=== PATIENT | female | born 1930 | race Caucasian/White ===

== ENCOUNTER 2016-10-14 19:41 | Inpatient (IN) | payer MEDICARE, BC ==
[~2016-10-14] VITALS: Ht 152.4 cm; Wt 42.5 kg
[2016-10-14 19:46] VITALS: Ht 152.4 cm; Wt 42.5 kg
[2016-10-14] MEDS ORDERED: SOD CHLORIDE 0.9% 250 ML IV ONE (20:16)
[2016-10-14 20:27] LABS: BASOPHILS % 0.3 % (0.0-2.0); EOSINOPHILS # 0.4 10^3/ul (0.0-0.5); EOSINOPHILS % 2.8 % (0.0-7.0); HEMATOCRIT 25.9 % (37.0-47.0); HEMOGLOBIN 7.2 g/dl (12.0-16.0); LYMPHOCYTES # 1.4 10^3/ul (0.8-2.9); LYMPHOCYTES % 10.2 % (15.0-51.0); MEAN CORPUSCULAR HEMOGLOBIN 18.2 pg (29.0-33.0); MEAN CORPUSCULAR HGB CONC 27.8 g/dl (32.0-37.0); MEAN CORPUSCULAR VOLUME 65.6 fl (82.0-101.0); MEAN PLATELET VOLUME 9.8 fl (7.4-10.4); MONOCYTE # 1.2 10^3/ul (0.3-0.9); MONOCYTES % 8.4 % (0.0-11.0); NEUTROPHIL # 10.6 10^3/ul (1.6-7.5); NEUTROPHILS % 77.6 % (39.0-77.0); PLATELET COUNT 493 10^3/UL (140-415); RED BLOOD COUNT 3.95 10^6/ul (4.20-5.40); RED CELL DISTRIBUTION WIDTH 18.3 % (11.5-14.5); WHITE BLOOD COUNT 13.7 10^3/ul (4.8-10.8)
[2016-10-14 20:49] LABS: ADD SCAN DIFF NO
[2016-10-14 20:51] LABS: INR 0.98; PARTIAL THROMBOPLASTIN TIME 30.3 Sec (25.0-35.0)
[2016-10-14 20:58] LABS: ALBUMIN 3.5 g/dl (3.3-4.9); ALBUMIN/GLOBULIN RATIO 1.29; BILIRUBIN,INDIRECT 0.1 mg/dl (0-1.1); BILIRUBIN,TOTAL 0.1 mg/dl (0.2-1.3); CREATININE 1.02 mg/dl (0.44-1.00); TOTAL PROTEIN 6.2 g/dl (6.1-8.1)
[2016-10-14 21:03] LABS: POTASSIUM 2.7 mmol/L (3.5-5.1)
[2016-10-14 21:09] LABS: TROPONIN-I 0.017 ng/ml (0.00-0.12)
[2016-10-14] MEDS: SOD CHLORIDE 0.9% 1,000 ML IV SCH (21:26)
[2016-10-14] MEDS ORDERED: NACL 0.9% 3 ML SYG IV SCH (21:30)
[2016-10-14] MEDS ORDERED: ONDANSETRON 4 MG INJ IV PRN ×2 (21:30)
[2016-10-14] MEDS ORDERED: BISACODYL (EC) 5 MG TAB PO PRN (21:30)
[2016-10-14] MEDS ORDERED: ZOLPIDEM 5 MG TAB PO PRN (21:30)
[2016-10-14] MEDS ORDERED: DOCUSATE SODIUM 100 MG CAP PO PRN (21:30)
[2016-10-14] MEDS: POTASSIUM CHLORIDE (SR) 20 MEQ TAB PO STA ×2 (21:39→21:50)
--- NOTE | 2016-10-14 21:52 | RADRPT ---
PROCEDURE: CT Abdomen and Pelvis without contrast. CLINICAL INDICATION: Abdominal distension, anemia. TECHNIQUE: A CT scan of the abdomen and pelvis was performed without intravenous contrast. Reyes l and sagittal reformatted images were generated. Images were reviewed on a high-resolution PACS wor kstation. CTDIvol: 4.30 mGy. DLP: 206.74 mGy-cm. One or more of the following dose reduction techniques were used: - Automated exposure control. - Adjustment of the mA and/or kV according to patient size. - Use of iterative reconstruction technique. COMPARISON: None. FINDINGS: There is a small to moderate pericardial effusion. Partially imaged nodular soft tissue measuring 7. 6 x 5.7 cm (AP by TR) is seen along the right side of the heart. There are soft tissue nodules in th e right pleural fluid measuring up to 1.0 x 2.6 cm a 1.2 x 0.5 cm nodule is also noted along the rig ht major fissure. There are mild atelectatic changes in both lungs. Evaluation of the abdominal and pelvic viscera is limited by the lack of oral and intravenous contra st. There are branching gaseous lucencies in both hepatic lobes, probably representing portal venous gas . The patient is status post cholecystectomy. The common bile duct is not dilated. The spleen is no t enlarged. No pancreatic lesion is identified and there is no pancreatic ductal dilatation. The adr enal glands are unremarkable. The kidneys are normal in size. There is no perinephric fat stranding. No hydronephrosis is seen. No urinary stone is identified. There is a large hiatal hernia. There is gaseous distension of the small and large bowel, without ev idence of a bowel obstruction. A nonspecific 1.9 x 2.6 cm radiodensity is seen within a small bowel loop in the central abdominopelvic region (series 3 image 111), nonspecific. There may be pneumatosi s intestinalis along a few small bowel loops in the central abdomen. The appendix is normal. The urinary bladder is unremarkable. The pelvic organs are within normal limits. No lymphadenopathy is identified. There is diffuse anasarca. No ascites is identified. No pneumoper itoneum is seen. There are minimal arterial calcifications. There is a 1.5 x 1.2 cm lytic lesion in the anterior iliac bone. There is grade 1 degenerative L4 an terolisthesis. A very mild T12 compression fracture is noted, age indeterminate. IMPRESSION: 1. Branching gaseous lucencies in both hepatic lobes, probably representing portal venous gas. The re may be a pneumatosis intestinalis along a few small bowel loops in the central abdomen, raising t he possibility of bowel ischemia. Correlation with lactate levels is recommended. 2. Gaseous distension of the small and large bowel, without evidence of bowel obstruction. This pr obably represents an adynamic ileus. 3. Nonspecific 2.6 cm radiodensity within a small bowel loop in the central abdominopelvic region, possibly a metastatic lesion. 4. Nodular soft tissue density along the right side of the heart, consistent with metastatic diseas e. There are also several metastatic soft tissue nodules in the right pleural space and a 1.5 cm ly tic lesion in the right iliac bone. 5. Large hiatal hernia. 6. Status post cholecystectomy. 7. Diffuse anasarca. 8. Very mild T12 compression fracture is noted, age indeterminate. 9. Small bilateral pleural effusion, right larger than left, and a small to moderate pericardial ef fusion. RPTAT: HTAR .Yohannes Villalobos MD, Date Time Electronically viewed and signed by .Yohannes Villalobos MD, on 10/14/2016 21:51 .R/
[2016-10-14] MEDS ORDERED: POTASSIUM CHLORIDE 20 MEQ POWDER FOR ORAL SOLN PO ONE (22:00)
--- NOTE | 2016-10-14 22:05 | ERA ---
ER Documentation Chief Complaint Date/Time DATE: 10/14/16 TIME: 22:01 Chief Complaint sent by pmd for low hemoglobin HPI Patient is an 86-year-old female with hypertension and anemia who presents with a low blood count. She said that her hemoglobin was approximately 5.7. She denies bleeding. She denies black or bloody stools. She has no fevers. She has never had a blood transfusion. She has never had a colonoscopy. Upon review of old medical records this is the patient's first visit to the emergency department. She was sent in by her primary doctor Dr. Albrecht for admission and transfusion. ROS All systems reviewed and are negative except as per history of present illness. Allergies Allergies: Coded Allergies: acetaminophen (Verified Allergy, Unknown, 10/14/16) hydrocodone (Verified Allergy, Unknown, 10/14/16) meclizine (Verified Allergy, Unknown, 10/14/16) meperidine (Verified Allergy, Unknown, 10/14/16) propoxyphene (Verified Allergy, Unknown, 10/14/16) PMhx/Soc Positive for hypertension and anemia Hx Alcohol Use: No Hx Substance Use: No Hx Tobacco Use: No Smoking Status: Never smoker FmHx Family History: diabetes Physical Exam Vitals Vital Signs Date Time Temp Pulse Resp B/P Pulse Ox O2 Delivery O2 Flow Rate FiO2 10/14/16 19:46 97.3 81 18 101/55 100 Physical Exam Const: No acute distress Head: Atraumatic Eyes: Normal Conjunctiva ENT: Normal External Ears, Nose and Mouth. Neck: Full range of motion..~ No meningismus. Resp: Clear to auscultation bilaterally Cardio: Regular rate and rhythm, no murmurs Abd: Distended abdomen without pain Skin: Pale skin Back: No midline or flank tenderness Ext: No cyanosis, or edema Neur: Awake and alert Psych: Normal Mood and Affect Result Diagram: 10/14/16201410/14/162014 Results 24 hrs Laboratory Tests Test 10/14/16 20:15 White Blood Count 13.710^3/ul Red Blood Count 3.9510^6/ul Hemoglobin 7.2g/dl Hematocrit 25.9% Mean Corpuscular Volume 65.6fl Mean Corpuscular Hemoglobin 18.2pg Mean Corpuscular Hemoglobin Concent 27.8g/dl Red Cell Distribution Width 18.3% Platelet Count 69557^3/UL Mean Platelet Volume 9.8fl Neutrophils % 77.6% Lymphocytes % 10.2% Monocytes % 8.4% Eosinophils % 2.8% Basophils % 0.3% Nucleated Red Blood Cells % 0.0/100WBC Neutrophils # 10.610^3/ul Lymphocytes # 1.410^3/ul Monocytes # 1.210^3/ul Eosinophils # 0.410^3/ul Basophils # 0.010^3/ul Nucleated Red Blood Cells # 0.010^3/ul Prothrombin Time 13.0Sec Prothrombin Time Ratio 1.0 INR International Normalized Ratio 0.98 Activated Partial Thromboplast Time 30.3Sec Sodium Level 137mmol/L Potassium Level 2.7mmol/L Chloride Level 101mmol/L Carbon Dioxide Level 26mmol/L Anion Gap 13 Blood Urea Nitrogen 32mg/dl Creatinine 1.02mg/dl Glucose Level 114mg/dl Calcium Level 8.0mg/dl Total Bilirubin 0.1mg/dl Direct Bilirubin 0.00mg/dl Indirect Bilirubin 0.1mg/dl Aspartate Amino Transf (AST/SGOT) 26IU/L Alanine Aminotransferase (ALT/SGPT) 24IU/L Alkaline Phosphatase 140IU/L Troponin I 0.017ng/ml Total Protein 6.2g/dl Albumin 3.5g/dl Globulin 2.70g/dl Albumin/Globulin Ratio 1.29 Current Medications Medications (Trade) Dose Ordered Sig/Rogelio Route PRN Reason Start Time Stop Time Status Last Admin Dose Admin Sodium Chloride (NS) 250 ml @ 0 mls/hr Q0M ONCE IV 10/14/16 20:16 10/14/16 20:18 DC Potassium Chloride (Klor-Con 20) 40 meq ONCE STAT PO 10/14/16 21:03 10/14/16 21:04 DC Ondansetron HCl 4 mg 4 mg ER BRIDGE PRN IV NAUSEA AND/OR VOMITING 10/14/16 21:30 10/14/16 21:44 DC Sodium Chloride (NS) 1,000 ml @ 75 mls/hr [id number] IV 10/14/16 21:26 IV Flush (NS 3 ml) 3 ml PER PROTOCOL IV 10/14/16 21:30 Ondansetron HCl (Zofran Inj) 4 mg Q6H PRN IV NAUSEA AND/OR VOMITING 10/14/16 21:30 Acetaminophen (Tylenol Tab) 650 mg Q6H PRN PO PAIN LEVEL 1-3 OR FEVER 10/14/16 21:30 Zolpidem Tartrate (Ambien) 5 mg QHS PRN PO INSOMNIA 10/14/16 21:30 Docusate Sodium (Colace) 100 mg Q12H PRN PO CONSTIPATION 10/14/16 21:30 Bisacodyl (Dulcolax) 5 mg DAILY PRN PO CONSTIPATION 10/14/16 21:30 Pantoprazole (Protonix Iv) 40 mg DAILY@06 IV 10/15/16 06:00 Potassium Chloride (Potassium Chloride Pwd/Soln) 40 meq ONCE ONCE PO 10/14/16 22:00 10/14/16 22:01 Procedures/MDM EKG read by me: Rate/Rhythm: Right bundle branch block a rate of 75 Intervals: Normal Impression: Right bundle branch block without ischemia PROCEDURE: CT Abdomen and Pelvis without contrast. CLINICAL INDICATION: Abdominal distension, anemia. TECHNIQUE: A CT scan of the abdomen and pelvis was performed without intravenous contrast. Coronal and sagittal reformatted images were generated. Images were reviewed on a high-resolution PACS workstation. CTDIvol: 4.30 mGy. DLP: 206.74 mGy-cm. One or more of the following dose reduction techniques were used: - Automated exposure control. - Adjustment of the mA and/or kV according to patient size. - Use of iterative reconstruction technique. COMPARISON: None. FINDINGS: There is a small to moderate pericardial effusion. Partially imaged nodular soft tissue measuring 7.6 x 5.7 cm (AP by TR) is seen along the right side of the heart. There are soft tissue nodules in the right pleural fluid measuring up to 1.0 x 2.6 cm a 1.2 x 0.5 cm nodule is also noted along the right major fissure. There are mild atelectatic changes in both lungs. Evaluation of the abdominal and pelvic viscera is limited by the lack of oral and intravenous contrast. There are branching gaseous lucencies in both hepatic lobes, probably representing portal venous gas. The patient is status post cholecystectomy. The common bile duct is not dilated. The spleen is not enlarged. No pancreatic lesion is identified and there is no pancreatic ductal dilatation. The adrenal glands are unremarkable. The kidneys are normal in size. There is no perinephric fat stranding. No hydronephrosis is seen. No urinary stone is identified. There is a large hiatal hernia. There is gaseous distension of the small and large bowel, without evidence of a bowel obstruction. A nonspecific 1.9 x 2.6 cm radiodensity is seen within a small bowel loop in the central abdominopelvic region (series 3 image 111), nonspecific. There may be pneumatosis intestinalis along a few small bowel loops in the central abdomen. The appendix is normal. The urinary bladder is unremarkable. The pelvic organs are within normal limits. No lymphadenopathy is identified. There is diffuse anasarca. No ascites is identified. No pneumoperitoneum is seen. There are minimal arterial calcifications. There is a 1.5 x 1.2 cm lytic lesion in the anterior iliac bone. There is grade 1 degenerative L4 anterolisthesis. A very mild T12 compression fracture is noted, age indeterminate. IMPRESSION: 1. Branching gaseous lucencies in both hepatic lobes, probably representing portal venous gas. There may be a pneumatosis intestinalis along a few small bowel loops in the central abdomen, raising the possibility of bowel ischemia. Correlation with lactate levels is recommended. 2. Gaseous distension of the small and large bowel, without evidence of bowel obstruction. This probably represents an adynamic ileus. 3. Nonspecific 2.6 cm radiodensity within a small bowel loop in the central abdominopelvic region, possibly a metastatic lesion. 4. Nodular soft tissue density along the right side of the heart, consistent with metastatic disease. There are also several metastatic soft tissue nodules in the right pleural space and a 1.5 cm lytic lesion in the right iliac bone. 5. Large hiatal hernia. 6. Status post cholecystectomy. 7. Diffuse anasarca. 8. Very mild T12 compression fracture is noted, age indeterminate. 9. Small bilateral pleural effusion, right larger than left, and a small to moderate pericardial effusion. RPTAT: HTAR .Yohannes Villalobos MD, MD Date Time Electronically viewed and signed by .Yohannes Villalobos MD, MD on 10/14/2016 21:51 Patient is an 86-year-old female with hypertension and anemia who presents with low blood count. She was found to have a hemoglobin of 7.2 and will require transfusion. I have ordered 2 units of packed red blood cells. The patient also was found to have distended abdomen so did a CT scan which was read by radiology showing multiple findings. There was question about ischemic bowel but clinically she does not have ischemic bowel, however I did add on a lactic acid as recommended by radiology. The patient will be admitted to the care of Dr. Allen from the panel team for further workup and treatment. She has signs of metastatic disease on CT scan and may need further workup for this as she told me she does not have any history of cancer. The patient has hypokalemia with a potassium of 2.7 and was given potassium repletion in the emergency department. Critical Care: Time: 35 minutes excluding all billable procedures. Treatments/Evaluations: Close monitoring and treatment of unstable vital signs, cardiorespiratory, and neurologic status, while maintaining tight balance of fluid, respiratory, and cardiac interventions. Departure Diagnosis: Primary Impression: Anemia Qualified Code: D64.9 - Anemia, unspecified type Additional Impression: Hypokalemia Condition: Serious VIRY HEAD MD Oct 14, 2016 22:05
[2016-10-14 22:55] LABS: IRON 19 ug/dl (35-150)
[2016-10-14 23:05] LABS: TOTAL IRON BINDING CAPACITY 329 ug/dl (241-421)
[2016-10-14 23:21] LABS: C-REACTIVE PROTEIN 2.4 mg/dl (0.0-0.9)
--- NOTE | 2016-10-14 23:22 | HP ---
Date/Time of Note Date/Time of Note DATE: 10/14/16 TIME: 23:22 Assessment/Plan VTE Prophylaxis VTE Prophylaxis Intervention: SCD's Assessment/Plan Chief Complaint/Hosp Course This is a 86-year-old female being admitted to the telemetry floor for: #1 symptomatic anemia: At the current time patient denies any overt bleeding except for occasional blood that she notices when wiping from her hemorrhoids. Her CAT scan did demonstrate multiple lesions in various locations. At the current time cancer is high on the differential as well as iron deficient anemia secondary to poor appetite. At the current time patient is being transfused 2 units of PRBCs. I will order iron studies. Will order tumor markers. Will consult hematology. Will send for fecal occult stool. Of note there was also concern for possible bowel ischemia based on the CAT scan findings. Patient's initial lactate was 1.8 and based on my examination I feel that ischemia is less likely at this time. However we will continue will continue to trend the lactate and monitor for any worsening of symptoms. There was also signs of possible pneumatosis intestinalis. We will also consult GI for further recommendations as well as possibly general surgery is indicated. #2 Difficulty swallowing: Patient does report decreased appetite and at times she has difficulty swallowing certain foods. Will consult GI. #3 hypokalemia: This could be secondary to poor p.o. intake as well as side effect of some of her blood pressure medications. Will replete. #4 leukocytosis: At the current time patient does not show any signs of infection no fever. No cough or urinary symptoms. Will continue to follow this. This could be related to possible cancer diagnosis however the etiology not fully known at this time. #5 hypertension: At the current time will hold patient's home blood pressure medications until blood transfusions are complete and blood pressures were stable. #6 DVT and GI prophylaxis: SCDs, Protonix. Further treatment strategy will be implemented as per the clinical course Problems: HPI/ROS Admit Date/Time Admit Date/Time Hx of Present Illness Patient is an 86-year-old female with hypertension and anemia who presents with a low blood count. She said that her hemoglobin was approximately 5.7. She denies bleeding. She denies black or bloody stools. She has no fevers. She has never had a blood transfusion. She has never had a colonoscopy. Upon review of old medical records this is the patient's first visit to the emergency department. She was sent in by her primary doctor Dr. Albrecht for admission and transfusion of note patient does state that for the last few months she has been feeling weaker. Her family is at the bedside with her and they also state that she has not been eating much as she has had a decreased appetite. Patient also states that at times she has difficulty digesting certain foods. Allergies: Acetaminophen, hydrocodone, meclizine, meperidine, propoxyphene, Darvan, Vicodin Medications: See SUNIL HERRING Const: As per HPI Eyes : No pain discharge or redness or change in visual acuity ENT: No pain, sore throat, congestion, congestion, dysphagia or discharge Respiratory: No shortness of breath, cough, sputum, wheezing, or pleuritic pain Cardiovascular: No chest pain, palpitation, PND, or edema GI : As per HPI Genitourinary: No dysuria, hematuria, flank pain , discharge or CVA tenderness Musculoskeletal: No joint pain, back pain, neck pain, restricted range of motion in neck or joints Skin: No rash, bruising or hives Neuro: No headache, dizziness, syncope, seizure, focal weakness Endocrine: No polyuria, polydipsia, temperature intolerance Psych: No hallucination, depression, anxiety or suicidal ideation PMH/Family/Social Past Medical History Hypertension, arthritis Past Surgical History Cholecystectomy Family History Significant Family History: cancer (Cervical cancer, lymphoma) Social History Alcohol Use: none Smoking Status: Never smoker Drug Use: none Exam/Review of Systems Vital Signs Vitals Vital Signs Date Time Temp Pulse Resp B/P Pulse Ox O2 Delivery O2 Flow Rate FiO2 10/14/16 22:01 72 20 91/46 100 Room Air 10/14/16 19:46 97.3 Exam Exam General: Patient is a pleasant, frail-appearing female HEENT: Atraumatic, normocephalic. The pupils are equal, round and reactive. Extraocular motor are intact Neck: Supple with full range of motion. No rigidity or meningismus Chest: Nontender Lungs: Clear to auscultation bilaterally no crackles rales or wheezing Heart: Normal S1-S2, Regular rhythm and rate. Abdomen: Soft , nontender, nondistended , bowel sounds are present. No guarding no rebound tenderness , No masses or organomegaly. No costovertebral temporal angle mass Extremities: Mild nonpitting edema noted on the right foot, right foot greater than left. Neurologic: Normal mental status, speech normal, cranial nerves II through XII are intact, motor and sensory are intact, no focal weakness Additional Comments PROCEDURE: CT Abdomen and Pelvis without contrast. CLINICAL INDICATION: Abdominal distension, anemia. TECHNIQUE: A CT scan of the abdomen and pelvis was performed without intravenous contrast. Coronal and sagittal reformatted images were generated. Images were reviewed on a high-resolution PACS workstation. CTDIvol: 4.30 mGy. DLP: 206.74 mGy-cm. One or more of the following dose reduction techniques were used: - Automated exposure control. - Adjustment of the mA and/or kV according to patient size. - Use of iterative reconstruction technique. COMPARISON: None. FINDINGS: There is a small to moderate pericardial effusion. Partially imaged nodular soft tissue measuring 7.6 x 5.7 cm (AP by TR) is seen along the right side of the heart. There are soft tissue nodules in the right pleural fluid measuring up to 1.0 x 2.6 cm a 1.2 x 0.5 cm nodule is also noted along the right major fissure. There are mild atelectatic changes in both lungs. Evaluation of the abdominal and pelvic viscera is limited by the lack of oral and intravenous contrast. There are branching gaseous lucencies in both hepatic lobes, probably representing portal venous gas. The patient is status post cholecystectomy. The common bile duct is not dilated. The spleen is not enlarged. No pancreatic lesion is identified and there is no pancreatic ductal dilatation. The adrenal glands are unremarkable. The kidneys are normal in size. There is no perinephric fat stranding. No hydronephrosis is seen. No urinary stone is identified. There is a large hiatal hernia. There is gaseous distension of the small and large bowel, without evidence of a bowel obstruction. A nonspecific 1.9 x 2.6 cm radiodensity is seen within a small bowel loop in the central abdominopelvic region (series 3 image 111), nonspecific. There may be pneumatosis intestinalis along a few small bowel loops in the central abdomen. The appendix is normal. The urinary bladder is unremarkable. The pelvic organs are within normal limits. No lymphadenopathy is identified. There is diffuse anasarca. No ascites is identified. No pneumoperitoneum is seen. There are minimal arterial calcifications. There is a 1.5 x 1.2 cm lytic lesion in the anterior iliac bone. There is grade 1 degenerative L4 anterolisthesis. A very mild T12 compression fracture is noted, age indeterminate. IMPRESSION: 1. Branching gaseous lucencies in both hepatic lobes, probably representing portal venous gas. There may be a pneumatosis intestinalis along a few small bowel loops in the central abdomen, raising the possibility of bowel ischemia. Correlation with lactate levels is recommended. 2. Gaseous distension of the small and large bowel, without evidence of bowel obstruction. This probably represents an adynamic ileus. 3. Nonspecific 2.6 cm radiodensity within a small bowel loop in the central abdominopelvic region, possibly a metastatic lesion. 4. Nodular soft tissue density along the right side of the heart, consistent with metastatic disease. There are also several metastatic soft tissue nodules in the right pleural space and a 1.5 cm lytic lesion in the right iliac bone. 5. Large hiatal hernia. 6. Status post cholecystectomy. 7. Diffuse anasarca. 8. Very mild T12 compression fracture is noted, age indeterminate. 9. Small bilateral pleural effusion, right larger than left, and a small to moderate pericardial effusion. RPTAT: HTAR .Yohannes Villalobos MD, MD Date Time Electronically viewed and signed by .Yohannes Villalobos MD, MD on 10/14/2016 21:51 Labs Result Diagram: 10/14/16201410/14/162014 Medications Medications Current Medications Sodium Chloride (NS) 1,000 ml @ 75 mls/hr [id number] IV ; Start 10/14/16 at 21:26 Ondansetron HCl (Zofran Inj) 4 mg Q6H PRN IV NAUSEA AND/OR VOMITING; Start 10/14 at 21:30 Acetaminophen (Tylenol Tab) 650 mg Q6H PRN PO PAIN LEVEL 1-3 OR FEVER; Start at 21:30 Zolpidem Tartrate (Ambien) 5 mg QHS PRN PO INSOMNIA; Start 10/14/16 at 21:30 Docusate Sodium (Colace) 100 mg Q12H PRN PO CONSTIPATION; Start 10/14/16 at 21: 30 Bisacodyl (Dulcolax) 5 mg DAILY PRN PO CONSTIPATION; Start 10/14/16 at 21:30 Pantoprazole (Protonix Iv) 40 mg DAILY@06 IV ; Start 10/15/16 at 06:00 VIKI TORRES Oct 14, 2016 23:22
[2016-10-14 23:34] VITALS: TEMP 98.6
[2016-10-14 23:57] LABS: ADD UMIC YES; UR ASCORBIC ACID NEGATIVE (NEGATIVE); UR BILIRUBIN (Dip) NEGATIVE (NEGATIVE); UR BLOOD (Dip) NEGATIVE (NEGATIVE); UR CLARITY SLIGHTLY CLOUDY (CLEAR); UR COLOR AMBER (YELLOW); UR GLUCOSE (Dip) NEGATIVE (NEGATIVE); UR KETONES (Dip) TRACE mg/dL (NEGATIVE); UR LEUKOCYTE ESTERASE (Dip) 1+ Leu/ul (NEGATIVE); UR MUCUS FEW /HPF (NONE SEEN); UR NITRITE (Dip) NEGATIVE (NEGATIVE); UR RBC 1 /HPF (0-5); UR SPECIFIC GRAVITY (Dip) 1.019 (1.003-1.030); UR SQUAMOUS EPITHELIAL CELL FEW /HPF (FEW); UR TOTAL PROTEIN (Dip) NEGATIVE (NEGATIVE); UR UROBILINOGEN (Dip) NEGATIVE (NEGATIVE)
[2016-10-15] VITALS (11 sets, daily range): BP systolic 104–123; BP diastolic 56–73; PULSE 68–78; RESP 16–18
[2016-10-15 00:14] LABS: FERRITIN 56.1 ng/ml (11.1-264.0)
[2016-10-15 00:21] LABS: CARCINOEMBRYONIC ANTIGEN 1.7 ng/ml (0.0-5.0)
[2016-10-15 00:25] LABS: CANCER ANTIGEN 19-9 25.6 U/ml (0.0-37.0)
[2016-10-15] MEDS ORDERED: LOSA1TAB20 PO (01:00)
[2016-10-15] MEDS ORDERED: ATEN50TA PO (01:00)
[2016-10-15] MEDS ORDERED: BIOT1CAP3 PO (01:00)
[2016-10-15] MEDS ORDERED: LISI20TA11 PO (01:00)
[2016-10-15] MEDS ORDERED: ASPI-664 PO (01:00)
[2016-10-15] MEDS ORDERED: POTASSIUM CHLORIDE IV ONE (02:30)
[2016-10-15] MEDS ORDERED: SOD CHLORIDE 0.9% IV ONE (02:30)
[2016-10-15] MEDS ORDERED: SOD CHLORIDE 0.9% IV SCH (03:00)
[2016-10-15] MEDS ORDERED: POTASSIUM CHLORIDE IV SCH (03:00)
[2016-10-15] MEDS ORDERED: PANTOPRAZOLE 40 MG INJ IV SCH ×2 (06:00→17:35)
[2016-10-15 08:04] LABS: ABNORMAL IP MESSAGE 1; BASOPHILS % 0.5 % (0.0-2.0); EOSINOPHILS # 0.5 10^3/ul (0.0-0.5); EOSINOPHILS % 6.1 % (0.0-7.0); HEMATOCRIT 30.4 % (37.0-47.0); HEMOGLOBIN 9.4 g/dl (12.0-16.0); LYMPHOCYTES # 0.9 10^3/ul (0.8-2.9); LYMPHOCYTES % 11.7 % (15.0-51.0); MEAN CORPUSCULAR HEMOGLOBIN 22.6 pg (29.0-33.0); MEAN CORPUSCULAR HGB CONC 30.9 g/dl (32.0-37.0); MEAN CORPUSCULAR VOLUME 73.1 fl (82.0-101.0); MONOCYTE # 0.8 10^3/ul (0.3-0.9); MONOCYTES % 10.1 % (0.0-11.0); NEUTROPHIL # 5.5 10^3/ul (1.6-7.5); NEUTROPHILS % 71.3 % (39.0-77.0); PLATELET COUNT 311 10^3/UL (140-415); RED BLOOD COUNT 4.16 10^6/ul (4.20-5.40); RED CELL DISTRIBUTION WIDTH 24.1 % (11.5-14.5); WHITE BLOOD COUNT 7.8 10^3/ul (4.8-10.8)
[2016-10-15 08:09] LABS: ADD SCAN DIFF NO
--- NOTE | 2016-10-15 08:36 | CONS ---
Date/Time of Note Date/Time of Note DATE: 10/15/16 TIME: 08:27 Assessment/Plan Assessment/Plan Chief Complaint/Hosp Course Impression: #1 symptomatic iron deficiency anemia: At the current time patient denies any overt bleeding except for occasional blood that she notices when wiping from her hemorrhoids. Her CAT scan did demonstrate multiple lesions in various locations. At the current time cancer is high on the differential #2 Dysphagia: Patient does report decreased appetite and at times she has difficulty swallowing certain foods. She declines EGD at this time. 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 This is a contraindication to endoscopic procedure as high risk of perforation. #4 leukocytosis: At the current time patient does not show any signs of infection no fever. No cough or urinary symptoms. Recommendation: 1. 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 heme/onc eval on best w/u for her multiple lesions. 3. protonix 40 mg iv bid 4. f/u occult blood in stool Problems: Consultation Date/Type/Reason Admit Date/Time Date of Consultation: Oct 15, 2016 Type of Consultation: GI Reason for Consultation dysphagia, anemia Hx of Present Illness 86-year-old female who is admitted for symptomatic anemia and dysphagia. She has h/ohypertension, arthritis, and anemia who presents with a low blood count. She said that her hemoglobin was approximately 5.7. No black or bloody stools. She has no fevers. She has never had a blood transfusion. She has never had a colonoscopy or EGD. Patient does state that for the last few months she has been feeling weaker. She has not been eating much as she has had a decreased appetite. Patient also states that at times she has difficulty digesting certain foods. Due to the dysphagia symptoms, she has been eating soft food. All point ROS administered, pertinent positives and negatives in HPI otherwise negative. Past Medical History chronic anemia, arthritis Medical History: GERD, hypertension Past Surgical History Past Surgical Hx: cholecystectomy Family History Significant Family History: cancer (cervical, lymphoma) Social History Alcohol Use: none Smoking Status: Never smoker Drug Use: none Exam/Review of Systems Vital Signs Vitals Vital Signs Date Time Temp Pulse Resp B/P Pulse Ox O2 Delivery O2 Flow Rate FiO2 10/15/16 07:50 98.0 70 18 104/57 98 10/15/16 04:12 Room Air Intake and Output 10/14/16 10/14/16 10/15/16 15:00 23:00 07:00 Intake Total 350 ml Balance 350 ml Exam Constitutional: alert, oriented, well developed Psych: nl mood/affect, no complaints Head: atraumatic, normocephalic Eyes: EOMI, nl conjunctiva, nl lids, nl sclera ENMT: mucosa pink and moist, nl external ears & nose, nl lips & teeth, nl nasal mucosa & septum Neck: non-tender, supple Respiratory: clear to auscultation, normal air movement Cardiovascular: nl pulses, regular rate and rhythm Gastrointestinal: bowel sounds, non-tender, soft Musculoskeletal: nl extremities to inspection, nl gait and stance Neurological: nl mental status, nl speech, nl strength Results Result Diagram: 10/15/16 0720 10/14/162014 Results 24 hrs Laboratory Tests Test 10/14/16 20:15 10/14/16 20:20 10/14/16 22:00 10/15/16 03:30 White Blood Count 13.7 H Red Blood Count 3.95 L Hemoglobin 7.2 L Hematocrit 25.9 L Mean Corpuscular Volume 65.6 L Mean Corpuscular Hemoglobin 18.2 L Mean Corpuscular Hemoglobin Concent 27.8 L Red Cell Distribution Width 18.3 H Platelet Count 493 H Mean Platelet Volume 9.8 Neutrophils % 77.6 H Lymphocytes % 10.2 L Monocytes % 8.4 Eosinophils % 2.8 Basophils % 0.3 Nucleated Red Blood Cells % 0.0 Neutrophils # 10.6 H Lymphocytes # 1.4 Monocytes # 1.2 H Eosinophils # 0.4 Basophils # 0.0 Nucleated Red Blood Cells # 0.0 Prothrombin Time 13.0 Prothrombin Time Ratio 1.0 INR International Normalized Ratio 0.98 Activated Partial Thromboplast Time 30.3 Sodium Level 137 Potassium Level 2.7 *L Chloride Level 101 Carbon Dioxide Level 26 Anion Gap 13 Blood Urea Nitrogen 32 H Creatinine 1.02 H Glucose Level 114 Calcium Level 8.0 L Total Bilirubin 0.1 L Direct Bilirubin 0.00 Indirect Bilirubin 0.1 Aspartate Amino Transf (AST/SGOT) 26 Alanine Aminotransferase (ALT/SGPT) 24 Alkaline Phosphatase 140 H Troponin I 0.017 Total Protein 6.2 Albumin 3.5 Globulin 2.70 Albumin/Globulin Ratio 1.29 Urine Color ROGERS Urine Clarity SLIGHTLY CLOUDY A Urine pH 5.0 Urine Specific [place] 1.019 Urine Ketones TRACE A Urine Nitrite NEGATIVE Urine Bilirubin NEGATIVE Urine Urobilinogen NEGATIVE Urine Leukocyte Esterase 1+ H Urine Microscopic RBC 1 Urine Microscopic WBC 12 H Urine Squamous Epithelial Cells FEW Urine Mucus FEW A Urine Hemoglobin NEGATIVE Urine Glucose NEGATIVE Urine Total Protein NEGATIVE Erythrocyte Sedimentation Rate 11 Lactic Acid Level 1.8 1.5 Iron Level 19 L Total Iron Binding Capacity 329 Percent Iron Saturation 6 L Ferritin 56.1 C-Reactive Protein 2.4 H Carcinoembryonic Antigen 1.7 CA 19-9 Antigen 25.6 CA 125 Antigen 40.0 H Test 10/15/16 07:20 White Blood Count 7.8 # Red Blood Count 4.16 L Hemoglobin 9.4 #L Hematocrit 30.4 L Mean Corpuscular Volume 73.1 L Mean Corpuscular Hemoglobin 22.6 #L Mean Corpuscular Hemoglobin Concent 30.9 L Red Cell Distribution Width 24.1 #H Platelet Count 311 # Mean Platelet Volume 10.0 Neutrophils % 71.3 Lymphocytes % 11.7 L Monocytes % 10.1 Eosinophils % 6.1 Basophils % 0.5 Nucleated Red Blood Cells % 0.0 Neutrophils # 5.5 Lymphocytes # 0.9 Monocytes # 0.8 Eosinophils # 0.5 Basophils # 0.0 Nucleated Red Blood Cells # 0.0 Medications Medications Current Medications Sodium Chloride (NS) 1,000 ml @ 75 mls/hr [id number] IV ; Start 10/14/16 at 21:26 Ondansetron HCl (Zofran Inj) 4 mg Q6H PRN IV NAUSEA AND/OR VOMITING; Start 10/14 at 21:30 Acetaminophen (Tylenol Tab) 650 mg Q6H PRN PO PAIN LEVEL 1-3 OR FEVER; Start at 21:30 Zolpidem Tartrate (Ambien) 5 mg QHS PRN PO INSOMNIA; Start 10/14/16 at 21:30 Docusate Sodium (Colace) 100 mg Q12H PRN PO CONSTIPATION; Start 10/14/16 at 21: 30 Bisacodyl (Dulcolax) 5 mg DAILY PRN PO CONSTIPATION; Start 10/14/16 at 21:30 Pantoprazole (Protonix Iv) 40 mg DAILY@06 IV Last administered on 10/15/16t 05: 27; Admin Dose 40 MG; Start 10/15/16 at 06:00 RILEY MANSFIELD MD Oct 15, 2016 08:36 RILEY MANSFIELD MD Oct 15, 2016 08:36
[2016-10-15] MEDS: SOD CHLORIDE 0.9% 1,000 ML IV SCH ×2 (08:51→10:19)
--- NOTE | 2016-10-15 10:26 | CONS ---
Date/Time of Note Date/Time of Note DATE: 10/15/16 TIME: 10:26 Assessment/Plan Assessment/Plan Chief Complaint/Hosp Course Nodular soft tissue density along the right side of the heart, consistent with metastatic disease. several metastatic soft tissue nodules in the right pleural space and a 1.5 cm lytic lesion in the right iliac bone. Nonspecific 2.6 cm radiodensity within a small bowel loop in the central abdominopelvic region, possibly a metastatic lesion. COMPLETE STAGING WITH CT ABD TUMOR MARKERS BIOCHEMICAL W-UP BX OF ACCESSIBLE LESION symptomatic anemia: PRBC PROCEED WITH W -UP MONITOR COUNT CLOSELY OBSERVE FOR BLEEDING GI EVAL leukocytosis NO any signs of infection no fever. continue to follow this. Difficulty swallowing: WITH decreased appetite and at times she has difficulty swallowing certain foods. GI. hypokalemia: Will replete. hypertension: DVT and GI prophylaxis: SCDs, Protonix. Problems: Consultation Date/Type/Reason Admit Date/Time Date of Consultation: Oct 15, 2016 Type of Consultation: HEMEONC Reason for Consultation ABNORMAL CT BONY METS Referring Provider: VIKI TORRES Hx of Present Illness 86-year-old female who is admitted for symptomatic anemia and dysphagia. She has h/o hypertension, arthritis, and anemia who presents with a low blood count. She said that her hemoglobin was approximately 5.7. No black or bloody stools. She has no fevers. She has never had a blood transfusion. She has never had a colonoscopy or EGD. Patient does state that for the last few months she has been feeling weaker. She has not been eating much as she has had a decreased appetite. Patient also states that at times she has difficulty digesting certain foods. Due to the dysphagia symptoms, she has been eating soft food. All point ROS administered, pertinent positives and negatives in HPI otherwise negative. SHE WAS NOTED TO HAVE ABN CT WITH BONY METS AND I WAS ASKED TO PROVIDE HEMEONC CONSULT ROS- Const: As per HPI Eyes : No pain discharge or redness or change in visual acuity ENT: No pain, sore throat, congestion, congestion, dysphagia or discharge Respiratory: No shortness of breath, cough, sputum, wheezing, or pleuritic pain Cardiovascular: No chest pain, palpitation, PND, or edema GI : As per HPI Genitourinary: No dysuria, hematuria, flank pain , discharge or CVA tenderness Musculoskeletal: No joint pain, back pain, neck pain, restricted range of motion in neck or joints Skin: No rash, bruising or hives Neuro: No headache, dizziness, syncope, seizure, focal weakness Endocrine: No polyuria, polydipsia, temperature intolerance Psych: No hallucination, depression, anxiety or suicidal ideation PMH/Family/Social Past Medical History Hypertension, arthritis Past Surgical History Cholecystectomy Family History Significant Family History: cancer (Cervical cancer, lymphoma) Social History Alcohol Use: none Smoking Status: Never smoker Drug Use: none Psychological: nl mood/affect, no complaints Past Medical History Medical History: GERD, hypertension Past Surgical History Past Surgical Hx: cholecystectomy Social History Alcohol Use: none Smoking Status: Never smoker Drug Use: none Exam/Review of Systems Vital Signs Vitals Vital Signs Date Time Temp Pulse Resp B/P Pulse Ox O2 Delivery O2 Flow Rate FiO2 10/15/16 08:00 69 10/15/16 07:50 98.0 18 104/57 98 10/15/16 04:12 Room Air Intake and Output 10/14/16 10/14/16 10/15/16 15:00 23:00 07:00 Intake Total 350 ml Balance 350 ml Exam General: Patient is a pleasant, frail-appearing female HEENT: Atraumatic, normocephalic. The pupils are equal, round and reactive. Extraocular motor are intact Neck: Supple with full range of motion. No rigidity or meningismus Chest: Nontender Lungs: Clear to auscultation bilaterally no crackles rales or wheezing Heart: Normal S1-S2, Regular rhythm and rate. Abdomen: Soft , nontender, nondistended , bowel sounds are present. No guarding no rebound tenderness , No masses or organomegaly. No costovertebral temporal angle mass Extremities: Mild nonpitting edema noted on the right foot, right foot greater than left. Neurologic: Normal mental status, speech normal, cranial nerves II through XII are intact, motor and sensory are intact, no focal weakness Results Result Diagram: 10/15/1671910/14/162014 Results 24 hrs Laboratory Tests Test 10/14/16 20:15 10/14/16 20:20 10/14/16 22:00 10/15/16 03:30 White Blood Count 13.7 H Red Blood Count 3.95 L Hemoglobin 7.2 L Hematocrit 25.9 L Mean Corpuscular Volume 65.6 L Mean Corpuscular Hemoglobin 18.2 L Mean Corpuscular Hemoglobin Concent 27.8 L Red Cell Distribution Width 18.3 H Platelet Count 493 H Mean Platelet Volume 9.8 Neutrophils % 77.6 H Lymphocytes % 10.2 L Monocytes % 8.4 Eosinophils % 2.8 Basophils % 0.3 Nucleated Red Blood Cells % 0.0 Neutrophils # 10.6 H Lymphocytes # 1.4 Monocytes # 1.2 H Eosinophils # 0.4 Basophils # 0.0 Nucleated Red Blood Cells # 0.0 Prothrombin Time 13.0 Prothrombin Time Ratio 1.0 INR International Normalized Ratio 0.98 Activated Partial Thromboplast Time 30.3 Sodium Level 137 Potassium Level 2.7 *L Chloride Level 101 Carbon Dioxide Level 26 Anion Gap 13 Blood Urea Nitrogen 32 H Creatinine 1.02 H Glucose Level 114 Calcium Level 8.0 L Total Bilirubin 0.1 L Direct Bilirubin 0.00 Indirect Bilirubin 0.1 Aspartate Amino Transf (AST/SGOT) 26 Alanine Aminotransferase (ALT/SGPT) 24 Alkaline Phosphatase 140 H Troponin I 0.017 Total Protein 6.2 Albumin 3.5 Globulin 2.70 Albumin/Globulin Ratio 1.29 Urine Color ROGERS Urine Clarity SLIGHTLY CLOUDY A Urine pH 5.0 Urine Specific [place] 1.019 Urine Ketones TRACE A Urine Nitrite NEGATIVE Urine Bilirubin NEGATIVE Urine Urobilinogen NEGATIVE Urine Leukocyte Esterase 1+ H Urine Microscopic RBC 1 Urine Microscopic WBC 12 H Urine Squamous Epithelial Cells FEW Urine Mucus FEW A Urine Hemoglobin NEGATIVE Urine Glucose NEGATIVE Urine Total Protein NEGATIVE Erythrocyte Sedimentation Rate 11 Lactic Acid Level 1.8 1.5 Iron Level 19 L Total Iron Binding Capacity 329 Percent Iron Saturation 6 L Ferritin 56.1 C-Reactive Protein 2.4 H Carcinoembryonic Antigen 1.7 CA 19-9 Antigen 25.6 CA 125 Antigen 40.0 H Test 10/15/16 07:20 White Blood Count 7.8 # Red Blood Count 4.16 L Hemoglobin 9.4 #L Hematocrit 30.4 L Mean Corpuscular Volume 73.1 L Mean Corpuscular Hemoglobin 22.6 #L Mean Corpuscular Hemoglobin Concent 30.9 L Red Cell Distribution Width 24.1 #H Platelet Count 311 # Mean Platelet Volume 10.0 Neutrophils % 71.3 Lymphocytes % 11.7 L Monocytes % 10.1 Eosinophils % 6.1 Basophils % 0.5 Nucleated Red Blood Cells % 0.0 Neutrophils # 5.5 Lymphocytes # 0.9 Monocytes # 0.8 Eosinophils # 0.5 Basophils # 0.0 Nucleated Red Blood Cells # 0.0 Medications Medications Current Medications Sodium Chloride (NS) 1,000 ml @ 75 mls/hr [id number] IV Last administered on t 10:19; Admin Dose 75 MLS/HR; Start 10/14/16 at 21:26 Ondansetron HCl (Zofran Inj) 4 mg Q6H PRN IV NAUSEA AND/OR VOMITING; Start 10/14 at 21:30 Acetaminophen (Tylenol Tab) 650 mg Q6H PRN PO PAIN LEVEL 1-3 OR FEVER; Start at 21:30 Zolpidem Tartrate (Ambien) 5 mg QHS PRN PO INSOMNIA; Start 10/14/16 at 21:30 Docusate Sodium (Colace) 100 mg Q12H PRN PO CONSTIPATION; Start 10/14/16 at 21: 30 Bisacodyl (Dulcolax) 5 mg DAILY PRN PO CONSTIPATION; Start 10/14/16 at 21:30 Procedures Procedures PROCEDURE: CT Abdomen and Pelvis without contrast. CLINICAL INDICATION: Abdominal distension, anemia. TECHNIQUE: A CT scan of the abdomen and pelvis was performed without intravenous contrast. Coronal and sagittal reformatted images were generated. Images were reviewed on a high-resolution PACS workstation. CTDIvol: 4.30 mGy. DLP: 206.74 mGy-cm. One or more of the following dose reduction techniques were used: - Automated exposure control. - Adjustment of the mA and/or kV according to patient size. - Use of iterative reconstruction technique. COMPARISON: None. FINDINGS: There is a small to moderate pericardial effusion. Partially imaged nodular soft tissue measuring 7.6 x 5.7 cm (AP by TR) is seen along the right side of the heart. There are soft tissue nodules in the right pleural fluid measuring up to 1.0 x 2.6 cm a 1.2 x 0.5 cm nodule is also noted along the right major fissure. There are mild atelectatic changes in both lungs. Evaluation of the abdominal and pelvic viscera is limited by the lack of oral and intravenous contrast. There are branching gaseous lucencies in both hepatic lobes, probably representing portal venous gas. The patient is status post cholecystectomy. The common bile duct is not dilated. The spleen is not enlarged. No pancreatic lesion is identified and there is no pancreatic ductal dilatation. The adrenal glands are unremarkable. The kidneys are normal in size. There is no perinephric fat stranding. No hydronephrosis is seen. No urinary stone is identified. There is a large hiatal hernia. There is gaseous distension of the small and large bowel, without evidence of a bowel obstruction. A nonspecific 1.9 x 2.6 cm radiodensity is seen within a small bowel loop in the central abdominopelvic region (series 3 image 111), nonspecific. There may be pneumatosis intestinalis along a few small bowel loops in the central abdomen. The appendix is normal. The urinary bladder is unremarkable. The pelvic organs are within normal limits. No lymphadenopathy is identified. There is diffuse anasarca. No ascites is identified. No pneumoperitoneum is seen. There are minimal arterial calcifications. There is a 1.5 x 1.2 cm lytic lesion in the anterior iliac bone. There is grade 1 degenerative L4 anterolisthesis. A very mild T12 compression fracture is noted, age indeterminate. IMPRESSION: 1. Branching gaseous lucencies in both hepatic lobes, probably representing portal venous gas. There may be a pneumatosis intestinalis along a few small bowel loops in the central abdomen, raising the possibility of bowel ischemia. Correlation with lactate levels is recommended. 2. Gaseous distension of the small and large bowel, without evidence of bowel obstruction. This probably represents an adynamic ileus. 3. Nonspecific 2.6 cm radiodensity within a small bowel loop in the central abdominopelvic region, possibly a metastatic lesion. 4. Nodular soft tissue density along the right side of the heart, consistent with metastatic disease. There are also several metastatic soft tissue nodules in the right pleural space and a 1.5 cm lytic lesion in the right iliac bone. 5. Large hiatal hernia. 6. Status post cholecystectomy. 7. Diffuse anasarca. 8. Very mild T12 compression fracture is noted, age indeterminate. 9. Small bilateral pleural effusion, right larger than left, and a small to moderate pericardial effusion. LOUISE SANTOS MD Oct 15, 2016 10:26
[2016-10-15 10:50] LABS: ALBUMIN 2.8 g/dl (3.3-4.9); ALBUMIN/GLOBULIN RATIO 1.12; BILIRUBIN,INDIRECT 0.7 mg/dl (0-1.1); BILIRUBIN,TOTAL 0.7 mg/dl (0.2-1.3); CALCIUM 7.4 mg/dl (8.4-10.2); CREATININE 0.86 mg/dl (0.44-1.00); MAGNESIUM 1.7 mg/dl (1.7-2.5); POTASSIUM 3.6 mmol/L (3.5-5.1); TOTAL PROTEIN 5.3 g/dl (6.1-8.1)
--- NOTE | 2016-10-15 14:19 | PN ---
Date/Time of Note Date/Time of Note DATE: 10/15/16 TIME: 14:16 Assessment/Plan VTE Prophylaxis VTE Prophylaxis Intervention: SCD's Lines/Catheters IV Catheter Type (from Nrs): Peripheral IV Assessment/Plan Assessment/Plan 86 yo F presented with abd pain, found to be anemic to 7. Imaging notable for multiple soft tissue lesions in pleural space concerning for metastatic ca though primary unknown at this time .Also small pericardial effusion. PLAN GI eval for anemia, hgb improved with transfusion onc eval for lesions concerning for possible metastatic malignancy, primary unclear no evidence of cardiac tampanode at this time though will cont tele and close cardiac monitoring next steps pending onc eval PCP=Dr Mike Landry, . Per pt's request I will contact him tomorrow Subjective 24 Hr Interval Summary Free Text/Dictation Pt feels ok this AM. Regarding routine cancer screenings states she had a mammogram within the past 2 years which was normal has never had a cscope lives in the community with her daughter and granddaughter Exam/Review of Systems Vital Signs Vitals Vital Signs Date Time Temp Pulse Resp B/P Pulse Ox O2 Delivery O2 Flow Rate FiO2 10/15/16 12:21 98.0 76 18 123/58 97 10/15/16 04:12 Room Air Intake and Output 10/14/16 10/14/16 10/15/16 15:00 23:00 07:00 Intake Total 350 ml Balance 350 ml Exam nad, pleasant, sitting up in bed, wearing lipstick no mrg lungs clear abd soft no rashes CT results reviewed Results Result Diagram: 10/15/16 0720 10/15/16 1025 Results 24 hrs Laboratory Tests Test 10/14/16 20:15 10/14/16 20:20 10/14/16 22:00 10/15/16 03:30 White Blood Count 13.7 H Red Blood Count 3.95 L Hemoglobin 7.2 L Hematocrit 25.9 L Mean Corpuscular Volume 65.6 L Mean Corpuscular Hemoglobin 18.2 L Mean Corpuscular Hemoglobin Concent 27.8 L Red Cell Distribution Width 18.3 H Platelet Count 493 H Mean Platelet Volume 9.8 Neutrophils % 77.6 H Lymphocytes % 10.2 L Monocytes % 8.4 Eosinophils % 2.8 Basophils % 0.3 Nucleated Red Blood Cells % 0.0 Neutrophils # 10.6 H Lymphocytes # 1.4 Monocytes # 1.2 H Eosinophils # 0.4 Basophils # 0.0 Nucleated Red Blood Cells # 0.0 Prothrombin Time 13.0 Prothrombin Time Ratio 1.0 INR International Normalized Ratio 0.98 Activated Partial Thromboplast Time 30.3 Sodium Level 137 Potassium Level 2.7 *L Chloride Level 101 Carbon Dioxide Level 26 Anion Gap 13 Blood Urea Nitrogen 32 H Creatinine 1.02 H Glucose Level 114 Calcium Level 8.0 L Total Bilirubin 0.1 L Direct Bilirubin 0.00 Indirect Bilirubin 0.1 Aspartate Amino Transf (AST/SGOT) 26 Alanine Aminotransferase (ALT/SGPT) 24 Alkaline Phosphatase 140 H Troponin I 0.017 Total Protein 6.2 Albumin 3.5 Globulin 2.70 Albumin/Globulin Ratio 1.29 Urine Color ROGERS Urine Clarity SLIGHTLY CLOUDY A Urine pH 5.0 Urine Specific [place] 1.019 Urine Ketones TRACE A Urine Nitrite NEGATIVE Urine Bilirubin NEGATIVE Urine Urobilinogen NEGATIVE Urine Leukocyte Esterase 1+ H Urine Microscopic RBC 1 Urine Microscopic WBC 12 H Urine Squamous Epithelial Cells FEW Urine Mucus FEW A Urine Hemoglobin NEGATIVE Urine Glucose NEGATIVE Urine Total Protein NEGATIVE Erythrocyte Sedimentation Rate 11 Lactic Acid Level 1.8 1.5 Iron Level 19 L Total Iron Binding Capacity 329 Percent Iron Saturation 6 L Ferritin 56.1 C-Reactive Protein 2.4 H Carcinoembryonic Antigen 1.7 CA 19-9 Antigen 25.6 CA 125 Antigen 40.0 H Test 10/15/16 07:20 10/15/16 10:25 White Blood Count 7.8 # Red Blood Count 4.16 L Hemoglobin 9.4 #L Hematocrit 30.4 L Mean Corpuscular Volume 73.1 L Mean Corpuscular Hemoglobin 22.6 #L Mean Corpuscular Hemoglobin Concent 30.9 L Red Cell Distribution Width 24.1 #H Platelet Count 311 # Mean Platelet Volume 10.0 Neutrophils % 71.3 Lymphocytes % 11.7 L Monocytes % 10.1 Eosinophils % 6.1 Basophils % 0.5 Nucleated Red Blood Cells % 0.0 Neutrophils # 5.5 Lymphocytes # 0.9 Monocytes # 0.8 Eosinophils # 0.5 Basophils # 0.0 Nucleated Red Blood Cells # 0.0 Sodium Level 137 Potassium Level 3.6 Chloride Level 104 Carbon Dioxide Level 27 Anion Gap 10 Blood Urea Nitrogen 30 H Creatinine 0.86 Glucose Level 88 Calcium Level 7.4 L Magnesium Level 1.7 Total Bilirubin 0.7 Direct Bilirubin 0.00 Indirect Bilirubin 0.7 Aspartate Amino Transf (AST/SGOT) 19 Alanine Aminotransferase (ALT/SGPT) 33 Alkaline Phosphatase 116 Total Protein 5.3 L Albumin 2.8 L Globulin 2.50 Albumin/Globulin Ratio 1.12 Medications Medications Current Medications Sodium Chloride (NS) 1,000 ml @ 75 mls/hr [id number] IV Last administered on t 10:19; Admin Dose 75 MLS/HR; Start 10/14/16 at 21:26 Ondansetron HCl (Zofran Inj) 4 mg Q6H PRN IV NAUSEA AND/OR VOMITING; Start 10/14 at 21:30 Acetaminophen (Tylenol Tab) 650 mg Q6H PRN PO PAIN LEVEL 1-3 OR FEVER; Start at 21:30 Zolpidem Tartrate (Ambien) 5 mg QHS PRN PO INSOMNIA; Start 10/14/16 at 21:30 Docusate Sodium (Colace) 100 mg Q12H PRN PO CONSTIPATION; Start 10/14/16 at 21: 30 Bisacodyl (Dulcolax) 5 mg DAILY PRN PO CONSTIPATION; Start 10/14/16 at 21:30 CHRIS BARTON MD Oct 15, 2016 14:19
--- NOTE | 2016-10-15 16:17 | RADRPT ---
Echocardiogram Report Patient Name: JORDEN FRANCIS Gender: Female Date: 1930 Study Date: 15-Oct-2016 Incubator Tender: [facility] Location: 5536 Ref. Physician: VIKI TORRES Quality: Adequate Procedures: Transthoracic echocardiogram with complete 2D, M-Mode, and doppler examination. Indications: Pericardial Effusion on CT. 2D/M Mode Doppler Measurement Value Normal Ranges Measurement Value Normal Ranges LVIDd 2D 3.7 3.5 - 5.6 cm CHANDRAKANT Vmax 0.9 cm2 LVIDs 2D 2.1 2.1 - 4.1 cm CHANDRAKANT VTI 1.0 cm2 FS 2D 42.7 % AV Mean Nicolas 2.1 m/sec LVPWd 2D 1.4 0.6 - 1.1 cm AV Mean PG 21.0 mmHg IVSd 2D 1.3 0.6 - 1.1 cm AV Peak Nicolas 3.1 m/sec IVS/LVPW 2D 1.0 AV Peak PG 37.0 mmHg AoR Diam 2D 2.8 2.0 - 3.7 cm AV VTI 72.1 cm LA/Ao 2D 1 0 - 1 LVOT Mean Nicolas 1.0 m/sec EDV 2D 50.7 cm3 LVOT Mean PG 5.0 mmHg ESV 2D 9.5 cm3 LVOT Peak Nicolas 1.3 m/sec LA Dimen 2D 4.0 2.3 - 4.0 cm LVOT Peak PG 7.0 mmHg LVOT Diam 1.6 cm LVOT VTI 35.4 cm LVOT Area 2.0 cm2 MV E Peak Nicolas 1.1 m/sec MV A Peak Nicolas 1.2 m/sec MV E/A 0.9 MV Decel Time 190 msec MV E/A 0.9 TR Peak Nicolas 2.7 m/sec TR Peak PG 29.0 mmHg RVSP 32.0 mmHg Findings Left Ventricle: Normal left ventricular systolic function. Normal left ventricular cavity size. Mild concentric left ventricular hypertrophy. Ejection fraction is visually estimated at 65 %. Tissue Doppler/Mitral Doppler indices are consistent with impaired relaxation (Stage I diastolic dysfunction). Right Ventricle: Normal right ventricular size. Normal right ventricular systolic function. Left Atrium: The left atrium is normal in size. Right Atrium: The right atrium is normal in size. Mitral Valve: Mitral valve leaflets appear moderately thickened. Moderate mitral annular calcification. Trace mitral regurgitation. Aortic Valve: Mild to moderate aortic stenosis. Aortic valve Max velocity 3.06 m/sec. Max PG 38.00 mmHg. Mean PG 21.00 mmHg. Aortic valve area 0.99 cm2. Aortic cusps appear moderately calcified. Tricuspid Valve: Normal appearance of the tricuspid valve. Estimated peak PA systolic pressure 32 mmHg. There is mild tricuspid regurgitation. Pulmonic Valve: Normal pulmonic valve appearance. There is mild pulmonic regurgitation. Pericardium: Moderate pericardial effusion. Aorta: Normal aortic root. IVC: Normal size and normal respiratory collapse consistent with normal right atrial pressure. Conclusions 1.Normal left ventricular systolic function. Normal left ventricular cavity size. Mild concentric left ventricular hypertrophy. Ejection fraction is visually estimated at 65 %. Tissue Doppler/Mitral Doppler indices are consistent with impaired relaxation (Stage I diastolic dysfunction). 2.Mild to moderate aortic stenosis. Aortic valve Max velocity 3.06 m/sec. Max PG 38.00 mmHg. Mean PG 21.00 mmHg. Aortic valve area 0.99 cm2. Aortic cusps appear moderately calcified. 3.Mitral valve leaflets appear moderately thickened. Moderate mitral annular calcification. Trace mitral regurgitation. 4.Normal appearance of the tricuspid valve. Estimated peak PA systolic pressure 32 mmHg. There is mild tricuspid regurgitation. Electronically Signed By: Brent Carson 15-Oct-2016 16:16:02 -0700 Patient Name: JORDEN FRANCIS Study Date: 15-Oct-2016 [id number]
[2016-10-15] MEDS: ATENOLOL 50 MG TAB PO SCH (21:08)
[2016-10-15] MEDS: ACETAMINOPHEN 325 MG TAB PO PRN (21:12)
[2016-10-16] VITALS (23 sets, daily range): BP systolic 89–163; BP diastolic 50–79; PULSE 61–87; RESP 15–21
[2016-10-16] MEDS: ACETAMINOPHEN 325 MG TAB PO PRN (04:49)
[2016-10-16 06:17] LABS: ABNORMAL IP MESSAGE 1; BASOPHILS % 0.5 % (0.0-2.0); EOSINOPHILS # 0.2 10^3/ul (0.0-0.5); EOSINOPHILS % 3.6 % (0.0-7.0); HEMATOCRIT 29.3 % (37.0-47.0); HEMOGLOBIN 8.9 g/dl (12.0-16.0); LYMPHOCYTES # 0.8 10^3/ul (0.8-2.9); LYMPHOCYTES % 12.9 % (15.0-51.0); MEAN CORPUSCULAR HEMOGLOBIN 22.1 pg (29.0-33.0); MEAN CORPUSCULAR HGB CONC 30.4 g/dl (32.0-37.0); MEAN CORPUSCULAR VOLUME 72.7 fl (82.0-101.0); MEAN PLATELET VOLUME 10.1 fl (7.4-10.4); MONOCYTE # 0.8 10^3/ul (0.3-0.9); MONOCYTES % 11.8 % (0.0-11.0); NEUTROPHIL # 4.5 10^3/ul (1.6-7.5); NEUTROPHILS % 70.6 % (39.0-77.0); PLATELET COUNT 317 10^3/UL (140-415); RED BLOOD COUNT 4.03 10^6/ul (4.20-5.40); RED CELL DISTRIBUTION WIDTH 24.4 % (11.5-14.5); WHITE BLOOD COUNT 6.3 10^3/ul (4.8-10.8)
[2016-10-16 06:42] LABS: URIC ACID 4.8 mg/dl (3.1-7.9)
[2016-10-16 06:52] LABS: RETICULOCYTE COUNT % 0.9 % (0.5-1.5)
[2016-10-16 07:13] LABS: THYROID STIMULATING HORMONE 3.92 MIU/L (0.465-4.680)
[2016-10-16 07:17] LABS: FERRITIN 91.5 ng/ml (11.1-264.0)
[2016-10-16 07:43] LABS: IRON 18 ug/dl (35-150)
[2016-10-16 07:52] LABS: TOTAL IRON BINDING CAPACITY 285 ug/dl (241-421)
[2016-10-16] MEDS: LISINOPRIL 20 MG TAB PO SCH (09:00)
[2016-10-16] MEDS: ATENOLOL 50 MG TAB PO SCH ×3 (09:00→21:37)
[2016-10-16] MEDS: ASPIRIN (EC) 81 MG TAB PO SCH (09:51)
--- NOTE | 2016-10-16 09:51 | PN ---
Date/Time of Note Date/Time of Note DATE: 10/16/16 TIME: 09:50 Assessment/Plan VTE Prophylaxis VTE Prophylaxis Intervention: SCD's Lines/Catheters IV Catheter Type (from Nrsg): Saline Lock Assessment/Plan Assessment/Plan 86 yo F presented with abd pain, found to be anemic to 7. Imaging notable for multiple soft tissue lesions in pleural space, bone lesion, paracardial lesion, concerning for metastatic ca though primary unknown at this time. Also small pericardial effusion. PLAN IR guided biopsy ordered for today onc/Dr Pritchard following pain management cont home meds anemia: GI following, deferring scopes at this time. Agree that malignancy w/u takes precedence. cont tele given small pericardial effusion PCP=Dr Mike Landry, [facility] . Left message at his office today of pt's admission Subjective 24 Hr Interval Summary Free Text/Dictation Pt handling all of this surprisingly well. Reports some pain in site of T12 compression fracture. Exam/Review of Systems Vital Signs Vitals Vital Signs Date Time Temp Pulse Resp B/P Pulse Ox O2 Delivery O2 Flow Rate FiO2 10/16/16 08:00 61 10/16/16 07:24 97.8 20 89/50 97 10/15/16 04:12 Room Air Intake and Output 10/15/16 10/15/16 10/16/16 14:59 22:59 06:59 Intake Total 2200 ml 120 ml Balance 2200 ml 120 ml Exam nad, pleasant sitting up in bed no mrg lungs clear abd soft no rashes Results Result Diagram: 10/16/16 0544 10/15/16 1025 Results 24 hrs Laboratory Tests Test 10/15/16 10:25 10/16/16 05:44 10/16/16 05:51 Sodium Level 137 Potassium Level 3.6 Chloride Level 104 Carbon Dioxide Level 27 Anion Gap 10 Blood Urea Nitrogen 30 H Creatinine 0.86 Glucose Level 88 Calcium Level 7.4 L Magnesium Level 1.7 Total Bilirubin 0.7 Direct Bilirubin 0.00 Indirect Bilirubin 0.7 Aspartate Amino Transf (AST/SGOT) 19 Alanine Aminotransferase (ALT/SGPT) 33 Alkaline Phosphatase 116 Total Protein 5.3 L Albumin 2.8 L Globulin 2.50 Albumin/Globulin Ratio 1.12 White Blood Count 6.3 Red Blood Count 4.03 L Hemoglobin 8.9 L Hematocrit 29.3 L Mean Corpuscular Volume 72.7 L Mean Corpuscular Hemoglobin 22.1 L Mean Corpuscular Hemoglobin Concent 30.4 L Red Cell Distribution Width 24.4 H Platelet Count 317 Mean Platelet Volume 10.1 Neutrophils % 70.6 Lymphocytes % 12.9 L Monocytes % 11.8 H Eosinophils % 3.6 Basophils % 0.5 Nucleated Red Blood Cells % 0.0 Neutrophils # 4.5 Lymphocytes # 0.8 Monocytes # 0.8 Eosinophils # 0.2 Basophils # 0.0 Nucleated Red Blood Cells # 0.0 Erythrocyte Sedimentation Rate 5 Absolute Reticulocyte Count 0.035 Percent Reticulocyte Count 0.9 Uric Acid 4.8 Iron Level 18 L Total Iron Binding Capacity 285 Percent Iron Saturation 6 L Ferritin 91.5 Lactate Dehydrogenase 830 H Carcinoembryonic Antigen Pending CA 19-9 Antigen Pending CA 125 Antigen Pending Vitamin B12 Level Pending Folate Pending Thyroid Stimulating Hormone (TSH) 3.920 Lab Scanned Report BLOOD TRANSFUSION Medications Medications Current Medications Ondansetron HCl (Zofran Inj) 4 mg Q6H PRN IV NAUSEA AND/OR VOMITING; Start 10/14 at 21:30 Acetaminophen (Tylenol Tab) 650 mg Q6H PRN PO PAIN LEVEL 1-3 OR FEVER Last administered on 10/16/16 04:49; Admin Dose 650 MG; Start 10/14/16 at 21:30 Zolpidem Tartrate (Ambien) 5 mg QHS PRN PO INSOMNIA; Start 10/14/16 at 21:30 Docusate Sodium (Colace) 100 mg Q12H PRN PO CONSTIPATION; Start 10/14/16 at 21: 30 Bisacodyl (Dulcolax) 5 mg DAILY PRN PO CONSTIPATION; Start 10/14/16 at 21:30 Aspirin (Halfprin) 81 mg DAILY PO ; Start 10/16/16 at 09:00 Atenolol (Tenormin) 50 mg BID PO Last administered on 10/15/16 21:08; Admin Dose 50 MG; Start 10/15/16 at 21:00 Lisinopril (Zestril) 20 mg DAILY PO ; Start 10/16/16 at 09:00 Losartan Potassium (Cozaar) 100 mg DAILY PO ; Start 10/16/16 at 09:00 Hydrochlorothiazide (Hydrochlorothiazide) 25 mg DAILY PO ; Start 10/16/16 at 09: 00 CHRIS BARTON MD Oct 16, 2016 09:50
[2016-10-16] MEDS: HYDROCHLOROTHIAZIDE 25 MG TAB PO SCH (09:52)
[2016-10-16] MEDS: LOSARTAN 50 MG TAB PO SCH (09:52)
[2016-10-16] MEDS ORDERED: SOD CHLORIDE 0.9% 100 ML ONE (10:21)
[2016-10-16] MEDS ORDERED: IOHEXOL 300MG/ML 150 ML BTL ONE (10:21)
[2016-10-16 11:40] LABS: FOLATE 15.1 ng/ml (2.8-20.0)
[2016-10-16 11:42] LABS: CANCER ANTIGEN 19-9 20.3 U/ml (0.0-37.0)
[2016-10-16 11:45] LABS: CANCER ANTIGEN 125 33.3 U/ml (0.0-35.0)
[2016-10-16 11:50] LABS: CARCINOEMBRYONIC ANTIGEN 1.5 ng/ml (0.0-5.0)
--- NOTE | 2016-10-16 13:52 | RADRPT ---
PROCEDURE: CT Chest with contrast. CLINICAL INDICATION: Metastatic neoplasm. Unknown primary. TECHNIQUE: Helical axial sections were obtained through the chest with intravenous contrast enhanc ement. 90 ml of Omnipaque-300 was used for the intravenous contrast. Coronal and sagittal reforma tted images were obtained from the axial source images. Total exam DLP is 129.02 mGy-cm. CTDIvol is 3.79 mGy. One or more of the following dose reduction techniques were used: Automated exposure con trol, adjustment of the mA and/or kV according to patient size, use of iterative reconstruction tech nique. COMPARISON: CT scan of the abdomen and pelvis dated 10/14/2016. FINDINGS: There is mild atelectasis at both lung bases posteriorly with right worse than left. There is a mod erate right pleural effusion and small left pleural effusion. There is no pulmonary nodule or mass lesion. There is a right paramediastinal mass anteriorly along the right heart border measuring approximatel y 8.2 x 3.8 x 7.0 cm in AP, transverse, and cranial caudal dimensions. There is also right hilar ly mphadenopathy measuring 2.9 x 2.7 cm. Enlarged lymph nodes are present in the right pericardiophren ic recess measuring 2.8 x 2.1 cm and 1.6 x 2.3 cm. There is no axillary or supraclavicular lymphadenopathy. Right internal mammary lymphadenopathy [place] sures approximately 1.8 x 2.2 cm. There is no left internal mammary or left mediastinal lymphadenop athy. The thoracic aorta is not dilated. The heart is mildly enlarged. There is no pericardial effusion. There is a large hiatus hernia. Images through the upper abdomen demonstrate multiple liver masses throughout the right and left lobes consistent with neoplasm measuring up to 3.6 cm on the right and 3.3 cm on the left. Previously noted portal venous gas is no longer visualized. There is a possib le splenic mass measuring 1.6 cm. IMPRESSION: 1. Mild atelectasis at the lung bases posteriorly with right worse than left. 2. Moderate right pleural effusion and small left pleural effusion. 3. Large right paramediastinal mass measuring 8.2 x 3.8 x 7.0 cm, consistent with neoplasm. 4. Right hilar lymphadenopathy and lymphadenopathy in the right pericardiophrenic recess. 5. Mild cardiomegaly. 6. Large hiatus hernia. 7. Multiple liver masses consistent with neoplasm. 8. Possible splenic mass. RPTAT: QQ .Jay Veliz MD, Date Time Electronically viewed and signed by .Jay Veliz MD, on 10/16/2016 13:52 .R/
[2016-10-16] MEDS ORDERED: MIDAZOLAM 1 MG/ML 2 ML INJ ONE (14:40)
[2016-10-16] MEDS ORDERED: LIDOCAINE 1% (MDV) 20 ML INJ ONE (14:40)
[2016-10-16] MEDS ORDERED: FENTAnyl 50 MCG/ML VIAL ONE (14:40)
[2016-10-16] MEDS ORDERED: SOD CHLORIDE 0.9% 500 ML ONE (14:40)
--- NOTE | 2016-10-16 15:42 | RADRPT ---
PROCEDURE: CT guided biopsy of right paramediastinal mass. CLINICAL INDICATION: Right paramediastinal mass. TECHNIQUE: Prior to the procedure, informed consent was obtained. Risks including bleeding, infec tion, and pneumothorax were explained to the patient. The patient understood was willing to proceed . A procedural pause was performed. The patient's name, date of , and procedure to be perform ed were verified. Using local anesthetic, sterile technique, and CT guidance, a 20-gauge automated core biopsy needle was used to biopsy the mass in the right paramediastinal region. Multiple passes were made. Adequa te tissue was obtained according to the pathologist present during the procedure. The needle was re moved. A post biopsy scan was performed. The patient tolerated the procedure well. One or more o f the following dose reduction techniques were used: Automated exposure control, adjustment of the m A and/or kV according to patient size, use of iterative reconstruction technique. COMPARISON: No prior study is available for comparison. FINDINGS: Images with the needle in place demonstrate the needle at the anterior margin of the lesion in quest ion. Post biopsy images demonstrate no immediate complication. IMPRESSION: 1. Satisfactory CT guided biopsy of the right paramediastinal mass. RPTAT: QQ .Jay Veliz MD, MD Date Time Electronically viewed and signed by .Jay Veliz MD, on 10/16/2016 15:42 .R/
--- NOTE | 2016-10-16 16:35 | CONS ---
Date/Time of Note Date/Time of Note DATE: 10/16/16 TIME: 16:26 Assessment/Plan Assessment/Plan Chief Complaint/Hosp Course WIDE- SPREAD METASTATIC DISEASE WITH: Large right paramediastinal mass measuring 8.2 x 3.8 x 7.0 cm, consistent with neoplasm. Nodular soft tissue density along the right side of the heart, consistent with metastatic disease. several metastatic soft tissue nodules in the right pleural space and a 1.5 cm lytic lesion in the right iliac bone. Right hilar lymphadenopathy and lymphadenopathy in the right pericardiophrenic recess. Multiple liver masses consistent with neoplasm. Possible splenic mass. Nonspecific 2.6 cm radiodensity within a small bowel loop in the central abdominopelvic region, possibly a metastatic lesion. TUMOR MARKERS BIOCHEMICAL W-UP POST BX OF Large right paramediastinal mass AWAIT PATH symptomatic anemia: PRBC + COMPONENT ACD MONITOR COUNT CLOSELY OBSERVE FOR BLEEDING GI EVAL leukocytosis NO any signs of infection no fever. continue to follow this. Difficulty swallowing: WITH decreased appetite and at times she has difficulty swallowing certain foods. GI. hypokalemia: Will replete. hypertension: DVT and GI prophylaxis: SCDs, Protonix. Problems: Consultation Date/Type/Reason Admit Date/Time Oct 14, 2016 at 21:08 Initial Consult Date 10/15/16 Type of Consultation: [facility] Referring Provider: VIKI TORRES 24 HR Interval Summary Free Text/Dictation ALL NOTED CT - REVIEWED Exam/Review of Systems Vital Signs Vitals Vital Signs Date Time Temp Pulse Resp B/P Pulse Ox O2 Delivery O2 Flow Rate FiO2 10/16/16 12:00 98.0 67 16 114/64 98 Room Air Intake and Output 10/15/16 10/15/16 10/16/16 15:00 23:00 07:00 Intake Total 2200 ml 120 ml Balance 2200 ml 120 ml Exam General: Patient is a pleasant, frail-appearing female HEENT: Atraumatic, normocephalic. The pupils are equal, round and reactive. Extraocular motor are intact Neck: Supple with full range of motion. No rigidity or meningismus Chest: Nontender Lungs: Clear to auscultation bilaterally no crackles rales or wheezing Heart: Normal S1-S2, Regular rhythm and rate. Abdomen: Soft , nontender, nondistended , bowel sounds are present. No guarding no rebound tenderness , No masses or organomegaly. No costovertebral temporal angle mass Extremities: Mild nonpitting edema noted on the right foot, right foot greater than left. Neurologic: Normal mental status, speech normal, cranial nerves II through XII are intact, motor and sensory are intact, no focal weakness NO PATH LN-ADRIAN NO BREAST MASSES Results Result Diagram: 10/16/16 0544 10/15/16 1025 Results 24 hrs Laboratory Tests Test 10/16/16 05:44 10/16/16 05:51 10/16/16 11:30 White Blood Count 6.3 Red Blood Count 4.03 L Hemoglobin 8.9 L Hematocrit 29.3 L Mean Corpuscular Volume 72.7 L Mean Corpuscular Hemoglobin 22.1 L Mean Corpuscular Hemoglobin Concent 30.4 L Red Cell Distribution Width 24.4 H Platelet Count 317 Mean Platelet Volume 10.1 Neutrophils % 70.6 Lymphocytes % 12.9 L Monocytes % 11.8 H Eosinophils % 3.6 Basophils % 0.5 Nucleated Red Blood Cells % 0.0 Neutrophils # 4.5 Lymphocytes # 0.8 Monocytes # 0.8 Eosinophils # 0.2 Basophils # 0.0 Nucleated Red Blood Cells # 0.0 Erythrocyte Sedimentation Rate 5 Absolute Reticulocyte Count 0.035 Percent Reticulocyte Count 0.9 Uric Acid 4.8 Iron Level 18 L Total Iron Binding Capacity 285 Percent Iron Saturation 6 L Ferritin 91.5 Lactate Dehydrogenase 830 H Carcinoembryonic Antigen 1.5 CA 19-9 Antigen 20.3 CA 125 Antigen 33.3 Vitamin B12 Level 225 L Folate 15.1 Thyroid Stimulating Hormone (TSH) 3.920 Lab Scanned Report BLOOD TRANSFUSION Stool Occult Blood NEGATIVE Medications Medications Current Medications Ondansetron HCl (Zofran Inj) 4 mg Q6H PRN IV NAUSEA AND/OR VOMITING; Start 10/14 at 21:30 Zolpidem Tartrate (Ambien) 5 mg QHS PRN PO INSOMNIA; Start 10/14/16 at 21:30 Docusate Sodium (Colace) 100 mg Q12H PRN PO CONSTIPATION; Start 10/14/16 at 21: 30 Bisacodyl (Dulcolax) 5 mg DAILY PRN PO CONSTIPATION; Start 10/14/16 at 21:30 Aspirin (Halfprin) 81 mg DAILY PO Last administered on 10/16/16t 09:51; Admin Dose 81 MG; Start 10/16/16 at 09:00 Atenolol (Tenormin) 50 mg BID PO Last administered on 10/15/16 21:08; Admin Dose 50 MG; Start 10/15/16 at 21:00 Lisinopril (Zestril) 20 mg DAILY PO ; Start 10/16/16 at 09:00 Losartan Potassium (Cozaar) 100 mg DAILY PO Last administered on 10/16/16 09:52 ; Admin Dose 100 MG; Start 10/16/16 at 09:00 Hydrochlorothiazide (Hydrochlorothiazide) 25 mg DAILY PO Last administered on 09:52; Admin Dose 25 MG; Start 10/16/16 at 09:00 Acetaminophen (Tylenol Tab) 650 mg Q4 PRN PO PAIN LEVEL 1-3 OR FEVER; Start 10/16/16 at 13:00 Procedures Procedures PROCEDURE: CT Chest with contrast. CLINICAL INDICATION: Metastatic neoplasm. Unknown primary. TECHNIQUE: Helical axial sections were obtained through the chest with intravenous contrast enhancement. 90 ml of Omnipaque-300 was used for the intravenous contrast. Coronal and sagittal reformatted images were obtained from the axial source images. Total exam DLP is 129.02 mGy-cm. CTDIvol is 3.79 mGy. One or more of the following dose reduction techniques were used: Automated exposure control, adjustment of the mA and/or kV according to patient size, use of iterative reconstruction technique. COMPARISON: CT scan of the abdomen and pelvis dated 10/14/2016. FINDINGS: There is mild atelectasis at both lung bases posteriorly with right worse than left. There is a moderate right pleural effusion and small left pleural effusion. There is no pulmonary nodule or mass lesion. There is a right paramediastinal mass anteriorly along the right heart border measuring approximately 8.2 x 3.8 x 7.0 cm in AP, transverse, and cranial caudal dimensions. There is also right hilar lymphadenopathy measuring 2.9 x 2.7 cm. Enlarged lymph nodes are present in the right pericardiophrenic recess measuring 2.8 x 2.1 cm and 1.6 x 2.3 cm. There is no axillary or supraclavicular lymphadenopathy. Right internal mammary lymphadenopathy measures approximately 1.8 x 2.2 cm. There is no left internal mammary or left mediastinal lymphadenopathy. The thoracic aorta is not dilated. The heart is mildly enlarged. There is no pericardial effusion. There is a large hiatus hernia. Images through the upper abdomen demonstrate multiple liver masses throughout the right and left lobes consistent with neoplasm measuring up to 3.6 cm on the right and 3.3 cm on the left. Previously noted portal venous gas is no longer visualized. There is a possible splenic mass measuring 1.6 cm. IMPRESSION: 1. Mild atelectasis at the lung bases posteriorly with right worse than left. 2. Moderate right pleural effusion and small left pleural effusion. 3. Large right paramediastinal mass measuring 8.2 x 3.8 x 7.0 cm, consistent with neoplasm. 4. Right hilar lymphadenopathy and lymphadenopathy in the right pericardiophrenic recess. 5. Mild cardiomegaly. 6. Large hiatus hernia. 7. Multiple liver masses consistent with neoplasm. 8. Possible splenic mass. LOUISE SANTOS MD Oct 16, 2016 16:35
[2016-10-17] VITALS (12 sets, daily range): BP systolic 115–125; BP diastolic 58–71; PULSE 63–71; RESP 16–20
[2016-10-17] MEDS: ACETAMINOPHEN 325 MG TAB PO PRN ×2 (02:41→10:04)
[2016-10-17 03:54] LABS: PROTEIN, TOTAL 4.5 g/dL (6.1-8.1)
[2016-10-17 06:10] LABS: ADD SCAN DIFF NO
[2016-10-17 06:27] LABS: ABNORMAL IP MESSAGE 1; BASOPHILS % 0.4 % (0.0-2.0); EOSINOPHILS # 0.1 10^3/ul (0.0-0.5); HEMOGLOBIN 9.8 g/dl (12.0-16.0); LYMPHOCYTES # 1.2 10^3/ul (0.8-2.9); LYMPHOCYTES % 17.2 % (15.0-51.0); MEAN CORPUSCULAR HEMOGLOBIN 21.8 pg (29.0-33.0); MEAN CORPUSCULAR HGB CONC 29.7 g/dl (32.0-37.0); MEAN CORPUSCULAR VOLUME 73.5 fl (82.0-101.0); MEAN PLATELET VOLUME 10.2 fl (7.4-10.4); MONOCYTE # 0.8 10^3/ul (0.3-0.9); MONOCYTES % 11.2 % (0.0-11.0); NEUTROPHIL # 4.9 10^3/ul (1.6-7.5); NEUTROPHILS % 68.6 % (39.0-77.0); PLATELET COUNT 352 10^3/UL (140-415); RED BLOOD COUNT 4.49 10^6/ul (4.20-5.40); RED CELL DISTRIBUTION WIDTH 25.8 % (11.5-14.5); WHITE BLOOD COUNT 7.1 10^3/ul (4.8-10.8)
[2016-10-17] MEDS: HYDROCHLOROTHIAZIDE 25 MG TAB PO SCH (09:58)
[2016-10-17] MEDS: ATENOLOL 50 MG TAB PO SCH (09:59)
[2016-10-17] MEDS: LISINOPRIL 20 MG TAB PO SCH (09:59)
[2016-10-17] MEDS: LOSARTAN 50 MG TAB PO SCH (09:59)
[2016-10-17] MEDS: ASPIRIN (EC) 81 MG TAB PO SCH (09:59)
--- NOTE | 2016-10-17 10:46 | CONS ---
Date/Time of Note Date/Time of Note DATE: 10/17/16 TIME: 10:43 Assessment/Plan Assessment/Plan Chief Complaint/Hosp Course Impression: #1 symptomatic iron deficiency anemia: Occult blood negative #2 Dysphagia: Patient does report decreased appetite. However denies dysphagia only dry mouth. She declines EGD at this time. 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 This is a contraindication to endoscopic procedure as high risk of perforation. #4 leukocytosis: At the current time patient does not show any signs of infection no fever. No cough or urinary symptoms. Recommendation: 1. 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 heme/onc eval on best w/u for her multiple lesions. 3. protonix 40 mg iv bid 4. f/u occult blood in stool 5. will sign off. Please call for any questions. Problems: Consultation Date/Type/Reason Admit Date/Time Oct 14, 2016 at 21:08 Initial Consult Date 10/15/16 Type of Consultation: GI Referring Provider: VIKI TORRES 24 HR Interval Summary Free Text/Dictation denies problems swallowing, says its misunderstanding from her dry mouth Constitutional: improved Exam/Review of Systems Vital Signs Vitals Vital Signs Date Time Temp Pulse Resp B/P Pulse Ox O2 Delivery O2 Flow Rate FiO2 10/17/16 08:03 63 10/17/16 07:51 97.4 20 119/58 95 10/16/16 17:45 Room Air 10/16/16 15:35 2.0 Intake and Output 10/16/16 10/16/16 10/17/16 15:00 23:00 07:00 Intake Total 500 ml 240 ml Balance 500 ml 240 ml Exam Constitutional: alert, oriented, well developed Psych: nl mood/affect, no complaints Head: atraumatic, normocephalic Eyes: EOMI, nl conjunctiva, nl lids ENMT: nl external ears & nose, nl lips & teeth, nl nasal mucosa & septum Neck: non-tender, supple Respiratory: clear to auscultation, normal air movement Cardiovascular: nl pulses, regular rate and rhythm Gastrointestinal: bowel sounds, non-tender, soft Results Result Diagram: 10/17/16 0520 10/15/16 1025 Results 24 hrs Laboratory Tests Test 10/16/16 11:30 10/17/16 05:20 Stool Occult Blood NEGATIVE White Blood Count 7.1 Red Blood Count 4.49 Hemoglobin 9.8 L Hematocrit 33.0 L Mean Corpuscular Volume 73.5 L Mean Corpuscular Hemoglobin 21.8 L Mean Corpuscular Hemoglobin Concent 29.7 L Red Cell Distribution Width 25.8 H Platelet Count 352 Mean Platelet Volume 10.2 Neutrophils % 68.6 Lymphocytes % 17.2 Monocytes % 11.2 H Eosinophils % 2.0 Basophils % 0.4 Nucleated Red Blood Cells % 0.0 Neutrophils # 4.9 Lymphocytes # 1.2 Monocytes # 0.8 Eosinophils # 0.1 Basophils # 0.0 Nucleated Red Blood Cells # 0.0 Medications Medications Current Medications Ondansetron HCl (Zofran Inj) 4 mg Q6H PRN IV NAUSEA AND/OR VOMITING; Start 10/14 at 21:30 Zolpidem Tartrate (Ambien) 5 mg QHS PRN PO INSOMNIA; Start 10/14/16 at 21:30 Docusate Sodium (Colace) 100 mg Q12H PRN PO CONSTIPATION; Start 10/14/16 at 21: 30 Bisacodyl (Dulcolax) 5 mg DAILY PRN PO CONSTIPATION; Start 10/14/16 at 21:30 Aspirin (Halfprin) 81 mg DAILY PO Last administered on 10/17/16 09:59; Admin Dose 81 MG; Start 10/16/16 at 09:00 Atenolol (Tenormin) 50 mg BID PO Last administered on 10/17/16 09:59; Admin Dose 50 MG; Start 10/15/16 at 21:00 Lisinopril (Zestril) 20 mg DAILY PO Last administered on 10/17/16 09:59; Admin Dose 20 MG; Start 10/16/16 at 09:00 Losartan Potassium (Cozaar) 100 mg DAILY PO Last administered on 10/17/16 09:59 ; Admin Dose 100 MG; Start 10/16/16 at 09:00 Hydrochlorothiazide (Hydrochlorothiazide) 25 mg DAILY PO Last administered on 09:58; Admin Dose 25 MG; Start 10/16/16 at 09:00 Acetaminophen (Tylenol Tab) 650 mg Q4 PRN PO PAIN LEVEL 1-3 OR FEVER Last administered on 10/17/16t 10:04; Admin Dose 650 MG; Start 10/16/16 at 13:00 RILEY MANSFIELD MD Oct 17, 2016 10:46
[2016-10-17] MEDS ORDERED: FUROSEMIDE 20 MG INJ IV SCH (11:00)
--- NOTE | 2016-10-17 11:00 | PN ---
Date/Time of Note Date/Time of Note DATE: 10/17/16 TIME: 10:57 Assessment/Plan VTE Prophylaxis VTE Prophylaxis Intervention: SCD's Lines/Catheters IV C[facility]ter Type (from [facility]): Saline Lock Assessment/Plan Chief Complaint/Hosp Course 1. 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 Status post needle biopsy on 10/16/2016. The patient being followed by oncology. 2. Mediastinal mass with lesions in the liver, in the bowel loop, pleural space , and right iliac bone. Possible underlying metastatic cancer. Pending biopsy results from mediastinal mass. Continue pain control. 3. Microcytic, hypochromic anemia. Underlying iron deficiency. Continue iron supplements. 4. Bilateral pleural effusions. Possible malignant pleural effusion. Continue supplemental oxygen as needed. Provide gentle diuresis. 5. Mild to moderate aortic stenosis. 6. Essential hypertension. Continue antihypertensives. 7. T12 compression fracture. Continue pain control. 8. Gaseous distention of the small and large bowel without evidence of bowel obstruction. Being followed by gastroenterology. Continue medical management. The patient able to tolerate oral intake without any significant gastrointestinal symptoms. 9. Fluids, electrolytes, and nutrition. Regular diet as tolerated. 10. Gastrointestinal prophylaxis. Proton pump inhibitors. 11. DVT prophylaxis. Bilateral sequential compression devices. 12. Plan. Continue pain control. Await pathology results. Start iron supplements. Gentle diuresis. Case discussed with Dr. Fernandez. Problems: Subjective 24 Hr Interval Summary Free Text/Dictation Complains of low back pain. Exam/Review of Systems Vital Signs Vitals Vital Signs Date Time Temp Pulse Resp B/P Pulse Ox O2 Delivery O2 Flow Rate FiO2 10/17/16 08:03 63 10/17/16 07:51 97.4 20 119/58 95 10/16/16 17:45 Room Air 10/16/16 15:35 2.0 Intake and Output 10/16/16 10/16/16 10/17/16 14:59 22:59 06:59 Intake Total 500 ml 240 ml Balance 500 ml 240 ml Exam General: Thin frail looking 86 year-old female lying in bed in no apparent distress. HEENT: Normocephalic, atraumatic. Eyes: Anicteric sclerae, conjunctivae clear. ENT: Nasal septum midline, oral mucosa moist. Neck supple, no JVD noticed. Respiratory: Bilaterally clear breath sounds. No use of accessory muscles of respiration. No adventitious breath sounds. Cardiovascular: S1, S2 heard. Grade 2/6 systolic ejection murmur. Abdomen: Soft and distended. Bowel sounds hypoactive in all 4 quadrants. Genitourinary: Deferred. Extremities: No cyanosis, no clubbing. Bilateral lower extremity 2+ pitting edema. Peripheral pulses palpable. Neurologic: Cranial nerves II through XII grossly intact. The patient is awake, alert, and oriented. Skin: Normal skin turgor. No skin rashes. Results Result Diagram: 10/17/16 0520 10/15/16 1025 Results 24 hrs Laboratory Tests Test 10/16/16 11:30 10/17/16 05:20 Stool Occult Blood NEGATIVE White Blood Count 7.1 Red Blood Count 4.49 Hemoglobin 9.8 L Hematocrit 33.0 L Mean Corpuscular Volume 73.5 L Mean Corpuscular Hemoglobin 21.8 L Mean Corpuscular Hemoglobin Concent 29.7 L Red Cell Distribution Width 25.8 H Platelet Count 352 Mean Platelet Volume 10.2 Neutrophils % 68.6 Lymphocytes % 17.2 Monocytes % 11.2 H Eosinophils % 2.0 Basophils % 0.4 Nucleated Red Blood Cells % 0.0 Neutrophils # 4.9 Lymphocytes # 1.2 Monocytes # 0.8 Eosinophils # 0.1 Basophils # 0.0 Nucleated Red Blood Cells # 0.0 Medications Medications Current Medications Ondansetron HCl (Zofran Inj) 4 mg Q6H PRN IV NAUSEA AND/OR VOMITING; Start 10/14 at 21:30 Zolpidem Tartrate (Ambien) 5 mg QHS PRN PO INSOMNIA; Start 10/14/16 at 21:30 Docusate Sodium (Colace) 100 mg Q12H PRN PO CONSTIPATION; Start 10/14/16 at 21: 30 Bisacodyl (Dulcolax) 5 mg DAILY PRN PO CONSTIPATION; Start 10/14/16 at 21:30 Aspirin (Halfprin) 81 mg DAILY PO Last administered on 10/17/16 09:59; Admin Dose 81 MG; Start 10/16/16 at 09:00 Atenolol (Tenormin) 50 mg BID PO Last administered on 10/17/16 09:59; Admin Dose 50 MG; Start 10/15/16 at 21:00 Lisinopril (Zestril) 20 mg DAILY PO Last administered on 10/17/16 09:59; Admin Dose 20 MG; Start 10/16/16 at 09:00 Losartan Potassium (Cozaar) 100 mg DAILY PO Last administered on 10/17/16 09:59 ; Admin Dose 100 MG; Start 10/16/16 at 09:00 Hydrochlorothiazide (Hydrochlorothiazide) 25 mg DAILY PO Last administered on 09:58; Admin Dose 25 MG; Start 10/16/16 at 09:00 Acetaminophen (Tylenol Tab) 650 mg Q4 PRN PO PAIN LEVEL 1-3 OR FEVER Last administered on 10/17/16 10:04; Admin Dose 650 MG; Start 10/16/16 at 13:00 MARIANELA AYALA NP Oct 17, 2016 11:00
[2016-10-17] MEDS: SOD FERRIC GLUC COMPLX 125 MG in SOD CHLORIDE 0.9% 100 ML IVPB SCH (13:34)
[2016-10-17] MEDS: PANTOPRAZOLE (EC) 40 MG TAB PO SCH (17:40)
[2016-10-18] VITALS (11 sets, daily range): BP systolic 119–130; BP diastolic 63–76; PULSE 62–82; RESP 18–20
--- NOTE | 2016-10-18 00:25 | CONS ---
Date/Time of Note Date/Time of Note DATE: 10/17/16 TIME: 19:13 vk le Assessment/Plan Assessment/Plan Chief Complaint/Hosp Course WIDE- SPREAD METASTATIC DISEASE WITH: Large right paramediastinal mass measuring 8.2 x 3.8 x 7.0 cm, consistent with neoplasm. Nodular soft tissue density along the right side of the heart, consistent with metastatic disease. several metastatic soft tissue nodules in the right pleural space and a 1.5 cm lytic lesion in the right iliac bone. Right hilar lymphadenopathy and lymphadenopathy in the right pericardiophrenic recess. Multiple liver masses consistent with neoplasm. Possible splenic mass. Nonspecific 2.6 cm radiodensity within a small bowel loop in the central abdominopelvic region, possibly a metastatic lesion. TUMOR MARKERS BIOCHEMICAL W-UP POST BX OF Large right paramediastinal mass AWAIT PATH symptomatic anemia: PRBC + COMPONENT ACD MONITOR COUNT CLOSELY OBSERVE FOR BLEEDING GI EVAL leukocytosis NO any signs of infection no fever. continue to follow this. Difficulty swallowing: WITH decreased appetite and at times she has difficulty swallowing certain foods. GI. hypokalemia: Will replete. hypertension: DVT and GI prophylaxis: SCDs, Protonix. Problems: Consultation Date/Type/Reason Admit Date/Time Oct 14, 2016 at 21:08 Initial Consult Date 10/15/16 Type of Consultation: [facility] Referring Provider: VIKI TORRES 24 HR Interval Summary Free Text/Dictation ALL NOTED Exam/Review of Systems Vital Signs Vitals Vital Signs Date Time Temp Pulse Resp B/P Pulse Ox O2 Delivery O2 Flow Rate FiO2 10/18/16 00:03 74 10/18/16 00:00 97.7 18 119/70 94 10/16/16 17:45 Room Air 10/16/16 15:35 2.0 Intake and Output 10/17/16 10/17/16 10/18/16 15:00 23:00 07:00 Intake Total 720 ml Balance 720 ml Exam General: Patient is a pleasant, frail-appearing female HEENT: Atraumatic, normocephalic. The pupils are equal, round and reactive. Extraocular motor are intact Neck: Supple with full range of motion. No rigidity or meningismus Chest: Nontender Lungs: Clear to auscultation bilaterally no crackles rales or wheezing Heart: Normal S1-S2, Regular rhythm and rate. Abdomen: Soft , nontender, nondistended , bowel sounds are present. No guarding no rebound tenderness , No masses or organomegaly. No costovertebral temporal angle mass Extremities: Mild nonpitting edema noted on the right foot, right foot greater than left. Neurologic: Normal mental status, speech normal, cranial nerves II through XII are intact, motor and sensory are intact, no focal weakness NO PATH LN-ADRIAN NO BREAST MASSES Results Result Diagram: 10/17/16 0520 10/15/16 1025 Results 24 hrs Laboratory Tests Test 10/17/16 05:20 White Blood Count 7.1 Red Blood Count 4.49 Hemoglobin 9.8 L Hematocrit 33.0 L Mean Corpuscular Volume 73.5 L Mean Corpuscular Hemoglobin 21.8 L Mean Corpuscular Hemoglobin Concent 29.7 L Red Cell Distribution Width 25.8 H Platelet Count 352 Mean Platelet Volume 10.2 Neutrophils % 68.6 Lymphocytes % 17.2 Monocytes % 11.2 H Eosinophils % 2.0 Basophils % 0.4 Nucleated Red Blood Cells % 0.0 Neutrophils # 4.9 Lymphocytes # 1.2 Monocytes # 0.8 Eosinophils # 0.1 Basophils # 0.0 Nucleated Red Blood Cells # 0.0 Medications Medications Current Medications Ondansetron HCl (Zofran Inj) 4 mg Q6H PRN IV NAUSEA AND/OR VOMITING; Start 10/14 at 21:30 Zolpidem Tartrate (Ambien) 5 mg QHS PRN PO INSOMNIA; Start 10/14/16 at 21:30 Docusate Sodium (Colace) 100 mg Q12H PRN PO CONSTIPATION; Start 10/14/16 at 21: 30 Bisacodyl (Dulcolax) 5 mg DAILY PRN PO CONSTIPATION; Start 10/14/16 at 21:30 Aspirin (Halfprin) 81 mg DAILY PO Last administered on 10/17/16 09:59; Admin Dose 81 MG; Start 10/16/16 at 09:00 Lisinopril (Zestril) 20 mg DAILY PO Last administered on 10/17/16 09:59; Admin Dose 20 MG; Start 10/16/16 at 09:00 Losartan Potassium (Cozaar) 100 mg DAILY PO Last administered on 10/17/16 09:59 ; Admin Dose 100 MG; Start 10/16/16 at 09:00 Hydrochlorothiazide (Hydrochlorothiazide) 25 mg DAILY PO Last administered on 09:58; Admin Dose 25 MG; Start 10/16/16 at 09:00 Acetaminophen 650 mg 650 mg Q4 PRN PO PAIN LEVEL 1-3 OR FEVER Last administered on 10/17/16 10:04; Admin Dose 650 MG; Start 10/16/16 at 13:00 Ferric Sodium Gluconate Complex/ Sodium Chloride (Ferrlecit/NS) 110 ml @ 100 mls/hr Q24H IVPB Last administered on 10/17/16 13:34; Admin Dose 100 MLS/HR; Start 10/17/16 at 13:00; Stop 10/19/16 at 14:05 Pantoprazole (Protonix Tab) 40 mg BID@06,18 PO Last administered on 10/17/16 17 :40; Admin Dose 40 MG; Start 10/17/16 at 18:00 Atenolol (Tenormin) 50 mg DAILY PO ; Start 10/18/16 at 09:00 LOUISE SANTOS MD Oct 18, 2016 00:24
[2016-10-18] MEDS: ACETAMINOPHEN 325 MG TAB PO PRN (00:29)
[2016-10-18] MEDS: PANTOPRAZOLE (EC) 40 MG TAB PO SCH ×2 (05:40→17:20)
[2016-10-18 07:32] LABS: ADD SCAN DIFF NO
[2016-10-18 07:36] LABS: ABNORMAL IP MESSAGE 1; BASOPHILS % 0.7 % (0.0-2.0); EOSINOPHILS # 0.2 10^3/ul (0.0-0.5); EOSINOPHILS % 3.4 % (0.0-7.0); HEMATOCRIT 32.3 % (37.0-47.0); HEMOGLOBIN 9.7 g/dl (12.0-16.0); LYMPHOCYTES # 0.9 10^3/ul (0.8-2.9); LYMPHOCYTES % 15.9 % (15.0-51.0); MEAN CORPUSCULAR HEMOGLOBIN 22.1 pg (29.0-33.0); MEAN CORPUSCULAR VOLUME 73.7 fl (82.0-101.0); MONOCYTE # 0.8 10^3/ul (0.3-0.9); MONOCYTES % 13.4 % (0.0-11.0); NEUTROPHIL # 3.7 10^3/ul (1.6-7.5); NEUTROPHILS % 66.2 % (39.0-77.0); PLATELET COUNT 342 10^3/UL (140-415); RED BLOOD COUNT 4.38 10^6/ul (4.20-5.40); RED CELL DISTRIBUTION WIDTH 25.8 % (11.5-14.5); WHITE BLOOD COUNT 5.6 10^3/ul (4.8-10.8)
[2016-10-18 07:59] LABS: CHOL/HDL RATIO 2.6 RATIO
[2016-10-18 08:03] LABS: MAGNESIUM 1.7 mg/dl (1.7-2.5); PHOSPHORUS 2.9 mg/dl (2.5-4.9)
[2016-10-18 08:28] LABS: THYROID STIMULATING HORMONE 4.74 MIU/L (0.465-4.680)
[2016-10-18] MEDS: ASPIRIN (EC) 81 MG TAB PO SCH (08:34)
[2016-10-18] MEDS: LOSARTAN 50 MG TAB PO SCH (08:34)
[2016-10-18] MEDS: HYDROCHLOROTHIAZIDE 25 MG TAB PO SCH (08:34)
[2016-10-18] MEDS: ATENOLOL 50 MG TAB PO SCH (08:35)
[2016-10-18] MEDS: LISINOPRIL 20 MG TAB PO SCH (08:35)
[2016-10-18 08:52] LABS: CALCIUM 8.5 mg/dl (8.4-10.2); CREATININE 0.7 mg/dl (0.44-1.00)
[2016-10-18 08:57] LABS: POTASSIUM 2.9 mmol/L (3.5-5.1)
[2016-10-18] MEDS ORDERED: POTASSIUM CHLORIDE (SR) 20 MEQ TAB PO STA (09:39)
[2016-10-18] MEDS ORDERED: MAGNESIUM SULFATE 2 GM/50 ML 50 ML IVPB ONE (10:00)
[2016-10-18] MEDS ORDERED: POTASSIUM CHLORIDE 30 MEQ in DEXTROSE 5% 250 ML IVPB ONE (11:00)
--- NOTE | 2016-10-18 11:12 | CONS ---
Date/Time of Note Date/Time of Note DATE: 10/18/16 TIME: 11:11 Assessment/Plan Assessment/Plan Chief Complaint/Hosp Course WIDE- SPREAD METASTATIC DISEASE WITH: Large right paramediastinal mass measuring 8.2 x 3.8 x 7.0 cm, consistent with neoplasm. Nodular soft tissue density along the right side of the heart, consistent with metastatic disease. several metastatic soft tissue nodules in the right pleural space and a 1.5 cm lytic lesion in the right iliac bone. Right hilar lymphadenopathy and lymphadenopathy in the right pericardiophrenic recess. Multiple liver masses consistent with neoplasm. Possible splenic mass. Nonspecific 2.6 cm radiodensity within a small bowel loop in the central abdominopelvic region, possibly a metastatic lesion. TUMOR MARKERS BIOCHEMICAL W-UP POST BX OF Large right paramediastinal mass AWAIT PATH symptomatic anemia: PRBC + COMPONENT ACD MONITOR COUNT CLOSELY OBSERVE FOR BLEEDING GI EVAL leukocytosis NO any signs of infection no fever. continue to follow this. Difficulty swallowing: WITH decreased appetite and at times she has difficulty swallowing certain foods. GI. hypokalemia: Will replete. hypertension: DVT and GI prophylaxis: SCDs, Protonix. Problems: Consultation Date/Type/Reason Admit Date/Time Oct 14, 2016 at 21:08 Initial Consult Date 10/15/16 Type of Consultation: [facility] Referring Provider: VIKI TORRES 24 HR Interval Summary Free Text/Dictation ALL NOTED NO NEW EVENTS Exam/Review of Systems Vital Signs Vitals Vital Signs Date Time Temp Pulse Resp B/P Pulse Ox O2 Delivery O2 Flow Rate FiO2 10/18/16 08:04 71 10/18/16 07:46 97.5 20 120/65 98 10/16/16 17:45 Room Air 10/16/16 15:35 2.0 Intake and Output 10/17/16 10/17/16 10/18/16 15:00 23:00 07:00 Intake Total 720 ml 400 ml Balance 720 ml 400 ml Exam General: Patient is a pleasant, frail-appearing female HEENT: Atraumatic, normocephalic. The pupils are equal, round and reactive. Extraocular motor are intact Neck: Supple with full range of motion. No rigidity or meningismus Chest: Nontender Lungs: Clear to auscultation bilaterally no crackles rales or wheezing Heart: Normal S1-S2, Regular rhythm and rate. Abdomen: Soft , nontender, nondistended , bowel sounds are present. No guarding no rebound tenderness , No masses or organomegaly. No costovertebral temporal angle mass Extremities: Mild nonpitting edema noted on the right foot, right foot greater than left. Neurologic: Normal mental status, speech normal, cranial nerves II through XII are intact, motor and sensory are intact, no focal weakness NO PATH LN-ADRIAN NO BREAST MASSES Results Result Diagram: 10/18/16 0635 10/18/16 0635 Results 24 hrs Laboratory Tests Test 10/18/16 06:35 White Blood Count 5.6 # Red Blood Count 4.38 Hemoglobin 9.7 L Hematocrit 32.3 L Mean Corpuscular Volume 73.7 L Mean Corpuscular Hemoglobin 22.1 L Mean Corpuscular Hemoglobin Concent 30.0 L Red Cell Distribution Width 25.8 H Platelet Count 342 Mean Platelet Volume 10.0 Neutrophils % 66.2 Lymphocytes % 15.9 Monocytes % 13.4 H Eosinophils % 3.4 Basophils % 0.7 Nucleated Red Blood Cells % 0.0 Neutrophils # 3.7 Lymphocytes # 0.9 Monocytes # 0.8 Eosinophils # 0.2 Basophils # 0.0 Nucleated Red Blood Cells # 0.0 Sodium Level 145 H Potassium Level 2.9 *L Chloride Level 107 Carbon Dioxide Level 25 Anion Gap 16 Blood Urea Nitrogen 20 Creatinine 0.70 Glucose Level 80 Calcium Level 8.5 Phosphorus Level 2.9 Magnesium Level 1.7 Triglycerides Level 150 H Cholesterol Level 89 L LDL Cholesterol, Calculated 25 HDL Cholesterol 34 Cholesterol/HDL Ratio 2.6 Thyroid Stimulating Hormone (TSH) 4.740 H Free Thyroxine 1.43 Medications Medications Current Medications Ondansetron HCl (Zofran Inj) 4 mg Q6H PRN IV NAUSEA AND/OR VOMITING; Start 10/14 at 21:30 Zolpidem Tartrate (Ambien) 5 mg QHS PRN PO INSOMNIA; Start 10/14/16 at 21:30 Docusate Sodium (Colace) 100 mg Q12H PRN PO CONSTIPATION; Start 10/14/16 at 21: 30 Bisacodyl (Dulcolax) 5 mg DAILY PRN PO CONSTIPATION; Start 10/14/16 at 21:30 Aspirin (Halfprin) 81 mg DAILY PO Last administered on 10/18/16t 08:34; Admin Dose 81 MG; Start 10/16/16 at 09:00 Lisinopril (Zestril) 20 mg DAILY PO Last administered on 10/18/16 08:35; Admin Dose 20 MG; Start 10/16/16 at 09:00 Losartan Potassium (Cozaar) 100 mg DAILY PO Last administered on 10/18/16 08:34 ; Admin Dose 100 MG; Start 10/16/16 at 09:00 Hydrochlorothiazide (Hydrochlorothiazide) 25 mg DAILY PO Last administered on 08:34; Admin Dose 25 MG; Start 10/16/16 at 09:00 Acetaminophen 650 mg 650 mg Q4 PRN PO PAIN LEVEL 1-3 OR FEVER Last administered on 10/18/16 00:29; Admin Dose 650 MG; Start 10/16/16 at 13:00 Ferric Sodium Gluconate Complex/ Sodium Chloride (Ferrlecit/NS) 110 ml @ 100 mls/hr Q24H IVPB Last administered on 10/17/16 13:34; Admin Dose 100 MLS/HR; Start 10/17/16 at 13:00; Stop 10/19/16 at 14:05 Pantoprazole (Protonix Tab) 40 mg BID@06,18 PO Last administered on 10/18/16 05 :40; Admin Dose 40 MG; Start 10/17/16 at 18:00 Atenolol 50 mg 50 mg DAILY PO Last administered on 10/18/16 08:35; Admin Dose 50 MG; Start 10/18/16 at 09:00 Potassium Chloride 30 meq/ Dextrose 265 ml @ 88.333 mls/ hr ONCE ONCE IVPB Last administered on 10/18/16 10:26; Admin Dose 88.333 MLS/HR; Start 10/18/16 at 11:00; Stop 10/18/16 at 13:59 Magnesium Sulfate (Magnesium Sulfate 2 Gm/50 ml) 50 ml @ 25 mls/hr ONCE ONCE IVPB Last administered on 10/18/16 10:24; Admin Dose 25 MLS/HR; Start 10/18/16 at 10:00; Stop 10/18/16 at 11:59 LOUISE SANTOS MD Oct 18, 2016 11:12
--- NOTE | 2016-10-18 11:44 | PN ---
Date/Time of Note Date/Time of Note DATE: 10/18/16 TIME: 11:43 Assessment/Plan VTE Prophylaxis VTE Prophylaxis Intervention: SCD's Lines/Catheters IV [facility]from [facility] Saline Lock Assessment/Plan Chief Complaint/Hosp Course 1. 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 Status post needle biopsy on 10/16/2016. The patient being followed by oncology. 2. Mediastinal mass with lesions in the liver, in the bowel loop, pleural space , and right iliac bone. Possible underlying metastatic cancer. Pending biopsy results from mediastinal mass. Continue pain control. 3. Microcytic, hypochromic anemia. Underlying iron deficiency. Continue iron supplements. 4. Bilateral pleural effusions. Possible malignant pleural effusion. Continue supplemental oxygen as needed. 5. Mild to moderate aortic stenosis. 6. Essential hypertension. Continue antihypertensives. 7. T12 compression fracture. Continue pain control. 8. Gaseous distention of the small and large bowel without evidence of bowel obstruction. Being followed by gastroenterology. Continue medical management. The patient able to tolerate oral intake without any significant gastrointestinal symptoms. 9. Fluids, electrolytes, and nutrition. Regular diet as tolerated. 10. Gastrointestinal prophylaxis. Proton pump inhibitors. 11. DVT prophylaxis. Bilateral sequential compression devices. 12. Plan. Continue pain control. Await pathology results. Replete potassium and magnesium. Case discussed with Dr. Fernandez. Problems: Subjective 24 Hr Interval Summary Free Text/Dictation Denies any pain, nausea, or vomiting. Exam/Review of Systems Vital Signs Vitals Vital Signs Date Time Temp Pulse Resp B/P Pulse Ox O2 Delivery O2 Flow Rate FiO2 10/18/16 11:37 97.8 74 20 130/74 99 10/16/16 17:45 Room Air 10/16/16 15:35 2.0 Intake and Output 10/17/16 10/17/16 10/18/16 15:00 23:00 07:00 Intake Total 720 ml 400 ml Balance 720 ml 400 ml Exam General: Thin frail looking 86 year-old female lying in bed in no apparent distress. HEENT: Normocephalic, atraumatic. Eyes: Anicteric sclerae, conjunctivae clear. ENT: Nasal septum midline, oral mucosa moist. Neck supple, no JVD noticed. Respiratory: Bilaterally clear breath sounds. No use of accessory muscles of respiration. No adventitious breath sounds. Cardiovascular: S1, S2 heard. Grade 2/6 systolic ejection murmur. Abdomen: Soft and distended. Bowel sounds hypoactive in all 4 quadrants. Genitourinary: Deferred. Extremities: No cyanosis, no clubbing. Bilateral lower extremity 2+ pitting edema. Peripheral pulses palpable. Neurologic: Cranial nerves II through XII grossly intact. The patient is awake, alert, and oriented. Skin: Normal skin turgor. No skin rashes. Results Result Diagram: 10/18/16 0635 10/18/16 0635 Results 24 hrs Laboratory Tests Test 10/18/16 06:35 White Blood Count 5.6 # Red Blood Count 4.38 Hemoglobin 9.7 L Hematocrit 32.3 L Mean Corpuscular Volume 73.7 L Mean Corpuscular Hemoglobin 22.1 L Mean Corpuscular Hemoglobin Concent 30.0 L Red Cell Distribution Width 25.8 H Platelet Count 342 Mean Platelet Volume 10.0 Neutrophils % 66.2 Lymphocytes % 15.9 Monocytes % 13.4 H Eosinophils % 3.4 Basophils % 0.7 Nucleated Red Blood Cells % 0.0 Neutrophils # 3.7 Lymphocytes # 0.9 Monocytes # 0.8 Eosinophils # 0.2 Basophils # 0.0 Nucleated Red Blood Cells # 0.0 Sodium Level 145 H Potassium Level 2.9 *L Chloride Level 107 Carbon Dioxide Level 25 Anion Gap 16 Blood Urea Nitrogen 20 Creatinine 0.70 Glucose Level 80 Calcium Level 8.5 Phosphorus Level 2.9 Magnesium Level 1.7 Triglycerides Level 150 H Cholesterol Level 89 L LDL Cholesterol, Calculated 25 HDL Cholesterol 34 Cholesterol/HDL Ratio 2.6 Thyroid Stimulating Hormone (TSH) 4.740 H Free Thyroxine 1.43 Medications Medications Current Medications Ondansetron HCl (Zofran Inj) 4 mg Q6H PRN IV NAUSEA AND/OR VOMITING; Start 10/14 at 21:30 Zolpidem Tartrate (Ambien) 5 mg QHS PRN PO INSOMNIA; Start 10/14/16 at 21:30 Docusate Sodium (Colace) 100 mg Q12H PRN PO CONSTIPATION; Start 10/14/16 at 21: 30 Bisacodyl (Dulcolax) 5 mg DAILY PRN PO CONSTIPATION; Start 10/14/16 at 21:30 Aspirin (Halfprin) 81 mg DAILY PO Last administered on 10/18/16t 08:34; Admin Dose 81 MG; Start 10/16/16 at 09:00 Lisinopril (Zestril) 20 mg DAILY PO Last administered on 10/18/16 08:35; Admin Dose 20 MG; Start 10/16/16 at 09:00 Losartan Potassium (Cozaar) 100 mg DAILY PO Last administered on 10/18/16 08:34 ; Admin Dose 100 MG; Start 10/16/16 at 09:00 Hydrochlorothiazide (Hydrochlorothiazide) 25 mg DAILY PO Last administered on 08:34; Admin Dose 25 MG; Start 10/16/16 at 09:00 Acetaminophen 650 mg 650 mg Q4 PRN PO PAIN LEVEL 1-3 OR FEVER Last administered on 10/18/16 00:29; Admin Dose 650 MG; Start 10/16/16 at 13:00 Ferric Sodium Gluconate Complex/ Sodium Chloride (Ferrlecit/NS) 110 ml @ 100 mls/hr Q24H IVPB Last administered on 10/17/16 13:34; Admin Dose 100 MLS/HR; Start 10/17/16 at 13:00; Stop 10/19/16 at 14:05 Pantoprazole (Protonix Tab) 40 mg BID@06,18 PO Last administered on 10/18/16 05 :40; Admin Dose 40 MG; Start 10/17/16 at 18:00 Atenolol 50 mg 50 mg DAILY PO Last administered on 10/18/16 08:35; Admin Dose 50 MG; Start 10/18/16 at 09:00 Potassium Chloride 30 meq/ Dextrose 265 ml @ 88.333 mls/ hr ONCE ONCE IVPB Last administered on 10/18/16 10:26; Admin Dose 88.333 MLS/HR; Start 10/18/16 at 11:00; Stop 10/18/16 at 13:59 Magnesium Sulfate (Magnesium Sulfate 2 Gm/50 ml) 50 ml @ 25 mls/hr ONCE ONCE IVPB Last administered on 10/18/16 10:24; Admin Dose 25 MLS/HR; Start 10/18/16 at 10:00; Stop 10/18/16 at 11:59 MARIANELA AYALA NP Oct 18, 2016 11:44
[2016-10-18] MEDS: SOD FERRIC GLUC COMPLX 125 MG in SOD CHLORIDE 0.9% 100 ML IVPB SCH (13:46)
[2016-10-18 19:08] LABS: ANA SCREEN POSITIVE (NEGATIVE)
[2016-10-19] VITALS (12 sets, daily range): BP systolic 115–140; BP diastolic 64–76; PULSE 71–80; RESP 16–21
[2016-10-19] MEDS: ACETAMINOPHEN 325 MG TAB PO PRN ×2 (02:25→18:20)
[2016-10-19 06:14] LABS: ADD SCAN DIFF NO
[2016-10-19 06:20] LABS: ABNORMAL IP MESSAGE 1; BASOPHILS % 0.7 % (0.0-2.0); EOSINOPHILS # 0.2 10^3/ul (0.0-0.5); EOSINOPHILS % 3.7 % (0.0-7.0); HEMATOCRIT 30.6 % (37.0-47.0); HEMOGLOBIN 9.4 g/dl (12.0-16.0); LYMPHOCYTES # 0.9 10^3/ul (0.8-2.9); LYMPHOCYTES % 14.5 % (15.0-51.0); MEAN CORPUSCULAR HEMOGLOBIN 23.3 pg (29.0-33.0); MEAN CORPUSCULAR HGB CONC 30.7 g/dl (32.0-37.0); MEAN CORPUSCULAR VOLUME 75.9 fl (82.0-101.0); MEAN PLATELET VOLUME 9.9 fl (7.4-10.4); MONOCYTE # 0.8 10^3/ul (0.3-0.9); MONOCYTES % 12.2 % (0.0-11.0); NEUTROPHIL # 4.2 10^3/ul (1.6-7.5); NEUTROPHILS % 68.6 % (39.0-77.0); PLATELET COUNT 275 10^3/UL (140-415); RED BLOOD COUNT 4.03 10^6/ul (4.20-5.40); RED CELL DISTRIBUTION WIDTH 26.3 % (11.5-14.5); WHITE BLOOD COUNT 6.1 10^3/ul (4.8-10.8)
[2016-10-19] MEDS: PANTOPRAZOLE (EC) 40 MG TAB PO SCH ×2 (06:48→18:20)
[2016-10-19 06:57] LABS: MAGNESIUM 2.1 mg/dl (1.7-2.5); PHOSPHORUS 2.4 mg/dl (2.5-4.9)
[2016-10-19 07:11] LABS: CALCIUM 8.1 mg/dl (8.4-10.2); CREATININE 0.6 mg/dl (0.44-1.00); POTASSIUM 3.4 mmol/L (3.5-5.1)
[2016-10-19] MEDS: ASPIRIN (EC) 81 MG TAB PO SCH (09:57)
[2016-10-19] MEDS: LISINOPRIL 20 MG TAB PO SCH (09:57)
[2016-10-19] MEDS: HYDROCHLOROTHIAZIDE 25 MG TAB PO SCH (09:58)
[2016-10-19] MEDS: LOSARTAN 50 MG TAB PO SCH (09:58)
[2016-10-19] MEDS: ATENOLOL 50 MG TAB PO SCH (09:58)
--- NOTE | 2016-10-19 13:14 | PN ---
Date/Time of Note Date/Time of Note DATE: 10/19/16 TIME: 13:12 Assessment/Plan VTE Prophylaxis VTE Prophylaxis Intervention: SCD's Lines/Catheters IV [facility]from [facility] Saline Lock Assessment/Plan Chief Complaint/Hosp Course Is still waiting on pathology report of CT-guided biopsy Problems: Assessment/Plan . 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 Status post needle biopsy on 10/16/2016. The patient being followed by oncology. 2. Mediastinal mass with lesions in the liver, in the bowel loop, pleural space , and right iliac bone. Possible underlying metastatic cancer. Pending biopsy results from mediastinal mass. Continue pain control. 3. Microcytic, hypochromic anemia. Underlying iron deficiency. Continue iron supplements. 4. Bilateral pleural effusions. Possible malignant pleural effusion. Continue supplemental oxygen as needed. 5. Mild to moderate aortic stenosis. 6. Essential hypertension. Continue antihypertensives. 7. T12 compression fracture. Continue pain control. 8. Gaseous distention of the small and large bowel without evidence of bowel obstruction. Being followed by gastroenterology. Continue medical management. The patient able to tolerate oral intake without any significant gastrointestinal symptoms. 9. Fluids, electrolytes, and nutrition. Regular diet as tolerated. 10. Gastrointestinal prophylaxis. Proton pump inhibitors. 11. DVT prophylaxis. Bilateral sequential compression devices. 12. Plan. Continue pain control. Await pathology results. Subjective 24 Hr Interval Summary Free Text/Dictation Chart reviewed. Events noted. Pathology report is still pending. Exam/Review of Systems Vital Signs Vitals Vital Signs Date Time Temp Pulse Resp B/P Pulse Ox O2 Delivery O2 Flow Rate FiO2 10/19/16 12:20 77 10/19/16 11:59 98.3 16 121/64 97 10/16/16 17:45 Room Air 10/16/16 15:35 2.0 Intake and Output 10/18/16 10/18/16 10/19/16 15:00 23:00 07:00 Intake Total 50 ml 1100 ml 700 ml Balance 50 ml 1100 ml 700 ml Exam General: Thin frail looking 86 year-old female lying in bed in no apparent distress. HEENT: Normocephalic, atraumatic. Eyes: Anicteric sclerae, conjunctivae clear. ENT: Nasal septum midline, oral mucosa moist. Neck supple, no JVD noticed. Respiratory: Bilaterally clear breath sounds. No use of accessory muscles of respiration. No adventitious breath sounds. Cardiovascular: S1, S2 heard. Grade 2/6 systolic ejection murmur. Abdomen: Soft and distended. Bowel sounds hypoactive in all 4 quadrants. Genitourinary: Deferred. Extremities: No cyanosis, no clubbing. Bilateral lower extremity 2+ pitting edema. Peripheral pulses palpable. Neurologic: Cranial nerves II through XII grossly intact. The patient is awake, alert, and oriented. Skin: Normal skin turgor. No skin rashes. Results Result Diagram: 10/19/16 0555 10/19/16 0555 Results 24 hrs Laboratory Tests Test 10/19/16 05:55 White Blood Count 6.1 Red Blood Count 4.03 L Hemoglobin 9.4 L Hematocrit 30.6 L Mean Corpuscular Volume 75.9 L Mean Corpuscular Hemoglobin 23.3 L Mean Corpuscular Hemoglobin Concent 30.7 L Red Cell Distribution Width 26.3 H Platelet Count 275 Mean Platelet Volume 9.9 Neutrophils % 68.6 Lymphocytes % 14.5 L Monocytes % 12.2 H Eosinophils % 3.7 Basophils % 0.7 Nucleated Red Blood Cells % 0.0 Neutrophils # 4.2 Lymphocytes # 0.9 Monocytes # 0.8 Eosinophils # 0.2 Basophils # 0.0 Nucleated Red Blood Cells # 0.0 Sodium Level 139 Potassium Level 3.4 L Chloride Level 104 Carbon Dioxide Level 27 Anion Gap 11 Blood Urea Nitrogen 17 Creatinine 0.60 Glucose Level 79 Calcium Level 8.1 L Phosphorus Level 2.4 L Magnesium Level 2.1 Medications Medications Current Medications Ondansetron HCl (Zofran Inj) 4 mg Q6H PRN IV NAUSEA AND/OR VOMITING; Start 10/14 at 21:30 Zolpidem Tartrate (Ambien) 5 mg QHS PRN PO INSOMNIA; Start 10/14/16 at 21:30 Docusate Sodium (Colace) 100 mg Q12H PRN PO CONSTIPATION; Start 10/14/16 at 21: 30 Bisacodyl (Dulcolax) 5 mg DAILY PRN PO CONSTIPATION; Start 10/14/16 at 21:30 Aspirin (Halfprin) 81 mg DAILY PO Last administered on 10/19/16t 09:57; Admin Dose 81 MG; Start 10/16/16 at 09:00 Lisinopril (Zestril) 20 mg DAILY PO Last administered on 10/19/16 09:57; Admin Dose 20 MG; Start 10/16/16 at 09:00 Losartan Potassium (Cozaar) 100 mg DAILY PO Last administered on 10/19/16 09:58 ; Admin Dose 100 MG; Start 10/16/16 at 09:00 Hydrochlorothiazide (Hydrochlorothiazide) 25 mg DAILY PO Last administered on 09:58; Admin Dose 25 MG; Start 10/16/16 at 09:00 Acetaminophen 650 mg 650 mg Q4 PRN PO PAIN LEVEL 1-3 OR FEVER Last administered on 10/19/16 02:25; Admin Dose 650 MG; Start 10/16/16 at 13:00 Ferric Sodium Gluconate Complex/ Sodium Chloride (Ferrlecit/NS) 110 ml @ 100 mls/hr Q24H IVPB Last administered on 10/18/16 13:46; Admin Dose 100 MLS/HR; Start 10/17/16 at 13:00; Stop 10/19/16 at 14:05 Pantoprazole (Protonix Tab) 40 mg BID@06,18 PO Last administered on 10/19/16 06 :48; Admin Dose 40 MG; Start 10/17/16 at 18:00 Atenolol (Tenormin) 50 mg DAILY PO Last administered on 10/19/16 09:58; Admin Dose 50 MG; Start 10/18/16 at 09:00 TONE BRITTON MD Oct 19, 2016 13:14
[2016-10-19 14:04] LABS: ABNORMAL PROTEIN BAND 1 0.1 g/dL (NONE DETECTED); ALBUMIN 2.1 g/dL (3.8-4.8)
[2016-10-19] MEDS: SOD FERRIC GLUC COMPLX 125 MG in SOD CHLORIDE 0.9% 100 ML IVPB SCH (18:42)
--- NOTE | 2016-10-19 23:20 | CONS ---
Date/Time of Note Date/Time of Note DATE: 10/19/16 TIME: 23:15 Assessment/Plan Assessment/Plan Chief Complaint/Hosp Course -- Metastatic melanoma. WITH WIDE- SPREAD METASTATIC DISEASE INCLUDING : Large right paramediastinal mass measuring 8.2 x 3.8 x 7.0 cm, consistent with neoplasm. Nodular soft tissue density along the right side of the heart, consistent with metastatic disease. several metastatic soft tissue nodules in the right pleural space and a 1.5 cm lytic lesion in the right iliac bone. Right hilar lymphadenopathy and lymphadenopathy in the right pericardiophrenic recess. Multiple liver masses consistent with neoplasm. Possible splenic mass. Nonspecific 2.6 cm radiodensity within a small bowel loop in the central abdominopelvic region, possibly a metastatic lesion. TUMOR MARKERS- NOTED BIOCHEMICAL W-UP- REVIEWED POST BX OF Large right paramediastinal mass PATH- Right lung mass, CT-guided core needle biopsies: -- Metastatic melanoma. WILL D/W PT DX, PROGNOSIS AND TREATMENT OPTIONS symptomatic anemia: PRBC + COMPONENT ACD MONITOR COUNT CLOSELY OBSERVE FOR BLEEDING GI EVAL leukocytosis NO any signs of infection no fever. continue to follow this. Difficulty swallowing: WITH decreased appetite and at times she has difficulty swallowing certain foods. GI. hypokalemia: Will replete. hypertension: DVT and GI prophylaxis: SCDs, Protonix. Problems: Consultation Date/Type/Reason Admit Date/Time Oct 14, 2016 at 21:08 Initial Consult Date 10/15/16 [facility] Referring Provider: VIKI TORRES 24 HR Interval Summary Free Text/Dictation ALL NOTED Right lung mass, CT-guided core needle biopsies: -- Metastatic melanoma. Exam/Review of Systems Vital Signs Vitals Vital Signs Date Time Temp Pulse Resp B/P Pulse Ox O2 Delivery O2 Flow Rate FiO2 10/19/16 20:03 78 10/19/16 19:55 98.1 21 124/76 97 10/16/16 17:45 Room Air 10/16/16 15:35 2.0 Intake and Output 10/18/16 10/18/16 10/19/16 15:00 23:00 07:00 Intake Total 50 ml 1100 ml 700 ml Balance 50 ml 1100 ml 700 ml Exam General: Patient is a pleasant, frail-appearing female HEENT: Atraumatic, normocephalic. The pupils are equal, round and reactive. Extraocular motor are intact Neck: Supple with full range of motion. No rigidity or meningismus Chest: Nontender Lungs: Clear to auscultation bilaterally no crackles rales or wheezing Heart: Normal S1-S2, Regular rhythm and rate. Abdomen: Soft , nontender, nondistended , bowel sounds are present. No guarding no rebound tenderness , No masses or organomegaly. No costovertebral temporal angle mass Extremities: Mild nonpitting edema noted on the right foot, right foot greater than left. Neurologic: Normal mental status, speech normal, cranial nerves II through XII are intact, motor and sensory are intact, no focal weakness NO PATH LN-ADRIAN NO BREAST MASSES Results Result Diagram: 10/19/16 0555 10/19/16 0555 Results 24 hrs Laboratory Tests Test 10/19/16 05:55 White Blood Count 6.1 Red Blood Count 4.03 L Hemoglobin 9.4 L Hematocrit 30.6 L Mean Corpuscular Volume 75.9 L Mean Corpuscular Hemoglobin 23.3 L Mean Corpuscular Hemoglobin Concent 30.7 L Red Cell Distribution Width 26.3 H Platelet Count 275 Mean Platelet Volume 9.9 Neutrophils % 68.6 Lymphocytes % 14.5 L Monocytes % 12.2 H Eosinophils % 3.7 Basophils % 0.7 Nucleated Red Blood Cells % 0.0 Neutrophils # 4.2 Lymphocytes # 0.9 Monocytes # 0.8 Eosinophils # 0.2 Basophils # 0.0 Nucleated Red Blood Cells # 0.0 Sodium Level 139 Potassium Level 3.4 L Chloride Level 104 Carbon Dioxide Level 27 Anion Gap 11 Blood Urea Nitrogen 17 Creatinine 0.60 Glucose Level 79 Calcium Level 8.1 L Phosphorus Level 2.4 L Magnesium Level 2.1 Medications Medications Current Medications Ondansetron HCl (Zofran Inj) 4 mg Q6H PRN IV NAUSEA AND/OR VOMITING; Start 10/14 at 21:30 Zolpidem Tartrate (Ambien) 5 mg QHS PRN PO INSOMNIA; Start 10/14/16 at 21:30 Docusate Sodium (Colace) 100 mg Q12H PRN PO CONSTIPATION; Start 10/14/16 at 21: 30 Bisacodyl (Dulcolax) 5 mg DAILY PRN PO CONSTIPATION; Start 10/14/16 at 21:30 Aspirin (Halfprin) 81 mg DAILY PO Last administered on 10/19/16 09:57; Admin Dose 81 MG; Start 10/16/16 at 09:00 Lisinopril (Zestril) 20 mg DAILY PO Last administered on 10/19/16 09:57; Admin Dose 20 MG; Start 10/16/16 at 09:00 Losartan Potassium (Cozaar) 100 mg DAILY PO Last administered on 10/19/16 09:58 ; Admin Dose 100 MG; Start 10/16/16 at 09:00 Hydrochlorothiazide (Hydrochlorothiazide) 25 mg DAILY PO Last administered on 09:58; Admin Dose 25 MG; Start 10/16/16 at 09:00 Acetaminophen (Tylenol Tab) 650 mg Q4 PRN PO PAIN LEVEL 1-3 OR FEVER Last administered on 10/19/16 18:20; Admin Dose 650 MG; Start 10/16/16 at 13:00 Pantoprazole (Protonix Tab) 40 mg BID@,18 PO Last administered on 10/19/16 18 :20; Admin Dose 40 MG; Start 10/17/16 at 18:00 Atenolol (Tenormin) 50 mg DAILY PO Last administered on 10/19/16 09:58; Admin Dose 50 MG; Start 10/18/16 at 09:00 [facility] a non-profit non-sect[facility] asset [address] [place] [address] ; Lab No: [id number] Date: 10/16/2016 INTRA-OPERATIVE TOUCH IMPRINTS WITH IMMEDIATE EXAMINATION: - Adequate specimen/CH (10/16/16; 3:30 p.m.) SPECIMEN: Right lung mass CLINICAL: Right lung masses GROSS EXAMINATION: Received in two specimen containers of formalin are minute fragments of [place]- [place] soft tissue that measure 0.2 to 04 cm with each less than 0.1 cm in diameter and the segments of clotted blood measure 1.2 x 0.8 x 0.2 cm in aggregate. The small needle core biopsies are totally submitted in cassette 1 with the blood clot totally submitted in cassette 2. Also received are six touch imprints that are stained and submitted for rapid interpretation. MICROSCOPIC DESCRIPTION: Sections show nests of tumor cells containing enlarged nuclei with prominent nucleoli. Increased mitotic activity is observed. Larger amount of coarse melanin pigments are present. An iron stain with appropriate positive control is negative in these melanin pigments. The block is forwarded to [facility] for the performance of immunohistochemical stains to characterize the tumor cells. The tumor cells came with appropriate positive and negative controls which work correctly. -- S100: Positive, nuclear and cytoplasmic -- HMB-45: Positive, cytoplasmic -- Melan A: Positive, cytoplasmic MICROSCOPIC DIAGNOSIS: Right lung mass, CT-guided core needle biopsies: -- Metastatic melanoma. Continued Next Page . . . COMMENT: This case was reviewed by Dr. Az Carolina who concurs. Dr. Louise Pritchard was notified on 10/19/2016. MP/CH/db/tm Date of Service: 10/16/16; Date Received: 10/16/16 Dictated: 10/19/16; Transcribed: 10/19/16; Sent by Fax: 10/19/16; Reviewed: COMMENT: The immunoperoxidase stains reported above were developed and its performance characteristics determined by [facility]. It has not been cleared or approved by the U.S. Food and Drug Administration, although such approval is not required for analyte-specific reagents of this type. Charles Campoverde M.D. Pathologist Electronically Signed 10/19/2016 SHAVON COATS M.D. 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
[2016-10-20] VITALS (14 sets, daily range): BP systolic 121–161; BP diastolic 73–88; PULSE 66–89; RESP 18–21
[2016-10-20] MEDS: ACETAMINOPHEN 325 MG TAB PO PRN ×2 (00:39→11:31)
[2016-10-20] MEDS ORDERED: POTASSIUM CHLORIDE 250 ML IVPB ONE (01:00)
[2016-10-20] MEDS: PANTOPRAZOLE (EC) 40 MG TAB PO SCH ×2 (06:37→18:00)
[2016-10-20] MEDS: LISINOPRIL 20 MG TAB PO SCH (10:01)
[2016-10-20] MEDS: ATENOLOL 50 MG TAB PO SCH (10:02)
[2016-10-20] MEDS: ASPIRIN (EC) 81 MG TAB PO SCH (10:02)
[2016-10-20] MEDS: HYDROCHLOROTHIAZIDE 25 MG TAB PO SCH (10:02)
[2016-10-20] MEDS: LOSARTAN 50 MG TAB PO SCH (10:02)
[2016-10-20] MEDS ORDERED: HYDROCODONE/APAP (5/325) TAB PO PRN (11:30)
[2016-10-20] MEDS: traMADol 50 MG TAB PO PRN ×2 (11:31→22:55)
[2016-10-20] MEDS ORDERED: HYDROmorphONE 1 MG/ML SYG IV PRN (13:30)
--- NOTE | 2016-10-20 17:21 | PN ---
Date/Time of Note Date/Time of Note DATE: 10/20/16 TIME: 17:20 Assessment/Plan VTE Prophylaxis VTE Prophylaxis Intervention: SCD's Lines/Catheters IV Catheter Type (from Nrs): Saline Lock Urinary Cath still in place: No Assessment/Plan Assessment/Plan Large right paramediastinal mass measuring 8.23.87.0 cm. Status post needle biopsy on 10/16/2016. The patient being followed by oncology. 2. Mediastinal mass with lesions in the liver, in the bowel loop, pleural space , and right iliac bone. Possible underlying metastatic cancer. Pending biopsy results from mediastinal mass. Continue pain control. 3. Microcytic, hypochromic anemia. Underlying iron deficiency. Continue iron supplements. 4. Bilateral pleural effusions. Possible malignant pleural effusion. Continue supplemental oxygen as needed. 5. Mild to moderate aortic stenosis. 6. Essential hypertension. Continue antihypertensives. 7. T12 compression fracture. Continue pain control. 8. Gaseous distention of the small and large bowel without evidence of bowel obstruction. Being followed by gastroenterology. Continue medical management. The patient able to tolerate oral intake without any significant gastrointestinal symptoms. 9. Fluids, electrolytes, and nutrition. Regular diet as tolerated. 10. Gastrointestinal prophylaxis. Proton pump inhibitors. 11. DVT prophylaxis. Bilateral sequential compression devices. 12. Plan. Continue pain control. Await pathology results. pt is allergic hydrocodone, she said tramadol did not work, will order pain management consutl Exam/Review of Systems Vital Signs Vitals Vital Signs Date Time Temp Pulse Resp B/P Pulse Ox O2 Delivery O2 Flow Rate FiO2 10/20/16 16:11 67 10/20/16 15:34 98.0 18 125/74 97 10/16/16 17:45 Room Air 10/16/16 15:35 2.0 Intake and Output 10/19/16 10/19/16 10/20/16 15:00 23:00 07:00 Intake Total 1080 ml 400 ml Balance 1080 ml 400 ml Exam nad, pleasant sitting up in bed no mrg lungs clear abd soft no rashes Results Result Diagram: 10/19/16 0555 10/19/16 0555 Medications Medications Current Medications Ondansetron HCl (Zofran Inj) 4 mg Q6H PRN IV NAUSEA AND/OR VOMITING Last administered on 10/20/16t 16:40; Admin Dose 4 MG; Start 10/14/16 at 21:30 Zolpidem Tartrate (Ambien) 5 mg QHS PRN PO INSOMNIA; Start 10/14/16 at 21:30 Docusate Sodium (Colace) 100 mg Q12H PRN PO CONSTIPATION; Start 10/14/16 at 21: 30 Bisacodyl (Dulcolax) 5 mg DAILY PRN PO CONSTIPATION; Start 10/14/16 at 21:30 Aspirin (Halfprin) 81 mg DAILY PO Last administered on 10/20/16 10:02; Admin Dose 81 MG; Start 10/16/16 at 09:00 Lisinopril (Zestril) 20 mg DAILY PO Last administered on 10/20/16 10:01; Admin Dose 20 MG; Start 10/16/16 at 09:00 Losartan Potassium (Cozaar) 100 mg DAILY PO Last administered on 10/20/16 10:02 ; Admin Dose 100 MG; Start 10/16/16 at 09:00 Hydrochlorothiazide (Hydrochlorothiazide) 25 mg DAILY PO Last administered on 10:02; Admin Dose 25 MG; Start 10/16/16 at 09:00 Acetaminophen (Tylenol Tab) 650 mg Q4 PRN PO PAIN LEVEL 1-3 OR FEVER Last administered on 10/20/16 11:31; Admin Dose 650 MG; Start 10/16/16 at 13:00 Pantoprazole (Protonix Tab) 40 mg BID@06,18 PO Last administered on 10/20/16 06 :37; Admin Dose 40 MG; Start 10/17/16 at 18:00 Atenolol (Tenormin) 50 mg DAILY PO Last administered on 10/20/16 10:02; Admin Dose 50 MG; Start 10/18/16 at 09:00 Tramadol HCl (Ultram) 50 mg Q6H PRN PO moderate to severe pain Last administered on 10/20/16 11:31; Admin Dose 50 MG; Start 10/20/16 at 11:30 Hydromorphone HCl (Dilaudid) 1 mg Q4H PRN IV PAIN Last administered on 13:22; Admin Dose 1 MG; Start 10/20/16 at 13:30 JOHNNA VILLEGAS MD Oct 20, 2016 17:21
--- NOTE | 2016-10-20 23:34 | CONS ---
Date/Time of Note Date/Time of Note DATE: 10/20/16 TIME: 23:31 Assessment/Plan Assessment/Plan Chief Complaint/Hosp Course -- Metastatic melanoma. WITH WIDE- SPREAD METASTATIC DISEASE INCLUDING : Large right paramediastinal mass measuring 8.2 x 3.8 x 7.0 cm, consistent with neoplasm. Nodular soft tissue density along the right side of the heart, consistent with metastatic disease. several metastatic soft tissue nodules in the right pleural space and a 1.5 cm lytic lesion in the right iliac bone. Right hilar lymphadenopathy and lymphadenopathy in the right pericardiophrenic recess. Multiple liver masses consistent with neoplasm. Possible splenic mass. Nonspecific 2.6 cm radiodensity within a small bowel loop in the central abdominopelvic region, possibly a metastatic lesion. TUMOR MARKERS- NOTED BIOCHEMICAL W-UP- REVIEWED POST BX OF Large right paramediastinal mass PATH- Right lung mass, CT-guided core needle biopsies: -- Metastatic melanoma. D/W DAUGTHER NOHELIA - RE DX, PROGNOSIS AND TREATMENT OPTIONS SHE DOESNT WANT FOR ME TO TALK WITH HER MOTHER DE DX FOR NOW SHE WANT TO DISCUSS IT WITH FAMILY D/W PATHOLOGY- BRAF, C- KIT AND TONY TESTING ORDERED symptomatic anemia: PRBC + COMPONENT ACD MONITOR COUNT CLOSELY OBSERVE FOR BLEEDING GI EVAL leukocytosis NO any signs of infection no fever. continue to follow this. Difficulty swallowing: WITH decreased appetite and at times she has difficulty swallowing certain foods. GI. hypokalemia: Will replete. hypertension: DVT and GI prophylaxis: SCDs, Protonix. Problems: Consultation Date/Type/Reason Admit Date/Time Oct 14, 2016 at 21:08 Initial Consult Date 10/15/16 [facility] Referring Provider: VIKI TORRES 24 HR Interval Summary Free Text/Dictation all noted d/w daughter NOHELIA Exam/Review of Systems Vital Signs Vitals Vital Signs Date Time Temp Pulse Resp B/P Pulse Ox O2 Delivery O2 Flow Rate FiO2 10/20/16 22:30 10/20/16 19:45 98.0 21 121/73 97 10/16/16 17:45 Room Air 10/16/16 15:35 2.0 Intake and Output 10/19/16 10/19/16 10/20/16 15:00 23:00 07:00 Intake Total 1080 ml 400 ml Balance 1080 ml 400 ml Exam General: Patient is a pleasant, frail-appearing female HEENT: Atraumatic, normocephalic. The pupils are equal, round and reactive. Extraocular motor are intact Neck: Supple with full range of motion. No rigidity or meningismus Chest: Nontender Lungs: Clear to auscultation bilaterally no crackles rales or wheezing Heart: Normal S1-S2, Regular rhythm and rate. Abdomen: Soft , nontender, nondistended , bowel sounds are present. No guarding no rebound tenderness , No masses or organomegaly. No costovertebral temporal angle mass Extremities: Mild nonpitting edema noted on the right foot, right foot greater than left. Neurologic: Normal mental status, speech normal, cranial nerves II through XII are intact, motor and sensory are intact, no focal weakness NO PATH LN-ADRIAN NO BREAST MASSES Results Result Diagram: 10/19/16 0555 10/19/16 0555 Medications Medications Current Medications Ondansetron HCl (Zofran Inj) 4 mg Q6H PRN IV NAUSEA AND/OR VOMITING Last administered on 10/20/16 16:40; Admin Dose 4 MG; Start 10/14/16 at 21:30 Zolpidem Tartrate (Ambien) 5 mg QHS PRN PO INSOMNIA; Start 10/14/16 at 21:30 Docusate Sodium (Colace) 100 mg Q12H PRN PO CONSTIPATION; Start 10/14/16 at 21: 30 Bisacodyl (Dulcolax) 5 mg DAILY PRN PO CONSTIPATION; Start 10/14/16 at 21:30 Aspirin (Halfprin) 81 mg DAILY PO Last administered on 10/20/16 10:02; Admin Dose 81 MG; Start 10/16/16 at 09:00 Lisinopril (Zestril) 20 mg DAILY PO Last administered on 10/20/16 10:01; Admin Dose 20 MG; Start 10/16/16 at 09:00 Losartan Potassium (Cozaar) 100 mg DAILY PO Last administered on 10/20/16 10:02 ; Admin Dose 100 MG; Start 10/16/16 at 09:00 Hydrochlorothiazide (Hydrochlorothiazide) 25 mg DAILY PO Last administered on 10:02; Admin Dose 25 MG; Start 10/16/16 at 09:00 Acetaminophen (Tylenol Tab) 650 mg Q4 PRN PO PAIN LEVEL 1-3 OR FEVER Last administered on 10/20/16 11:31; Admin Dose 650 MG; Start 10/16/16 at 13:00 Pantoprazole (Protonix Tab) 40 mg BID@06,18 PO Last administered on 10/20/16 06 :37; Admin Dose 40 MG; Start 10/17/16 at 18:00 Atenolol (Tenormin) 50 mg DAILY PO Last administered on 10/20/16 10:02; Admin Dose 50 MG; Start 10/18/16 at 09:00 Tramadol HCl (Ultram) 50 mg Q6H PRN PO moderate to severe pain Last administered on 10/20/16 22:55; Admin Dose 50 MG; Start 10/20/16 at 11:30 Hydromorphone HCl (Dilaudid) 1 mg Q4H PRN IV PAIN Last administered on 13:22; Admin Dose 1 MG; Start 10/20/16 at 13:30 LOUISE SANTOS MD Oct 20, 2016 23:34
[2016-10-21] VITALS (11 sets, daily range): BP systolic 107–120; BP diastolic 56–64; PULSE 64–78; RESP 16–20
[2016-10-21] MEDS: PANTOPRAZOLE (EC) 40 MG TAB PO SCH ×2 (06:23→17:25)
[2016-10-21 07:10] LABS: ADD SCAN DIFF NO
[2016-10-21 07:15] LABS: ABNORMAL IP MESSAGE 1; BASOPHILS % 0.4 % (0.0-2.0); EOSINOPHILS # 0.1 10^3/ul (0.0-0.5); EOSINOPHILS % 0.7 % (0.0-7.0); HEMATOCRIT 31.7 % (37.0-47.0); HEMOGLOBIN 9.4 g/dl (12.0-16.0); LYMPHOCYTES # 1.1 10^3/ul (0.8-2.9); LYMPHOCYTES % 13.2 % (15.0-51.0); MEAN CORPUSCULAR HEMOGLOBIN 22.7 pg (29.0-33.0); MEAN CORPUSCULAR HGB CONC 29.7 g/dl (32.0-37.0); MEAN CORPUSCULAR VOLUME 76.4 fl (82.0-101.0); MEAN PLATELET VOLUME 10.3 fl (7.4-10.4); MONOCYTE # 0.8 10^3/ul (0.3-0.9); MONOCYTES % 9.7 % (0.0-11.0); NEUTROPHIL # 6.3 10^3/ul (1.6-7.5); NEUTROPHILS % 75.4 % (39.0-77.0); PLATELET COUNT 273 10^3/UL (140-415); RED BLOOD COUNT 4.15 10^6/ul (4.20-5.40); RED CELL DISTRIBUTION WIDTH 27.7 % (11.5-14.5); WHITE BLOOD COUNT 8.3 10^3/ul (4.8-10.8)
[2016-10-21 07:35] LABS: CALCIUM 8.4 mg/dl (8.4-10.2); CREATININE 0.67 mg/dl (0.44-1.00)
[2016-10-21 07:38] LABS: INR 1.06; PROTIME 13.8 Sec (12.2-14.2); PT RATIO 1.1
[2016-10-21 07:39] LABS: PARTIAL THROMBOPLASTIN TIME 34.5 Sec (25.0-35.0)
[2016-10-21] MEDS: ASPIRIN (EC) 81 MG TAB PO SCH (08:51)
[2016-10-21] MEDS: LOSARTAN 50 MG TAB PO SCH (08:51)
[2016-10-21] MEDS: HYDROCHLOROTHIAZIDE 25 MG TAB PO SCH (08:51)
[2016-10-21] MEDS: ATENOLOL 50 MG TAB PO SCH (08:51)
[2016-10-21] MEDS: LISINOPRIL 20 MG TAB PO SCH (08:52)
--- NOTE | 2016-10-21 09:51 | PN ---
Date/Time of Note Date/Time of Note DATE: 10/21/16 TIME: 09:47 Assessment/Plan VTE Prophylaxis VTE Prophylaxis Intervention: other Lines/Catheters IV C[facility]ter Type (from [facility]): Saline Lock Urinary Cath still in place: No Assessment/Plan Problems: (1) Hypokalemia Status: Resolved Comment: Replaced (2) Anemia Status: Acute Comment: She has been transfused and is holding nicely. A more important issue is the problems listed below. Qualifiers: Anemia type: unspecified type Qualified Code: D64.9 - Anemia, unspecified type (3) Essential hypertension Status: Chronic Comment: A combination of the LIONEL inhibitor within a 2 receptor vicente is unnecessary. Will fine-tune this regimen for simplest (4) Malignant melanoma, metastatic Status: Acute Comment: There is no clear-cut original source for this. She may have had an amelanotic melanoma. Regardless she has widely metastatic disease biopsy proven. The patient is fully appropriate and greeted me with specific questions about the results of her biopsy. I was not in a position where ethically I could refuse to answer her questions. I discussed with her the basics of the results of this and agreed that we would do everything we could respect her dignity. She requests we arrange a family conference with the oncologist to discuss what her options would be. (5) Gastroesophageal reflux disease Status: Chronic Comment: On proton pump inhibitor therapy. Qualifiers: Esophagitis presence: without esophagitis Qualified Code: K21.9 - Gastroesophageal reflux disease without esophagitis (6) Hiatal hernia Comment: Noted and on proton pump inhibitor (7) Aortic stenosis, moderate Status: Chronic Comment: Noted no intervention indicated (8) Compression fracture of T12 vertebra Status: Chronic Comment: Stable probably rep represents osteoporosis as opposed to pathological fracture. No intervention indicated Qualifiers: Encounter type: initial encounter Qualified Code: M48.54XA - Compression fracture of T12 vertebra, initial encounter Subjective 24 Hr Interval Summary Free Text/Dictation Patient awake and alert asking appropriate questions. She reports that she feels a little bit dizzy since an injection yesterday. She reports she is not having chest pain or shortness of breath Constitutional: no complaints (No fevers chills or sweats) Respiratory: no complaints (No cough no shortness of breath) Cardiovascular: no complaints Gastrointestinal: no complaints Genitourinary: no complaints Exam/Review of Systems Vital Signs Vitals Vital Signs Date Time Temp Pulse Resp B/P Pulse Ox O2 Delivery O2 Flow Rate FiO2 10/21/16 08:08 67 10/21/16 07:52 98.0 18 120/60 94 Intake and Output 10/20/16 10/20/16 10/21/16 15:00 23:00 07:00 Intake Total 740 ml 60 ml Balance 740 ml 60 ml Exam Patient asking appropriate questions Constitutional: alert, oriented Neck: non-tender, supple Respiratory: clear to auscultation, normal air movement Cardiovascular: nl pulses, regular rate and rhythm Results Result Diagram: 10/21/16 0618 10/21/16 0618 Results 24 hrs Laboratory Tests Test 10/21/16 06:18 White Blood Count 8.3 # Red Blood Count 4.15 L Hemoglobin 9.4 L Hematocrit 31.7 L Mean Corpuscular Volume 76.4 L Mean Corpuscular Hemoglobin 22.7 L Mean Corpuscular Hemoglobin Concent 29.7 L Red Cell Distribution Width 27.7 H Platelet Count 273 Mean Platelet Volume 10.3 Neutrophils % 75.4 Lymphocytes % 13.2 L Monocytes % 9.7 Eosinophils % 0.7 Basophils % 0.4 Nucleated Red Blood Cells % 0.0 Neutrophils # 6.3 Lymphocytes # 1.1 Monocytes # 0.8 Eosinophils # 0.1 Basophils # 0.0 Nucleated Red Blood Cells # 0.0 Prothrombin Time 13.8 Prothrombin Time Ratio 1.1 INR International Normalized Ratio 1.06 Activated Partial Thromboplast Time 34.5 Sodium Level 139 Potassium Level 4.0 Chloride Level 101 Carbon Dioxide Level 28 Anion Gap 14 Blood Urea Nitrogen 19 Creatinine 0.67 Glucose Level 81 Calcium Level 8.4 Medications Medications Current Medications Ondansetron HCl (Zofran Inj) 4 mg Q6H PRN IV NAUSEA AND/OR VOMITING Last administered on 10/20/16t 16:40; Admin Dose 4 MG; Start 10/14/16 at 21:30 Zolpidem Tartrate (Ambien) 5 mg QHS PRN PO INSOMNIA; Start 10/14/16 at 21:30 Docusate Sodium (Colace) 100 mg Q12H PRN PO CONSTIPATION; Start 10/14/16 at 21: 30 Bisacodyl (Dulcolax) 5 mg DAILY PRN PO CONSTIPATION; Start 10/14/16 at 21:30 Aspirin (Halfprin) 81 mg DAILY PO Last administered on 10/21/16 08:51; Admin Dose 81 MG; Start 10/16/16 at 09:00 Losartan Potassium (Cozaar) 100 mg DAILY PO Last administered on 10/21/16 08:51 ; Admin Dose 100 MG; Start 10/16/16 at 09:00 Hydrochlorothiazide (Hydrochlorothiazide) 25 mg DAILY PO Last administered on 08:51; Admin Dose 25 MG; Start 10/16/16 at 09:00 Acetaminophen (Tylenol Tab) 650 mg Q4 PRN PO PAIN LEVEL 1-3 OR FEVER Last administered on 10/20/16 11:31; Admin Dose 650 MG; Start 10/16/16 at 13:00 Pantoprazole (Protonix Tab) 40 mg BID@,18 PO Last administered on 10/21/16 06 :23; Admin Dose 40 MG; Start 10/17/16 at 18:00 Atenolol (Tenormin) 50 mg DAILY PO Last administered on 10/21/16 08:51; Admin Dose 50 MG; Start 10/18/16 at 09:00 Tramadol HCl (Ultram) 50 mg Q6H PRN PO moderate to severe pain Last administered on 10/20/16 22:55; Admin Dose 50 MG; Start 10/20/16 at 11:30 Hydromorphone HCl (Dilaudid) 1 mg Q4H PRN IV PAIN Last administered on 13:22; Admin Dose 1 MG; Start 10/20/16 at 13:30 Cyanocobalamin (Vitamin B12 Inj) 1,000 mcg ONCE ONCE IM ; Start 10/21/16 at 10: 00; Stop 10/21/16 at 10:01; Status ASHLEY SHELL MD Oct 21, 2016 09:51
[2016-10-21] MEDS ORDERED: CYANOCOBALAMIN 1000 MCG INJ IM ONE (11:00)
--- NOTE | 2016-10-21 18:52 | CONS ---
Date/Time of Note Date/Time of Note DATE: 10/21/16 TIME: 18:48 Assessment/Plan Assessment/Plan Chief Complaint/Hosp Course -- Metastatic melanoma. WITH WIDE- SPREAD METASTATIC DISEASE INCLUDING : Large right paramediastinal mass measuring 8.2 x 3.8 x 7.0 cm, consistent with neoplasm. Nodular soft tissue density along the right side of the heart, consistent with metastatic disease. several metastatic soft tissue nodules in the right pleural space and a 1.5 cm lytic lesion in the right iliac bone. Right hilar lymphadenopathy and lymphadenopathy in the right pericardiophrenic recess. Multiple liver masses consistent with neoplasm. Possible splenic mass. Nonspecific 2.6 cm radiodensity within a small bowel loop in the central abdominopelvic region, possibly a metastatic lesion. TUMOR MARKERS- NOTED BIOCHEMICAL W-UP- REVIEWED POST BX OF Large right paramediastinal mass PATH- Right lung mass, CT-guided core needle biopsies: -- Metastatic melanoma. D/W DAUGTHER NOHELIA - RE DX, PROGNOSIS AND TREATMENT OPTIONS PT KNOWS HER DX SHE WANT TO DISCUSS IT WITH FAMILY D/W PATHOLOGY- BRAF, C- KIT AND TONY TESTING ORDERED FAMILY CONFERENCE AFTER GENETIC TESTING IS BACK symptomatic anemia: POST PRBC + COMPONENT ACD MONITOR COUNT CLOSELY OBSERVE FOR BLEEDING leukocytosis NO any signs of infection no fever. continue to follow this. Difficulty swallowing: WITH decreased appetite and at times she has difficulty swallowing certain foods. GI. hypokalemia: Will replete. hypertension: DVT and GI prophylaxis: SCDs, Protonix. Problems: Consultation Date/Type/Reason Admit Date/Time Oct 14, 2016 at 21:08 Initial Consult Date 10/15/16 Type of Consultation: [facility] Referring Provider: VIKI TORRES 24 HR Interval Summary Free Text/Dictation ALL NOTED D/W DR SENA, WHO INFORM PT RE DX AFTER SHE ASKED RE RESULT OF BX Exam/Review of Systems Vital Signs Vitals Vital Signs Date Time Temp Pulse Resp B/P Pulse Ox O2 Delivery O2 Flow Rate FiO2 10/21/16 16:33 77 10/21/16 15:51 97.8 18 107/64 92 Intake and Output 10/20/16 10/20/16 10/21/16 15:00 23:00 07:00 Intake Total 740 ml 60 ml Balance 740 ml 60 ml Exam General: Patient is a pleasant, frail-appearing female HEENT: Atraumatic, normocephalic. The pupils are equal, round and reactive. Extraocular motor are intact Neck: Supple with full range of motion. No rigidity or meningismus Chest: Nontender Lungs: Clear to auscultation bilaterally no crackles rales or wheezing Heart: Normal S1-S2, Regular rhythm and rate. Abdomen: Soft , nontender, nondistended , bowel sounds are present. No guarding no rebound tenderness , No masses or organomegaly. No costovertebral temporal angle mass Extremities: Mild nonpitting edema noted on the right foot, right foot greater than left. Neurologic: Normal mental status, speech normal, cranial nerves II through XII are intact, motor and sensory are intact, no focal weakness NO PATH LN-ADRIAN NO BREAST MASSES Results Result Diagram: 10/21/1618 10/21/1618 Results 24 hrs Laboratory Tests Test 10/21/16 06:18 White Blood Count 8.3 # Red Blood Count 4.15 L Hemoglobin 9.4 L Hematocrit 31.7 L Mean Corpuscular Volume 76.4 L Mean Corpuscular Hemoglobin 22.7 L Mean Corpuscular Hemoglobin Concent 29.7 L Red Cell Distribution Width 27.7 H Platelet Count 273 Mean Platelet Volume 10.3 Neutrophils % 75.4 Lymphocytes % 13.2 L Monocytes % 9.7 Eosinophils % 0.7 Basophils % 0.4 Nucleated Red Blood Cells % 0.0 Neutrophils # 6.3 Lymphocytes # 1.1 Monocytes # 0.8 Eosinophils # 0.1 Basophils # 0.0 Nucleated Red Blood Cells # 0.0 Prothrombin Time 13.8 Prothrombin Time Ratio 1.1 INR International Normalized Ratio 1.06 Activated Partial Thromboplast Time 34.5 Sodium Level 139 Potassium Level 4.0 Chloride Level 101 Carbon Dioxide Level 28 Anion Gap 14 Blood Urea Nitrogen 19 Creatinine 0.67 Glucose Level 81 Calcium Level 8.4 Medications Medications Current Medications Ondansetron HCl (Zofran Inj) 4 mg Q6H PRN IV NAUSEA AND/OR VOMITING Last administered on 10/20/16t 16:40; Admin Dose 4 MG; Start 10/14/16 at 21:30 Zolpidem Tartrate (Ambien) 5 mg QHS PRN PO INSOMNIA; Start 10/14/16 at 21:30 Docusate Sodium (Colace) 100 mg Q12H PRN PO CONSTIPATION; Start 10/14/16 at 21: 30 Bisacodyl (Dulcolax) 5 mg DAILY PRN PO CONSTIPATION; Start 10/14/16 at 21:30 Aspirin (Halfprin) 81 mg DAILY PO Last administered on 10/21/16 08:51; Admin Dose 81 MG; Start 10/16/16 at 09:00 Losartan Potassium (Cozaar) 100 mg DAILY PO Last administered on 10/21/16 08:51 ; Admin Dose 100 MG; Start 10/16/16 at 09:00 Hydrochlorothiazide (Hydrochlorothiazide) 25 mg DAILY PO Last administered on 08:51; Admin Dose 25 MG; Start 10/16/16 at 09:00 Acetaminophen (Tylenol Tab) 650 mg Q4 PRN PO PAIN LEVEL 1-3 OR FEVER Last administered on 10/20/16 11:31; Admin Dose 650 MG; Start 10/16/16 at 13:00 Pantoprazole (Protonix Tab) 40 mg BID@,18 PO Last administered on 10/21/16 17 :25; Admin Dose 40 MG; Start 10/17/16 at 18:00 Atenolol (Tenormin) 50 mg DAILY PO Last administered on 10/21/16 08:51; Admin Dose 50 MG; Start 10/18/16 at 09:00 Tramadol HCl (Ultram) 50 mg Q6H PRN PO moderate to severe pain Last administered on 10/20/16 22:55; Admin Dose 50 MG; Start 10/20/16 at 11:30 Hydromorphone HCl (Dilaudid) 1 mg Q4H PRN IV PAIN Last administered on 13:22; Admin Dose 1 MG; Start 10/20/16 at 13:30 LOUISE SANTOS MD Oct 21, 2016 18:51
[2016-10-22] VITALS (13 sets, daily range): BP systolic 106–119; BP diastolic 58–64; PULSE 65–82; RESP 16–20
[2016-10-22] MEDS: PANTOPRAZOLE (EC) 40 MG TAB PO SCH ×2 (05:05→17:21)
[2016-10-22] MEDS: LOSARTAN 50 MG TAB PO SCH (08:15)
[2016-10-22] MEDS: ATENOLOL 50 MG TAB PO SCH (08:15)
[2016-10-22] MEDS: HYDROCHLOROTHIAZIDE 25 MG TAB PO SCH (08:15)
[2016-10-22] MEDS: ASPIRIN (EC) 81 MG TAB PO SCH (08:15)
--- NOTE | 2016-10-22 13:56 | PN ---
Date/Time of Note Date/Time of Note DATE: 10/22/16 TIME: 13:54 Assessment/Plan VTE Prophylaxis VTE Prophylaxis Intervention: heparin Lines/Catheters IV C[facility]ter Type (from [facility]): Saline Lock Urinary Cath still in place: No Assessment/Plan Problems: (1) Essential hypertension Status: Chronic Comment: Adequately controlled (2) Malignant melanoma, metastatic Status: Acute Comment: At this time this is the main reason apparently the patient is here. Dr. Pritchard informs me that she will meet with the patient and the family tomorrow to discuss treatment options. At that time the patient can be discharged. With plans for outpatient chemotherapy as there are no other issues to keep the patient in the hospital at this time Subjective 24 Hr Interval Summary Free Text/Dictation Tino female sitting in bed Constitutional: no complaints Respiratory: no complaints Cardiovascular: no complaints Exam/Review of Systems Vital Signs Vitals Vital Signs Date Time Temp Pulse Resp B/P Pulse Ox O2 Delivery O2 Flow Rate FiO2 10/22/16 12:02 75 10/22/16 11:53 98.0 20 118/64 94 Intake and Output 10/21/16 10/21/16 10/22/16 15:00 23:00 07:00 Intake Total 500 ml 400 ml Balance 500 ml 400 ml Exam Constitutional: alert, oriented Neck: non-tender, supple Respiratory: clear to auscultation, normal air movement Results Result Diagram: 10/21/1661710/21/16617 Medications Medications Current Medications Ondansetron HCl (Zofran Inj) 4 mg Q6H PRN IV NAUSEA AND/OR VOMITING Last administered on 10/20/16 16:40; Admin Dose 4 MG; Start 10/14/16 at 21:30 Zolpidem Tartrate (Ambien) 5 mg QHS PRN PO INSOMNIA; Start 10/14/16 at 21:30 Docusate Sodium (Colace) 100 mg Q12H PRN PO CONSTIPATION; Start 10/14/16 at 21: 30 Bisacodyl (Dulcolax) 5 mg DAILY PRN PO CONSTIPATION; Start 10/14/16 at 21:30 Aspirin (Halfprin) 81 mg DAILY PO Last administered on 10/22/16 08:15; Admin Dose 81 MG; Start 10/16/16 at 09:00 Losartan Potassium (Cozaar) 100 mg DAILY PO Last administered on 10/22/16 08:15 ; Admin Dose 100 MG; Start 10/16/16 at 09:00 Hydrochlorothiazide (Hydrochlorothiazide) 25 mg DAILY PO Last administered on 08:15; Admin Dose 25 MG; Start 10/16/16 at 09:00 Acetaminophen (Tylenol Tab) 650 mg Q4 PRN PO PAIN LEVEL 1-3 OR FEVER Last administered on 10/20/16 11:31; Admin Dose 650 MG; Start 10/16/16 at 13:00 Pantoprazole (Protonix Tab) 40 mg BID@,18 PO Last administered on 10/22/16 05 :05; Admin Dose 40 MG; Start 10/17/16 at 18:00 Atenolol (Tenormin) 50 mg DAILY PO Last administered on 10/22/16 08:15; Admin Dose 50 MG; Start 10/18/16 at 09:00 Tramadol HCl (Ultram) 50 mg Q6H PRN PO moderate to severe pain Last administered on 10/20/16 22:55; Admin Dose 50 MG; Start 10/20/16 at 11:30 Hydromorphone HCl (Dilaudid) 1 mg Q4H PRN IV PAIN Last administered on 13:22; Admin Dose 1 MG; Start 10/20/16 at 13:30 ASHLEY SENA MD Oct 22, 2016 13:56
[2016-10-23] VITALS (12 sets, daily range): BP systolic 108–134; BP diastolic 57–78; PULSE 73–79; RESP 16–20
--- NOTE | 2016-10-23 00:05 | CONS ---
Date/Time of Note Date/Time of Note DATE: 10/23/16 TIME: 00:04 Assessment/Plan Assessment/Plan Chief Complaint/Hosp Course -- Metastatic melanoma. WITH WIDE- SPREAD METASTATIC DISEASE INCLUDING : Large right paramediastinal mass measuring 8.2 x 3.8 x 7.0 cm, consistent with neoplasm. Nodular soft tissue density along the right side of the heart, consistent with metastatic disease. several metastatic soft tissue nodules in the right pleural space and a 1.5 cm lytic lesion in the right iliac bone. Right hilar lymphadenopathy and lymphadenopathy in the right pericardiophrenic recess. Multiple liver masses consistent with neoplasm. Possible splenic mass. Nonspecific 2.6 cm radiodensity within a small bowel loop in the central abdominopelvic region, possibly a metastatic lesion. TUMOR MARKERS- NOTED BIOCHEMICAL W-UP- REVIEWED POST BX OF Large right paramediastinal mass PATH- Right lung mass, CT-guided core needle biopsies: -- Metastatic melanoma. D/W DAUGTHER NOHELIA - RE DX, PROGNOSIS AND TREATMENT OPTIONS PT KNOWS HER DX SHE WANT TO DISCUSS IT WITH FAMILY D/W PATHOLOGY- BRAF, C- KIT AND TONY TESTING ORDERED FAMILY CONFERENCE AFTER GENETIC TESTING IS BACK symptomatic anemia: POST PRBC + COMPONENT ACD MONITOR COUNT CLOSELY OBSERVE FOR BLEEDING leukocytosis NO any signs of infection no fever. continue to follow this. Difficulty swallowing: WITH decreased appetite and at times she has difficulty swallowing certain foods. GI. hypokalemia: Will replete. hypertension: DVT and GI prophylaxis: SCDs, Protonix. Problems: Consultation Date/Type/Reason Admit Date/Time Oct 14, 2016 at 21:08 Initial Consult Date 10/15/16 Type of Consultation: [facility] Referring Provider: VIKI TORRES 24 HR Interval Summary Free Text/Dictation ALL NOTED Exam/Review of Systems Vital Signs Vitals Vital Signs Date Time Temp Pulse Resp B/P Pulse Ox O2 Delivery O2 Flow Rate FiO2 10/23/16 00:03 98.7 75 16 108/57 96 Intake and Output 10/22/16 10/22/16 10/23/16 15:00 23:00 07:00 Intake Total 600 ml Balance 600 ml Exam General: Patient is a pleasant, frail-appearing female HEENT: Atraumatic, normocephalic. The pupils are equal, round and reactive. Extraocular motor are intact Neck: Supple with full range of motion. No rigidity or meningismus Chest: Nontender Lungs: Clear to auscultation bilaterally no crackles rales or wheezing Heart: Normal S1-S2, Regular rhythm and rate. Abdomen: Soft , nontender, nondistended , bowel sounds are present. No guarding no rebound tenderness , No masses or organomegaly. No costovertebral temporal angle mass Extremities: Mild nonpitting edema noted on the right foot, right foot greater than left. Neurologic: Normal mental status, speech normal, cranial nerves II through XII are intact, motor and sensory are intact, no focal weakness NO PATH LN-ADRIAN NO BREAST MASSES Results Result Diagram: 10/21/1661710/21/1618 Medications Medications Current Medications Ondansetron HCl (Zofran Inj) 4 mg Q6H PRN IV NAUSEA AND/OR VOMITING Last administered on 10/20/16 16:40; Admin Dose 4 MG; Start 10/14/16 at 21:30 Zolpidem Tartrate (Ambien) 5 mg QHS PRN PO INSOMNIA; Start 10/14/16 at 21:30 Docusate Sodium (Colace) 100 mg Q12H PRN PO CONSTIPATION; Start 10/14/16 at 21: 30 Bisacodyl (Dulcolax) 5 mg DAILY PRN PO CONSTIPATION; Start 10/14/16 at 21:30 Aspirin (Halfprin) 81 mg DAILY PO Last administered on 10/22/16 08:15; Admin Dose 81 MG; Start 10/16/16 at 09:00 Losartan Potassium (Cozaar) 100 mg DAILY PO Last administered on 10/22/16 08:15 ; Admin Dose 100 MG; Start 10/16/16 at 09:00 Hydrochlorothiazide (Hydrochlorothiazide) 25 mg DAILY PO Last administered on 08:15; Admin Dose 25 MG; Start 10/16/16 at 09:00 Acetaminophen (Tylenol Tab) 650 mg Q4 PRN PO PAIN LEVEL 1-3 OR FEVER Last administered on 10/20/16 11:31; Admin Dose 650 MG; Start 10/16/16 at 13:00 Pantoprazole (Protonix Tab) 40 mg BID@06,18 PO Last administered on 10/22/16 17 :21; Admin Dose 40 MG; Start 10/17/16 at 18:00 Atenolol (Tenormin) 50 mg DAILY PO Last administered on 10/22/16 08:15; Admin Dose 50 MG; Start 10/18/16 at 09:00 Tramadol HCl (Ultram) 50 mg Q6H PRN PO moderate to severe pain Last administered on 10/20/16 22:55; Admin Dose 50 MG; Start 10/20/16 at 11:30 Hydromorphone HCl (Dilaudid) 1 mg Q4H PRN IV PAIN Last administered on 13:22; Admin Dose 1 MG; Start 10/20/16 at 13:30 LOUISE SANTOS MD Oct 23, 2016 00:04
[2016-10-23] MEDS: PANTOPRAZOLE (EC) 40 MG TAB PO SCH ×2 (05:03→17:49)
[2016-10-23] MEDS: HYDROCHLOROTHIAZIDE 25 MG TAB PO SCH (08:24)
[2016-10-23] MEDS: ATENOLOL 50 MG TAB PO SCH (08:24)
[2016-10-23] MEDS: LOSARTAN 50 MG TAB PO SCH (08:24)
[2016-10-23] MEDS: ASPIRIN (EC) 81 MG TAB PO SCH (08:24)
--- NOTE | 2016-10-23 13:30 | PN ---
Date/Time of Note Date/Time of Note DATE: 10/23/16 TIME: 13:22 Assessment/Plan VTE Prophylaxis VTE Prophylaxis Intervention: SCD's Lines/Catheters [facility] Saline Lock Urinary Cath still in place: No Assessment/Plan Assessment/Plan 1. Metastatic melanoma, to lung, bones, liver, and lymph nodes, awaiting for Dr. Rose to discuss with family about further treatment plan 2. Peripheral edema, likely hypoalbuminemia related, US r/o DVT 3. Microcytic anemia, stable 4. Hypertension, controlled 5. DVT prophylaxis: SCDs Subjective 24 Hr Interval Summary Free Text/Dictation poor appetite, weak leg swelling Exam/Review of Systems Vital Signs Vitals Vital Signs Date Time Temp Pulse Resp B/P Pulse Ox O2 Delivery O2 Flow Rate FiO2 10/23/16 12:24 75 10/23/16 11:42 98.7 18 115/60 97 Intake and Output 10/22/16 10/22/16 10/23/16 15:00 23:00 07:00 Intake Total 600 ml 400 ml Balance 600 ml 400 ml Exam Constitutional: alert, frail, oriented Psych: nl mood/affect, no complaints Head: atraumatic, normocephalic Eyes: EOMI, PERRL, nl conjunctiva, nl lids, nl sclera ENMT: nl external ears & nose, nl lips & teeth, nl nasal mucosa & septum Neck: non-tender, supple Respiratory: clear to auscultation, normal air movement Cardiovascular: nl pulses, regular rate and rhythm, No S3, No S4, No bruits, No diastolic murmur, No edema, No gallop, No irregular rhythm, No jugular venous distention (JVD), No murmurs/extra sounds, No other, No rub, No systolic murmur Gastrointestinal: nl liver, spleen, non-tender, soft Musculoskeletal: nl extremities to inspection, nl gait and stance Extremities: edema (on both lower extremities, left more than right. left elbow edema) Neurological: FLOOR POLISHER II-XII intact, nl mental status, nl speech, nl strength, No DTR's symmetric, No confused, No focal weakness, No lethargic, No numbness , No other, No reflexes, No unresponsive Skin: nl turgor, rash or lesions Results Result Diagram: 7/8/17 0618 7/8/17 0618 Medications Medications Current Medications Ondansetron HCl (Zofran Inj) 4 mg Q6H PRN IV NAUSEA AND/OR VOMITING Last administered on 10/20/16 16:40; Admin Dose 4 MG; Start 10/14/16 at 21:30 Zolpidem Tartrate (Ambien) 5 mg QHS PRN PO INSOMNIA; Start 10/14/16 at 21:30 Docusate Sodium (Colace) 100 mg Q12H PRN PO CONSTIPATION; Start 10/14/16 at 21: 30 Bisacodyl (Dulcolax) 5 mg DAILY PRN PO CONSTIPATION; Start 10/14/16 at 21:30 Aspirin (Halfprin) 81 mg DAILY PO Last administered on 10/23/16 08:24; Admin Dose 81 MG; Start 10/16/16 at 09:00 Losartan Potassium (Cozaar) 100 mg DAILY PO Last administered on 10/23/16 08: 24; Admin Dose 100 MG; Start 10/16/16 at 09:00 Hydrochlorothiazide (Hydrochlorothiazide) 25 mg DAILY PO Last administered on 08:24; Admin Dose 25 MG; Start 10/16/16 at 09:00 Acetaminophen (Tylenol Tab) 650 mg Q4 PRN PO PAIN LEVEL 1-3 OR FEVER Last administered on 10/20/16 11:31; Admin Dose 650 MG; Start 10/16/16 at 13:00 Pantoprazole (Protonix Tab) 40 mg BID@06,18 PO Last administered on 10/23/16 05:03; Admin Dose 40 MG; Start 10/17/16 at 18:00 Atenolol (Tenormin) 50 mg DAILY PO Last administered on 10/23/16 08:24; Admin Dose 50 MG; Start 10/18/16 at 09:00 Tramadol HCl (Ultram) 50 mg Q6H PRN PO moderate to severe pain Last administered on 10/20/16 22:55; Admin Dose 50 MG; Start 10/20/16 at 11:30 Hydromorphone HCl (Dilaudid) 1 mg Q4H PRN IV PAIN Last administered on 13:22; Admin Dose 1 MG; Start 10/20/16 at 13:30 LEVY VERGARA MD Oct 23, 2016 13:29
--- NOTE | 2016-10-23 15:47 | RADRPT ---
PROCEDURE: US bilateral lower extremity veins. CLINICAL INDICATION: Bilateral leg pain and swelling. TECHNIQUE: Multiple longitudinal and transverse images of the bilateral lower extremity veins were obtained with [place]ledo scale and color Doppler imaging. The common femoral vein, femoral vein, and popl iteal vein were evaluated. 2D grayscale measurements with compression sonography, color Doppler, and pulsed Doppler with augmentation. COMPARISON: No prior studies are available for comparison. FINDINGS: The bilateral common femoral, femoral and popliteal veins are normally compressible throughout. Col or flow demonstrates normal filling of the vessels. Normal waveforms are visualized and there is no rmal response to augmentation. IMPRESSION: 1. No evidence of deep vein thrombosis involving either lower extremity. RPTAT: QQ .Jay Veliz MD, MD Date Time Electronically viewed and signed by .Jay Veliz MD, on 10/23/2016 15:46 .R/
--- NOTE | 2016-10-23 23:29 | CONS ---
Date/Time of Note Date/Time of Note DATE: 10/23/16 TIME: 23:29 Assessment/Plan Assessment/Plan Chief Complaint/Hosp Course -- Metastatic melanoma. WITH WIDE- SPREAD METASTATIC DISEASE INCLUDING : Large right paramediastinal mass measuring 8.2 x 3.8 x 7.0 cm, consistent with neoplasm. Nodular soft tissue density along the right side of the heart, consistent with metastatic disease. several metastatic soft tissue nodules in the right pleural space and a 1.5 cm lytic lesion in the right iliac bone. Right hilar lymphadenopathy and lymphadenopathy in the right pericardiophrenic recess. Multiple liver masses consistent with neoplasm. Possible splenic mass. Nonspecific 2.6 cm radiodensity within a small bowel loop in the central abdominopelvic region, possibly a metastatic lesion. TUMOR MARKERS- NOTED BIOCHEMICAL W-UP- REVIEWED POST BX OF Large right paramediastinal mass PATH- Right lung mass, CT-guided core needle biopsies: -- Metastatic melanoma. D/W DAUGTHER NOHELIA - RE DX, PROGNOSIS AND TREATMENT OPTIONS PT KNOWS HER DX SHE WANT TO DISCUSS IT WITH FAMILY D/W PATHOLOGY- BRAF, C- KIT AND TONY TESTING ORDERED FAMILY CONFERENCE AFTER GENETIC TESTING IS BACK symptomatic anemia: POST PRBC + COMPONENT ACD MONITOR COUNT CLOSELY OBSERVE FOR BLEEDING leukocytosis NO any signs of infection no fever. continue to follow this. Difficulty swallowing: WITH decreased appetite and at times she has difficulty swallowing certain foods. GI. hypokalemia: Will replete. hypertension: DVT and GI prophylaxis: SCDs, Protonix. Problems: Consultation Date/Type/Reason Admit Date/Time Oct 14, 2016 at 21:08 Initial Consult Date 10/15/16 Type of Consultation: [facility] Referring Provider: VIKI TORRES 24 HR Interval Summary Free Text/Dictation ALL NOTED Exam/Review of Systems Vital Signs Vitals Vital Signs Date Time Temp Pulse Resp B/P Pulse Ox O2 Delivery O2 Flow Rate FiO2 10/23/16 20:42 79 10/23/16 19:58 98.3 17 124/78 96 Intake and Output 10/22/16 10/22/16 10/23/16 15:00 23:00 07:00 Intake Total 600 ml 400 ml Balance 600 ml 400 ml Exam General: Patient is a pleasant, frail-appearing female HEENT: Atraumatic, normocephalic. The pupils are equal, round and reactive. Extraocular motor are intact Neck: Supple with full range of motion. No rigidity or meningismus Chest: Nontender Lungs: Clear to auscultation bilaterally no crackles rales or wheezing Heart: Normal S1-S2, Regular rhythm and rate. Abdomen: Soft , nontender, nondistended , bowel sounds are present. No guarding no rebound tenderness , No masses or organomegaly. No costovertebral temporal angle mass Extremities: Mild nonpitting edema noted on the right foot, right foot greater than left. Neurologic: Normal mental status, speech normal, cranial nerves II through XII are intact, motor and sensory are intact, no focal weakness NO PATH LN-ADRIAN NO BREAST MASSES Results Result Diagram: 10/21/1661710/21/16617 Medications Medications Current Medications Ondansetron HCl (Zofran Inj) 4 mg Q6H PRN IV NAUSEA AND/OR VOMITING Last administered on 10/20/16 16:40; Admin Dose 4 MG; Start 10/14/16 at 21:30 Zolpidem Tartrate (Ambien) 5 mg QHS PRN PO INSOMNIA; Start 10/14/16 at 21:30 Docusate Sodium (Colace) 100 mg Q12H PRN PO CONSTIPATION; Start 10/14/16 at 21: 30 Bisacodyl (Dulcolax) 5 mg DAILY PRN PO CONSTIPATION; Start 10/14/16 at 21:30 Aspirin (Halfprin) 81 mg DAILY PO Last administered on 10/23/16 08:24; Admin Dose 81 MG; Start 10/16/16 at 09:00 Losartan Potassium (Cozaar) 100 mg DAILY PO Last administered on 10/23/16 08: 24; Admin Dose 100 MG; Start 10/16/16 at 09:00 Hydrochlorothiazide (Hydrochlorothiazide) 25 mg DAILY PO Last administered on 08:24; Admin Dose 25 MG; Start 10/16/16 at 09:00 Acetaminophen (Tylenol Tab) 650 mg Q4 PRN PO PAIN LEVEL 1-3 OR FEVER Last administered on 10/20/16 11:31; Admin Dose 650 MG; Start 10/16/16 at 13:00 Pantoprazole (Protonix Tab) 40 mg BID@06,18 PO Last administered on 10/23/16 17:49; Admin Dose 40 MG; Start 10/17/16 at 18:00 Atenolol (Tenormin) 50 mg DAILY PO Last administered on 10/23/16 08:24; Admin Dose 50 MG; Start 10/18/16 at 09:00 Tramadol HCl (Ultram) 50 mg Q6H PRN PO moderate to severe pain Last administered on 10/20/16 22:55; Admin Dose 50 MG; Start 10/20/16 at 11:30 Hydromorphone HCl (Dilaudid) 1 mg Q4H PRN IV PAIN Last administered on 13:22; Admin Dose 1 MG; Start 10/20/16 at 13:30 LOUISE SANTOS MD Oct 23, 2016 23:29
[2016-10-24] VITALS (13 sets, daily range): BP systolic 109–124; BP diastolic 56–69; PULSE 64–83; RESP 17–18
[2016-10-24] MEDS: ACETAMINOPHEN 325 MG TAB PO PRN (01:49)
[2016-10-24] MEDS: PANTOPRAZOLE (EC) 40 MG TAB PO SCH ×2 (05:36→17:56)
[2016-10-24] MEDS: LOSARTAN 50 MG TAB PO SCH (08:09)
[2016-10-24] MEDS: ASPIRIN (EC) 81 MG TAB PO SCH (08:09)
[2016-10-24] MEDS: HYDROCHLOROTHIAZIDE 25 MG TAB PO SCH (08:09)
[2016-10-24] MEDS: ATENOLOL 50 MG TAB PO SCH (08:10)
--- NOTE | 2016-10-24 10:31 | CONS ---
Date/Time of Note Date/Time of Note DATE: 10/24/16 TIME: 10:30 Assessment/Plan Assessment/Plan Chief Complaint/Hosp Course -- Metastatic melanoma. WITH WIDE- SPREAD METASTATIC DISEASE INCLUDING : Large right paramediastinal mass measuring 8.2 x 3.8 x 7.0 cm, consistent with neoplasm. Nodular soft tissue density along the right side of the heart, consistent with metastatic disease. several metastatic soft tissue nodules in the right pleural space and a 1.5 cm lytic lesion in the right iliac bone. Right hilar lymphadenopathy and lymphadenopathy in the right pericardiophrenic recess. Multiple liver masses consistent with neoplasm. Possible splenic mass. Nonspecific 2.6 cm radiodensity within a small bowel loop in the central abdominopelvic region, possibly a metastatic lesion. TUMOR MARKERS- NOTED BIOCHEMICAL W-UP- REVIEWED POST BX OF Large right paramediastinal mass PATH- Right lung mass, CT-guided core needle biopsies: -- Metastatic melanoma. D/W DAUGTHER NOHELIA - RE DX, PROGNOSIS AND TREATMENT OPTIONS PT KNOWS HER DX SHE WANT TO DISCUSS IT WITH FAMILY D/W PATHOLOGY- BRAF, C- KIT AND TONY TESTING ORDERED FAMILY CONFERENCE AFTER GENETIC TESTING IS BACK symptomatic anemia: POST PRBC + COMPONENT ACD MONITOR COUNT CLOSELY OBSERVE FOR BLEEDING leukocytosis NO any signs of infection no fever. continue to follow this. Difficulty swallowing: WITH decreased appetite and at times she has difficulty swallowing certain foods. GI. hypokalemia: Will replete. hypertension: DVT and GI prophylaxis: SCDs, Protonix. Problems: Consultation Date/Type/Reason Admit Date/Time Oct 14, 2016 at 21:08 Initial Consult Date 10/15/16 Type of Consultation: [facility] Referring Provider: VIKI TORRES 24 HR Interval Summary Free Text/Dictation ALL NOTED GENETIC TESTING - P Exam/Review of Systems Vital Signs Vitals Vital Signs Date Time Temp Pulse Resp B/P Pulse Ox O2 Delivery O2 Flow Rate FiO2 10/24/16 08:15 64 10/24/16 07:26 97.7 18 120/62 97 Intake and Output 10/23/16 10/23/16 10/24/16 15:00 23:00 07:00 Intake Total 400 ml 240 ml Balance 400 ml 240 ml Exam General: Patient is a pleasant, frail-appearing female HEENT: Atraumatic, normocephalic. The pupils are equal, round and reactive. Extraocular motor are intact Neck: Supple with full range of motion. No rigidity or meningismus Chest: Nontender Lungs: Clear to auscultation bilaterally no crackles rales or wheezing Heart: Normal S1-S2, Regular rhythm and rate. Abdomen: Soft , nontender, nondistended , bowel sounds are present. No guarding no rebound tenderness , No masses or organomegaly. No costovertebral temporal angle mass Extremities: Mild nonpitting edema noted on the right foot, right foot greater than left. Neurologic: Normal mental status, speech normal, cranial nerves II through XII are intact, motor and sensory are intact, no focal weakness NO PATH LN-ADRIAN NO BREAST MASSES Results Result Diagram: 10/21/1661710/21/16617 Medications Medications Current Medications Ondansetron HCl (Zofran Inj) 4 mg Q6H PRN IV NAUSEA AND/OR VOMITING Last administered on 10/20/16 16:40; Admin Dose 4 MG; Start 10/14/16 at 21:30 Zolpidem Tartrate (Ambien) 5 mg QHS PRN PO INSOMNIA; Start 10/14/16 at 21:30 Docusate Sodium (Colace) 100 mg Q12H PRN PO CONSTIPATION; Start 10/14/16 at 21: 30 Bisacodyl (Dulcolax) 5 mg DAILY PRN PO CONSTIPATION; Start 10/14/16 at 21:30 Aspirin (Halfprin) 81 mg DAILY PO Last administered on 10/24/16 08:09; Admin Dose 81 MG; Start 10/16/16 at 09:00 Losartan Potassium (Cozaar) 100 mg DAILY PO Last administered on 10/24/16 08: 09; Admin Dose 100 MG; Start 10/16/16 at 09:00 Hydrochlorothiazide (Hydrochlorothiazide) 25 mg DAILY PO Last administered on 08:09; Admin Dose 25 MG; Start 10/16/16 at 09:00 Acetaminophen (Tylenol Tab) 650 mg Q4 PRN PO PAIN LEVEL 1-3 OR FEVER Last administered on 10/24/16 01:49; Admin Dose 650 MG; Start 10/16/16 at 13:00 Pantoprazole (Protonix Tab) 40 mg BID@06,18 PO Last administered on 10/24/16 05:36; Admin Dose 40 MG; Start 10/17/16 at 18:00 Atenolol (Tenormin) 50 mg DAILY PO Last administered on 10/24/16 08:10; Admin Dose 50 MG; Start 10/18/16 at 09:00 Tramadol HCl (Ultram) 50 mg Q6H PRN PO moderate to severe pain Last administered on 10/20/16 22:55; Admin Dose 50 MG; Start 10/20/16 at 11:30 Hydromorphone HCl (Dilaudid) 1 mg Q4H PRN IV PAIN Last administered on 13:22; Admin Dose 1 MG; Start 10/20/16 at 13:30 LOUISE SANTOS MD Oct 24, 2016 10:30
[2016-10-24] MEDS: traMADol 50 MG TAB PO PRN (13:41)
--- NOTE | 2016-10-24 15:04 | PN ---
Date/Time of Note Date/Time of Note DATE: 10/24/16 TIME: 14:59 Assessment/Plan VTE Prophylaxis VTE Prophylaxis Intervention: SCD's Lines/Catheters IV Catheter Type (from Nrs): [facility] Urinary Cath still in place: No Assessment/Plan Assessment/Plan 1. Metastatic melanoma, to lung, bones, liver, and lymph nodes, awaiting for Dr. Rose to discuss with family about further treatment plan 2. Peripheral edema, hypoalbuminemia related, US negative for DVT 3. Microcytic anemia, stable 4. Hypertension, controlled 5. DVT prophylaxis: SCDs Subjective 24 Hr Interval Summary Free Text/Dictation no event. Exam/Review of Systems Vital Signs Vitals Vital Signs Date Time Temp Pulse Resp B/P Pulse Ox O2 Delivery O2 Flow Rate FiO2 10/24/16 12:04 98.1 70 18 124/65 97 Intake and Output 10/23/16 10/23/16 10/24/16 15:00 23:00 07:00 Intake Total 400 ml 240 ml Balance 400 ml 240 ml Exam Constitutional: alert, oriented, well developed Psych: nl mood/affect, no complaints Head: atraumatic, normocephalic Eyes: EOMI, PERRL, nl conjunctiva, nl lids ENMT: mucosa pink and moist, nl external ears & nose, nl lips & teeth, nl nasal mucosa & septum Neck: supple Respiratory: clear to auscultation, normal air movement, No congested cough, No crackles/rales, No diminished breath sounds, No intercostal retraction, No labored breathing, No other, No respirations, No tactile fremitus, No wheezing Cardiovascular: nl pulses, regular rate and rhythm, No S3, No S4, No bruits, No diastolic murmur, No edema, No gallop, No irregular rhythm, No jugular venous distention (JVD), No murmurs/extra sounds, No other, No rub, No systolic murmur Gastrointestinal: non-tender, soft Musculoskeletal: nl extremities to inspection Extremities: edema Neurological: RETAIL DEPARTMENT RESET II-XII intact, nl mental status, nl speech, nl strength Results Result Diagram: 10/21/1661710/21/16617 Medications Medications Current Medications Ondansetron HCl (Zofran Inj) 4 mg Q6H PRN IV NAUSEA AND/OR VOMITING Last administered on 10/20/16t 16:40; Admin Dose 4 MG; Start 10/14/16 at 21:30 Zolpidem Tartrate (Ambien) 5 mg QHS PRN PO INSOMNIA; Start 10/14/16 at 21:30 Docusate Sodium (Colace) 100 mg Q12H PRN PO CONSTIPATION; Start 10/14/16 at 21: 30 Bisacodyl (Dulcolax) 5 mg DAILY PRN PO CONSTIPATION; Start 10/14/16 at 21:30 Aspirin (Halfprin) 81 mg DAILY PO Last administered on 10/24/16 08:09; Admin Dose 81 MG; Start 10/16/16 at 09:00 Losartan Potassium (Cozaar) 100 mg DAILY PO Last administered on 10/24/16 08: 09; Admin Dose 100 MG; Start 10/16/16 at 09:00 Hydrochlorothiazide (Hydrochlorothiazide) 25 mg DAILY PO Last administered on 08:09; Admin Dose 25 MG; Start 10/16/16 at 09:00 Acetaminophen (Tylenol Tab) 650 mg Q4 PRN PO PAIN LEVEL 1-3 OR FEVER Last administered on 10/24/16 01:49; Admin Dose 650 MG; Start 10/16/16 at 13:00 Pantoprazole (Protonix Tab) 40 mg BID@,18 PO Last administered on 10/24/16 05:36; Admin Dose 40 MG; Start 10/17/16 at 18:00 Atenolol (Tenormin) 50 mg DAILY PO Last administered on 10/24/16 08:10; Admin Dose 50 MG; Start 10/18/16 at 09:00 Tramadol HCl (Ultram) 50 mg Q6H PRN PO moderate to severe pain Last administered on 10/24/16 13:41; Admin Dose 50 MG; Start 10/20/16 at 11:30 Hydromorphone HCl (Dilaudid) 1 mg Q4H PRN IV PAIN Last administered on 13:22; Admin Dose 1 MG; Start 10/20/16 at 13:30 LEVY VERGARA MD Oct 24, 2016 15:04
[2016-10-25] VITALS (8 sets, daily range): BP systolic 116–122; BP diastolic 61–75; PULSE 67–82; RESP 16–19
[2016-10-25] MEDS: PANTOPRAZOLE (EC) 40 MG TAB PO SCH (05:32)
[2016-10-25] MEDS: LOSARTAN 50 MG TAB PO SCH (08:43)
[2016-10-25] MEDS: ATENOLOL 50 MG TAB PO SCH (08:44)
[2016-10-25] MEDS: ASPIRIN (EC) 81 MG TAB PO SCH (08:44)
[2016-10-25] MEDS: HYDROCHLOROTHIAZIDE 25 MG TAB PO SCH (08:44)
--- NOTE | 2016-10-25 12:32 | PN ---
Date/Time of Note Date/Time of Note DATE: 10/25/16 TIME: 12:29 Assessment/Plan VTE Prophylaxis VTE Prophylaxis Intervention: SCD's Lines/Catheters [facility] Urinary Cath still in place: No Assessment/Plan Assessment/Plan 1. Metastatic melanoma, to lung, bones, liver, and lymph nodes, awaiting for Dr. Pritchard's decision about further treatment 2. Peripheral edema, hypoalbuminemia related, US negative for DVT 3. Microcytic anemia, stable 4. Hypertension, controlled 5. DVT prophylaxis: SCDs Subjective 24 Hr Interval Summary Free Text/Dictation no event, no fever or chills Exam/Review of Systems Vital Signs Vitals Vital Signs Date Time Temp Pulse Resp B/P Pulse Ox O2 Delivery O2 Flow Rate FiO2 10/25/16 12:16 75 10/25/16 11:14 97.7 16 116/63 97 Intake and Output 10/24/16 10/24/16 10/25/16 15:00 23:00 07:00 Intake Total 720 ml 200 ml Balance 720 ml 200 ml Exam Constitutional: alert, oriented, well developed Head: atraumatic, normocephalic Eyes: EOMI, PERRL, nl conjunctiva, nl lids, nl sclera ENMT: nl external ears & nose, nl lips & teeth, nl nasal mucosa & septum Neck: supple Respiratory: clear to auscultation, normal air movement, No congested cough, No crackles/rales, No diminished breath sounds, No intercostal retraction, No labored breathing, No other, No respirations, No tactile fremitus, No wheezing Cardiovascular: nl pulses, regular rate and rhythm, No S3, No S4, No bruits, No diastolic murmur, No edema, No gallop, No irregular rhythm, No jugular venous distention (JVD), No murmurs/extra sounds, No other, No rub, No systolic murmur Gastrointestinal: non-tender, soft Musculoskeletal: nl extremities to inspection Extremities: normal pulses, No calf tenderness, No clubbing, No cyanosis, No edema, No other, No palpable cord, No pitting pedal edema, No tenderness Neurological: ENGLISH LECTURER II-XII intact, nl mental status, nl speech, nl strength Skin: nl turgor Results Result Diagram: 7/8/17 0618 7/8/17 0618 Medications Medications Current Medications Ondansetron HCl (Zofran Inj) 4 mg Q6H PRN IV NAUSEA AND/OR VOMITING Last administered on 10/20/16 16:40; Admin Dose 4 MG; Start 10/14/16 at 21:30 Zolpidem Tartrate (Ambien) 5 mg QHS PRN PO INSOMNIA; Start 10/14/16 at 21:30 Docusate Sodium (Colace) 100 mg Q12H PRN PO CONSTIPATION; Start 10/14/16 at 21: 30 Bisacodyl (Dulcolax) 5 mg DAILY PRN PO CONSTIPATION; Start 10/14/16 at 21:30 Aspirin (Halfprin) 81 mg DAILY PO Last administered on 10/25/16 08:44; Admin Dose 81 MG; Start 10/16/16 at 09:00 Losartan Potassium (Cozaar) 100 mg DAILY PO Last administered on 10/25/16 08: 43; Admin Dose 100 MG; Start 10/16/16 at 09:00 Hydrochlorothiazide (Hydrochlorothiazide) 25 mg DAILY PO Last administered on 08:44; Admin Dose 25 MG; Start 10/16/16 at 09:00 Acetaminophen (Tylenol Tab) 650 mg Q4 PRN PO PAIN LEVEL 1-3 OR FEVER Last administered on 10/24/16 01:49; Admin Dose 650 MG; Start 10/16/16 at 13:00 Pantoprazole (Protonix Tab) 40 mg BID@06,18 PO Last administered on 10/25/16 05:32; Admin Dose 40 MG; Start 10/17/16 at 18:00 Atenolol (Tenormin) 50 mg DAILY PO Last administered on 10/25/16 08:44; Admin Dose 50 MG; Start 10/18/16 at 09:00 Tramadol HCl (Ultram) 50 mg Q6H PRN PO moderate to severe pain Last administered on 10/24/16 13:41; Admin Dose 50 MG; Start 10/20/16 at 11:30 Hydromorphone HCl (Dilaudid) 1 mg Q4H PRN IV PAIN Last administered on 13:22; Admin Dose 1 MG; Start 10/20/16 at 13:30 LEVY VERGARA MD Oct 25, 2016 12:31
--- NOTE | 2016-10-25 13:37 | CONS ---
Date/Time of Note Date/Time of Note DATE: 10/25/16 TIME: 13:37 Assessment/Plan Assessment/Plan Chief Complaint/Hosp Course -- Metastatic melanoma. WITH WIDE- SPREAD METASTATIC DISEASE INCLUDING : Large right paramediastinal mass measuring 8.2 x 3.8 x 7.0 cm, consistent with neoplasm. Nodular soft tissue density along the right side of the heart, consistent with metastatic disease. several metastatic soft tissue nodules in the right pleural space and a 1.5 cm lytic lesion in the right iliac bone. Right hilar lymphadenopathy and lymphadenopathy in the right pericardiophrenic recess. Multiple liver masses consistent with neoplasm. Possible splenic mass. Nonspecific 2.6 cm radiodensity within a small bowel loop in the central abdominopelvic region, possibly a metastatic lesion. TUMOR MARKERS- NOTED BIOCHEMICAL W-UP- REVIEWED POST BX OF Large right paramediastinal mass PATH- Right lung mass, CT-guided core needle biopsies: -- Metastatic melanoma. D/W DAUGTHER NOHELIA - RE DX, PROGNOSIS AND TREATMENT OPTIONS PT KNOWS HER DX SHE WANT TO DISCUSS IT WITH FAMILY D/W PATHOLOGY- BRAF, C- KIT AND TONY TESTING ORDERED FAMILY CONFERENCE AFTER GENETIC TESTING IS BACK symptomatic anemia: POST PRBC + COMPONENT ACD MONITOR COUNT CLOSELY OBSERVE FOR BLEEDING leukocytosis NO any signs of infection no fever. continue to follow this. Difficulty swallowing: WITH decreased appetite and at times she has difficulty swallowing certain foods. GI. hypokalemia: Will replete. hypertension: DVT and GI prophylaxis: SCDs, Protonix. Problems: Consultation Date/Type/Reason Admit Date/Time Oct 14, 2016 at 21:08 Initial Consult Date 10/15/16 Type of Consultation: [facility] Referring Provider: VIKI TORRES Exam/Review of Systems Vital Signs Vitals Vital Signs Date Time Temp Pulse Resp B/P Pulse Ox O2 Delivery O2 Flow Rate FiO2 10/25/16 12:16 75 10/25/16 11:14 97.7 16 116/63 97 Intake and Output 10/24/16 10/24/16 10/25/16 15:00 23:00 07:00 Intake Total 720 ml 200 ml Balance 720 ml 200 ml Results Result Diagram: 10/21/16 0618 10/21/16617 Medications Medications Current Medications Ondansetron HCl (Zofran Inj) 4 mg Q6H PRN IV NAUSEA AND/OR VOMITING Last administered on 10/20/16 16:40; Admin Dose 4 MG; Start 10/14/16 at 21:30 Zolpidem Tartrate (Ambien) 5 mg QHS PRN PO INSOMNIA; Start 10/14/16 at 21:30 Docusate Sodium (Colace) 100 mg Q12H PRN PO CONSTIPATION; Start 10/14/16 at 21: 30 Bisacodyl (Dulcolax) 5 mg DAILY PRN PO CONSTIPATION; Start 10/14/16 at 21:30 Aspirin (Halfprin) 81 mg DAILY PO Last administered on 10/25/16 08:44; Admin Dose 81 MG; Start 10/16/16 at 09:00 Losartan Potassium (Cozaar) 100 mg DAILY PO Last administered on 10/25/16 08: 43; Admin Dose 100 MG; Start 10/16/16 at 09:00 Hydrochlorothiazide (Hydrochlorothiazide) 25 mg DAILY PO Last administered on 08:44; Admin Dose 25 MG; Start 10/16/16 at 09:00 Acetaminophen (Tylenol Tab) 650 mg Q4 PRN PO PAIN LEVEL 1-3 OR FEVER Last administered on 10/24/16 01:49; Admin Dose 650 MG; Start 10/16/16 at 13:00 Pantoprazole (Protonix Tab) 40 mg BID@06,18 PO Last administered on 10/25/16 05:32; Admin Dose 40 MG; Start 10/17/16 at 18:00 Atenolol (Tenormin) 50 mg DAILY PO Last administered on 10/25/16 08:44; Admin Dose 50 MG; Start 10/18/16 at 09:00 Tramadol HCl (Ultram) 50 mg Q6H PRN PO moderate to severe pain Last administered on 10/24/16 13:41; Admin Dose 50 MG; Start 10/20/16 at 11:30 Hydromorphone HCl (Dilaudid) 1 mg Q4H PRN IV PAIN Last administered on 13:22; Admin Dose 1 MG; Start 10/20/16 at 13:30 LOUISE SANTOS MD Oct 25, 2016 13:37
[2016-10-25] MEDS ORDERED: TRAM50TA2 PO (14:37)
--- NOTE | 2016-10-25 14:54 | DS ---
Date/Time of Note Date/Time of Note DATE: 10/25/16 TIME: 14:42 Discharge Summary Admission/Discharge Info Admit Date/Time Oct 14, 2016 at 21:08 Discharge Date/Time Discharge Diagnosis 1. Metastatic melanoma, to lung, bones, liver, and lymph nodes, Dr. Pritchard next week 2. Peripheral edema, hypoalbuminemia related, US negative for DVT 3. Microcytic anemia, stable, follow up PCP 4. Hypertension, controlled Patient Condition: Stable Hx of Present Illness Patient is an 86-year-old female with hypertension and anemia who presents with a low blood count. She said that her hemoglobin was approximately 5.7. She denies bleeding. She denies black or bloody stools. She has no fevers. She has never had a blood transfusion. She has never had a colonoscopy. Upon review of old medical records this is the patient's first visit to the emergency department. She was sent in by her primary doctor Dr. Albrecht for admission and transfusion of note patient does state that for the last few months she has been feeling weaker. Her family is at the bedside with her and they also state that she has not been eating much as she has had a decreased appetite. Patient also states that at times she has difficulty digesting certain foods. Hospital Course Hospital work ups with CT scans and lung mass biopsy revealed melanoma with metastasis including a large right paramediastinal mass measuring 8.2 x 3.8 x 7.0 cm; nodular soft tissue density along the right side of the heart; several metastatic soft tissue nodules in the right pleural space and a 1.5 cm lytic lesion in the right iliac bone. Right hilar lymphadenopathy and lymphadenopathy in the right pericardiophrenic recess. Multiple liver masses consistent with neoplasm. Possible splenic mass. Nonspecific 2.6 cm radiodensity within a small bowel loop in the central abdominopelvic region, possibly a metastatic lesion. Biochemical markers are still pending. Patient follow follow up with Dr. Pritchard in office next week. Patient has peripheral edema on lower extremities that is negative for DVT on US. Albumin 2.1. Home Meds Active Scripts Tramadol HCl (Tramadol HCl) 50 Mg Tablet, 50 MG PO Q6H Y for moderate to severe pain for 30 Days, TAB Prov:LEVY VERGARA MD 10/25/16 Reported Medications Biotin (BIOTIN) 1 Mg Capsule, 1 MG PO, CAP 10/15/16 Aspirin* (Aspirin* EC) 81 Mg Tablet.dr, 81 MG PO DAILY, TAB 10/15/16 Losartan-Hydrochlorothiazide (Losartan-HCTZ) 100-25 Mg Tab, 1 TAB PO DAILY, TAB 10/15/16 Atenolol* (Atenolol*) 50 Mg Tablet, 50 MG PO BID, #60 TAB 10/15/16 Discontinued Reported Medications Lisinopril* (Lisinopril*) 20 Mg Tablet, 20 MG PO DAILY, #30 TAB 10/15/16 Follow-up Plan follow up with Dr. Pritchard next week PCP in one week Home health with PT Primary Care Provider MD URSULA Cook MAOGANG MD Oct 25, 2016 14:53
== END 2016-10-25 17:32 | disposition home health service (06) | DRG 812 ==
LOC: E/R 19:41 → MS4 21:08
PROVIDERS: ADMIT Family Medicine; ATTEND Family Medicine
PROC: 30233N1 Transfusion of Nonautologous Red Blood Cells into Peripheral Vein, Percutaneous Approach (ICD-10-PCS; 2016-10-14)
PROC: 0WBC3ZX Excision of Mediastinum, Percutaneous Approach, Diagnostic (ICD-10-PCS; principal; 2016-10-16)
DX: D50.9 Iron deficiency anemia, unspecified (principal); L89.151 Pressure ulcer of sacral region, stage 1; C78.1 Secondary malignant neoplasm of mediastinum; C77.1 Secondary and unspecified malignant neoplasm of intrathoracic lymph nodes; C78.4 Secondary malignant neoplasm of small intestine; C78.7 Secondary malignant neoplasm of liver and intrahepatic bile duct; C79.51 Secondary malignant neoplasm of bone; M48.54XA Collapsed vertebra, not elsewhere classified, thoracic region, initial encounter for fracture; C34.91 Malignant neoplasm of unspecified part of right bronchus or lung; E88.09 Other disorders of plasma-protein metabolism, not elsewhere classified; R13.10 Dysphagia, unspecified; I10 Essential (primary) hypertension; E87.6 Hypokalemia; D72.829 Elevated white blood cell count, unspecified; Z90.49 Acquired absence of other specified parts of digestive tract; I35.0 Nonrheumatic aortic (valve) stenosis; R60.0 Localized edema; K44.9 Diaphragmatic hernia without obstruction or gangrene; K21.9 Gastro-esophageal reflux disease without esophagitis; D73.89 Other diseases of spleen; L89.621 Pressure ulcer of left heel, stage 1; L89.611 Pressure ulcer of right heel, stage 1
CPT/HCPCS: 36415; 36430; 71260; 74176; 77012; 80048; 80053; 80061; 81001; 82270; 82378; 82607; 82728; 82746; 83036; 83540; 83605; 83615; 83735; 84100; 84155; 84165; 84439; 84443; 84466; 84484; 84560; 85025; 85045; 85610; 85651; 85730; 86038; 86140; 86300; 86301; 86304; 86850; 86900; 86901; 86920; 87086; 88307; 88313; 88341; 88342; 93005; 93306; 93970; J1940; C9113; J1170; J2250; J2405; J2916; J3010; J3420; J3475; J3480; J7030; J7040; J7070; P9016; Q9967

== ENCOUNTER 2016-11-17 00:19 | Inpatient (IN) | payer MEDICARE, BC ==
[~2016-11-17] VITALS: Ht 154.9 cm; Wt 46.5 kg
[~2016-11-17 00:19] MED LIST: ASPI-664 PO; ATEN50TA PO; BIOT1CAP3 PO; LOSA1TAB20 PO; TRAM50TA2 PO
[2016-11-17 00:30] VITALS: Ht 154.9 cm; Wt 46.5 kg
--- NOTE | 2016-11-17 00:47 | ERA ---
ER Documentation Chief Complaint Date/Time DATE: 11/17/16 TIME: 00:47 Chief Complaint low back pain, abdominal pain HPI The patient is a 86-year-old female, presenting to the ER because of low back pain and abdominal pain after she fell when she missed the commode prior to arrival. She denies any head injury, neck pain, chest pain, dyspnea. She complains of diffuse abdominal pain, denies nausea, vomiting, dysuria, diarrhea. She does not smoke nor drink She was recently diagnosed metastatic melanoma, awaiting for chemotherapy by Dr. Rose Past medical history: Metastatic melanoma, peripheral edema, anemia, hypertension Past surgical history: Cholecystectomy ROS All systems reviewed and are negative except as per history of present illness. Medications Home Meds Active Scripts Tramadol HCl (Tramadol HCl) 50 Mg Tablet, 50 MG PO Q6H Y for moderate to severe pain for 30 Days, TAB Prov:LEVY VERGARA MD 10/25/16 Reported Medications Biotin (BIOTIN) 1 Mg Capsule, 1 MG PO, CAP 10/15/16 Aspirin* (Aspirin* EC) 81 Mg Tablet.dr, 81 MG PO DAILY, TAB 10/15/16 Losartan-Hydrochlorothiazide (Losartan-HCTZ) 100-25 Mg Tab, 1 TAB PO DAILY, TAB 10/15/16 Atenolol* (Atenolol*) 50 Mg Tablet, 50 MG PO BID, #60 TAB 10/15/16 Allergies Allergies: Coded Allergies: hydrocodone (Unverified Allergy, Unknown, delirium, "I see things that aren't there", 11/17/16) meclizine (Unverified Allergy, Unknown, 11/17/16) meperidine (Unverified Allergy, Unknown, 11/17/16) propoxyphene (Unverified Allergy, Unknown, 11/17/16) PMhx/Soc History of Surgery: Yes (cholecystectomy) Anesthesia Reaction: No Hx Neurological Disorder: No Hx Respiratory Disorders: Yes (chronic sinus infection) Hx Cardiac Disorders: Yes (htn) Hx Psychiatric Problems: No Hx Miscellaneous Medical Probl: No Hx Alcohol Use: No Hx Substance Use: No Hx Tobacco Use: No Physical Exam Vitals Vital Signs Date Time Temp Pulse Resp B/P Pulse Ox O2 Delivery O2 Flow Rate FiO2 11/18/16 05:00 97 23 121/70 98 Room Air 11/18/16 04:28 103 18 97 21 11/18/16 04:00 98.2 11/18/16 04:00 98 24 116/76 98 Room Air 11/18/16 03:00 112 23 117/71 97 Room Air 11/18/16 02:00 108 22 108/67 96 Room Air 11/18/16 01:00 96 15 106/72 98 Room Air 11/18/16 00:57 92 18 97 21 11/18/16 00:00 98.6 96 20 103/60 98 Room Air 11/17/16 22:00 101 21 105/60 98 Room Air 11/17/16 21:00 86 19 109/89 100 Room Air 11/17/16 20:50 81 18 97 21 11/17/16 20:00 84 20 119/64 98 Nasal Cannula 2.0 11/17/16 19:00 98.9 72 26 110/62 99 Nasal Cannula 2.0 11/17/16 18:00 83 17 121/68 99 Nasal Cannula 2.0 11/17/16 17:45 72 18 99 21 11/17/16 17:00 99.4 79 16 117/63 99 Nasal Cannula 2.0 11/17/16 16:30 95 16 97/59 100 Nasal Cannula 2.0 11/17/16 15:30 86 23 128/80 98 Nasal Cannula 2.0 11/17/16 14:30 99.4 72 18 143/78 100 Nasal Cannula 2.0 11/17/16 13:30 84 20 106/74 100 Nasal Cannula 2.0 11/17/16 13:00 80 17 86/73 100 Nasal Cannula 2.0 11/17/16 12:45 78 15 115/73 100 Nasal Cannula 2.0 11/17/16 12:30 77 18 124/74 100 Nasal Cannula 2.0 11/17/16 12:00 82 16 130/75 100 Nasal Cannula 2.0 11/17/16 11:15 74 16 104/84 100 Nasal Cannula 2.0 11/17/16 11:00 80 16 98/59 100 Nasal Cannula 2.0 11/17/16 10:42 65 113/68 11/17/16 09:30 68 114/86 11/17/16 08:29 79 18 99 21 11/17/16 07:52 68 112/75 11/17/16 07:12 72 101/81 8/4/17 06:57 80/50 11/17/16 06:36 68 89/66 11/17/16 06:13 87 22 75/45 98 Room Air 72/45 11/17/16 05:45 84 18 98 21 11/17/16 05:15 85 22 95/62 98 Room Air 11/17/16 05:00 97.2 76 21 102/64 98 Room Air 11/17/16 04:50 76 17 83/58 100 Room Air 11/17/16 04:15 97.4 83 18 88/51 98 Room Air 11/17/16 04:00 88 22 87/49 98 Room Air 11/17/16 03:30 83 20 91/57 99 Room Air 11/17/16 03:05 97.7 89 20 82/53 99 Room Air 79/38 11/17/16 00:45 94 22 93/67 99 Room Air 11/17/16 00:30 97.0 89 18 99/67 96 Physical Exam Const: No acute distress. Head: Atraumatic. Eyes: Normal Conjunctiva. ENT: Normal External Ears, Nose and Mouth. Neck: Full range of motion. No meningismus. Resp: Clear to auscultation bilaterally. Cardio: Regular rate and rhythm. Abd: Soft, non distended, normal bowel sounds, diffuse abdominal tenderness, no rigidity, rebound, CVA tenderness Skin: No petechiae or rashes. Back: Minimal lumbar tenderness, no crepitus Ext: The leg edema, no calf tenderness Neur: Awake and alert. No focal deficit Psych: Normal Mood and Affect. Result Diagram: 11/17/16 0703 11/17/16 1235 Results 24 hrs Laboratory Tests Test 11/17/16 01:15 11/17/16 01:41 11/17/16 01:55 11/17/16 06:00 Magnesium Level 1.6mg/dl Bedside Urine pH (LAB) 5.5 Bedside Urine Protein (LAB) 2+ Bedside Urine Glucose (UA) Negative Bedside Urine Ketones (LAB) 1+ Bedside Urine Blood Negative Bedside Urine Nitrite (LAB) Positive Bedside Urine Leukocyte Esterase (L Negative White Blood Count 12.810^3/ul Red Blood Count 4.5310^6/ul Hemoglobin 11.3g/dl Hematocrit 36.0% Mean Corpuscular Volume 79.5fl Mean Corpuscular Hemoglobin 24.9pg Mean Corpuscular Hemoglobin Concent 31.4g/dl Red Cell Distribution Width % Platelet Count 96039^3/UL Mean Platelet Volume 10.1fl Neutrophils % 83.9% Lymphocytes % 7.0% Monocytes % 7.3% Eosinophils % 0.9% Basophils % 0.4% Nucleated Red Blood Cells % 0.0/100WBC Neutrophils # 10.710^3/ul Lymphocytes # 0.910^3/ul Monocytes # 0.910^3/ul Eosinophils # 0.110^3/ul Basophils # 0.110^3/ul Nucleated Red Blood Cells # 0.010^3/ul Sodium Level 143mmol/L Potassium Level 2.6mmol/L Chloride Level 98mmol/L Carbon Dioxide Level 31mmol/L Anion Gap 17 Blood Urea Nitrogen 24mg/dl Creatinine 0.75mg/dl Glucose Level 100mg/dl Calcium Level 7.6mg/dl Total Bilirubin 0.5mg/dl Direct Bilirubin 0.00mg/dl Indirect Bilirubin 0.5mg/dl Aspartate Amino Transf (AST/SGOT) 40IU/L Alanine Aminotransferase (ALT/SGPT) 28IU/L Alkaline Phosphatase 186IU/L Total Protein 6.2g/dl Albumin 2.6g/dl Globulin 3.60g/dl Albumin/Globulin Ratio 0.72 Lipase 32U/L Lactic Acid Level 2.8mmol/L Test 11/17/16 07:03 11/17/16 08:53 11/17/16 11:40 11/17/16 12:35 White Blood Count 16.610^3/ul Red Blood Count 4.5810^6/ul Hemoglobin 12.1g/dl Hematocrit 37.4% Mean Corpuscular Volume 81.7fl Mean Corpuscular Hemoglobin 26.4pg Mean Corpuscular Hemoglobin Concent 32.4g/dl Red Cell Distribution Width % Platelet Count 27761^3/UL Mean Platelet Volume 10.7fl Neutrophils % 81.7% Lymphocytes % 9.3% Monocytes % 7.6% Eosinophils % 0.4% Basophils % 0.4% Nucleated Red Blood Cells % 0.0/100WBC Neutrophils # 13.510^3/ul Lymphocytes # 1.510^3/ul Monocytes # 1.310^3/ul Eosinophils # 0.110^3/ul Basophils # 0.110^3/ul Nucleated Red Blood Cells # 0.010^3/ul Lactic Acid Level 2.5mmol/L 5.8mmol/L Sodium Level 142mmol/L Potassium Level 2.6mmol/L Chloride Level 102mmol/L Carbon Dioxide Level 28mmol/L Anion Gap 15 Blood Urea Nitrogen 24mg/dl Creatinine 0.71mg/dl Glucose Level 128mg/dl Calcium Level 6.5mg/dl Current Medications Medications (Trade) Dose Ordered Sig/Rogelio Route PRN Reason Start Time Stop Time Status Last Admin Dose Admin Sodium Chloride 500 ml @ 500 mls/hr Q1H ONCE IV 11/17/16 01:30 11/17/16 02:29 DC 11/17/16 01:44 Piperacillin Sod/ Tazobactam Sod 100 ml @ 200 mls/hr ONCE ONCE IVPB 11/17/16 03:30 11/17/16 03:59 DC 11/17/16 04:10 Potassium Chloride 250 ml @ 62.5 mls/hr ONCE ONCE IVPB 11/17/16 03:30 11/17/16 07:29 DC 11/17/16 03:29 Magnesium Sulfate/ Dextrose 100 ml @ 100 mls/hr ONCE ONCE IVPB 11/17/16 03:30 11/17/16 04:29 DC 11/17/16 04:03 Sodium Chloride 1,000 ml @ 1,000 mls/hr Q1H ONCE IV 11/17/16 03:30 11/17/16 04:29 DC 11/17/16 03:09 Norepinephrine (Levophed) 250 ml @ 1.875 mls/ hr TITRATE IV 11/17/16 05:00 11/17/16 06:51 Ondansetron HCl (Zofran Inj) 4 mg Q6H PRN IV NAUSEA AND/OR VOMITING 11/17/16 05:00 Albuterol/ Ipratropium (Duoneb) 3 ml Q4H RESP THERAPY NEB 11/17/16 05:00 11/18/16 04:27 Acetaminophen (Tylenol Liquid) 650 mg Q6H PRN PO PAIN LEVEL 1-3 OR FEVER 11/17/16 05:00 Morphine Sulfate (morphine) 2 mg Q4H PRN IV PAIN LEVEL 7-10 11/17/16 05:00 Lorazepam (Ativan) 0.5 mg Q3H PRN IV ANXIETY 11/17/16 05:00 Famotidine (Pepcid Iv) 20 mg DAILY IV 11/17/16 09:00 11/17/16 08:52 Tramadol HCl 50 mg 50 mg Q6H PRN PO moderate to severe pain 11/17/16 05:00 Norepinephrine 16 mg/Dextrose 500 ml @ 1.87 mls/hr TITRATE IV 11/17/16 05:00 Levofloxacin/ Dextrose 100 ml @ 100 mls/hr ONCE ONCE IVPB 11/17/16 06:00 11/17/16 06:59 DC 11/17/16 07:55 Levofloxacin/ Dextrose (Levaquin 250 Mg/ D5W 50 ml (Pmx)) 50 ml @ 50 mls/hr Q24H IVPB 11/18/16 06:00 11/18/16 06:00 DC Lidocaine 5 ml 5 ml ONCE ONCE SC 11/17/16 05:30 11/17/16 09:11 DC Sodium Chloride 1,000 ml @ 125 mls/hr Q8H IV 11/17/16 07:30 11/17/16 17:16 Cefepime HCl (Maxipime 1gm/50 ml (Pmx)) 50 ml @ 100 mls/hr Q12 IVPB 11/17/16 09:00 11/17/16 21:50 Vancomycin HCl VANCOMYCIN PER PHARMACY PER PROTOCOL XX 11/17/16 07:30 Vancomycin HCl 250 ml @ 125 mls/hr ONCE IVPB 11/17/16 14:00 11/17/16 15:59 DC 11/17/16 14:21 Vancomycin HCl 100 ml @ 100 mls/hr Q24H IVPB 11/18/16 13:00 Potassium Chloride (KCl 40 MEQ/250 ML NS) 250 ml @ 62.5 mls/hr Q4H IVPB 11/17/16 16:00 11/17/16 23:59 DC 11/17/16 21:57 Procedures/[place] [address] Radiology Main Line: [phone] DIAGNOSTIC IMAGING REPORT Patient: JORDEN FRANCIS : 1930 Age: 86 Sex: F MR #: [id number] DOS: 11/17/16 0000 Ordering MD: ASHLEY AGUILAR DO Location: E/R Room/Bed: PROCEDURE: XR Chest. CLINICAL INDICATION: Shortness of breath. Sepsis. TECHNIQUE: Single frontal view. COMPARISON: CT scan of the chest dated 10/16/2016. FINDINGS: There is atelectasis at the lung bases with right worse than left. The lungs are otherwise clear. The heart is enlarged. There is calcification in the aorta consistent with atherosclerosis. There is a moderate right pleural effusion and small left pleural effusion. The right paramediastinal mass is not well visualized. There is no pneumothorax. IMPRESSION: 1. Atelectasis at the lung bases with right worse than left. 2. Cardiomegaly and atherosclerosis. 3. Moderate right pleural effusion and small left pleural effusion. 4. Right paramediastinal mass is not well visualized. RPTAT: QQ .Jay Veliz MD, MD Date Time Electronically viewed and signed by .Jay Veliz MD, MD on 11/17/2016 09:39 .R/ CC: ASHLEY AGUILAR DO [place] [address] Radiology Main Line: [phone] DIAGNOSTIC IMAGING REPORT Patient: JORDEN FRANCIS : 1930 Age: 86 Sex: F MR #: [id number] DOS: 11/17/16 0103 Ordering MD: DILEEP RIVERS MD Location: E/R Room/Bed: PROCEDURE: CT ABDOMEN/PELVIS WITHOUT CONTRAST CLINICAL INDICATION: 86-year-old female with abdominal pain. TECHNIQUE: The study was performed utilizing a [employer]op[employer] VCT 64-slice CT scanner. Direct axial sections were obtained through the abdomen and pelvis without the use of intravenous contrast material. Sagittal and coronal reformations were obtained. One or more of the following dose reduction techniques were utilized: automated exposure control, adjustment of the mA and/ or kV according to patient's size or use of iterative reconstruction technique. The images were reviewed on a PACS workstation. CTD/vol = 4.4 mGy; Total Exam DLP = 246.4 mGy-cm. COMPARISON: CT abdomen/pelvis October 14, 2016; CT chest October 16, 2016. FINDINGS: There has been interval development of moderate pericardial effusion with maximal thickness of 16 mm. Again noted is a partially visualized right hilar mass measuring at least 7.4 x 4.8 cm similar appearance to the patient's prior study. There are multiple enlarged right epicardial lymph nodes present with the largest measuring 2.3 x 1.9 cm and 1.8 x 1.6 cm. There is moderate right and mild left pleural effusions with associate compressive atelectasis. The liver has diffuse heterogeneous appearance with multiple hypodense masses but are not well delineated on this noncontrast examination but previously identified on the patient's prior CT scan consistent with metastatic disease. There is persistent portal venous gas identified within the periphery of the liver. No intrahepatic nor extrahepatic biliary ductal dilatation is seen. Surgical clips are seen within the gallbladder fossa from prior cholecystectomy. The pancreas is without areas of abnormal attenuation. The spleen is identified and has a normal size without abnormal density. The adrenal glands are unremarkable. The kidneys are without abnormal density. No hydroureteronephrosis nor nephroureterolithiasis is evident. The urinary bladder appears decompressed. There is a large air-filled hiatal hernia again noted within the posterior mediastinum. There is air identified throughout the bowel with mild retained stool within the colon without gross bowel obstruction. The appendix is visualized however there is no evidence for abnormal thickening or periappendiceal inflammatory changes. The aortoiliac vessels are mildly calcified and ectatic but without aneurysmal dilatation. Degenerative changes are present within the spine. There is a compression fracture of the superior T12 vertebral body again noted with approximately 30% loss of height with a small area of decreased density within the superior T12 vertebral body. This may represent a pathologic compression fracture and appears to have increased slightly in the interval. There is been interval development of a compression fracture of the L3 vertebral body more severe on the left side with approximately 30% loss of height extending into the pedicle as well as posterosuperior retropulsion of the body approximately 6 mm into the canal narrowing of the anteroposterior dimension of the canal to 10 mm. No lytic lesions again visualize within the right iliac crests and throughout the right iliac bone. There is extension into the right posterior sacroiliac joint. Diffuse osteopenia is present. There is diffuse infiltration of the soft tissues consistent with anasarca. IMPRESSION: 1. Interval development of moderate pericardial effusion. 2. Partially visualized right hilar mass as well as extensive right epicardial lymphadenopathy as previously visualized. 3. Moderate right and mild left pleural effusions with associated lower lobe compressive atelectasis. 4. Large air-filled hiatal hernia. 5. Hepatic metastases not well delineated on this noncontrast examination. 6. Persistent portal venous gas. 7. Status post cholecystectomy. 8. No evidence for gross bowel obstruction. 9. Progressive superior T12 presumably pathologic compression fracture (30%) without retropulsion. 10. Acute L3 compression fracture (30%) with retropulsion of 6 mm into the canal resulting in spinal stenosis. 11. 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 12. Diffuse anasarca. .Jaime Camacho MD, MD Date Time Electronically viewed and signed by .Jaime Camacho MD, MD on 11/17/2016 03:12 .M/ CC: DILEEP RIVERS MD MEDICAL MAKING DECISION: The patient is a 86-year-old female, resenting to the ER because of acute severe sepsis, acute dehydration, acute hypokalemia, acute cystitis, acute hypomagnesemia, acute pericardial effusion, acute L3 compression fracture, acute pleural effusion. She was treated with 30 mL normal saline per kilogram IV, Zosyn IV, vancomycin IV for acute severe sepsis. She was treated with potassium chloride 40 medical: IV for acute hypokalemia and magnesium 1 g IV for acute hypomagnesemia Admit MDM: Patient's infectious symptoms have not stabilized and the patient is at risk of rapid decompensation. The patient will be admitted for careful hydration, antibiotic therapy, and infectious source control. Severe Sepsis criteria: Infectious source: UTI End organ damage indicated by: Lactate > 2.0 mmol/L Sepsis Management: Time of recognition of severe sepsis/septic shock: Within 3 hours of recognition: Blood cultures x 2 before broad-spectrum antibiotics: Yes 30 ml/kg NS bolus completed Initial lactate 2.8 Repeat lactate pending Critical Care: Critical care time 75 minutes excluding billable procedure Emergent fluid management while maintaining close respiratory support. Provision of immediate and broad-spectrum antibiotic therapy. Simultaneous assessment for possible sources in order to direct targeted therapy. Consideration for invasive and chemical support to prevent cardiopulmonary collapse. Septic Shock Assessment: Any lactic acid > 4.0 no Persistent hypotension (SBP < 90 or 40 mmHg drop, MAP < 65) despite 30 mL/kg IV fluid bolusno Consultation: I discussed the patient with the on-call neurosurgeon Dr. Bob at 4:50 am, who was made aware of the lab, the treatment, the patient condition. He requested MRI of the thoracic and lumbar spine Departure Diagnosis: Primary Impression: Severe sepsis Additional Impressions: Cystitis Dehydration Hypokalemia Hypomagnesemia Compression fracture of L3 lumbar vertebra Pleural effusion Pericardial effusion Compression fracture of T12 vertebra Condition: Critical Comments I discussed the findings with the patient. I discussed the patient with the on- call hospitalist Dr. Jett at 4:50 AM who was made aware of the lab, the treatment, the patient condition and my discussion with the surgeon. The patient is admitted to ICU DILEEP RIVERS MD Nov 17, 2016 00:47
[2016-11-17] MEDS ORDERED: SOD CHLORIDE 0.9% 500 ML IV ONE (01:30)
[2016-11-17 01:37] LABS: URINE BLOOD (Dip) POC Negative (NEGATIVE)
[2016-11-17 02:25] LABS: ABNORMAL IP MESSAGE 1; ALBUMIN 2.6 g/dl (3.3-4.9); ALBUMIN/GLOBULIN RATIO 0.72; BASOPHIL # 0.1 10^3/ul (0.0-0.1); BASOPHILS % 0.4 % (0.0-2.0); BILIRUBIN,INDIRECT 0.5 mg/dl (0-1.1); BILIRUBIN,TOTAL 0.5 mg/dl (0.2-1.3); CALCIUM 7.6 mg/dl (8.4-10.2); EOSINOPHILS # 0.1 10^3/ul (0.0-0.5); EOSINOPHILS % 0.9 % (0.0-7.0); HEMOGLOBIN 11.3 g/dl (12.0-16.0); LYMPHOCYTES # 0.9 10^3/ul (0.8-2.9); MEAN CORPUSCULAR HEMOGLOBIN 24.9 pg (29.0-33.0); MEAN CORPUSCULAR HGB CONC 31.4 g/dl (32.0-37.0); MEAN CORPUSCULAR VOLUME 79.5 fl (82.0-101.0); MEAN PLATELET VOLUME 10.1 fl (7.4-10.4); MONOCYTE # 0.9 10^3/ul (0.3-0.9); MONOCYTES % 7.3 % (0.0-11.0); NEUTROPHIL # 10.7 10^3/ul (1.6-7.5); NEUTROPHILS % 83.9 % (39.0-77.0); PLATELET COUNT 278 10^3/UL (140-415); RED BLOOD COUNT 4.53 10^6/ul (4.20-5.40); TOTAL PROTEIN 6.2 g/dl (6.1-8.1); WHITE BLOOD COUNT 12.8 10^3/ul (4.8-10.8)
[2016-11-17 02:26] LABS: POSITIVE DIFF @See below
[2016-11-17 02:32] LABS: POTASSIUM 2.6 mmol/L (3.5-5.1)
[2016-11-17 02:49] LABS: CREATININE 0.75 mg/dl (0.44-1.00)
--- NOTE | 2016-11-17 03:12 | RADRPT ---
PROCEDURE: CT ABDOMEN/PELVIS WITHOUT CONTRAST CLINICAL INDICATION: 86-year-old female with abdominal pain. TECHNIQUE: The study was performed utilizing a [employer]ed VCT 64-slice CT scanner. Direct axia l sections were obtained through the abdomen and pelvis without the use of intravenous contrast mate rial. Sagittal and coronal reformations were obtained. One or more of the following dose reduction t echniques were utilized: automated exposure control, adjustment of the mA and/or kV according to pat ient's size or use of iterative reconstruction technique. The images were reviewed on a PACS workst [employer]. CTD/vol = 4.4 mGy; Total Exam DLP = 246.4 mGy-cm. COMPARISON: CT abdomen/pelvis October 14, 2016; CT chest October 16, 2016. FINDINGS: There has been interval development of moderate pericardial effusion with maximal thickness of 16 mm . Again noted is a partially visualized right hilar mass measuring at least 7.4 x 4.8 cm similar ap pearance to the patient's prior study. There are multiple enlarged right epicardial lymph nodes pre sent with the largest measuring 2.3 x 1.9 cm and 1.8 x 1.6 cm. There is moderate right and mild left pleural effusions with associate compressive atelectasis. The liver has diffuse heterogeneous appearance with multiple hypodense masses but are not well delin eated on this noncontrast examination but previously identified on the patient's prior CT scan consi stent with metastatic disease. There is persistent portal venous gas identified within the peripher y of the liver. No intrahepatic nor extrahepatic biliary ductal dilatation is seen. Surgical clips are seen within the gallbladder fossa from prior cholecystectomy. The pancreas is without areas of abnormal attenuation. The spleen is identified and has a normal size without abnormal density. The adrenal glands are unremarkable. The kidneys are without abnormal density. No hydroureteronephrosis nor nephroureterolithiasis is evident. The urinary bladder appears decompressed. There is a large ai r-filled hiatal hernia again noted within the posterior mediastinum. There is air identified through out the bowel with mild retained stool within the colon without gross bowel obstruction. The appendix is visualized however there is no evidence for abnormal thickening or periappendiceal infla mmatory changes. The aortoiliac vessels are mildly calcified and ectatic but without aneurysmal dil atation. Degenerative changes are present within the spine. There is a compression fracture of the superior T12 vertebral body again noted with approximately 30% loss of height with a small area of d ecreased density within the superior T12 vertebral body. This may represent a pathologic compressio n fracture and appears to have increased slightly in the interval. There is been interval developme nt of a compression fracture of the L3 vertebral body more severe on the left side with approximatel y 30% loss of height extending into the pedicle as well as posterosuperior retropulsion of the body approximately 6 mm into the canal narrowing of the anteroposterior dimension of the canal to 10 mm. No lytic lesions again visualize within the right iliac crests and throughout the right iliac bone. There is extension into the right posterior sacroiliac joint. Diffuse osteopenia is present. There i s diffuse infiltration of the soft tissues consistent with anasarca. IMPRESSION: 1. Interval development of moderate pericardial effusion. 2. Partially visualized right hilar mass as well as extensive right epicardial lymphadenopathy as p reviously visualized. 3. Moderate right and mild left pleural effusions with associated lower lobe compressive atelectasi s. 4. Large air-filled hiatal hernia. 5. Hepatic metastases not well delineated on this noncontrast examination. 6. Persistent portal venous gas. 7. Status post cholecystectomy. 8. No evidence for gross bowel obstruction. 9. Progressive superior T12 presumably pathologic compression fracture (30%) without retropulsion. 10. Acute L3 compression fracture (30%) with retropulsion of 6 mm into the canal resulting in spina l stenosis. 11. 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 12. Diffuse anasarca. .Jaime Camacho MD, Date Time Electronically viewed and signed by .Jaime Camacho MD, on 11/17/2016 03:12 .M/
[2016-11-17] MEDS ORDERED: SOD CHLORIDE 0.9% 1,000 ML IV ONE (03:30)
[2016-11-17] MEDS ORDERED: PIPER-TAZO 3.375 GM IV (PMX) 100 ML IVPB ONE (03:30)
[2016-11-17] MEDS ORDERED: POTASSIUM CHLORIDE 250 ML IVPB ONE (03:30)
[2016-11-17] MEDS ORDERED: MAGNESIUM SULFATE 1 GM/D5W 100 ML IVPB ONE (03:30)
[2016-11-17] MEDS ORDERED: NORepinephrine 8MG/250 ML (PMX 250 ML IV SCH (05:00)
[2016-11-17] MEDS ORDERED: LORAZEPAM 2 MG INJ IV PRN (05:00)
[2016-11-17] MEDS ORDERED: morphine 4 MG/ML VIAL IV PRN (05:00)
[2016-11-17] MEDS ORDERED: ONDANSETRON 4 MG INJ IV PRN (05:00)
[2016-11-17] MEDS ORDERED: LIDOCAINE 1% (MPF) 5 ML VIAL SC ONE (05:30)
[2016-11-17] MEDS: ALBUTEROL/IPRATROPIUM (NEB) 3 ML AMP NEB SCH ×5 (05:45→20:50)
[2016-11-17] MEDS ORDERED: LEVOFLOXACIN 500MG/D5W (PMX) 100 ML IVPB ONE (06:00)
[2016-11-17] MEDS ORDERED: VANCOMYCIN IV PER PHARMACY XX SCH (07:30)
--- NOTE | 2016-11-17 07:45 | HP ---
Date/Time of Note Date/Time of Note DATE: 11/17/16 TIME: 07:30 Assessment/Plan VTE Prophylaxis VTE Prophylaxis Intervention: SCD's Assessment/Plan Assessment/Plan 1. Acute L3 fracture with retropulsion into canal - Dr. Bob, from neurosurgery was contacted by ER physician -Strict bedrest for now until neurosurgical eval. Will provide pain medication as needed 2. Shock: Likely septic, from UTI -Pressor support as needed -continue antibiotic and IV fluid -Blood culture, urine culture and a chest x-ray -will obtain a 2D echo. Will send additional troponin 3. History of metastatic melanoma, to lung, bones, liver, and lymph nodes - will notify Dr. Pritchard, patient's oncologist. 4. Anemia, likely secondary to chronic disease -Monitor H&H closely and transfuse as needed 5. Hypokalemia: Replete HPI/ROS Admit Date/Time Admit Date/Time Hx of Present Illness This is an 86-year-old female with a history of metastatic melanoma, to lung, bones, liver, and lymph nodes, hypertension, anemia and peripheral edema who presented to the ER complaining of back pain and abdominal pain. Patient was attempting to use the bedside commode when she missed and fell to the floor. She denied head injury or loss of consciousness. When she presented to the ER, her initial blood pressure was 99/67. She was then noted to be progressively more hypotensive and has been started on Levophed. Lab shows a WBC of 12.8, potassium 2.6, hemoglobin 11.3, lactic acid 2.8, magnesium 1.6. CT abdomen/pelvis shows the followin. Interval development of moderate pericardial effusion. 2. Partially visualized right hilar mass as well as extensive right epicardial lymphadenopathy as previously visualized. 3. Moderate right and mild left pleural effusions with associated lower lobe compressive atelectasis. 4. Large air-filled hiatal hernia. 5. Hepatic metastases not well delineated on this noncontrast examination. 6. Persistent portal venous gas. 7. Status post cholecystectomy. 8. No evidence for gross bowel obstruction. 9. Progressive superior T12 presumably pathologic compression fracture (30%) without retropulsion. 10. Acute L3 compression fracture (30%) with retropulsion of 6 mm into the canal resulting in spinal stenosis. 11. 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 12. Diffuse anasarca. . PMH/Family/Social Past Surgical History Past Surgical Hx: cholecystectomy Social History Smoking Status: Never smoker Exam/Review of Systems Vital Signs Vitals Vital Signs Date Time Temp Pulse Resp B/P Pulse Ox O2 Delivery O2 Flow Rate FiO2 11/17/16 07:12 72 101/81 11/17/16 06:13 22 98 Room Air 11/17/16 05:45 21 11/17/16 05:00 97.2 Intake and Output 11/16/16 11/16/16 11/17/16 15:00 23:00 07:00 Intake Total 1700 ml Balance 1700 ml Labs Result Diagram: 11/17/16 0155 11/17/16 0155 Medications Medications Current Medications Norepinephrine (Levophed) 250 ml @ 1.875 mls/ hr TITRATE IV Last administered on 11/17/16t 06:51; Admin Dose 18.75 MLS/HR; Start 11/17/16 at 05:00 Ondansetron HCl (Zofran Inj) 4 mg Q6H PRN IV NAUSEA AND/OR VOMITING; Start 11/17 at 05:00 Acetaminophen (Tylenol Liquid) 650 mg Q6H PRN PO PAIN LEVEL 1-3 OR FEVER; Start 11/17/16 at 05:00 Morphine Sulfate (morphine) 2 mg Q4H PRN IV PAIN LEVEL 7-10; Start 11/17/16 at 05:00 Lorazepam (Ativan) 0.5 mg Q3H PRN IV ANXIETY; Start 11/17/16 at 05:00 Famotidine (Pepcid Iv) 20 mg DAILY IV ; Start 11/17/16 at 09:00 Tramadol HCl 50 mg 50 mg Q6H PRN PO moderate to severe pain; Start 11/17/16 at 05:00 Norepinephrine 16 mg/Dextrose 500 ml @ 1.87 mls/hr TITRATE IV ; Start 11/17/16 at 05:00; Status UNV Levofloxacin/ Dextrose (Levaquin 250 Mg/ D5W 50 ml (Pmx)) 50 ml @ 50 mls/hr Q24H IVPB ; Start 11/18/16 at 06:00 JEAN-PAUL DANGELO MD Nov 17, 2016 07:40
[2016-11-17 07:52] LABS: ABNORMAL IP MESSAGE 1; BASOPHIL # 0.1 10^3/ul (0.0-0.1); BASOPHILS % 0.4 % (0.0-2.0); EOSINOPHILS # 0.1 10^3/ul (0.0-0.5); EOSINOPHILS % 0.4 % (0.0-7.0); HEMATOCRIT 37.4 % (37.0-47.0); HEMOGLOBIN 12.1 g/dl (12.0-16.0); LYMPHOCYTES # 1.5 10^3/ul (0.8-2.9); LYMPHOCYTES % 9.3 % (15.0-51.0); MEAN CORPUSCULAR HEMOGLOBIN 26.4 pg (29.0-33.0); MEAN CORPUSCULAR HGB CONC 32.4 g/dl (32.0-37.0); MEAN CORPUSCULAR VOLUME 81.7 fl (82.0-101.0); MEAN PLATELET VOLUME 10.7 fl (7.4-10.4); MONOCYTE # 1.3 10^3/ul (0.3-0.9); MONOCYTES % 7.6 % (0.0-11.0); NEUTROPHIL # 13.5 10^3/ul (1.6-7.5); NEUTROPHILS % 81.7 % (39.0-77.0); PLATELET COUNT 256 10^3/UL (140-415); RED BLOOD COUNT 4.58 10^6/ul (4.20-5.40); WHITE BLOOD COUNT 16.6 10^3/ul (4.8-10.8)
[2016-11-17 08:07] LABS: POSITIVE DIFF @See below
[2016-11-17] MEDS: SOD CHLORIDE 0.9% 1,000 ML IV SCH ×3 (08:24→23:30)
[2016-11-17] MEDS: FAMOTIDINE 20 MG INJ IV SCH (08:52)
[2016-11-17] MEDS: CEFEPIME 1GM/50 ML (PMX) 50 ML IVPB SCH ×2 (09:04→21:50)
--- NOTE | 2016-11-17 09:11 | OPR ---
DATE OF OPERATION: 11/17/2016 PROCEDURE: Right femoral central line. OPERATIVE PROCEDURE: The patient was prepped and draped in sterile fashion. Gown, mask, cap, gloves, chlorhexidine wipe, full drape was used. Femoral vein was located and differentiated from artery using ultrasound guidance. With sterile probe cover, ultrasound was used intra-procedure to verify needle placement in the femoral vein. Seldinger technique to easily introduce a 7- Hebrew triple lumen catheter into the femoral vein. One attempt was made. There was good blood flow to all ports. Wireless achieved. All ports flushed well. The patient tolerated the patient excellent with no complications. Biopatch and dressing were placed by myself after suturing in place with two 3-0 silk sutures. INDICATION: Extremely low blood pressure in patient admitted to the ICU. Dictated By: Aman Gomez DO /[email or web address] /Document#: [id number]
--- NOTE | 2016-11-17 09:39 | RADRPT ---
PROCEDURE: XR Chest. CLINICAL INDICATION: Shortness of breath. Sepsis. TECHNIQUE: Single frontal view. COMPARISON: CT scan of the chest dated 10/16/2016. FINDINGS: There is atelectasis at the lung bases with right worse than left. The lungs are otherwise clear. The heart is enlarged. There is calcification in the aorta consistent with atherosclerosis. There is a moderate right pleural effusion and small left pleural effusion. The right paramediastina l mass is not well visualized. There is no pneumothorax. IMPRESSION: 1. Atelectasis at the lung bases with right worse than left. 2. Cardiomegaly and atherosclerosis. 3. Moderate right pleural effusion and small left pleural effusion. 4. Right paramediastinal mass is not well visualized. RPTAT: QQ .Jay Veliz MD, Date Time Electronically viewed and signed by .Jya Veliz MD, on 11/17/2016 09:39 .R/
[2016-11-17 13:04] LABS: CALCIUM 6.5 mg/dl (8.4-10.2); CREATININE 0.71 mg/dl (0.44-1.00)
[2016-11-17 13:08] LABS: POTASSIUM 2.6 mmol/L (3.5-5.1)
[2016-11-17] MEDS ORDERED: VANCOMYCIN 1 GM in NS 250 ML IVPB SCH (14:00)
--- NOTE | 2016-11-17 16:23 | CONS ---
Date/Time of Note Date/Time of Note DATE: 11/17/16 TIME: 16:18 Assessment/Plan Assessment/Plan Chief Complaint/Hosp Course Metastatic melanoma, to lung, bones, liver, and lymph nodes PT IS NOT A CANDIDATE FOR IMMUNOTHERAPY CONSIDER CHEMO- IF PS PERMITS Anemia, likely secondary to chronic disease -Monitor H&H closely and transfuse as needed Acute L3 fracture with retropulsion into canal - Dr. Bob, from neurosurgery was contacted by ER physician -Strict bedrest for now until neurosurgical eval. Will provide pain medication as needed Shock: Likely septic, from UTI -Pressor support as needed -continue antibiotic and IV fluid -Blood culture, urine culture and a chest x-ray -will obtain a 2D echo. Will send additional troponin Hypokalemia: Replete Problems: Consultation Date/Type/Reason Admit Date/Time 11/17/16 Initial Consult Date 11/17/16 Type of Consultation: HEMEON Reason for Consultation MELANOMA Referring Provider: JEAN-PAUL DANGELO MD 24 HR Interval Summary Free Text/Dictation This is an 86-year-old female with a history of metastatic melanoma, to lung, bones, liver, and lymph nodes, hypertension, anemia and peripheral edema who presented to the ER complaining of back pain and abdominal pain. Patient was attempting to use the bedside commode when she missed and fell to the floor. She denied head injury or loss of consciousness. When she presented to the ER, her initial blood pressure was 99/67. She was then noted to be progressively more hypotensive and has been started on Levophed. Lab shows a WBC of 12.8, potassium 2.6, hemoglobin 11.3, lactic acid 2.8, magnesium 1.6. CT abdomen/pelvis shows the followin. Interval development of moderate pericardial effusion. 2. Partially visualized right hilar mass as well as extensive right epicardial lymphadenopathy as previously visualized. 3. Moderate right and mild left pleural effusions with associated lower lobe compressive atelectasis. 4. Large air-filled hiatal hernia. 5. Hepatic metastases not well delineated on this noncontrast examination. 6. Persistent portal venous gas. 7. Status post cholecystectomy. 8. No evidence for gross bowel obstruction. 9. Progressive superior T12 presumably pathologic compression fracture (30%) without retropulsion. 10. Acute L3 compression fracture (30%) with retropulsion of 6 mm into the canal resulting in spinal stenosis. 11. 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 12. Diffuse anasarca. I WAS ASKED TO PROVIDE HEMEONC CONSULT . PMH/Family/Social PMH/Family/Social Past Surgical History Past Surgical Hx: cholecystectomy Social History Smoking Status: Never smoker Exam/Review of Systems Vital Signs Vitals Vital Signs Date Time Temp Pulse Resp B/P Pulse Ox O2 Delivery O2 Flow Rate FiO2 11/17/16 13:30 84 20 106/74 100 Nasal Cannula 2.0 11/17/16 08:29 21 11/17/16 05:00 97.2 Intake and Output 11/16/16 11/16/16 11/17/16 15:00 23:00 07:00 Intake Total 1700 ml Balance 1700 ml Exam Const: No acute distress. Head: Atraumatic. Eyes: Normal Conjunctiva. ENT: Normal External Ears, Nose and Mouth. Neck: Full range of motion. No meningismus. Resp: Clear to auscultation bilaterally. Cardio: Regular rate and rhythm. Abd: Soft, non distended, normal bowel sounds, diffuse abdominal tenderness, no rigidity, rebound, CVA tenderness Skin: No petechiae or rashes. Back: Minimal lumbar tenderness, no crepitus Ext: The leg edema, no calf tenderness Neur: Awake and alert. No focal deficit Psych: Normal Mood and Affect. Results Result Diagram: 11/17/16 0703 11/17/16 1235 Results 24 hrs Laboratory Tests Test 11/17/16 01:15 11/17/16 01:41 11/17/16 01:55 11/17/16 06:00 Magnesium Level 1.6 L Bedside Urine pH (LAB) 5.5 Bedside Urine Protein (LAB) 2+ H Bedside Urine Glucose (UA) Negative Bedside Urine Ketones (LAB) 1+ H Bedside Urine Blood Negative Bedside Urine Nitrite (LAB) Positive H Bedside Urine Leukocyte Esterase (L Negative White Blood Count 12.8 #H Red Blood Count 4.53 Hemoglobin 11.3 #L Hematocrit 36.0 L Mean Corpuscular Volume 79.5 L Mean Corpuscular Hemoglobin 24.9 L Mean Corpuscular Hemoglobin Concent 31.4 L Red Cell Distribution Width Platelet Count 278 Mean Platelet Volume 10.1 Neutrophils % 83.9 H Lymphocytes % 7.0 L Monocytes % 7.3 Eosinophils % 0.9 Basophils % 0.4 Nucleated Red Blood Cells % 0.0 Neutrophils # 10.7 H Lymphocytes # 0.9 Monocytes # 0.9 Eosinophils # 0.1 Basophils # 0.1 Nucleated Red Blood Cells # 0.0 Sodium Level 143 Potassium Level 2.6 *L Chloride Level 98 Carbon Dioxide Level 31 Anion Gap 17 H Blood Urea Nitrogen 24 H Creatinine 0.75 Glucose Level 100 Calcium Level 7.6 L Total Bilirubin 0.5 Direct Bilirubin 0.00 Indirect Bilirubin 0.5 Aspartate Amino Transf (AST/SGOT) 40 Alanine Aminotransferase (ALT/SGPT) 28 Alkaline Phosphatase 186 H Total Protein 6.2 Albumin 2.6 L Globulin 3.60 H Albumin/Globulin Ratio 0.72 Lipase 32 Lactic Acid Level 2.8 *H Test 11/17/16 07:03 11/17/16 08:53 11/17/16 11:40 11/17/16 12:35 White Blood Count 16.6 #H Red Blood Count 4.58 Hemoglobin 12.1 Hematocrit 37.4 Mean Corpuscular Volume 81.7 L Mean Corpuscular Hemoglobin 26.4 L Mean Corpuscular Hemoglobin Concent 32.4 Red Cell Distribution Width Platelet Count 256 Mean Platelet Volume 10.7 H Neutrophils % 81.7 H Lymphocytes % 9.3 L Monocytes % 7.6 Eosinophils % 0.4 Basophils % 0.4 Nucleated Red Blood Cells % 0.0 Neutrophils # 13.5 H Lymphocytes # 1.5 Monocytes # 1.3 H Eosinophils # 0.1 Basophils # 0.1 Nucleated Red Blood Cells # 0.0 Lactic Acid Level 2.5 *H 5.8 *H Sodium Level 142 Potassium Level 2.6 *L Chloride Level 102 Carbon Dioxide Level 28 Anion Gap 15 Blood Urea Nitrogen 24 H Creatinine 0.71 Glucose Level 128 Calcium Level 6.5 L Medications Medications Current Medications Norepinephrine (Levophed) 250 ml @ 1.875 mls/ hr TITRATE IV Last administered on 11/17/16t 06:51; Admin Dose 18.75 MLS/HR; Start 11/17/16 at 05:00 Ondansetron HCl (Zofran Inj) 4 mg Q6H PRN IV NAUSEA AND/OR VOMITING; Start 11/17 at 05:00 Acetaminophen (Tylenol Liquid) 650 mg Q6H PRN PO PAIN LEVEL 1-3 OR FEVER; Start 11/17/16 at 05:00 Morphine Sulfate (morphine) 2 mg Q4H PRN IV PAIN LEVEL 7-10; Start 11/17/16 at 05:00 Lorazepam (Ativan) 0.5 mg Q3H PRN IV ANXIETY; Start 11/17/16 at 05:00 Famotidine (Pepcid Iv) 20 mg DAILY IV Last administered on 11/17/16 08:52; Admin Dose 20 MG; Start 11/17/16 at 09:00 Tramadol HCl 50 mg 50 mg Q6H PRN PO moderate to severe pain; Start 11/17/16 at 05:00 Norepinephrine 16 mg/Dextrose 500 ml @ 1.87 mls/hr TITRATE IV ; Start 11/17/16 at 05:00 Sodium Chloride 1,000 ml @ 125 mls/hr Q8H IV Last administered on 11/17/16 08: 24; Admin Dose 125 MLS/HR; Start 11/17/16 at 07:30 Cefepime HCl 50 ml @ 100 mls/hr Q12 IVPB Last administered on 11/17/16 09:04; Admin Dose 100 MLS/HR; Start 11/17/16 at 09:00 Vancomycin HCl 100 ml @ 100 mls/hr Q24H IVPB ; Start 11/18/16 at 13:00 Potassium Chloride (KCl 40 MEQ/250 ML NS) 250 ml @ 62.5 mls/hr Q4H IVPB ; Start 11/17/16 at 16:00; Stop 11/17/16 at 23:59 Procedures Procedures [place] [id number] Radiology Main Line: [phone] DIAGNOSTIC IMAGING REPORT Patient: JORDEN FRANCIS : 1930 Age: 86 Sex: F MR #: [id number] DOS: 11/17/16 0103 Ordering MD: DILEEP RIVERS MD Location: E/R Room/Bed: PROCEDURE: CT ABDOMEN/PELVIS WITHOUT CONTRAST CLINICAL INDICATION: 86-year-old female with abdominal pain. TECHNIQUE: The study was performed utilizing a [employer] 64-slice CT scanner. Direct axial sections were obtained through the abdomen and pelvis without the use of intravenous contrast material. Sagittal and coronal reformations were obtained. One or more of the following dose reduction techniques were utilized: automated exposure control, adjustment of the mA and/ or kV according to patient's size or use of iterative reconstruction technique. The images were reviewed on a PACS workstation. CTD/vol = 4.4 mGy; Total Exam DLP = 246.4 mGy-cm. COMPARISON: CT abdomen/pelvis October 14, 2016; CT chest October 16, 2016. FINDINGS: There has been interval development of moderate pericardial effusion with maximal thickness of 16 mm. Again noted is a partially visualized right hilar mass measuring at least 7.4 x 4.8 cm similar appearance to the patient's prior study. There are multiple enlarged right epicardial lymph nodes present with the largest measuring 2.3 x 1.9 cm and 1.8 x 1.6 cm. There is moderate right and mild left pleural effusions with associate compressive atelectasis. The liver has diffuse heterogeneous appearance with multiple hypodense masses but are not well delineated on this noncontrast examination but previously identified on the patient's prior CT scan consistent with metastatic disease. There is persistent portal venous gas identified within the periphery of the liver. No intrahepatic nor extrahepatic biliary ductal dilatation is seen. Surgical clips are seen within the gallbladder fossa from prior cholecystectomy. The pancreas is without areas of abnormal attenuation. The spleen is identified and has a normal size without abnormal density. The adrenal glands are unremarkable. The kidneys are without abnormal density. No hydroureteronephrosis nor nephroureterolithiasis is evident. The urinary bladder appears decompressed. There is a large air-filled hiatal hernia again noted within the posterior mediastinum. There is air identified throughout the bowel with mild retained stool within the colon without gross bowel obstruction. The appendix is visualized however there is no evidence for abnormal thickening or periappendiceal inflammatory changes. The aortoiliac vessels are mildly calcified and ectatic but without aneurysmal dilatation. Degenerative changes are present within the spine. There is a compression fracture of the superior T12 vertebral body again noted with approximately 30% loss of height with a small area of decreased density within the superior T12 vertebral body. This may represent a pathologic compression fracture and appears to have increased slightly in the interval. There is been interval development of a compression fracture of the L3 vertebral body more severe on the left side with approximately 30% loss of height extending into the pedicle as well as posterosuperior retropulsion of the body approximately 6 mm into the canal narrowing of the anteroposterior dimension of the canal to 10 mm. No lytic lesions again visualize within the right iliac crests and throughout the right iliac bone. There is extension into the right posterior sacroiliac joint. Diffuse osteopenia is present. There is diffuse infiltration of the soft tissues consistent with anasarca. IMPRESSION: 1. Interval development of moderate pericardial effusion. 2. Partially visualized right hilar mass as well as extensive right epicardial lymphadenopathy as previously visualized. 3. Moderate right and mild left pleural effusions with associated lower lobe compressive atelectasis. 4. Large air-filled hiatal hernia. 5. Hepatic metastases not well delineated on this noncontrast examination. 6. Persistent portal venous gas. 7. Status post cholecystectomy. 8. No evidence for gross bowel obstruction. 9. Progressive superior T12 presumably pathologic compression fracture (30%) without retropulsion. 10. Acute L3 compression fracture (30%) with retropulsion of 6 mm into the canal resulting in spinal stenosis. 11. 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 12. Diffuse anasarca. .Jaime Camacho MD, Date Time Electronically viewed and signed by .Jaime Camacho MD, MD on 11/17/2016 03:12 .M/ CC: DILEEP RIVERS MD, VERA M MD Nov 17, 2016 16:23
[2016-11-17] MEDS: POTASSIUM CHLORIDE 250 ML IVPB SCH ×2 (17:16→21:57)
--- NOTE | 2016-11-17 18:13 | QN ---
Documentation Comment Observation Note: Time: 4 hours Family Hx: Negative for diabetes Evaluation: Multiple exams showed improving symptoms and no evidence of clinical decompensation. VIRY HEAD MD Nov 17, 2016 18:13
[2016-11-18] VITALS (7 sets, daily range): BP systolic 98–114; BP diastolic 56–60; PULSE 90–109; RESP 18; TEMP 98.2
[2016-11-18] MEDS: ALBUTEROL/IPRATROPIUM (NEB) 3 ML AMP NEB SCH ×6 (00:57→20:17)
[2016-11-18] MEDS ORDERED: LEVOFLOXACIN 250MG/D5W (PMX) 50 ML IVPB SCH (06:00)
[2016-11-18] MEDS: FAMOTIDINE 20 MG INJ IV SCH (08:20)
[2016-11-18] MEDS: CEFEPIME 1GM/50 ML (PMX) 50 ML IVPB SCH ×2 (08:20→20:08)
[2016-11-18] MEDS ORDERED: morphine 2 MG INJ IV PRN (10:00)
[2016-11-18 10:03] LABS: ABNORMAL IP MESSAGE 1; BASOPHILS % 0.2 % (0.0-2.0); EOSINOPHILS % 0.8 % (0.0-7.0); HEMOGLOBIN 8.8 g/dl (12.0-16.0); LYMPHOCYTES # 0.6 10^3/ul (0.8-2.9); LYMPHOCYTES % 12.9 % (15.0-51.0); MEAN CORPUSCULAR HGB CONC 31.4 g/dl (32.0-37.0); MEAN CORPUSCULAR VOLUME 79.5 fl (82.0-101.0); MEAN PLATELET VOLUME 9.7 fl (7.4-10.4); MONOCYTE # 0.5 10^3/ul (0.3-0.9); NEUTROPHIL # 3.7 10^3/ul (1.6-7.5); NEUTROPHILS % 75.7 % (39.0-77.0); PLATELET COUNT 207 10^3/UL (140-415); WHITE BLOOD COUNT 4.9 10^3/ul (4.8-10.8)
[2016-11-18] MEDS: SOD CHLORIDE 0.9% 1,000 ML IV SCH ×3 (10:03→23:30)
[2016-11-18 10:09] LABS: POSITIVE DIFF @See below; RED BLOOD COUNT 3.52 10^6/ul (4.20-5.40)
[2016-11-18 10:21] LABS: ALBUMIN 1.8 g/dl (3.3-4.9); BILIRUBIN,INDIRECT 0.2 mg/dl (0-1.1); BILIRUBIN,TOTAL 0.2 mg/dl (0.2-1.3); CALCIUM 6.3 mg/dl (8.4-10.2); CREATININE 0.71 mg/dl (0.44-1.00); MAGNESIUM 1.6 mg/dl (1.7-2.5); PHOSPHORUS 2.1 mg/dl (2.5-4.9); TOTAL PROTEIN 4.4 g/dl (6.1-8.1)
[2016-11-18 10:22] LABS: ALBUMIN/GLOBULIN RATIO 0.69
[2016-11-18] MEDS ORDERED: POTASSIUM CHLORIDE (SR) 20 MEQ TAB PO STA (10:29)
[2016-11-18] MEDS ORDERED: POTASSIUM CHLORIDE 250 ML IVPB ONE (10:30)
[2016-11-18] MEDS ORDERED: MAGNESIUM SULFATE 3 GM in SOD CHLORIDE 0.9% 100 ML IVPB ONE (12:00)
[2016-11-18] MEDS ORDERED: VANCOMYCIN 500MG/NS (PMX) 100 ML IVPB SCH (13:00)
--- NOTE | 2016-11-18 13:56 | PN ---
Date/Time of Note Date/Time of Note DATE: 11/18/16 TIME: 13:48 Assessment/Plan VTE Prophylaxis VTE Prophylaxis Intervention: LMWH Assessment/Plan Chief Complaint/Hosp Course 1. T12 and L3 compression fractures with retropulsion into canal - Dr. Bob, from neurosurgery was contacted by ER physician, MRI of lumbar and thoracic spine has been ordered -Will provide pain medication as needed 2. Shock: Likely septic, from UTI -Status post pressor support, lactic acid continues to increase, monitor -continue antibiotic and IV fluid, DC vancomycin -Blood culture and urine cultures are negative at this point 3. History of metastatic melanoma, to lung, bones, liver, and lymph nodes Consultation with patient's oncologist Dr. Pritchard appreciated, plan is to initiate chemotherapy this month 4. Anemia, likely secondary to chronic disease -Monitor H&H closely and transfuse as needed 5. Hypokalemia: Replete 6. Hypomagnesemia-replete Prophylaxis: Lovenox Problems: Subjective 24 Hr Interval Summary Constitutional: no complaints Exam/Review of Systems Vital Signs Vitals Vital Signs Date Time Temp Pulse Resp B/P Pulse Ox O2 Delivery O2 Flow Rate FiO2 11/18/16 10:51 90 11/18/16 10:10 22 97/55 97 11/18/16 06:45 Room Air 11/18/16 04:28 21 11/18/16 04:00 98.2 11/17/16 20:00 2.0 Exam Constitutional: alert, oriented Respiratory: clear to auscultation Cardiovascular: regular rate and rhythm Gastrointestinal: soft, No distended Musculoskeletal: nl extremities to inspection Results Result Diagram: 11/18/16 0950 11/18/16 0950 Results 24 hrs Laboratory Tests Test 11/18/16 09:50 White Blood Count 4.9 # Red Blood Count 3.52 #L Hemoglobin 8.8 #L Hematocrit 28.0 #L Mean Corpuscular Volume 79.5 L Mean Corpuscular Hemoglobin 25.0 L Mean Corpuscular Hemoglobin Concent 31.4 L Red Cell Distribution Width Platelet Count 207 Mean Platelet Volume 9.7 Neutrophils % 75.7 Lymphocytes % 12.9 L Monocytes % 10.0 Eosinophils % 0.8 Basophils % 0.2 Nucleated Red Blood Cells % 0.0 Neutrophils # 3.7 Lymphocytes # 0.6 L Monocytes # 0.5 Eosinophils # 0.0 Basophils # 0.0 Nucleated Red Blood Cells # 0.0 Sodium Level 145 H Potassium Level 3.0 L Chloride Level 109 Carbon Dioxide Level 26 Anion Gap 13 Blood Urea Nitrogen 22 H Creatinine 0.71 Glucose Level 116 Lactic Acid Level 2.9 *H Calcium Level 6.3 L Phosphorus Level 2.1 L Magnesium Level 1.6 L Total Bilirubin 0.2 Direct Bilirubin 0.00 Indirect Bilirubin 0.2 Aspartate Amino Transf (AST/SGOT) 23 Alanine Aminotransferase (ALT/SGPT) 28 Alkaline Phosphatase 126 H Total Protein 4.4 #L Albumin 1.8 L Globulin 2.60 Albumin/Globulin Ratio 0.69 Medications Medications Current Medications Ondansetron HCl (Zofran Inj) 4 mg Q6H PRN IV NAUSEA AND/OR VOMITING; Start 11/17 at 05:00 Acetaminophen (Tylenol Liquid) 650 mg Q6H PRN PO PAIN LEVEL 1-3 OR FEVER; Start 11/17/16 at 05:00 Lorazepam (Ativan) 0.5 mg Q3H PRN IV ANXIETY; Start 11/17/16 at 05:00 Famotidine (Pepcid Iv) 20 mg DAILY IV Last administered on 11/18/16 08:20; Admin Dose 20 MG; Start 11/17/16 at 09:00 Tramadol HCl 50 mg 50 mg Q6H PRN PO moderate to severe pain; Start 11/17/16 at 05:00 Sodium Chloride 1,000 ml @ 125 mls/hr Q8H IV Last administered on 11/18/16 10: 03; Admin Dose 125 MLS/HR; Start 11/17/16 at 07:30 Cefepime HCl 50 ml @ 100 mls/hr Q12 IVPB Last administered on 11/18/16 08:20; Admin Dose 100 MLS/HR; Start 11/17/16 at 09:00 Vancomycin HCl (Vancocin) 100 ml @ 100 mls/hr Q24H IVPB ; Start 11/18/16 at 13: 00 Morphine Sulfate 2 mg 2 mg Q4H PRN IV PAIN LEVEL 7-10; Start 11/18/16 at 10:00 Potassium Chloride 250 ml @ 62.5 mls/hr ONCE ONCE IVPB Last administered on 12:19; Admin Dose 62.5 MLS/HR; Start 8/5/17 at 10:30; Stop 11/18/16 at 14:29 Magnesium Sulfate/ Sodium Chloride (Magnesium Sulfate/NS) 106 ml @ 35.333 mls/ hr ONCE ONCE IVPB ; Start 11/18/16 at 12:00; Stop 11/18/16 at 14:59 LISS LEDEZMA Nov 18, 2016 13:56
[2016-11-18] MEDS ORDERED: POTASSIUM PHOSPHATE 20 MEQ in SOD CHLORIDE 0.9% 250 ML IVPB ONE (15:00)
[2016-11-18] MEDS ORDERED: PENDING SANTYL ORDER FOR WOUND CARE XX PRN (15:30)
[2016-11-18] MEDS: traMADol 50 MG TAB PO PRN (19:00)
[2016-11-19] VITALS (10 sets, daily range): BP systolic 92–124; BP diastolic 52–82; PULSE 89–107; RESP 17–18
[2016-11-19] MEDS: SOD CHLORIDE 0.9% 1,000 ML IV SCH ×2 (01:48→16:26)
[2016-11-19] MEDS: ALBUTEROL/IPRATROPIUM (NEB) 3 ML AMP NEB SCH ×7 (02:07→21:00)
[2016-11-19 06:28] LABS: ABNORMAL IP MESSAGE 1; BASOPHILS % 0.2 % (0.0-2.0); EOSINOPHILS # 0.1 10^3/ul (0.0-0.5); EOSINOPHILS % 2.9 % (0.0-7.0); HEMATOCRIT 27.7 % (37.0-47.0); HEMOGLOBIN 8.5 g/dl (12.0-16.0); LYMPHOCYTES # 0.9 10^3/ul (0.8-2.9); LYMPHOCYTES % 17.9 % (15.0-51.0); MEAN CORPUSCULAR HEMOGLOBIN 25.4 pg (29.0-33.0); MEAN CORPUSCULAR HGB CONC 30.7 g/dl (32.0-37.0); MEAN CORPUSCULAR VOLUME 82.9 fl (82.0-101.0); MEAN PLATELET VOLUME 10.1 fl (7.4-10.4); MONOCYTE # 0.5 10^3/ul (0.3-0.9); MONOCYTES % 9.7 % (0.0-11.0); NEUTROPHIL # 3.3 10^3/ul (1.6-7.5); NEUTROPHILS % 68.7 % (39.0-77.0); PLATELET COUNT 187 10^3/UL (140-415); RED BLOOD COUNT 3.34 10^6/ul (4.20-5.40); WHITE BLOOD COUNT 4.8 10^3/ul (4.8-10.8)
[2016-11-19 06:40] LABS: POSITIVE DIFF @See below
[2016-11-19 06:49] LABS: CALCIUM 6.5 mg/dl (8.4-10.2); CREATININE 0.6 mg/dl (0.44-1.00); POTASSIUM 3.7 mmol/L (3.5-5.1)
[2016-11-19] MEDS: FAMOTIDINE 20 MG INJ IV SCH (09:07)
[2016-11-19] MEDS: CEFEPIME 1GM/50 ML (PMX) 50 ML IVPB SCH ×2 (09:07→20:13)
[2016-11-19] MEDS: ENOXAPARIN 40 MG/0.4 ML SYG SC SCH (09:17)
[2016-11-19] MEDS ORDERED: POTASSIUM PHOSPHATE 20 MEQ in SOD CHLORIDE 0.9% 250 ML IVPB ONE (10:00)
--- NOTE | 2016-11-19 12:56 | PN ---
Date/Time of Note Date/Time of Note DATE: 11/19/16 TIME: 12:51 Assessment/Plan VTE Prophylaxis VTE Prophylaxis Intervention: LMWH Assessment/Plan Chief Complaint/Hosp Course 1. T12 and L3 compression fractures with retropulsion into canal - Dr. Bob, from neurosurgery was contacted by ER physician, MRI of lumbar and thoracic spine has been ordered -Will provide pain medication as needed 2. Shock: Likely septic, from UTI -Status post pressor support, lactic acid still elevated, elevation could also be secondary to underlying malignancy -continue cefepime and IV fluid and no indication for pressors at this time -Blood cultures are negative at this time, urine cultures shows mixed gram positives -ID consultation obtained 3. History of metastatic melanoma, to lung, bones, liver, and lymph nodes Consultation with patient's oncologist Dr. Pritchard appreciated, plan is to initiate chemotherapy this month 4. Anemia, likely secondary to chronic disease -Monitor H&H closely and transfuse as needed 5. Hypokalemia: Repleted 6. Hypomagnesemia-repleted 7. Hypophosphatemia-replete Prophylaxis: Lovenox Problems: Subjective 24 Hr Interval Summary Musculoskeletal: back pain Exam/Review of Systems Vital Signs Vitals Vital Signs Date Time Temp Pulse Resp B/P Pulse Ox O2 Delivery O2 Flow Rate FiO2 11/19/16 10:22 97 16 98 21 11/19/16 08:07 97.9 102/60 11/18/16 11:00 Room Air 11/17/16 20:00 2.0 Intake and Output 11/18/16 11/18/16 11/19/16 15:00 23:00 07:00 Intake Total 450 ml 1480 ml Balance 450 ml 1480 ml Exam Constitutional: alert Respiratory: clear to auscultation Cardiovascular: regular rate and rhythm Gastrointestinal: soft, No distended Musculoskeletal: nl extremities to inspection Results Result Diagram: 11/19/16 0522 11/19/16 0522 Results 24 hrs Laboratory Tests Test 11/19/16 05:22 11/19/16 05:23 White Blood Count 4.8 Red Blood Count 3.34 L Hemoglobin 8.5 L Hematocrit 27.7 L Mean Corpuscular Volume 82.9 Mean Corpuscular Hemoglobin 25.4 L Mean Corpuscular Hemoglobin Concent 30.7 L Red Cell Distribution Width Platelet Count 187 Mean Platelet Volume 10.1 Neutrophils % 68.7 Lymphocytes % 17.9 Monocytes % 9.7 Eosinophils % 2.9 Basophils % 0.2 Nucleated Red Blood Cells % 0.0 Neutrophils # 3.3 Lymphocytes # 0.9 Monocytes # 0.5 Eosinophils # 0.1 Basophils # 0.0 Nucleated Red Blood Cells # 0.0 Sodium Level 146 H Potassium Level 3.7 Chloride Level 111 H Carbon Dioxide Level 24 Anion Gap 15 Blood Urea Nitrogen 18 Creatinine 0.60 Glucose Level 91 Lactic Acid Level 4.0 *H Calcium Level 6.5 L Magnesium Level 2.2 Phosphorus Level 2.1 L Medications Medications Current Medications Ondansetron HCl (Zofran Inj) 4 mg Q6H PRN IV NAUSEA AND/OR VOMITING; Start 11/17 at 05:00 Acetaminophen (Tylenol Liquid) 650 mg Q6H PRN PO PAIN LEVEL 1-3 OR FEVER; Start 11/17/16 at 05:00 Lorazepam (Ativan) 0.5 mg Q3H PRN IV ANXIETY; Start 11/17/16 at 05:00 Famotidine (Pepcid Iv) 20 mg DAILY IV Last administered on 11/19/16 09:07; Admin Dose 20 MG; Start 11/17/16 at 09:00 Tramadol HCl 50 mg 50 mg Q6H PRN PO moderate to severe pain Last administered on 11/18/16 19:00; Admin Dose 50 MG; Start 11/17/16 at 05:00 Sodium Chloride 1,000 ml @ 125 mls/hr Q8H IV Last administered on 11/19/16 01: 48; Admin Dose 125 MLS/HR; Start 11/17/16 at 07:30 Cefepime HCl (Maxipime 1gm/50 ml (Pmx)) 50 ml @ 100 mls/hr Q12 IVPB Last administered on 11/19/16 09:07; Admin Dose 100 MLS/HR; Start 11/17/16 at 09:00 Morphine Sulfate (morphine) 2 mg Q4H PRN IV PAIN LEVEL 7-10; Start 11/18/16 at 10:00 Enoxaparin Sodium (Lovenox) 40 mg DAILY SC Last administered on 11/19/16 09:17 ; Admin Dose 40 MG; Start 11/19/16 at 09:00 Miscellaneous Information This patient lopez... PRN PRN XX WOUND CARE; Start at 15:30 Potassium Phosphate/Sodium Chloride (K Phos (Meq)/NS) 254.5455 ml @ 63.636 m... ONCE ONCE IVPB Last administered on 11/19/16t 10:49; Admin Dose 63.636 MLS /HR; Start 11/19/16 at 10:00; Stop 11/19/16 at 13:59 LISS LEDEZMA Nov 19, 2016 12:56
--- NOTE | 2016-11-19 13:21 | CONS ---
Date/Time of Note Date/Time of Note DATE: 11/19/16 TIME: 13:20 Consultation Date/Type/Reason Admit Date/Time 11/17/16 Date of Consultation: Nov 19, 2016 Type of Consultation: ID Reason for Consultation Septic shock Constitutional: no complaints Musculoskeletal: back pain Past Surgical History Past Surgical Hx: cholecystectomy Social History Smoking Status: Never smoker Exam/Review of Systems Vital Signs Vitals Vital Signs Date Time Temp Pulse Resp B/P Pulse Ox O2 Delivery O2 Flow Rate FiO2 11/19/16 10:22 97 16 98 21 11/19/16 08:07 97.9 102/60 11/18/16 11:00 Room Air 11/17/16 20:00 2.0 Intake and Output 11/18/16 11/18/16 11/19/16 15:00 23:00 07:00 Intake Total 450 ml 1480 ml Balance 450 ml 1480 ml Results Result Diagram: 11/19/16 0522 11/19/16 0522 Results 24 hrs Laboratory Tests Test 11/19/16 05:22 11/19/16 05:23 White Blood Count 4.8 Red Blood Count 3.34 L Hemoglobin 8.5 L Hematocrit 27.7 L Mean Corpuscular Volume 82.9 Mean Corpuscular Hemoglobin 25.4 L Mean Corpuscular Hemoglobin Concent 30.7 L Red Cell Distribution Width Platelet Count 187 Mean Platelet Volume 10.1 Neutrophils % 68.7 Lymphocytes % 17.9 Monocytes % 9.7 Eosinophils % 2.9 Basophils % 0.2 Nucleated Red Blood Cells % 0.0 Neutrophils # 3.3 Lymphocytes # 0.9 Monocytes # 0.5 Eosinophils # 0.1 Basophils # 0.0 Nucleated Red Blood Cells # 0.0 Sodium Level 146 H Potassium Level 3.7 Chloride Level 111 H Carbon Dioxide Level 24 Anion Gap 15 Blood Urea Nitrogen 18 Creatinine 0.60 Glucose Level 91 Lactic Acid Level 4.0 *H Calcium Level 6.5 L Magnesium Level 2.2 Phosphorus Level 2.1 L Medications Medications Current Medications Ondansetron HCl (Zofran Inj) 4 mg Q6H PRN IV NAUSEA AND/OR VOMITING; Start 11/17 at 05:00 Acetaminophen (Tylenol Liquid) 650 mg Q6H PRN PO PAIN LEVEL 1-3 OR FEVER; Start 11/17/16 at 05:00 Lorazepam (Ativan) 0.5 mg Q3H PRN IV ANXIETY; Start 11/17/16 at 05:00 Famotidine (Pepcid Iv) 20 mg DAILY IV Last administered on 11/19/16 09:07; Admin Dose 20 MG; Start 11/17/16 at 09:00 Tramadol HCl 50 mg 50 mg Q6H PRN PO moderate to severe pain Last administered on 11/18/16 19:00; Admin Dose 50 MG; Start 11/17/16 at 05:00 Sodium Chloride 1,000 ml @ 125 mls/hr Q8H IV Last administered on 11/19/16 01: 48; Admin Dose 125 MLS/HR; Start 11/17/16 at 07:30 Cefepime HCl (Maxipime 1gm/50 ml (Pmx)) 50 ml @ 100 mls/hr Q12 IVPB Last administered on 11/19/16 09:07; Admin Dose 100 MLS/HR; Start 11/17/16 at 09:00 Morphine Sulfate (morphine) 2 mg Q4H PRN IV PAIN LEVEL 7-10; Start 11/18/16 at 10:00 Enoxaparin Sodium (Lovenox) 40 mg DAILY SC Last administered on 11/19/16 09:17 ; Admin Dose 40 MG; Start 11/19/16 at 09:00 Miscellaneous Information This patient lopez... PRN PRN XX WOUND CARE; Start at 15:30 Potassium Phosphate/Sodium Chloride (K Phos (Meq)/NS) 254.5455 ml @ 63.636 m... ONCE ONCE IVPB Last administered on 11/19/16 10:49; Admin Dose 63.636 MLS /HR; Start 11/19/16 at 10:00; Stop 11/19/16 at 13:59 CONTRERAS STEVENS MD Nov 19, 2016 13:21
--- NOTE | 2016-11-19 13:45 | CONS ---
DATE OF ADMISSION: 11/17/2016 DATE OF CONSULTATION: 11/19/2016 REASON FOR CONSULTATION: Antibiotic management. HISTORY OF PRESENT ILLNESS: Norma Gallego is an 86-year-old female, who comes in with apparent septic shock from urinary tract infection. Her past problems include: 1. History of metastatic melanoma to the lungs, bones, liver and lymph nodes. 2. Hypertension. 3. Anemia of chronic disease. 4. Peripheral edema. Acutely, the patient is complaining of back pain and abdominal pain. She was attempting to use the bedside commode and fell to the floor. She denied head injury or loss of consciousness. In the emergency room, her blood pressure was 99/67. She became progressively more hypotensive and was started on Levophed. On admission, her white count was 12.8, H and H of 11.3 and 36, platelet count 278,000. BUN creatinine 24 and 0.75, glucose of 100. PAST SURGICAL HISTORY: Status post cholecystectomy. FAMILY HISTORY: Noncontributory. PAST MEDICAL HISTORY: The patient has interval development of moderate pericardial effusion. She has a partially visualized right hilar mass, as well extensive right epicardial lymphadenopathy. She has moderate right and mild left pleural effusions with associated lower lobe compressive atelectasis. She has a large air-filled hiatal hernia. Hepatic metastasis, not well delineated on noncontrast examination done. She has persistent portal venous gas statu post cholecystectomy. No evidence of gross bowel obstruction. Progressive superior T12 pathologic compression fractures, 30 percent without retropulsion. She also has an acute left L3 compression fracture with retropulsion of 6 mm into the canal resulting in spinal stenosis. She has diffuse right iliac metastasis with extension to the sacroiliac joint and diffuse anasarca. MEDICATION: Per chart. The patient was begun on Levaquin. REVIEW OF SYSTEMS: Noncontributory. PHYSICAL EXAMINATION: GENERAL: Patient is an elderly appearing female who is awake, responsive, in moderate distress. VITAL SIGNS: Stable. She is afebrile. SKIN: Without generalized rash. HEENT: Within normal limits. NECK: Supple. Lymph nodes nonpalpable. CHEST: Decreased breath sounds at the bases. HEART: Without murmur or gallop. ABDOMEN: Soft, nontender, without organosplenomegaly or masses. EXTREMITIES: No cyanosis, clubbing, or edema. RECTAL: Genital exam is deferred. EXTREMITIES: Contractured. NEUROLOGIC: Patient has significant pain, no neurological abnormalities. LABORATORY DATA AND IMAGING STUDIES: The patient was seen by Dr. Martines from neuro surgery. An MRI of her lumbar and thoracic spine has been ordered. She has T12 and L3 compression fractures. She has likely sepsis from urinary tract infection status post pressor support. Her lactic acid is elevated. She is on cefepime. Blood cultures are negative at this point. Urine shows mixed gram-positive organisms. IMPRESSION AND PLAN: We will continue her on the cefepime and vancomycin. She is on Vanco and cefepime. I will dictate my findings to the hospitalists and to Dr. Pritchard. Dictated By: Smith Villa MD JD/joe/kavita /Document#: [id number]
--- NOTE | 2016-11-19 16:13 | RADRPT ---
PROCEDURE: MRI OF THE THORACIC SPINE. CLINICAL INDICATION: Evaluate spinal stenosis. Metastatic neoplasm. TECHNIQUE: Multiple MRI images were obtained utilizing multiple sequences in all three planes. Image s were interpreted on a high-resolution PACS system. COMPARISON: CT chest from 10/16/2016 FINDINGS: Note that the lower thoracic vertebral bodies are limited in evaluation due to artifact overlying th mica vertebral bodies. The T10-T12 vertebral bodies cannot be fully analyzed due to artifact. There i s minimal anterior wedging of the T7 and T8 vertebral bodies, chronic in appearance. The remaining vertebral bodies maintain normal height. There are no acute fractures. There is anterior wedging of the T12 vertebral body on the prior CT although the T12 vertebral body is not fully visualized on t his study. There is slight increased kyphosis of the thoracic spine. Bone marrow signal is within n ormal limits. No aggressive appearing bone lesions are visualized. The cord signal is within normal limits. The cord is normal in course and caliber. CSF flow artifa ct is present within the posterior canal. There is edema within the paraspinal soft tissues within the thoracic spine, more prominent on the r ight. There is edema with a small expansile lesion within the tip of the right scapula with cortical disru ption which may correspond with a metastatic lesion. Findings at specific disc levels: There is disk desiccation throughout the thoracic spine. T1-T2: Normal disk height. No annular bulge, central canal narrowing, or neural foraminal narrowin g. T2-T3: Mild loss of disk height. No annular bulge, central canal narrowing, or neural foraminal narr owing. T3-T4: Moderate loss of disk height. Minimal annular bulge but no central canal or neural foraminal narrowing. T4-T5: Mild loss of disk height. No annular bulge, central canal narrowing, or neural foraminal narr owing. T5-T6: Mild loss of disk height. No annular bulge, central canal narrowing, or neural foraminal narr owing. T6-T7: Mild loss of disk height with small anterior endplate osteophytes. No annular bulge, central canal narrowing, or neural foraminal narrowing. T7-T8: Mild loss of disk height with small anterior endplate osteophytes. No annular bulge, central canal narrowing, or neural foraminal narrowing. T8-T9: Severe loss of disk height with anterior endplate osteophytes. No annular bulge, central raquel l narrowing, or neural foraminal narrowing. T9-T10: Mild loss of disk height. Minimal annular bulge but no central canal or neural foraminal na rrowing. The remaining lower thoracic levels are not well visualized due to artifact. There is a [id number] right pleural effusion. RPTAT: EE IMPRESSION: 1. Limited examination in which the lower vertebral bodies from T10-T12 are not well evaluated due to artifact. No acute fracture within the thoracic spine from T1-T9. 2. Severe degenerative disk disease at T8-T9 but no central canal or neural foraminal narrowing. No significant central canal narrowing within the remainder of the visualized thoracic spine. 3. Slight increased kyphosis of the thoracic spine. 4. Small expansile lesion with cortical disruption within the tip of the right scapula which may co rrespond with a metastatic lesion. No aggressive appearing bone lesions within the visualized thorac ic spine. 5. Moderate to large right pleural effusion. .Rajwinder Emmanuel MD, MD Date Time Electronically viewed and signed by .Rajwinder Emmanuel MD, on 11/19/2016 16:18 .T/
--- NOTE | 2016-11-19 16:20 | RADRPT ---
PROCEDURE: MRI OF THE LUMBAR SPINE. CLINICAL INDICATION: Evaluate spinal stenosis. History of metastatic neoplasm. TECHNIQUE: Multiple MRI images were obtained utilizing multiple sequences in sagittal and axial evelio trina. Images were interpreted on high-resolution PACS system. No contrast was administered. COMPARISON: CT abdomen/pelvis on 11/17/2016. FINDINGS: Note that there is significant artifact overlying the vertebral bodies on all the axial and sagittal sequences of unknown etiology. The central canal is also limited in evaluation. The study is nond iagnostic. RPTAT:EE IMPRESSION: Nondiagnostic study due to significant artifact on all the sagittal and axial sequences of unknown e tiology. A repeat MRI may be performed on another magnet if clinically indicated. .Rajwinder Emmanuel MD, MD Date Time Electronically viewed and signed by .Rajwinder Emmanuel MD, on 11/19/2016 16:25 .T/
[2016-11-20] VITALS (13 sets, daily range): BP systolic 119–131; BP diastolic 60–92; PULSE 91–130; RESP 16–20
[2016-11-20] MEDS: ALBUTEROL/IPRATROPIUM (NEB) 3 ML AMP NEB SCH ×6 (00:57→20:09)
[2016-11-20 06:01] LABS: ABNORMAL IP MESSAGE 1; BASOPHILS % 0.5 % (0.0-2.0); EOSINOPHILS # 0.1 10^3/ul (0.0-0.5); EOSINOPHILS % 2.3 % (0.0-7.0); HEMATOCRIT 27.7 % (37.0-47.0); HEMOGLOBIN 8.8 g/dl (12.0-16.0); LYMPHOCYTES # 0.5 10^3/ul (0.8-2.9); LYMPHOCYTES % 11.4 % (15.0-51.0); MEAN CORPUSCULAR HGB CONC 31.8 g/dl (32.0-37.0); MEAN CORPUSCULAR VOLUME 81.7 fl (82.0-101.0); MEAN PLATELET VOLUME 9.6 fl (7.4-10.4); MONOCYTE # 0.4 10^3/ul (0.3-0.9); MONOCYTES % 8.4 % (0.0-11.0); NEUTROPHIL # 3.4 10^3/ul (1.6-7.5); NEUTROPHILS % 76.7 % (39.0-77.0); PLATELET COUNT 176 10^3/UL (140-415); RED BLOOD COUNT 3.39 10^6/ul (4.20-5.40); WHITE BLOOD COUNT 4.4 10^3/ul (4.8-10.8)
[2016-11-20 06:07] LABS: POSITIVE DIFF @See below
[2016-11-20 06:25] LABS: CALCIUM 6.6 mg/dl (8.4-10.2); CREATININE 0.63 mg/dl (0.44-1.00); MAGNESIUM 2.1 mg/dl (1.7-2.5); PHOSPHORUS 2.6 mg/dl (2.5-4.9); POTASSIUM 3.7 mmol/L (3.5-5.1)
[2016-11-20] MEDS: FAMOTIDINE 20 MG INJ IV SCH (09:24)
[2016-11-20] MEDS: CEFEPIME 1GM/50 ML (PMX) 50 ML IVPB SCH ×2 (09:24→21:11)
[2016-11-20] MEDS: ENOXAPARIN 40 MG/0.4 ML SYG SC SCH (09:48)
[2016-11-20] MEDS ORDERED: FUROSEMIDE 40 MG INJ IV ONE (16:00)
--- NOTE | 2016-11-20 17:14 | PN ---
Date/Time of Note Date/Time of Note DATE: 11/20/16 TIME: 17:10 Assessment/Plan VTE Prophylaxis VTE Prophylaxis Intervention: LMWH Lines/Catheters IV Catheter Type (from Nrsg): Central Line Central line still needed: No Assessment/Plan Chief Complaint/Hosp Course 86 yo female with hypertension, HFpEF with recently diagnosed metastatic melanoma admitted following a fall and concern for lumbar fracture. Now with acute decompenstated diasotlic CHF exacerbation Diastolic CHF exacerbation: - Requires diuresis Pericardial effusion: - Suspect from malignancy Pleural effusions: - Likely from CHF as well, though perhaps malignant as well. Consider thora - Unlikely pneumonia Metastatic melanoma: - Management per heme/onc Hold home antihypertensives Moderate malnutrition Hypoalbuminemia Full code for now - needs palliative care Problems: Subjective 24 Hr Interval Summary Free Text/Dictation Patient with worsneing dyspnea today Feels weak, hard to get to bathroom Also complains of dry mouth over previous months Exam/Review of Systems Vital Signs Vitals Vital Signs Date Time Temp Pulse Resp B/P Pulse Ox O2 Delivery O2 Flow Rate FiO2 11/20/16 16:24 130 11/20/16 15:36 97.8 16 131/92 99 11/20/16 13:40 Nasal Cannula 2.0 11/20/16 09:02 21 Intake and Output 11/19/16 11/19/16 11/20/16 15:00 23:00 07:00 Intake Total 350 ml Balance 350 ml Exam Somewhat tachypenic but nonlabored Pleasant AOx3 +++ JVD, tachy, regular Lungs dull at the bases Legs wtih b/l soft, doughy edema to knees Results Result Diagram: 11/20/16 0539 11/20/16 0539 Results 24 hrs Laboratory Tests Test 11/20/16 05:39 White Blood Count 4.4 L Red Blood Count 3.39 L Hemoglobin 8.8 L Hematocrit 27.7 L Mean Corpuscular Volume 81.7 L Mean Corpuscular Hemoglobin 26.0 L Mean Corpuscular Hemoglobin Concent 31.8 L Red Cell Distribution Width Platelet Count 176 Mean Platelet Volume 9.6 Neutrophils % 76.7 Lymphocytes % 11.4 L Monocytes % 8.4 Eosinophils % 2.3 Basophils % 0.5 Nucleated Red Blood Cells % 0.0 Neutrophils # 3.4 Lymphocytes # 0.5 L Monocytes # 0.4 Eosinophils # 0.1 Basophils # 0.0 Nucleated Red Blood Cells # 0.0 Sodium Level 145 H Potassium Level 3.7 Chloride Level 112 H Carbon Dioxide Level 25 Anion Gap 12 Blood Urea Nitrogen 15 Creatinine 0.63 Glucose Level 80 Lactic Acid Level 1.8 Calcium Level 6.6 L Phosphorus Level 2.6 Magnesium Level 2.1 Medications Medications Current Medications Ondansetron HCl (Zofran Inj) 4 mg Q6H PRN IV NAUSEA AND/OR VOMITING; Start 11/17 at 05:00 Acetaminophen (Tylenol Liquid) 650 mg Q6H PRN PO PAIN LEVEL 1-3 OR FEVER; Start 11/17/16 at 05:00 Lorazepam (Ativan) 0.5 mg Q3H PRN IV ANXIETY; Start 11/17/16 at 05:00 Famotidine (Pepcid Iv) 20 mg DAILY IV Last administered on 11/20/16 09:24; Admin Dose 20 MG; Start 11/17/16 at 09:00 Tramadol HCl 50 mg 50 mg Q6H PRN PO moderate to severe pain Last administered on 11/18/16 19:00; Admin Dose 50 MG; Start 11/17/16 at 05:00 Cefepime HCl (Maxipime 1gm/50 ml (Pmx)) 50 ml @ 100 mls/hr Q12 IVPB Last administered on 11/20/16 09:24; Admin Dose 100 MLS/HR; Start 11/17/16 at 09:00 Morphine Sulfate (morphine) 2 mg Q4H PRN IV PAIN LEVEL 7-10; Start 11/18/16 at 10:00 Enoxaparin Sodium (Lovenox) 40 mg DAILY SC Last administered on 11/20/16 09:48 ; Admin Dose 40 MG; Start 11/19/16 at 09:00 Miscellaneous Information (Pending Santyl Order For Wound Care) This patient lopez... PRN PRN XX WOUND CARE; Start 11/18/16 at 15:30 ARNAUD AGUILAR MD Nov 20, 2016 17:14
--- NOTE | 2016-11-20 19:49 | CONS ---
Date/Time of Note Date/Time of Note DATE: 11/20/16 TIME: 19:32 Assessment/Plan Assessment/Plan Chief Complaint/Hosp Course ID PROGRESS NOTE CURRENT ABX: DAY #4 => Cefepime s/p Vanco IV 11/17 s/p Levaquin #2 days 24H INTERVAL SUMMARY * Lethargic, thin appearing elder female, no fevers, VSS, NAD, resting comfortably * MICRO: BCx(-); Urine Cx: Contaminated URINE CULTURE Final MIXED GRAM POSITIVE ORGANISMS <10,000 CFU/ml * 11/19/16 MRI THORACIC SPINE: IMPRESSION:1. Limited examination in which the lower vertebral bodies from T10-T12 are not well evaluated due to artifact. No acute fracture within the thoracic spine from T1-T9.2. Severe degenerative disk disease at T8-T9 but no central canal or neural foraminal narrowing. No significant central canal narrowing within the remainder of the visualized thoracic spine.3. Slight increased kyphosis of the thoracic spine.4. Small expansile lesion with cortical disruption within the tip of the right scapula which may correspond with a metastatic lesion. No aggressive appearing bone lesions within the visualized thoracic spine.5. Moderate to large right pleural effusion. Exam GENERAL: Thin appearing 86 yo M VITAL SIGNS: per chart NECK: Supple. No JVD or lymphadenopathy. CARDIAC EXAM: S1, S2. No added sounds or murmurs. CHEST: clear bilaterally, No added sounds, rales or wheezes ABDOMEN: Soft, nontender. No guarding or rebound. EXTREMITIES: No cyanosis, clubbing or edema. NEUROLOGIC: Generalized weakness. No focal deficits. ID ASSESSMENT 86 yo F admit with: 1. Sepsis vs hypovolemia w/hypothermia TMax 97.0, hypotension 77/45, leukocytosis 12.8 on admission => Source unclear UTI vs PNA * BCx 11/17 (-) * Urine Cx: suspect contaminated URINE CULTURE Final MIXED GRAM POSITIVE ORGANISMS <10,000 CFU/ml 2. Metastatic melanoma, to lung, bones, liver, and lymph nodes * Moderate pericardial effusion. * bilateral pleural effusions DDx= malignant 3. Acute L3 fracture with retropulsion into canal 4. Acute decompensated diastolic CHF exacerbation; cardiomegaly, atherosclerosis * bilateral effusions -> moderate right pleural effusion 5. Possible PNA w/ASP risk factors, moderate hiatal hernia, AMS 6. Anemia, likely secondary to chronic disease 7. Hiatal Hernia 8. Persistent portal venous gas-? unclear significance 9. Pressure ulcer STG III coccygeal 10. Protein calorie malnutrition INVASIVES: ABX ALLERGY: Vancomycin CURRENT ABX: DAY #4-> Cefepime s/p Vanco IV 11/17 s/p Levaquin #2 days ID RECOMMENDATIONS 1. Continue Cefepime for concern ASP PNA 2. Palliative care appropriate . Problems: Consultation Date/Type/Reason Admit Date/Time Nov 17, 2016 at 05:17 Initial Consult Date 11/19/16 Type of Consultation: ID Referring Provider: JEAN-PAUL DANGELO MD Exam/Review of Systems Vital Signs Vitals Vital Signs Date Time Temp Pulse Resp B/P Pulse Ox O2 Delivery O2 Flow Rate FiO2 11/20/16 17:20 88 18 98 Nasal Cannula 2.0 11/20/16 15:36 97.8 131/92 11/20/16 09:02 21 Intake and Output 11/19/16 11/19/16 11/20/16 15:00 23:00 07:00 Intake Total 350 ml Balance 350 ml Results Result Diagram: 11/20/16 0539 11/20/16 0539 Results 24 hrs Laboratory Tests Test 11/20/16 05:39 White Blood Count 4.4 L Red Blood Count 3.39 L Hemoglobin 8.8 L Hematocrit 27.7 L Mean Corpuscular Volume 81.7 L Mean Corpuscular Hemoglobin 26.0 L Mean Corpuscular Hemoglobin Concent 31.8 L Red Cell Distribution Width Platelet Count 176 Mean Platelet Volume 9.6 Neutrophils % 76.7 Lymphocytes % 11.4 L Monocytes % 8.4 Eosinophils % 2.3 Basophils % 0.5 Nucleated Red Blood Cells % 0.0 Neutrophils # 3.4 Lymphocytes # 0.5 L Monocytes # 0.4 Eosinophils # 0.1 Basophils # 0.0 Nucleated Red Blood Cells # 0.0 Sodium Level 145 H Potassium Level 3.7 Chloride Level 112 H Carbon Dioxide Level 25 Anion Gap 12 Blood Urea Nitrogen 15 Creatinine 0.63 Glucose Level 80 Lactic Acid Level 1.8 Calcium Level 6.6 L Phosphorus Level 2.6 Magnesium Level 2.1 Medications Medications Current Medications Ondansetron HCl (Zofran Inj) 4 mg Q6H PRN IV NAUSEA AND/OR VOMITING; Start 11/17 at 05:00 Acetaminophen (Tylenol Liquid) 650 mg Q6H PRN PO PAIN LEVEL 1-3 OR FEVER; Start 11/17/16 at 05:00 Lorazepam (Ativan) 0.5 mg Q3H PRN IV ANXIETY; Start 11/17/16 at 05:00 Famotidine (Pepcid Iv) 20 mg DAILY IV Last administered on 11/20/16 09:24; Admin Dose 20 MG; Start 11/17/16 at 09:00 Tramadol HCl 50 mg 50 mg Q6H PRN PO moderate to severe pain Last administered on 11/18/16 19:00; Admin Dose 50 MG; Start 11/17/16 at 05:00 Cefepime HCl (Maxipime 1gm/50 ml (Pmx)) 50 ml @ 100 mls/hr Q12 IVPB Last administered on 11/20/16 09:24; Admin Dose 100 MLS/HR; Start 11/17/16 at 09:00 Morphine Sulfate (morphine) 2 mg Q4H PRN IV PAIN LEVEL 7-10; Start 11/18/16 at 10:00 Enoxaparin Sodium (Lovenox) 40 mg DAILY SC Last administered on 11/20/16 09:48 ; Admin Dose 40 MG; Start 11/19/16 at 09:00 Miscellaneous Information (Pending Santyl Order For Wound Care) This patient lopez... PRN PRN XX WOUND CARE; Start 11/18/16 at 15:30 Furosemide (Lasix) 40 mg DAILY IV ; Start 11/21/16 at 09:00 ALEXIA PAYTON NP Nov 20, 2016 19:43
[2016-11-21] VITALS (12 sets, daily range): BP systolic 114–130; BP diastolic 60–85; PULSE 105–116; RESP 16–18
[2016-11-21] MEDS: ALBUTEROL/IPRATROPIUM (NEB) 3 ML AMP NEB SCH ×6 (00:01→20:30)
[2016-11-21 07:31] LABS: ALBUMIN/GLOBULIN RATIO 0.68; BILIRUBIN,INDIRECT 0.3 mg/dl (0-1.1); BILIRUBIN,TOTAL 0.3 mg/dl (0.2-1.3); CALCIUM 7.5 mg/dl (8.4-10.2); CREATININE 0.55 mg/dl (0.44-1.00); POTASSIUM 3.8 mmol/L (3.5-5.1); TOTAL PROTEIN 4.9 g/dl (6.1-8.1)
[2016-11-21 08:38] LABS: ABNORMAL IP MESSAGE 1; BASOPHILS % 0.4 % (0.0-2.0); EOSINOPHILS # 0.1 10^3/ul (0.0-0.5); EOSINOPHILS % 2.1 % (0.0-7.0); HEMOGLOBIN 10.5 g/dl (12.0-16.0); LYMPHOCYTES # 0.5 10^3/ul (0.8-2.9); LYMPHOCYTES % 8.6 % (15.0-51.0); MEAN CORPUSCULAR HEMOGLOBIN 25.9 pg (29.0-33.0); MEAN CORPUSCULAR HGB CONC 31.3 g/dl (32.0-37.0); MEAN PLATELET VOLUME 10.2 fl (7.4-10.4); MONOCYTE # 0.5 10^3/ul (0.3-0.9); MONOCYTES % 8.6 % (0.0-11.0); NEUTROPHIL # 4.4 10^3/ul (1.6-7.5); NEUTROPHILS % 79.2 % (39.0-77.0); PLATELET COUNT 169 10^3/UL (140-415); RED BLOOD COUNT 4.05 10^6/ul (4.20-5.40); WHITE BLOOD COUNT 5.6 10^3/ul (4.8-10.8)
[2016-11-21 08:52] LABS: HEMATOCRIT 33.6 % (37.0-47.0)
[2016-11-21] MEDS: FAMOTIDINE 20 MG INJ IV SCH (09:39)
[2016-11-21] MEDS: CEFEPIME 1GM/50 ML (PMX) 50 ML IVPB SCH ×2 (09:40→20:35)
[2016-11-21] MEDS: FUROSEMIDE 40 MG INJ IV SCH (09:41)
[2016-11-21] MEDS: ENOXAPARIN 40 MG/0.4 ML SYG SC SCH (09:51)
--- NOTE | 2016-11-21 13:07 | CONS ---
Date/Time of Note Date/Time of Note DATE: 11/21/16 TIME: 13:05 Assessment/Plan Assessment/Plan Chief Complaint/Hosp Course Assessment/Plan Chief Complaint/Hosp Course ID PROGRESS NOTE CURRENT ABX: DAY #4 => Cefepime s/p Vanco IV 11/17 s/p Levaquin #2 days 24H INTERVAL SUMMARY * Awake. Alert. Complains of Generalized Weakness. * MICRO: BCx(-); Urine Cx: Contaminated URINE CULTURE Final MIXED GRAM POSITIVE ORGANISMS <10,000 CFU/ml * 11/19/16 MRI THORACIC SPINE: IMPRESSION:1. Limited examination in which the lower vertebral bodies from T10-T12 are not well evaluated due to artifact. No acute fracture within the thoracic spine from T1-T9.2. Severe degenerative disk disease at T8-T9 but no central canal or neural foraminal narrowing. No significant central canal narrowing within the remainder of the visualized thoracic spine.3. Slight increased kyphosis of the thoracic spine.4. Small expansile lesion with cortical disruption within the tip of the right scapula which may correspond with a metastatic lesion. No aggressive appearing bone lesions within the visualized thoracic spine.5. Moderate to large right pleural effusion. Exam GENERAL: Thin appearing 86 yo M VITAL SIGNS: per chart NECK: Supple. No JVD or lymphadenopathy. CARDIAC EXAM: S1, S2. No added sounds or murmurs. CHEST: clear bilaterally, No added sounds, rales or wheezes ABDOMEN: Soft, nontender. No guarding or rebound. EXTREMITIES: No cyanosis, clubbing or edema. NEUROLOGIC: Generalized weakness. No focal deficits. ID ASSESSMENT 86 yo F admit with: 1. Sepsis vs hypovolemia w/hypothermia TMax 97.0, hypotension 77/45, leukocytosis 12.8 on admission => Source unclear UTI vs PNA * BCx 11/17 (-) * Urine Cx: suspect contaminated URINE CULTURE Final MIXED GRAM POSITIVE ORGANISMS <10,000 CFU/ml 2. Metastatic melanoma, to lung, bones, liver, and lymph nodes * Moderate pericardial effusion. * bilateral pleural effusions DDx= malignant 3. Acute L3 fracture with retropulsion into canal 4. Acute decompensated diastolic CHF exacerbation; cardiomegaly, atherosclerosis * bilateral effusions -> moderate right pleural effusion 5. Possible PNA w/ASP risk factors, moderate hiatal hernia, AMS 6. Anemia, likely secondary to chronic disease 7. Hiatal Hernia 8. Persistent portal venous gas-? unclear significance 9. Pressure ulcer STG III coccygeal 10. Protein calorie malnutrition 11. Generalized Weakness INVASIVES: ABX ALLERGY: Vancomycin CURRENT ABX: DAY #4-> Cefepime s/p Vanco IV 8 s/p Levaquin #2 days ID RECOMMENDATIONS 1. Continue Cefepime for concern ASP PNA 2. Palliative care appropriate 3. GI Prophylaxis. DVT Prophylaxis. Monitor Labs. Problems: Consultation Date/Type/Reason Admit Date/Time Nov 17, 2016 at 05:17 Initial Consult Date 11/19/16 Type of Consultation: ID Referring Provider: JEAN-PAUL DANGELO MD Exam/Review of Systems Vital Signs Vitals Vital Signs Date Time Temp Pulse Resp B/P Pulse Ox O2 Delivery O2 Flow Rate FiO2 11/21/16 12:22 97.9 108 16 130/79 100 11/21/16 08:24 2.0 11/21/16 08:24 Nasal Cannula 11/20/16 09:02 21 Intake and Output 11/20/16 11/20/16 11/21/16 15:00 23:00 07:00 Intake Total 600 ml Balance 600 ml Results Result Diagram: 11/21/16 0806 11/21/16 0631 Results 24 hrs Laboratory Tests Test 11/20/16 21:13 11/21/16 06:31 11/21/16 08:06 Bedside Glucose 104 Sodium Level 144 Potassium Level 3.8 Chloride Level 110 Carbon Dioxide Level 24 Anion Gap 14 Blood Urea Nitrogen 14 Creatinine 0.55 Glucose Level 85 Calcium Level 7.5 L Ferritin 196.0 Total Bilirubin 0.3 Direct Bilirubin 0.00 Indirect Bilirubin 0.3 Aspartate Amino Transf (AST/SGOT) 30 Alanine Aminotransferase (ALT/SGPT) 30 Alkaline Phosphatase 161 H Total Protein 4.9 L Albumin 2.0 L Globulin 2.90 Albumin/Globulin Ratio 0.68 White Blood Count 5.6 # Red Blood Count 4.05 L Hemoglobin 10.5 L Hematocrit 33.6 #L Mean Corpuscular Volume 83.0 Mean Corpuscular Hemoglobin 25.9 L Mean Corpuscular Hemoglobin Concent 31.3 L Red Cell Distribution Width Platelet Count 169 Mean Platelet Volume 10.2 Neutrophils % 79.2 H Lymphocytes % 8.6 L Monocytes % 8.6 Eosinophils % 2.1 Basophils % 0.4 Nucleated Red Blood Cells % 0.0 Neutrophils # 4.4 Lymphocytes # 0.5 L Monocytes # 0.5 Eosinophils # 0.1 Basophils # 0.0 Nucleated Red Blood Cells # 0.0 Medications Medications Current Medications Ondansetron HCl (Zofran Inj) 4 mg Q6H PRN IV NAUSEA AND/OR VOMITING; Start 11/17 at 05:00 Acetaminophen (Tylenol Liquid) 650 mg Q6H PRN PO PAIN LEVEL 1-3 OR FEVER; Start 11/17/16 at 05:00 Lorazepam (Ativan) 0.5 mg Q3H PRN IV ANXIETY; Start 11/17/16 at 05:00 Tramadol HCl 50 mg 50 mg Q6H PRN PO moderate to severe pain Last administered on 11/18/16 19:00; Admin Dose 50 MG; Start 11/17/16 at 05:00 Cefepime HCl (Maxipime 1gm/50 ml (Pmx)) 50 ml @ 100 mls/hr Q12 IVPB Last administered on 11/21/16 09:40; Admin Dose 100 MLS/HR; Start 11/17/16 at 09:00 Enoxaparin Sodium (Lovenox) 40 mg DAILY SC Last administered on 11/21/16 09:51 ; Admin Dose 40 MG; Start 11/19/16 at 09:00 [facility] This patient lopez... PRN PRN XX WOUND CARE; Start 11/18/16 at 15:30 Furosemide (Lasix) 40 mg DAILY IV Last administered on 11/21/16 09:41; Admin Dose 40 MG; Start 11/21/16 at 09:00 RENNY ROSA NP Nov 21, 2016 13:07
--- NOTE | 2016-11-21 18:49 | PN ---
Date/Time of Note Date/Time of Note DATE: 11/21/16 TIME: 18:47 Assessment/Plan VTE Prophylaxis VTE Prophylaxis Intervention: heparin Lines/Catheters IV Catheter Type (from Nrsg): Central Line Central line still needed: No Urinary Cath still in place: Yes Reason Cath still needed: urinary retention Assessment/Plan Chief Complaint/Hosp Course 86 yo female with hypertension, HFpEF with recently diagnosed metastatic melanoma admitted following a fall and concern for lumbar fracture. Now with acute decompenstated diasotlic CHF exacerbation Diastolic CHF exacerbation: - Requires diuresis Pericardial effusion: - Suspect from malignancy Pleural effusions: - Likely from CHF as well, though perhaps malignant as well. Consider thora - Unlikely pneumonia Metastatic melanoma: - Management per heme/onc Hold home antihypertensives Moderate malnutrition Hypoalbuminemia Full code for now - needs palliative care Problems: Subjective 24 Hr Interval Summary Free Text/Dictation A bit less SOB today Less tachypneic Still very hesitant to get out of bed given weakness Kaur had to be inserted Exam/Review of Systems Vital Signs Vitals Vital Signs Date Time Temp Pulse Resp B/P Pulse Ox O2 Delivery O2 Flow Rate FiO2 11/21/16 16:12 112 11/21/16 15:04 97.6 16 116/74 100 11/21/16 13:40 2.0 11/21/16 13:38 Nasal Cannula 11/20/16 09:02 21 Intake and Output 11/20/16 11/20/16 11/21/16 15:00 23:00 07:00 Intake Total 600 ml Balance 600 ml Exam Well appearing frail, ederly female Resting comfortably +++ JVD No longer tachypneic though still on O2 Diminisehd breath sounds at b/l bases Peripheral edema b/l to knees Results Result Diagram: 11/21/16 0806 11/21/16 0631 Results 24 hrs Laboratory Tests Test 11/20/16 21:13 11/21/16 06:31 11/21/16 08:06 Bedside Glucose 104 Sodium Level 144 Potassium Level 3.8 Chloride Level 110 Carbon Dioxide Level 24 Anion Gap 14 Blood Urea Nitrogen 14 Creatinine 0.55 Glucose Level 85 Calcium Level 7.5 L Ferritin 196.0 Total Bilirubin 0.3 Direct Bilirubin 0.00 Indirect Bilirubin 0.3 Aspartate Amino Transf (AST/SGOT) 30 Alanine Aminotransferase (ALT/SGPT) 30 Alkaline Phosphatase 161 H Total Protein 4.9 L Albumin 2.0 L Globulin 2.90 Albumin/Globulin Ratio 0.68 White Blood Count 5.6 # Red Blood Count 4.05 L Hemoglobin 10.5 L Hematocrit 33.6 #L Mean Corpuscular Volume 83.0 Mean Corpuscular Hemoglobin 25.9 L Mean Corpuscular Hemoglobin Concent 31.3 L Red Cell Distribution Width Platelet Count 169 Mean Platelet Volume 10.2 Neutrophils % 79.2 H Lymphocytes % 8.6 L Monocytes % 8.6 Eosinophils % 2.1 Basophils % 0.4 Nucleated Red Blood Cells % 0.0 Neutrophils # 4.4 Lymphocytes # 0.5 L Monocytes # 0.5 Eosinophils # 0.1 Basophils # 0.0 Nucleated Red Blood Cells # 0.0 Medications Medications Current Medications Ondansetron HCl (Zofran Inj) 4 mg Q6H PRN IV NAUSEA AND/OR VOMITING; Start 11/17 at 05:00 Acetaminophen (Tylenol Liquid) 650 mg Q6H PRN PO PAIN LEVEL 1-3 OR FEVER; Start 11/17/16 at 05:00 Lorazepam (Ativan) 0.5 mg Q3H PRN IV ANXIETY; Start 11/17/16 at 05:00 Tramadol HCl 50 mg 50 mg Q6H PRN PO moderate to severe pain Last administered on 11/18/16 19:00; Admin Dose 50 MG; Start 11/17/16 at 05:00 Cefepime HCl (Maxipime 1gm/50 ml (Pmx)) 50 ml @ 100 mls/hr Q12 IVPB Last administered on 11/21/16 09:40; Admin Dose 100 MLS/HR; Start 11/17/16 at 09:00 Enoxaparin Sodium (Lovenox) 40 mg DAILY SC Last administered on 11/21/16 09:51 ; Admin Dose 40 MG; Start 11/19/16 at 09:00 Miscellaneous Information (Pending [facility] Order For Wound Care) This patient lopez... PRN PRN XX WOUND CARE; Start 11/18/16 at 15:30 Furosemide (Lasix) 40 mg DAILY IV Last administered on 11/21/16 09:41; Admin Dose 40 MG; Start 11/21/16 at 09:00 ARNAUD AGUILAR MD Nov 21, 2016 18:49
[2016-11-21] MEDS: BALSAM PERU/CASTOR OIL 60 GM TUBE TOP SCH (20:35)
[2016-11-22] VITALS (12 sets, daily range): BP systolic 112–166; BP diastolic 68–96; PULSE 105–126; RESP 17–19
[2016-11-22] MEDS: ALBUTEROL/IPRATROPIUM (NEB) 3 ML AMP NEB SCH ×6 (00:40→20:18)
[2016-11-22 09:04] LABS: ALBUMIN/GLOBULIN RATIO 0.68; BILIRUBIN,INDIRECT 0.3 mg/dl (0-1.1); BILIRUBIN,TOTAL 0.3 mg/dl (0.2-1.3); CALCIUM 7.8 mg/dl (8.4-10.2); CREATININE 0.57 mg/dl (0.44-1.00); POTASSIUM 3.4 mmol/L (3.5-5.1); TOTAL PROTEIN 4.9 g/dl (6.1-8.1)
[2016-11-22] MEDS: FUROSEMIDE 40 MG INJ IV SCH ×3 (10:07→21:01)
[2016-11-22] MEDS: ENOXAPARIN 40 MG/0.4 ML SYG SC SCH (10:09)
[2016-11-22] MEDS ORDERED: POTASSIUM CHLORIDE (SR) 20 MEQ TAB PO STA (10:30)
[2016-11-22] MEDS: CEFEPIME 1GM/50 ML (PMX) 50 ML IVPB SCH ×2 (12:12→21:01)
--- NOTE | 2016-11-22 14:09 | PN ---
Date/Time of Note Date/Time of Note DATE: 11/22/16 TIME: 14:06 Assessment/Plan VTE Prophylaxis VTE Prophylaxis Intervention: LMWH Lines/Catheters IV Catheter Type (from Nrsg): Central Line Central line still needed: No Urinary Cath still in place: Yes Reason Cath still needed: urinary retention Assessment/Plan Chief Complaint/Hosp Course 86 yo female with hypertension, HFpEF with recently diagnosed metastatic melanoma admitted following a fall and concern for lumbar fracture. Now with acute decompenstated diasotlic CHF exacerbation Acute diastolic CHF exacerbation: - Requires further diuresis. Continue IV lasix to euvolemia Pericardial effusion: - Suspect from malignancy. No signs of tamponade Pleural effusions: - Likely from CHF as well, though perhaps malignant as well. Consider thora - Unlikely pneumonia Metastatic melanoma: - Management per heme/onc - Has been offered pallaitive chemo but seem to have very poor functional status Osteoporotic vertebral fracture: - Will have neurosrugery evaluate patient Hold home antihypertensives Protein calorie malnutrition Hypoalbuminemia Full code for now - needs palliative care Problems: Subjective 24 Hr Interval Summary Free Text/Dictation Only complaint is of feeling fatigued from poor sleep Otherwise brehating is comfortable Less dyspnea Exam/Review of Systems Vital Signs Vitals Vital Signs Date Time Temp Pulse Resp B/P Pulse Ox O2 Delivery O2 Flow Rate FiO2 11/22/16 13:33 120 22 99 Nasal Cannula 2.0 11/22/16 11:45 98.1 124/85 11/20/16 09:02 21 Intake and Output 11/21/16 11/21/16 11/22/16 15:00 23:00 07:00 Intake Total 500 ml 1130 ml 300 ml Output Total 700 ml 1900 ml Balance 500 ml 430 ml -1600 ml Exam ++ JVD Elderly female resting comfortably in bed, NAD RRR soft nt nd Ext wtih edema to calves b/l Labs reviewed. Stable renal function, mild hypokalemia Results Result Diagram: 11/21/16 0806 11/22/16 0821 Results 24 hrs Laboratory Tests Test 11/22/16 08:21 Sodium Level 143 Potassium Level 3.4 L Chloride Level 107 Carbon Dioxide Level 26 Anion Gap 13 Blood Urea Nitrogen 14 Creatinine 0.57 Glucose Level 93 Calcium Level 7.8 L Total Bilirubin 0.3 Direct Bilirubin 0.00 Indirect Bilirubin 0.3 Aspartate Amino Transf (AST/SGOT) 31 Alanine Aminotransferase (ALT/SGPT) 28 Alkaline Phosphatase 157 H Total Protein 4.9 L Albumin 2.0 L Globulin 2.90 Albumin/Globulin Ratio 0.68 Medications Medications Current Medications Ondansetron HCl (Zofran Inj) 4 mg Q6H PRN IV NAUSEA AND/OR VOMITING; Start 11/17 at 05:00 Acetaminophen (Tylenol Liquid) 650 mg Q6H PRN PO PAIN LEVEL 1-3 OR FEVER; Start 11/17/16 at 05:00 Lorazepam (Ativan) 0.5 mg Q3H PRN IV ANXIETY; Start 11/17/16 at 05:00 Tramadol HCl 50 mg 50 mg Q6H PRN PO moderate to severe pain Last administered on 11/18/16 19:00; Admin Dose 50 MG; Start 11/17/16 at 05:00 Cefepime HCl (Maxipime 1gm/50 ml (Pmx)) 50 ml @ 100 mls/hr Q12 IVPB Last administered on 11/22/16 12:12; Admin Dose 100 MLS/HR; Start 11/17/16 at 09:00 Enoxaparin Sodium (Lovenox) 40 mg DAILY SC Last administered on 11/22/16 10:09 ; Admin Dose 40 MG; Start 11/19/16 at 09:00 [facility] This patient lopez... PRN PRN XX WOUND CARE; Start 11/18/16 at 15:30 Furosemide (Lasix) 40 mg DAILY IV Last administered on 11/22/16 10:07; Admin Dose 40 MG; Start 11/21/16 at 09:00 ARNAUD AGUILAR MD Nov 22, 2016 14:09
--- NOTE | 2016-11-22 15:08 | QN ---
Documentation Comment This patient is a 86 year old female with widespread metastases from melanoma, with acute L3 superior endplate fracture. She has previous known T12 fracture. Both of these are likely pathologic; though the significance of these radiologic findings is necessarily dependent on her overall prognosis and clinical picture. The patient was admitted through the ER, where Dr. Luis F Bob was already notified/ consulted for neurosurgical input. I will therefore defer any management recommendations to him. CONNIE ESCOTO MD Nov 22, 2016 15:08
[2016-11-22] MEDS: POLYETHYLENE GLYCOL 17 GM PACKET PO SCH (16:00)
--- NOTE | 2016-11-22 17:18 | CONS ---
Date/Time of Note Date/Time of Note DATE: 11/22/16 TIME: 17:11 Assessment/Plan Assessment/Plan Chief Complaint/Hosp Course ID PROGRESS NOTE CURRENT ABX: DAY #5 => Cefepime s/p Vanco IV 11/17 s/p Levaquin #2 days 24H INTERVAL SUMMARY * A/A/O -> frail 86 yo elder, no fevers, VSS, supplemental O2 via nc, "Yes I'm feeling better, thank you" -- no complaints offered * Visitors in the room -- tell me she is doing well * MICRO: BCx(-); Urine Cx: Contaminated URINE CULTURE Final MIXED GRAM POSITIVE ORGANISMS <10,000 CFU/ml * 11/19/16 MRI THORACIC SPINE: IMPRESSION:1. Limited examination in which the lower vertebral bodies from T10-T12 are not well evaluated due to artifact. No acute fracture within the thoracic spine from T1-T9.2. Severe degenerative disk disease at T8-T9 but no central canal or neural foraminal narrowing. No significant central canal narrowing within the remainder of the visualized thoracic spine.3. Slight increased kyphosis of the thoracic spine.4. Small expansile lesion with cortical disruption within the tip of the right scapula which may correspond with a metastatic lesion. No aggressive appearing bone lesions within the visualized thoracic spine.5. Moderate to large right pleural effusion. Exam GENERAL: Thin appearing 86 yo M VITAL SIGNS: per chart NECK: Supple. No JVD or lymphadenopathy. CARDIAC EXAM: Radial pulse RRR CHEST: Equal chest rise bilaterally without dyspnea on observation, no audible wheezing ABDOMEN: Soft, nontender. EXTREMITIES: No cyanosis, clubbing or edema. NEUROLOGIC: Generalized weakness. No focal deficits. ID ASSESSMENT 86 yo F admit with: 1. Sepsis vs hypovolemia w/hypothermia TMax 97.0, hypotension 77/45, leukocytosis 12.8 on admission => RESOLVING * BCx 11/17 (-) * Suspect PNA, possibly aspiration PNA, superimposed on wet lungs w/pleural effusion * Urine Cx: suspect contaminated URINE CULTURE Final MIXED GRAM POSITIVE ORGANISMS <10,000 CFU/ml 2. Metastatic melanoma, to lung, bones, liver, and lymph nodes * Moderate pericardial effusion=DDx malignant * Bilateral pleural effusions DDx= malignant 3. Acute L3 fracture with retropulsion into canal 4. Acute decompensated diastolic CHF exacerbation; cardiomegaly, atherosclerosis * bilateral effusions -> moderate right pleural effusion 5. Possible PNA w/ASP risk factors, moderate hiatal hernia, AMS 6. Anemia, likely secondary to chronic disease 7. Hiatal Hernia 8. Persistent portal venous gas-? unclear significance 9. Pressure ulcer STG III coccygeal 10. Protein calorie malnutrition INVASIVES: ABX ALLERGY: Vancomycin CURRENT ABX: DAY #5-> Cefepime s/p Vanco IV 11/17 s/p Levaquin #2 days ID RECOMMENDATIONS 1. Continue Cefepime for concern ASP PNA while on inpatient status 2. When cleared for DC=> May change ABX to Levaquin 250mg PO daily x 7 days . . Problems: Consultation Date/Type/Reason Admit Date/Time Nov 17, 2016 at 05:17 Initial Consult Date 11/19/16 Type of Consultation: ID Referring Provider: JEAN-PAUL DANGELO MD Exam/Review of Systems Vital Signs Vitals Vital Signs Date Time Temp Pulse Resp B/P Pulse Ox O2 Delivery O2 Flow Rate FiO2 11/22/16 16:42 108 20 98 Nasal Cannula 2.0 11/22/16 15:27 98.0 128/87 11/20/16 09:02 21 Intake and Output 11/21/16 11/21/16 11/22/16 15:00 23:00 07:00 Intake Total 500 ml 1130 ml 300 ml Output Total 700 ml 1900 ml Balance 500 ml 430 ml -1600 ml Results Result Diagram: 11/21/16 0806 11/22/16 0821 Results 24 hrs Laboratory Tests Test 11/22/16 08:21 Sodium Level 143 Potassium Level 3.4 L Chloride Level 107 Carbon Dioxide Level 26 Anion Gap 13 Blood Urea Nitrogen 14 Creatinine 0.57 Glucose Level 93 Calcium Level 7.8 L Total Bilirubin 0.3 Direct Bilirubin 0.00 Indirect Bilirubin 0.3 Aspartate Amino Transf (AST/SGOT) 31 Alanine Aminotransferase (ALT/SGPT) 28 Alkaline Phosphatase 157 H Total Protein 4.9 L Albumin 2.0 L Globulin 2.90 Albumin/Globulin Ratio 0.68 Medications Medications Current Medications Ondansetron HCl (Zofran Inj) 4 mg Q6H PRN IV NAUSEA AND/OR VOMITING; Start 11/17 at 05:00 Acetaminophen (Tylenol Liquid) 650 mg Q6H PRN PO PAIN LEVEL 1-3 OR FEVER; Start 11/17/16 at 05:00 Lorazepam (Ativan) 0.5 mg Q3H PRN IV ANXIETY; Start 11/17/16 at 05:00 Tramadol HCl 50 mg 50 mg Q6H PRN PO moderate to severe pain Last administered on 11/18/16 19:00; Admin Dose 50 MG; Start 11/17/16 at 05:00 Cefepime HCl (Maxipime 1gm/50 ml (Pmx)) 50 ml @ 100 mls/hr Q12 IVPB Last administered on 11/22/16 12:12; Admin Dose 100 MLS/HR; Start 11/17/16 at 09:00 Enoxaparin Sodium (Lovenox) 40 mg DAILY SC Last administered on 11/22/16 10:09 ; Admin Dose 40 MG; Start 11/19/16 at 09:00 Miscellaneous Information (Pending [facility] Order For Wound Care) This patient lopez... PRN PRN XX WOUND CARE; Start 11/18/16 at 15:30 Furosemide (Lasix) 40 mg BID IV Last administered on 11/22/16 15:00; Admin Dose 40 MG; Start 11/22/16 at 15:00 Polyethylene Glycol (Miralax) 17 gm DAILY PO ; Start 11/22/16 at 16:00 ALEXIA PAYTON NP Nov 22, 2016 17:18
[2016-11-23] VITALS (11 sets, daily range): BP systolic 104–155; BP diastolic 52–82; PULSE 110–120; RESP 18–19
[2016-11-23] MEDS: ALBUTEROL/IPRATROPIUM (NEB) 3 ML AMP NEB SCH ×6 (01:26→20:47)
[2016-11-23 07:40] LABS: ALBUMIN 2.1 g/dl (3.3-4.9); ALBUMIN/GLOBULIN RATIO 0.7; BILIRUBIN,INDIRECT 0.4 mg/dl (0-1.1); BILIRUBIN,TOTAL 0.4 mg/dl (0.2-1.3); CALCIUM 7.9 mg/dl (8.4-10.2); CREATININE 0.7 mg/dl (0.44-1.00); POTASSIUM 3.3 mmol/L (3.5-5.1); TOTAL PROTEIN 5.1 g/dl (6.1-8.1)
[2016-11-23] MEDS: POLYETHYLENE GLYCOL 17 GM PACKET PO SCH (09:00)
[2016-11-23] MEDS: CEFEPIME 1GM/50 ML (PMX) 50 ML IVPB SCH (09:01)
[2016-11-23] MEDS: FUROSEMIDE 40 MG INJ IV SCH (09:03)
[2016-11-23] MEDS: ENOXAPARIN 30 MG/0.3 ML SYG SC SCH (09:04)
[2016-11-23] MEDS: BALSAM PERU/CASTOR OIL 60 GM TUBE TOP SCH (09:12)
[2016-11-23] MEDS: POTASSIUM CHLORIDE (SR) 20 MEQ TAB PO SCH (11:20)
[2016-11-23] MEDS ORDERED: PIPER-TAZO 3.375 GM IV (PMX) 100 ML IVPB SCH (12:00)
[2016-11-23] MEDS ORDERED: POTASSIUM CHLORIDE 250 ML IVPB ONE (14:45)
--- NOTE | 2016-11-23 15:19 | PN ---
Date/Time of Note Date/Time of Note DATE: 11/23/16 TIME: 15:17 Assessment/Plan VTE Prophylaxis VTE Prophylaxis Intervention: LMWH Lines/Catheters IV Catheter Type (from Nrs): Saline Lock Urinary Cath still in place: No Assessment/Plan Chief Complaint/Hosp Course 86 yo female with hypertension, HFpEF with recently diagnosed metastatic melanoma admitted following a fall and concern for lumbar fracture. Now with acute decompenstated diasotlic CHF exacerbation Acute diastolic CHF exacerbation: - Requires further diuresis. Continue IV lasix to euvolemia - Will add ramírez for potassium sparing Pericardial effusion: - Suspect from malignancy. No signs of tamponade Pleural effusions: - Likely from CHF as well, though perhaps malignant as well. Consider thora - Unlikely pneumonia Metastatic melanoma: - Management per heme/onc - Has been offered pallaitive chemo but seem to have very poor functional status Osteoporotic vertebral fracture: - Will have neurosrugery evaluate patient Hold home antihypertensives Protein calorie malnutrition Hypoalbuminemia Full code for now - needs palliative care Problems: Subjective 24 Hr Interval Summary Free Text/Dictation Continues to complain of dry mouth, unable to swallow effectively. Even with soft/moist foods like applesauce Breathing/edema improving somewhat Exam/Review of Systems Vital Signs Vitals Vital Signs Date Time Temp Pulse Resp B/P Pulse Ox O2 Delivery O2 Flow Rate FiO2 11/23/16 12:11 114 18 97 Nasal Cannula 2.0 11/23/16 11:17 98.0 119/80 11/20/16 09:02 21 Intake and Output 11/22/16 11/22/16 11/23/16 15:00 23:00 07:00 Intake Total 50 ml 1250 ml 360 ml Output Total 1650 ml 2000 ml Balance 50 ml -400 ml -1640 ml Exam Chronically ill apperaing, frail Restingin comfortably in NAD ++ JVD Dullness at b/l lung bases Ext with edema still Hypokalemia noted Results Result Diagram: 11/21/16 0806 11/23/16 0635 Results 24 hrs Laboratory Tests Test 11/23/16 06:35 Sodium Level 144 Potassium Level 3.3 L Chloride Level 104 Carbon Dioxide Level 30 Anion Gap 13 Blood Urea Nitrogen 13 Creatinine 0.70 Glucose Level 93 Calcium Level 7.9 L Total Bilirubin 0.4 Direct Bilirubin 0.00 Indirect Bilirubin 0.4 Aspartate Amino Transf (AST/SGOT) 23 Alanine Aminotransferase (ALT/SGPT) 27 Alkaline Phosphatase 162 H Total Protein 5.1 L Albumin 2.1 L Globulin 3.00 Albumin/Globulin Ratio 0.70 Medications Medications Current Medications Ondansetron HCl (Zofran Inj) 4 mg Q6H PRN IV NAUSEA AND/OR VOMITING; Start 11/17 at 05:00 Acetaminophen (Tylenol Liquid) 650 mg Q6H PRN PO PAIN LEVEL 1-3 OR FEVER; Start 11/17/16 at 05:00 Lorazepam (Ativan) 0.5 mg Q3H PRN IV ANXIETY; Start 11/17/16 at 05:00 Tramadol HCl 50 mg 50 mg Q6H PRN PO moderate to severe pain Last administered on 11/18/16 19:00; Admin Dose 50 MG; Start 11/17/16 at 05:00 Cefepime HCl (Maxipime 1gm/50 ml (Pmx)) 50 ml @ 100 mls/hr Q12 IVPB Last administered on 11/23/16 09:01; Admin Dose 100 MLS/HR; Start 11/17/16 at 09:00 [facility] This patient lopez... PRN PRN XX WOUND CARE; Start 11/18/16 at 15:30 Furosemide (Lasix) 40 mg BID IV Last administered on 11/23/16 09:03; Admin Dose 40 MG; Start 11/22/16 at 15:00 Polyethylene Glycol (Miralax) 17 gm DAILY PO ; Start 11/22/16 at 16:00 Enoxaparin Sodium (Lovenox) 30 mg DAILY SC Last administered on 11/23/16 09:04 ; Admin Dose 30 MG; Start 11/23/16 at 09:00 Potassium Chloride 40 meq 40 meq DAILY PO Last administered on 11/23/16 11:20 ; Admin Dose 40 MEQ; Start 11/23/16 at 10:00 Potassium Chloride (KCl 40 MEQ/250 ML NS) 250 ml @ 62.5 mls/hr ONCE ONCE IVPB Last administered on 11/23/16 14:49; Admin Dose 62.5 MLS/HR; Start 11/23/16 at 14:45; Stop 11/23/16 at 18:44 ARNAUD AGUILAR MD Nov 23, 2016 15:19
--- NOTE | 2016-11-23 16:25 | CONS ---
Date/Time of Note Date/Time of Note DATE: 11/23/16 TIME: 16:21 Assessment/Plan Assessment/Plan Chief Complaint/Hosp Course ID PROGRESS NOTE CURRENT ABX: DAY #6 => Cefepime s/p Vanco IV 8/4 s/p Levaquin #2 days 24H INTERVAL SUMMARY * Alert and responds appropriately -- still w/chest congestion and supplemental O2 via nc-- no complaints offered * Afebrile, VSS, S.CR 0.7 today * MICRO: BCx(-); Urine Cx: Contaminated URINE CULTURE Final MIXED GRAM POSITIVE ORGANISMS <10,000 CFU/ml Exam GENERAL: Thin appearing 86 yo M VITAL SIGNS: per chart NECK: Supple. No JVD or lymphadenopathy. CARDIAC EXAM: Radial pulse RRR CHEST: Equal chest rise bilaterally without dyspnea on observation, no audible wheezing ABDOMEN: Soft, nontender. EXTREMITIES: No cyanosis, clubbing or edema. NEUROLOGIC: Generalized weakness. No focal deficits. ID ASSESSMENT 86 yo F admit with: 1. Sepsis vs hypovolemia w/hypothermia TMax 97.0, hypotension 77/45, leukocytosis 12.8 on admission => RESOLVING * BCx 8/4 (-) * Suspect PNA, possibly aspiration PNA, superimposed on wet lungs w/pleural effusion * Urine Cx: suspect contaminated URINE CULTURE Final MIXED GRAM POSITIVE ORGANISMS <10,000 CFU/ml 2. Metastatic melanoma, to lung, bones, liver, and lymph nodes * Moderate pericardial effusion=DDx malignant * Bilateral pleural effusions DDx= malignant 3. Acute L3 fracture with retropulsion into canal 4. Acute decompensated diastolic CHF exacerbation; cardiomegaly, atherosclerosis * bilateral effusions -> moderate right pleural effusion 5. Possible PNA w/ASP risk factors, moderate hiatal hernia, AMS 6. Anemia, likely secondary to chronic disease 7. Hiatal Hernia 8. Persistent portal venous gas-? unclear significance 9. Pressure ulcer STG III coccygeal 10. Protein calorie malnutrition INVASIVES: ABX ALLERGY: Vancomycin CURRENT ABX: DAY #7-> Cefepime s/p Vanco IV 8/4 s/p Levaquin #2 days ID RECOMMENDATIONS 1. Continue Cefepime for concern ASP PNA, superimposed on wet lungs/CHF while on inpatient status 2. Aspiration precautions 3. When cleared for DC=> May change ABX to Levaquin 250mg PO daily x 6 days . . Problems: Consultation Date/Type/Reason Admit Date/Time Nov 17, 2016 at 05:17 Initial Consult Date 11/19/16 Type of Consultation: ID Referring Provider: JEAN-PAUL DANGELO MD Exam/Review of Systems Vital Signs Vitals Vital Signs Date Time Temp Pulse Resp B/P Pulse Ox O2 Delivery O2 Flow Rate FiO2 11/23/16 16:01 117 11/23/16 12:11 18 97 Nasal Cannula 2.0 11/23/16 11:17 98.0 119/80 11/20/16 09:02 21 Intake and Output 11/22/16 11/22/16 11/23/16 15:00 23:00 07:00 Intake Total 50 ml 1250 ml 360 ml Output Total 1650 ml 2000 ml Balance 50 ml -400 ml -1640 ml Results Result Diagram: 11/21/16 0806 11/23/16 0635 Results 24 hrs Laboratory Tests Test 11/23/16 06:35 Sodium Level 144 Potassium Level 3.3 L Chloride Level 104 Carbon Dioxide Level 30 Anion Gap 13 Blood Urea Nitrogen 13 Creatinine 0.70 Glucose Level 93 Calcium Level 7.9 L Total Bilirubin 0.4 Direct Bilirubin 0.00 Indirect Bilirubin 0.4 Aspartate Amino Transf (AST/SGOT) 23 Alanine Aminotransferase (ALT/SGPT) 27 Alkaline Phosphatase 162 H Total Protein 5.1 L Albumin 2.1 L Globulin 3.00 Albumin/Globulin Ratio 0.70 Medications Medications Current Medications Ondansetron HCl (Zofran Inj) 4 mg Q6H PRN IV NAUSEA AND/OR VOMITING; Start 11/17 at 05:00 Acetaminophen (Tylenol Liquid) 650 mg Q6H PRN PO PAIN LEVEL 1-3 OR FEVER; Start 11/17/16 at 05:00 Lorazepam (Ativan) 0.5 mg Q3H PRN IV ANXIETY; Start 11/17/16 at 05:00 Tramadol HCl (Ultram) 50 mg Q6H PRN PO moderate to severe pain Last administered on 11/18/16t 19:00; Admin Dose 50 MG; Start 11/17/16 at 05:00 Miscellaneous Information (Pending [facility] Order For Wound Care) This patient lopez... PRN PRN XX WOUND CARE; Start 11/18/16 at 15:30 Polyethylene Glycol (Miralax) 17 gm DAILY PO ; Start 8/9/17 at 16:00 Enoxaparin Sodium (Lovenox) 30 mg DAILY SC Last administered on 11/23/16 09:04 ; Admin Dose 30 MG; Start 11/23/16 at 09:00 Potassium Chloride 40 meq 40 meq DAILY PO Last administered on 11/23/16 11:20 ; Admin Dose 40 MEQ; Start 11/23/16 at 10:00 Potassium Chloride (KCl 40 MEQ/250 ML NS) 250 ml @ 62.5 mls/hr ONCE ONCE IVPB Last administered on 11/23/16 14:49; Admin Dose 62.5 MLS/HR; Start 11/23/16 at 14:45; Stop 11/23/16 at 18:44 Spironolactone (Aldactone) 25 mg DAILY PO ; Start 11/23/16 at 15:30 ALEXIA PAYTON NP Nov 23, 2016 16:25
[2016-11-23] MEDS: SPIRONOLACTONE 25 MG TAB PO SCH (17:15)
[2016-11-23] MEDS: FUROSEMIDE 20 MG INJ IV SCH (17:27)
[2016-11-23] MEDS: traMADol 50 MG TAB PO PRN (17:28)
[2016-11-24] VITALS (12 sets, daily range): BP systolic 117–137; BP diastolic 78–85; PULSE 112–119; RESP 16–20
[2016-11-24] MEDS: ALBUTEROL/IPRATROPIUM (NEB) 3 ML AMP NEB SCH ×6 (02:07→20:14)
[2016-11-24] MEDS: FUROSEMIDE 20 MG INJ IV SCH ×2 (05:47→17:24)
[2016-11-24] MEDS: POTASSIUM CHLORIDE (SR) 20 MEQ TAB PO SCH (09:00)
[2016-11-24] MEDS: POLYETHYLENE GLYCOL 17 GM PACKET PO SCH (09:00)
[2016-11-24 09:46] LABS: ABNORMAL IP MESSAGE 1; BASOPHILS % 0.4 % (0.0-2.0); EOSINOPHILS # 0.1 10^3/ul (0.0-0.5); EOSINOPHILS % 0.7 % (0.0-7.0); HEMATOCRIT 35.5 % (37.0-47.0); HEMOGLOBIN 11.2 g/dl (12.0-16.0); LYMPHOCYTES # 0.6 10^3/ul (0.8-2.9); LYMPHOCYTES % 7.8 % (15.0-51.0); MEAN CORPUSCULAR HEMOGLOBIN 25.9 pg (29.0-33.0); MEAN CORPUSCULAR HGB CONC 31.5 g/dl (32.0-37.0); MEAN CORPUSCULAR VOLUME 82.2 fl (82.0-101.0); MEAN PLATELET VOLUME 9.9 fl (7.4-10.4); MONOCYTE # 0.9 10^3/ul (0.3-0.9); MONOCYTES % 11.7 % (0.0-11.0); NEUTROPHIL # 5.9 10^3/ul (1.6-7.5); NEUTROPHILS % 78.6 % (39.0-77.0); PLATELET COUNT 273 10^3/UL (140-415); RED BLOOD COUNT 4.32 10^6/ul (4.20-5.40); WHITE BLOOD COUNT 7.5 10^3/ul (4.8-10.8)
[2016-11-24 09:52] LABS: POSITIVE DIFF @See below
--- NOTE | 2016-11-24 09:55 | CONS ---
Date/Time of Note Date/Time of Note DATE: 11/24/16 TIME: 09:54 Assessment/Plan Assessment/Plan Additional Assessment/Plan Date of consultation: 11/17/2016 Consulting service: Neurosurgery Requesting physician: Dr. Duffy with the emergency department This is a 86-year-old female with history of recently diagnosed metastatic melanoma to multiple body parts including the long, bones, liver and lymph nodes who had a fall as she was trying to use a bedside commode, tripped and fell. She presented to the emergency room complaining of back pain and abdominal pain. At the time of arrival she was found to be hypotensive and was started on vasopressors. The patient was also found to have leukocytosis with presumption of sepsis from UTI leading to her hypotension. The patient and her daughter deny that the patient had any loss of consciousness. The patient overall feels weak and fatigued but does not report any focal weakness or numbness of her upper or lower extremities. The patient is able to void spontaneously. As part of the CT of the abdomen and pelvis that was done, she was found to have a lumbar compression fracture and neurosurgery been consulted for that. Allergies: Hydrocodone: Meclizine: Meperidine: Propoxyphene Past medical history: Please see above plus hypertension, anemia Past surgical history: Cholecystectomy Social history: The patient does not smoke tobacco. She does not drink alcoholic beverages. She denies use of illicit or recreational drugs. Medications: The medications are attached to the chart and reviewed. Physical examination: The patient is awake alert oriented to person place in the year. The patient is symmetric. Tongue is midline. Muscle bulk is decreased bilateral neurosurgery. Muscle tone is normal bilateral upper and lower extremities. Deep tendon reflexes are 1+ bilateral upper and lower extremities. Motor strength is 4 out of 5 bilateral upper and lower extremities proximally and distally. Sensation to light touch is grossly normal bilateral upper and lower extremities. Gait testing has been deferred per patient request secondary to abdominal and low back pain. Perineal sensation to light touch is grossly normal. Rectal examination has been deferred per patient request. The patient has tenderness to touch involving the upper lumbar and the thoracolumbar region at midline and over the paraspinal regions. Imaging: The patient received a CT of the abdomen and pelvis with reconstruction of the lumbar spine. The interpretation of the CT of abdomen and pelvis has been done by the radiologist and is in the chart. The reconstructed images of the lumbar spine show L3 compression fracture as well as in T12 superior endplate fracture that are likely acute in nature. The amount of compression at each of these levels is less than 50%. There is a small retropulsed fragment of the L3 vertebral body into the canal with only mild stenosis. However the neural elements cannot be readily evaluated given the fact that this is a CT scan. Assessment/plan: This is an elderly female with a recently diagnosed history of melanoma metastatic to multiple body parts status post standing height fall with abdominal and low back pain. At this point the patient is hypotensive and suspected to be in septic shock from a UTI. To further evaluate the T12 and L3 compression fractures, the patient would need to undergo an MRI of the thoracic and lumbar spine including STIR sequences. The MRI was ordered but the patient refused to undergo the imaging studies because she felt uncomfortable in the scanner tu I have also spoken with the patient's daughter tells me that at this point given the patient's metastatic melanoma and the mother's discomfort, they wish to hold off on obtaining the MRI. In addition, I have asked whether the patient would be interested in undergoing treatments for the compression fractures including kyphoplasty but both the patient and her daughter told me that the mom at this point does not wish to undergo any surgical treatments given her overall advanced metastatic disease. At this point, he MRI of the thoracic and lumbar spine has been canceled. Neurosurgery can be re-consulted on an as-needed basis. JOSE SOLOMON MD Nov 24, 2016 09:54
--- NOTE | 2016-11-24 10:02 | PN ---
Date/Time of Note Date/Time of Note DATE: 11/24/16 TIME: 10:00 Assessment/Plan VTE Prophylaxis VTE Prophylaxis Intervention: SCD's Lines/Catheters IV Catheter Type (from Nrs): Saline Lock Urinary Cath still in place: Yes Reason Cath still needed: terminal illness/intractable pain Assessment/Plan Assessment/Plan Date of progress note: 11/23/2016 The patient's hospitalization Dr. Lázaro Avila has contacted me and let them know that the patient has undergone the MRI of the thoracic and lumbar spine but the image quality is suboptimal. The physical therapist has asked whether the patient can get out of bed and ambulate with assistance. The patient's neurologic exam is unchanged compared to her admitting examination. The patient still has thoracolumbar pain. She does not have focal weakness or numbness of her upper or lower extremities. Her leukocytosis has resolved. And her hypotension has also resolved. Oncology is following the patient. The MRI of the thoracic and lumbar spine that was done is of suboptimal quality probably related to motion artifacts and the areas of compression fractures, T12 and L3 levels cannot be further studied with the current MRIs. Nevertheless , the patient and her daughter do not wish the patient to undergo any type of neurosurgical procedures including a kyphoplasty that may help decrease the patient's pain from the vertebral compression fractures. At this point the patient may get out of bed with assistance and work with physical therapy. She may wear a TLSO brace for comfort when she is up and ambulating. Neurosurgery for a re consulted on an as-needed basis. I have also communicated these recommendations to Dr. Avila. JOSE SOLOMON MD Nov 24, 2016 10:02
[2016-11-24 10:17] LABS: BILIRUBIN,INDIRECT 0.3 mg/dl (0-1.1); BILIRUBIN,TOTAL 0.3 mg/dl (0.2-1.3); CALCIUM 8.4 mg/dl (8.4-10.2); CREATININE 0.69 mg/dl (0.44-1.00)
[2016-11-24 10:18] LABS: ALBUMIN 2.2 g/dl (3.3-4.9); ALBUMIN/GLOBULIN RATIO 0.68; TOTAL PROTEIN 5.4 g/dl (6.1-8.1)
[2016-11-24] MEDS: BALSAM PERU/CASTOR OIL 60 GM TUBE TOP SCH (10:24)
[2016-11-24] MEDS: ENOXAPARIN 30 MG/0.3 ML SYG SC SCH (10:24)
[2016-11-24] MEDS: SPIRONOLACTONE 25 MG TAB PO SCH (10:24)
[2016-11-24] MEDS: POTASSIUM CHLORIDE 250 ML IVPB SCH ×2 (11:39→15:00)
[2016-11-24] MEDS: traMADol 50 MG TAB PO PRN (12:04)
[2016-11-24] MEDS: ACETAMINOPHEN 650MG/20.3ML CUP PO PRN (15:16)
[2016-11-24] MEDS ORDERED: POTASSIUM CHLORIDE 20 MEQ POWDER FOR ORAL SOLN PO ONE (16:00)
--- NOTE | 2016-11-24 16:13 | PN ---
Date/Time of Note Date/Time of Note DATE: 11/24/16 TIME: 16:12 Assessment/Plan VTE Prophylaxis VTE Prophylaxis Intervention: LMWH Lines/Catheters IV Catheter Type (from Nrs): Saline Lock Urinary Cath still in place: No Assessment/Plan Chief Complaint/Hosp Course 86 yo female with hypertension, HFpEF with recently diagnosed metastatic melanoma admitted following a fall and concern for lumbar fracture. Now with acute decompenstated diasotlic CHF exacerbation Acute diastolic CHF exacerbation: - Requires further diuresis. Continue IV lasix to euvolemia - Will add ramírez for potassium sparing Pericardial effusion: - Suspect from malignancy. No signs of tamponade Pleural effusions: - Likely from CHF as well, though perhaps malignant as well. Consider thora - Unlikely pneumonia Metastatic melanoma: - Management per heme/onc - Has been offered pallaitive chemo but seem to have very poor functional status Osteoporotic vertebral fracture: - Clear by neurosurgery Hypokalemia: - Induced by diuretics, replete as needed Hold home antihypertensives Protein calorie malnutrition Hypoalbuminemia Full code for now - needs palliative care Problems: Subjective 24 Hr Interval Summary Free Text/Dictation Complains of weakness No localizing pain Breathing is improving Continues on diuresis Exam/Review of Systems Vital Signs Vitals Vital Signs Date Time Temp Pulse Resp B/P Pulse Ox O2 Delivery O2 Flow Rate FiO2 11/24/16 16:01 118 11/24/16 15:09 97.7 20 121/85 96 11/24/16 13:36 2.0 11/24/16 13:34 Nasal Cannula 11/20/16 09:02 21 Intake and Output 11/23/16 11/23/16 11/24/16 15:00 23:00 07:00 Intake Total 900 ml 280 ml Output Total 1300 ml 650 ml Balance -400 ml -370 ml Exam Elderly, frail appearing ++ JVD Clear lungs Abdomen soft nt Arms with edema Legs with edema Results Result Diagram: 11/24/16 0916 11/24/16 0915 Results 24 hrs Laboratory Tests Test 11/24/16 09:15 11/24/16 09:16 Sodium Level 143 Potassium Level 3.0 L Chloride Level 101 Carbon Dioxide Level 32 H Anion Gap 13 Blood Urea Nitrogen 15 Creatinine 0.69 Glucose Level 129 Calcium Level 8.4 Total Bilirubin 0.3 Direct Bilirubin 0.00 Indirect Bilirubin 0.3 Aspartate Amino Transf (AST/SGOT) 20 Alanine Aminotransferase (ALT/SGPT) 28 Alkaline Phosphatase 168 H Total Protein 5.4 L Albumin 2.2 L Globulin 3.20 Albumin/Globulin Ratio 0.68 White Blood Count 7.5 # Red Blood Count 4.32 Hemoglobin 11.2 L Hematocrit 35.5 L Mean Corpuscular Volume 82.2 Mean Corpuscular Hemoglobin 25.9 L Mean Corpuscular Hemoglobin Concent 31.5 L Red Cell Distribution Width Platelet Count 273 # Mean Platelet Volume 9.9 Neutrophils % 78.6 H Lymphocytes % 7.8 L Monocytes % 11.7 H Eosinophils % 0.7 Basophils % 0.4 Nucleated Red Blood Cells % 0.0 Neutrophils # 5.9 Lymphocytes # 0.6 L Monocytes # 0.9 Eosinophils # 0.1 Basophils # 0.0 Nucleated Red Blood Cells # 0.0 Medications Medications Current Medications Ondansetron HCl (Zofran Inj) 4 mg Q6H PRN IV NAUSEA AND/OR VOMITING; Start 11/17 at 05:00 Acetaminophen (Tylenol Liquid) 650 mg Q6H PRN PO PAIN LEVEL 1-3 OR FEVER Last administered on 11/24/16 15:16; Admin Dose 650 MG; Start 11/17/16 at 05:00 Lorazepam (Ativan) 0.5 mg Q3H PRN IV ANXIETY; Start 11/17/16 at 05:00 Tramadol HCl (Ultram) 50 mg Q6H PRN PO moderate to severe pain Last administered on 11/24/16 12:04; Admin Dose 50 MG; Start 11/17/16 at 05:00 Miscellaneous Information (Pending [facility] Order For Wound Care) This patient lopez... PRN PRN XX WOUND CARE; Start 11/18/16 at 15:30 Polyethylene Glycol (Miralax) 17 gm DAILY PO ; Start 11/22/16 at 16:00 Enoxaparin Sodium (Lovenox) 30 mg DAILY SC Last administered on 11/24/16 10:24 ; Admin Dose 30 MG; Start 11/23/16 at 09:00 Potassium Chloride (Klor-Con 20) 40 meq DAILY PO Last administered on 11:20; Admin Dose 40 MEQ; Start 11/23/16 at 10:00 Spironolactone (Aldactone) 25 mg DAILY PO Last administered on 11/24/16 10:24 ; Admin Dose 25 MG; Start 11/23/16 at 15:30 ARNAUD AGUILAR MD Nov 24, 2016 16:13
--- NOTE | 2016-11-24 21:51 | CONS ---
Date/Time of Note Date/Time of Note DATE: 11/24/16 TIME: 21:50 Assessment/Plan Assessment/Plan Chief Complaint/Hosp Course ID PROGRESS NOTE CURRENT ABX: DAY #7 => Cefepime s/p Vanco IV 8/4 s/p Levaquin #2 days 24H INTERVAL SUMMARY * Resting in bed with eyes closed -- was awake/alert most of the day * No fevers, VSS, without dyspnea on supplemental O2 via nc * MICRO: BCx(-); Urine Cx: Contaminated URINE CULTURE Final MIXED GRAM POSITIVE ORGANISMS <10,000 CFU/ml Exam GENERAL: Thin appearing 86 yo M VITAL SIGNS: per chart NECK: Supple. No JVD or lymphadenopathy. CARDIAC EXAM: Radial pulse RRR CHEST: Equal chest rise bilaterally without dyspnea on observation, no audible wheezing ABDOMEN: Soft, nontender. EXTREMITIES: No cyanosis, clubbing or edema. NEUROLOGIC: Generalized weakness. No focal deficits. ID ASSESSMENT 86 yo F admit with: 1. Sepsis vs hypovolemia w/hypothermia TMax 97.0, hypotension 77/45, leukocytosis 12.8 on admission => RESOLVING * BCx 8/4 (-) * Suspect PNA, possibly aspiration PNA, superimposed on wet lungs w/pleural effusion * Urine Cx: suspect contaminated URINE CULTURE Final MIXED GRAM POSITIVE ORGANISMS <10,000 CFU/ml 2. Metastatic melanoma, to lung, bones, liver, and lymph nodes * Moderate pericardial effusion=DDx malignant * Bilateral pleural effusions DDx= malignant 3. Acute L3 fracture with retropulsion into canal 4. Acute decompensated diastolic CHF exacerbation; cardiomegaly, atherosclerosis * bilateral effusions -> moderate right pleural effusion 5. Possible PNA w/ASP risk factors, moderate hiatal hernia, AMS 6. Anemia, likely secondary to chronic disease 7. Hiatal Hernia 8. Persistent portal venous gas-? unclear significance 9. Pressure ulcer STG III coccygeal 10. Protein calorie malnutrition INVASIVES: ABX ALLERGY: Vancomycin CURRENT ABX: DAY #8-> Cefepime s/p Vanco IV 8/4 s/p Levaquin #2 days ID RECOMMENDATIONS 1. Continue Cefepime for concern ASP PNA, superimposed on wet lungs/CHF while on inpatient status 2. Aspiration precautions 3. When cleared for DC=> May change ABX to Levaquin 250mg PO daily x 6 days . . Problems: Consultation Date/Type/Reason Admit Date/Time Nov 17, 2016 at 05:17 Initial Consult Date 11/19/16 Type of Consultation: ID Referring Provider: JEAN-PAUL DANGELO MD Exam/Review of Systems Vital Signs Vitals Vital Signs Date Time Temp Pulse Resp B/P Pulse Ox O2 Delivery O2 Flow Rate FiO2 11/24/16 20:14 117 20 97 11/24/16 19:59 98.3 128/78 11/24/16 13:36 2.0 11/24/16 13:34 Nasal Cannula 11/20/16 09:02 21 Intake and Output 11/23/16 11/23/16 11/24/16 15:00 23:00 07:00 Intake Total 900 ml 280 ml Output Total 1300 ml 650 ml Balance -400 ml -370 ml Results Result Diagram: 11/24/16 0916 11/24/16 0915 Results 24 hrs Laboratory Tests Test 11/24/16 09:15 11/24/16 09:16 Sodium Level 143 Potassium Level 3.0 L Chloride Level 101 Carbon Dioxide Level 32 H Anion Gap 13 Blood Urea Nitrogen 15 Creatinine 0.69 Glucose Level 129 Calcium Level 8.4 Total Bilirubin 0.3 Direct Bilirubin 0.00 Indirect Bilirubin 0.3 Aspartate Amino Transf (AST/SGOT) 20 Alanine Aminotransferase (ALT/SGPT) 28 Alkaline Phosphatase 168 H Total Protein 5.4 L Albumin 2.2 L Globulin 3.20 Albumin/Globulin Ratio 0.68 White Blood Count 7.5 # Red Blood Count 4.32 Hemoglobin 11.2 L Hematocrit 35.5 L Mean Corpuscular Volume 82.2 Mean Corpuscular Hemoglobin 25.9 L Mean Corpuscular Hemoglobin Concent 31.5 L Red Cell Distribution Width Platelet Count 273 # Mean Platelet Volume 9.9 Neutrophils % 78.6 H Lymphocytes % 7.8 L Monocytes % 11.7 H Eosinophils % 0.7 Basophils % 0.4 Nucleated Red Blood Cells % 0.0 Neutrophils # 5.9 Lymphocytes # 0.6 L Monocytes # 0.9 Eosinophils # 0.1 Basophils # 0.0 Nucleated Red Blood Cells # 0.0 Medications Medications Current Medications Ondansetron HCl (Zofran Inj) 4 mg Q6H PRN IV NAUSEA AND/OR VOMITING; Start 11/17 at 05:00 Acetaminophen (Tylenol Liquid) 650 mg Q6H PRN PO PAIN LEVEL 1-3 OR FEVER Last administered on 11/24/16 15:16; Admin Dose 650 MG; Start 11/17/16 at 05:00 Lorazepam (Ativan) 0.5 mg Q3H PRN IV ANXIETY; Start 11/17/16 at 05:00 Tramadol HCl (Ultram) 50 mg Q6H PRN PO moderate to severe pain Last administered on 11/24/16 12:04; Admin Dose 50 MG; Start 11/17/16 at 05:00 Miscellaneous Information (Pending [facility] Order For Wound Care) This patient lopez... PRN PRN XX WOUND CARE; Start 11/18/16 at 15:30 Polyethylene Glycol (Miralax) 17 gm DAILY PO ; Start 11/22/16 at 16:00 Enoxaparin Sodium (Lovenox) 30 mg DAILY SC Last administered on 11/24/16 10:24 ; Admin Dose 30 MG; Start 11/23/16 at 09:00 Potassium Chloride (Klor-Con 20) 40 meq DAILY PO Last administered on 11:20; Admin Dose 40 MEQ; Start 11/23/16 at 10:00 Spironolactone (Aldactone) 25 mg DAILY PO Last administered on 11/24/16 10:24 ; Admin Dose 25 MG; Start 11/23/16 at 15:30 ALEXIA PAYTON NP Nov 24, 2016 21:51
[2016-11-25] VITALS (11 sets, daily range): BP systolic 114–135; BP diastolic 71–88; PULSE 109–122; RESP 15–19
[2016-11-25] MEDS: ALBUTEROL/IPRATROPIUM (NEB) 3 ML AMP NEB SCH ×7 (01:00→21:28)
[2016-11-25] MEDS: FUROSEMIDE 20 MG INJ IV SCH (06:06)
[2016-11-25 07:15] LABS: ABNORMAL IP MESSAGE 1; BASOPHILS % 0.3 % (0.0-2.0); EOSINOPHILS % 0.5 % (0.0-7.0); HEMATOCRIT 34.1 % (37.0-47.0); HEMOGLOBIN 11.4 g/dl (12.0-16.0); LYMPHOCYTES # 0.6 10^3/ul (0.8-2.9); MEAN CORPUSCULAR HEMOGLOBIN 28.8 pg (29.0-33.0); MEAN CORPUSCULAR HGB CONC 33.4 g/dl (32.0-37.0); MEAN CORPUSCULAR VOLUME 86.1 fl (82.0-101.0); MONOCYTE # 0.8 10^3/ul (0.3-0.9); NEUTROPHIL # 6.1 10^3/ul (1.6-7.5); NEUTROPHILS % 80.5 % (39.0-77.0); PLATELET COUNT 224 10^3/UL (140-415); RED BLOOD COUNT 3.96 10^6/ul (4.20-5.40); WHITE BLOOD COUNT 7.6 10^3/ul (4.8-10.8)
[2016-11-25 07:33] LABS: ALBUMIN 2.3 g/dl (3.3-4.9); ALBUMIN/GLOBULIN RATIO 0.74; BILIRUBIN,INDIRECT 0.4 mg/dl (0-1.1); BILIRUBIN,TOTAL 0.4 mg/dl (0.2-1.3); CALCIUM 8.3 mg/dl (8.4-10.2); CREATININE 0.77 mg/dl (0.44-1.00); POTASSIUM 3.8 mmol/L (3.5-5.1); TOTAL PROTEIN 5.4 g/dl (6.1-8.1)
[2016-11-25 07:34] LABS: POSITIVE DIFF @See below
[2016-11-25] MEDS: POLYETHYLENE GLYCOL 17 GM PACKET PO SCH (08:39)
[2016-11-25] MEDS: SPIRONOLACTONE 25 MG TAB PO SCH (08:42)
[2016-11-25] MEDS ORDERED: POTASSIUM CHLORIDE 20 MEQ POWDER FOR ORAL SOLN GTB ONE (09:00)
[2016-11-25] MEDS: BALSAM PERU/CASTOR OIL 60 GM TUBE TOP SCH (09:06)
[2016-11-25] MEDS: ENOXAPARIN 30 MG/0.3 ML SYG SC SCH (09:17)
[2016-11-25] MEDS: POTASSIUM CHLORIDE 20 MEQ POWDER FOR ORAL SOLN GTB SCH (09:18)
--- NOTE | 2016-11-25 16:18 | PN ---
DATE: 11/25/2016 SUBJECTIVE DATA: No acute events. Patient looks comfortable, afebrile. Temperature 98.1, pulse 118, respirations 19, blood pressure 126/88, saturation 97 on 2 L. WBC 7.6, hemoglobin and hematocrit 11.4 and 34.1, platelets 224, neutrophils 80.5. BUN 15, creatinine 0.77. OBJECTIVE DATA: GENERAL: This is a fragile, cachectic, elderly woman, who is awake, in no distress. HEENT: Head atraumatic, normocephalic. Sclera anicteric. Buccal mucosa dry. NECK: Supple. Trachea midline. CHEST: Chest rise symmetrical. Breath sounds diminished at bases. HEART: S1, S2. ABDOMEN: Soft. Bowel sounds present. EXTREMITIES: Without cyanosis. ASSESSMENT: 1. Status post sepsis. 2. Metastatic melanoma to lung, bone sliver, and lymph nodes. 3. Acute L3 fracture with retropulsion into canal. 4. Congestive heart failure. 5. Anemia. 6. Coccygeal wound. 7. Severe cachexia. PLAN: The patient remains stable. She is being followed by multiple consultants as per neurosurgical note. The patient's daughter refused any type of neurosurgical procedures. Will observe for now and repeat cultures p.r.n. Dictated By: Garland Scott NP /joe/carole /Document#: [id number]
--- NOTE | 2016-11-25 17:39 | PN ---
Date/Time of Note Date/Time of Note DATE: 11/25/16 TIME: 17:30 Assessment/Plan VTE Prophylaxis VTE Prophylaxis Intervention: LMWH Lines/Catheters IV Catheter Type (from Nrs): Saline Lock Urinary Cath still in place: No Assessment/Plan Chief Complaint/Hosp Course 86 yo female with hypertension, HFpEF with recently diagnosed metastatic melanoma admitted following a fall and concern for lumbar fracture. Now with acute decompenstated diasotlic CHF exacerbation Acute diastolic CHF exacerbation: - Requires further diuresis. Continue IV lasix to euvolemia - Will add ramírez for potassium sparing Pericardial effusion: - Suspect from malignancy. No signs of tamponade. Repeat TTE Pleural effusions: - Likely from CHF as well, though perhaps malignant as well. Consider thora - Unlikely pneumonia, dc abx Metastatic melanoma: - Management per heme/onc - Has been offered pallaitive chemo but seem to have very poor functional status. Poor chemo candidate. Would recommend hospice Osteoporotic vertebral fracture: - Clear by neurosurgery Hypokalemia: - Induced by diuretics, replete as needed Hold home antihypertensives Protein calorie malnutrition Hypoalbuminemia Full code for now - needs palliative care Problems: Subjective 24 Hr Interval Summary Free Text/Dictation Patient discussed with me how she is coming to terms with what she feels like is her "dying" Says she accepts that her diagnosis of melanoma is going to take her life Very concerned about how her would impact her children who live in her home She is most concerned about her inability to swallow and how it causes her malnutrition. Very much does not want PEG she says. Exam/Review of Systems Vital Signs Vitals Vital Signs Date Time Temp Pulse Resp B/P Pulse Ox O2 Delivery O2 Flow Rate FiO2 11/25/16 16:12 122 11/25/16 15:42 98.1 19 114/71 99 11/25/16 14:32 21 11/25/16 08:15 Nasal Cannula 2.0 Intake and Output 11/24/16 11/24/16 11/25/16 14:59 22:59 06:59 Intake Total 1050 ml 550 ml Output Total 500 ml 600 ml Balance 550 ml -50 ml Exam Elderly, frail, resting in NAD Pleasant, AOx3 Tachy, regular Lungs w diminished sounds at bases Peripheral edema improving Results Result Diagram: 11/25/16 0603 11/25/16 0603 Results 24 hrs Laboratory Tests Test 11/25/16 06:03 White Blood Count 7.6 Red Blood Count 3.96 L Hemoglobin 11.4 L Hematocrit 34.1 L Mean Corpuscular Volume 86.1 Mean Corpuscular Hemoglobin 28.8 L Mean Corpuscular Hemoglobin Concent 33.4 Red Cell Distribution Width Platelet Count 224 Mean Platelet Volume 10.0 Neutrophils % 80.5 H Lymphocytes % 8.0 L Monocytes % 10.0 Eosinophils % 0.5 Basophils % 0.3 Nucleated Red Blood Cells % 0.0 Neutrophils # 6.1 Lymphocytes # 0.6 L Monocytes # 0.8 Eosinophils # 0.0 Basophils # 0.0 Nucleated Red Blood Cells # 0.0 Sodium Level 139 Potassium Level 3.8 Chloride Level 104 Carbon Dioxide Level 30 Anion Gap 9 Blood Urea Nitrogen 15 Creatinine 0.77 Glucose Level 93 Calcium Level 8.3 L Total Bilirubin 0.4 Direct Bilirubin 0.00 Indirect Bilirubin 0.4 Aspartate Amino Transf (AST/SGOT) 20 Alanine Aminotransferase (ALT/SGPT) 28 Alkaline Phosphatase 164 H Total Protein 5.4 L Albumin 2.3 L Globulin 3.10 Albumin/Globulin Ratio 0.74 Medications Medications Current Medications Ondansetron HCl (Zofran Inj) 4 mg Q6H PRN IV NAUSEA AND/OR VOMITING; Start 11/17 at 05:00 Acetaminophen (Tylenol Liquid) 650 mg Q6H PRN PO PAIN LEVEL 1-3 OR FEVER Last administered on 11/24/16 15:16; Admin Dose 650 MG; Start 11/17/16 at 05:00 Lorazepam (Ativan) 0.5 mg Q3H PRN IV ANXIETY; Start 11/17/16 at 05:00 Tramadol HCl (Ultram) 50 mg Q6H PRN PO moderate to severe pain Last administered on 11/24/16 12:04; Admin Dose 50 MG; Start 11/17/16 at 05:00 [facility] This patient lopez... PRN PRN XX WOUND CARE; Start 11/18/16 at 15:30 Polyethylene Glycol (Miralax) 17 gm DAILY PO Last administered on 11/25/16 08: 39; Admin Dose 17 GM; Start 11/22/16 at 16:00 Enoxaparin Sodium (Lovenox) 30 mg DAILY SC Last administered on 11/25/16 09:17 ; Admin Dose 30 MG; Start 11/23/16 at 09:00 Spironolactone (Aldactone) 25 mg DAILY PO Last administered on 11/25/16 08:42 ; Admin Dose 25 MG; Start 11/23/16 at 15:30 Potassium Chloride (Potassium Chloride Pwd/Soln) 40 meq DAILY GTB Last administered on 11/25/16 09:18; Admin Dose 40 MEQ; Start 11/25/16 at 09:30 ARNAUD AGUILAR MD Nov 25, 2016 17:39
[2016-11-25] MEDS: FUROSEMIDE 40 MG INJ IV SCH (17:47)
[2016-11-25] MEDS: NYSTATIN SUSP 5 ML CUP PO SCH ×2 (18:30→21:00)
[2016-11-26] VITALS (12 sets, daily range): BP systolic 109–139; BP diastolic 77–87; PULSE 110–125; RESP 15–18
[2016-11-26] MEDS: ALBUTEROL/IPRATROPIUM (NEB) 3 ML AMP NEB SCH ×4 (01:00→12:11)
--- NOTE | 2016-11-26 01:27 | RADRPT ---
PROCEDURE: XR Chest. CLINICAL INDICATION: Dyspnea TECHNIQUE: Anterior chest x-ray. COMPARISON: 11/17/2016 FINDINGS: The lungs are clear. Small right pleural effusion has increased from previous exam. Trace left pleural effusion is unchanged. Mild bibasilar consolidation is unchanged. There is no evidence of pneumothorax. Heart size is large. There is atherosclerotic calcification of the aorta. The cardiomediastinal si lhouette is otherwise unremarkable. The soft tissues are normal. Osseous structures are unremarkable. IMPRESSION: 1. Small to moderate right pleural effusion, increased from previous exam. 2. Trace to small left pleural effusion, unchanged. 3. Cardiomegaly. 4. Mild bibasilar consolidation, likely compressive atelectasis, unchanged. RPTAT: HLDM .Hung Prater MD, Date Time Electronically viewed and signed by .Hung Prater MD, on 11/26/2016 01:27 .M/
[2016-11-26] MEDS: FUROSEMIDE 40 MG INJ IV SCH ×2 (06:00→17:31)
[2016-11-26 07:18] LABS: ABNORMAL IP MESSAGE 1; HEMATOCRIT 40.6 % (37.0-47.0); HEMOGLOBIN 12.6 g/dl (12.0-16.0); MEAN CORPUSCULAR HEMOGLOBIN 25.8 pg (29.0-33.0); MEAN CORPUSCULAR VOLUME 83.2 fl (82.0-101.0); MEAN PLATELET VOLUME 10.3 fl (7.4-10.4); NUCLEATED RED BLOOD CELLS% 0.2 /100WBC (0.0-0.0); PLATELET COUNT 218 10^3/UL (140-415); WHITE BLOOD COUNT 10.8 10^3/ul (4.8-10.8)
[2016-11-26 07:21] LABS: RED BLOOD COUNT 4.88 10^6/ul (4.20-5.40)
[2016-11-26 07:26] LABS: ALBUMIN 2.5 g/dl (3.3-4.9); ALBUMIN/GLOBULIN RATIO 0.73; BILIRUBIN,INDIRECT 0.4 mg/dl (0-1.1); BILIRUBIN,TOTAL 0.4 mg/dl (0.2-1.3); CALCIUM 8.8 mg/dl (8.4-10.2); CREATININE 0.71 mg/dl (0.44-1.00); TOTAL PROTEIN 5.9 g/dl (6.1-8.1)
[2016-11-26 08:32] LABS: ANISOCYTOSIS 2+ (0-0); EOSINOPHILS % (M) 1 % (0-7); MICROCYTOSIS 2+ (0-0); MONOCYTES % (M) 7 % (0-11); PLATELET ESTIMATE NORMAL; POIKILOCYTOSIS 3+ (0-0); POLYCHROMASIA 2+ (0-0); PROMYELOCYTES #M 0 # (0-0); PROMYELOCYTES % (M) 1 % (0-0)
[2016-11-26] MEDS: POTASSIUM CHLORIDE 20 MEQ POWDER FOR ORAL SOLN GTB SCH (08:52)
[2016-11-26] MEDS: SPIRONOLACTONE 25 MG TAB PO SCH (08:52)
[2016-11-26] MEDS: NYSTATIN SUSP 5 ML CUP PO SCH ×4 (08:52→21:00)
[2016-11-26] MEDS: POLYETHYLENE GLYCOL 17 GM PACKET PO SCH (08:53)
[2016-11-26] MEDS: BALSAM PERU/CASTOR OIL 60 GM TUBE TOP SCH (09:00)
[2016-11-26] MEDS: ENOXAPARIN 30 MG/0.3 ML SYG SC SCH (09:11)
--- NOTE | 2016-11-26 17:53 | PN ---
Date/Time of Note Date/Time of Note DATE: 11/26/16 TIME: 17:51 Assessment/Plan VTE Prophylaxis VTE Prophylaxis Intervention: LMWH Lines/Catheters [facility] Saline Lock Urinary Cath still in place: No Assessment/Plan Chief Complaint/Hosp Course 86 yo female with hypertension, HFpEF with recently diagnosed metastatic melanoma admitted following a fall and concern for lumbar fracture. Now with acute decompenstated diasotlic CHF exacerbation Acute diastolic CHF exacerbation: - Approaching euvolemic, can convert to PO diuretics in comings days - Continue ramírez for potassium sparing Pericardial effusion: - Suspect from malignancy. No signs of tamponade. Can repeat TTE Pleural effusions: - Likely from CHF as well, though perhaps malignant as well. Consider thora - Unlikely pneumonia, dc abx Metastatic melanoma: - Management per heme/onc - Has been offered pallaitive chemo but she has a very poor functional status. Hospice may be a better option Osteoporotic vertebral fracture: - Clear by neurosurgery Hypokalemia: - Induced by diuretics, replete as needed Hold home antihypertensives Protein calorie malnutrition Hypoalbuminemia Full code for now - needs palliative care Problems: Subjective 24 Hr Interval Summary Free Text/Dictation Patient remains sleepy Only complaint is again of dry mouth. Started on nystatin for possible oral candidiais, doesn't feel much benefit Exam/Review of Systems Vital Signs Vitals Vital Signs Date Time Temp Pulse Resp B/P Pulse Ox O2 Delivery O2 Flow Rate FiO2 11/26/16 16:12 123 11/26/16 15:07 98.4 18 139/87 100 11/26/16 11:45 Nasal Cannula 2.0 11/26/16 09:42 21 Intake and Output 11/25/16 11/25/16 11/26/16 15:00 23:00 07:00 Intake Total 1700 ml 700 ml Output Total 650 ml 750 ml Balance 1050 ml -50 ml Results Result Diagram: 11/26/16 0616 11/26/16 0616 Results 24 hrs Laboratory Tests Test 11/26/16 06:16 White Blood Count 10.8 # Red Blood Count 4.88 # Hemoglobin 12.6 Hematocrit 40.6 Mean Corpuscular Volume 83.2 Mean Corpuscular Hemoglobin 25.8 L Mean Corpuscular Hemoglobin Concent 31.0 L Red Cell Distribution Width Platelet Count 218 Mean Platelet Volume 10.3 Neutrophils % Segmented Neutrophils % (Manual) 84 H Band Neutrophils % (Manual) 3 Lymphocytes % Lymphocytes % (Manual) 4 L Monocytes % Monocytes % (Manual) 7 Eosinophils % Eosinophils % (Manual) 1 Basophils % Promyelocytes % (Manual) 1 H Nucleated Red Blood Cells % 0.2 H Neutrophils # Neutrophils # (Manual) 9.1 H Band Neutrophils # 0.3 Absolute Lymphocytes (Manual) 0.4 L Lymphocytes # Monocytes # Absolute Monocytes (Manual) 0.7 Eosinophils # Basophils # Promyelocytes # 0 Nucleated Red Blood Cells # Platelet Estimate NORMAL Polychromasia 2+ Poikilocytosis 3+ Anisocytosis 2+ Microcytosis 2+ Elliptocytes 1+ Sodium Level 143 Potassium Level 4.0 Chloride Level 100 Carbon Dioxide Level 30 Anion Gap 17 #H Blood Urea Nitrogen 17 Creatinine 0.71 Glucose Level 96 Calcium Level 8.8 Total Bilirubin 0.4 Direct Bilirubin 0.00 Indirect Bilirubin 0.4 Aspartate Amino Transf (AST/SGOT) 27 Alanine Aminotransferase (ALT/SGPT) 30 Alkaline Phosphatase 191 H Total Protein 5.9 L Albumin 2.5 L Globulin 3.40 H Albumin/Globulin Ratio 0.73 Medications Medications Current Medications Ondansetron HCl (Zofran Inj) 4 mg Q6H PRN IV NAUSEA AND/OR VOMITING; Start 11/17 at 05:00 Acetaminophen (Tylenol Liquid) 650 mg Q6H PRN PO PAIN LEVEL 1-3 OR FEVER Last administered on 11/24/16 15:16; Admin Dose 650 MG; Start 11/17/16 at 05:00 Lorazepam (Ativan) 0.5 mg Q3H PRN IV ANXIETY; Start 11/17/16 at 05:00 Tramadol HCl (Ultram) 50 mg Q6H PRN PO moderate to severe pain Last administered on 11/24/16 12:04; Admin Dose 50 MG; Start 11/17/16 at 05:00 Miscellaneous Information (Pending [facility] Order For Wound Care) This patient lopez... PRN PRN XX WOUND CARE; Start 11/18/16 at 15:30 Polyethylene Glycol (Miralax) 17 gm DAILY PO Last administered on 11/25/16 08: 39; Admin Dose 17 GM; Start 11/22/16 at 16:00 Enoxaparin Sodium (Lovenox) 30 mg DAILY SC Last administered on 11/26/16 09:11 ; Admin Dose 30 MG; Start 11/23/16 at 09:00 Spironolactone (Aldactone) 25 mg DAILY PO Last administered on 11/26/16 08:52 ; Admin Dose 25 MG; Start 11/23/16 at 15:30 Potassium Chloride (Potassium Chloride Pwd/Soln) 40 meq DAILY GTB Last administered on 11/26/16 08:52; Admin Dose 40 MEQ; Start 11/25/16 at 09:30 Simethicone (Mylicon) 80 mg TID PRN GTB DISTENSION/GAS/BLOATING; Start at 17:30 Nystatin (Nystatin Susp) 5 ml QID PO Last administered on 11/26/16 16:38; Admin Dose 5 ML; Start 11/25/16 at 18:30 ARNAUD AGUILAR MD Nov 26, 2016 17:53
--- NOTE | 2016-11-26 19:34 | PN ---
DATE: 11/26/2016 SUBJECTIVE: The patient is alert, looks comfortable. No fevers. Family at bedside. LABORATORY AND DIAGNOSTIC DATA: WBC 10.8, neutrophils 84, bands 3, BUN 17, creatinine 0.71. PHYSICAL EXAMINATION: GENERAL: Chronically ill-appearing, fragile elderly woman who is in no distress. HEENT: Head atraumatic and normocephalic. Sclerae are anicteric. Buccal mucosa is dry. NECK: Supple. LUNGS: Chest rise is symmetrical. Breath sounds are diminished at the bases. HEART: S1, S2. ABDOMEN: Soft. Bowel sounds are present. EXTREMITIES: Without cyanosis. ASSESSMENT: 1. Status post sepsis on admission. 2. Metastatic melanoma. 3. Anemia. 4. Cachexia. 5. Coccygeal decubitus. PLAN: The patient remains stable. Off antibiotics. Continue present care as per primary team. Repeat cultures p.r.n. Dictated By: Garland Scott NP /joe/love /Document#: [id number]
[2016-11-27] VITALS (12 sets, daily range): BP systolic 104–139; BP diastolic 63–83; PULSE 110–131; RESP 18–20
[2016-11-27] MEDS: FUROSEMIDE 40 MG INJ IV SCH ×2 (06:00→17:25)
[2016-11-27 06:29] LABS: ABNORMAL IP MESSAGE 1; BASOPHILS % 0.1 % (0.0-2.0); EOSINOPHILS % 0.1 % (0.0-7.0); HEMATOCRIT 36.6 % (37.0-47.0); HEMOGLOBIN 11.6 g/dl (12.0-16.0); LYMPHOCYTES # 0.7 10^3/ul (0.8-2.9); LYMPHOCYTES % 7.2 % (15.0-51.0); MEAN CORPUSCULAR HEMOGLOBIN 27.2 pg (29.0-33.0); MEAN CORPUSCULAR HGB CONC 31.7 g/dl (32.0-37.0); MEAN CORPUSCULAR VOLUME 85.7 fl (82.0-101.0); MEAN PLATELET VOLUME 10.4 fl (7.4-10.4); MONOCYTE # 0.7 10^3/ul (0.3-0.9); MONOCYTES % 7.3 % (0.0-11.0); NEUTROPHIL # 8.2 10^3/ul (1.6-7.5); NEUTROPHILS % 84.7 % (39.0-77.0); PLATELET COUNT 237 10^3/UL (140-415); RED BLOOD COUNT 4.27 10^6/ul (4.20-5.40); WHITE BLOOD COUNT 9.6 10^3/ul (4.8-10.8)
[2016-11-27 06:30] LABS: POSITIVE DIFF @See below
[2016-11-27 07:07] LABS: ALBUMIN 2.4 g/dl (3.3-4.9); ALBUMIN/GLOBULIN RATIO 0.75; BILIRUBIN,INDIRECT 0.5 mg/dl (0-1.1); BILIRUBIN,TOTAL 0.5 mg/dl (0.2-1.3); CALCIUM 8.5 mg/dl (8.4-10.2); CREATININE 0.85 mg/dl (0.44-1.00); POTASSIUM 3.5 mmol/L (3.5-5.1); TOTAL PROTEIN 5.6 g/dl (6.1-8.1)
[2016-11-27] MEDS: POLYETHYLENE GLYCOL 17 GM PACKET PO SCH (09:00)
[2016-11-27] MEDS: POTASSIUM CHLORIDE 20 MEQ POWDER FOR ORAL SOLN GTB SCH (09:02)
[2016-11-27] MEDS: ENOXAPARIN 30 MG/0.3 ML SYG SC SCH (09:06)
[2016-11-27] MEDS: SPIRONOLACTONE 25 MG TAB PO SCH (09:06)
[2016-11-27] MEDS: NYSTATIN SUSP 5 ML CUP PO SCH ×4 (09:06→21:28)
[2016-11-27] MEDS: BALSAM PERU/CASTOR OIL 60 GM TUBE TOP SCH (09:11)
--- NOTE | 2016-11-27 12:45 | CONS ---
Date/Time of Note Date/Time of Note DATE: 11/27/16 TIME: 12:44 Assessment/Plan Assessment/Plan Chief Complaint/Hosp Course Metastatic melanoma, to lung, bones, liver, and lymph nodes PT IS NOT A CANDIDATE FOR IMMUNOTHERAPY CONSIDER CHEMO- IF PS PERMITS Anemia, likely secondary to chronic disease -Monitor H&H closely and transfuse as needed Acute L3 fracture with retropulsion into canal Shock: Likely septic, from UTI -Pressor support as needed -continue antibiotic and IV fluid -Blood culture, urine culture and a chest x-ray -will obtain a 2D echo. Will send additional troponin Hypokalemia: Replete Problems: Consultation Date/Type/Reason Admit Date/Time Nov 17, 2016 at 05:17 Initial Consult Date 11/17/16 [facility] Referring Provider: JEAN-PAUL DANGELO MD 24 HR Interval Summary Free Text/Dictation ALL NOTED WEAK Exam/Review of Systems Vital Signs Vitals Vital Signs Date Time Temp Pulse Resp B/P Pulse Ox O2 Delivery O2 Flow Rate FiO2 11/27/16 12:04 116 11/27/16 11:11 97.2 18 111/83 100 11/27/16 08:30 Nasal Cannula 2.0 11/26/16 09:42 21 Intake and Output 11/26/16 11/26/16 11/27/16 15:00 23:00 07:00 Intake Total 600 ml 750 ml Output Total 300 ml Balance -300 ml 600 ml 750 ml Exam VITAL SIGNS: per chart NECK: Supple. No JVD or lymphadenopathy. CARDIAC EXAM: Radial pulse RRR CHEST: Equal chest rise bilaterally without dyspnea on observation, no audible wheezing ABDOMEN: Soft, nontender. EXTREMITIES: No cyanosis, clubbing or edema. NEUROLOGIC: Generalized weakness. No focal deficits. Results Result Diagram: 11/27/16 0607 11/27/16 0607 Results 24 hrs Laboratory Tests Test 11/27/16 06:07 White Blood Count 9.6 Red Blood Count 4.27 Hemoglobin 11.6 L Hematocrit 36.6 L Mean Corpuscular Volume 85.7 Mean Corpuscular Hemoglobin 27.2 L Mean Corpuscular Hemoglobin Concent 31.7 L Red Cell Distribution Width Platelet Count 237 Mean Platelet Volume 10.4 Neutrophils % 84.7 H Lymphocytes % 7.2 L Monocytes % 7.3 Eosinophils % 0.1 Basophils % 0.1 Nucleated Red Blood Cells % 0.0 Neutrophils # 8.2 H Lymphocytes # 0.7 L Monocytes # 0.7 Eosinophils # 0.0 Basophils # 0.0 Nucleated Red Blood Cells # 0.0 Sodium Level 138 Potassium Level 3.5 Chloride Level 103 Carbon Dioxide Level 29 Anion Gap 10 # Blood Urea Nitrogen 19 Creatinine 0.85 Glucose Level 101 Calcium Level 8.5 Total Bilirubin 0.5 Direct Bilirubin 0.00 Indirect Bilirubin 0.5 Aspartate Amino Transf (AST/SGOT) 23 Alanine Aminotransferase (ALT/SGPT) 27 Alkaline Phosphatase 181 H Total Protein 5.6 L Albumin 2.4 L Globulin 3.20 Albumin/Globulin Ratio 0.75 Medications Medications Current Medications Ondansetron HCl (Zofran Inj) 4 mg Q6H PRN IV NAUSEA AND/OR VOMITING; Start 11/17 at 05:00 Acetaminophen (Tylenol Liquid) 650 mg Q6H PRN PO PAIN LEVEL 1-3 OR FEVER Last administered on 11/24/16 15:16; Admin Dose 650 MG; Start 11/17/16 at 05:00 Lorazepam (Ativan) 0.5 mg Q3H PRN IV ANXIETY; Start 11/17/16 at 05:00 Tramadol HCl (Ultram) 50 mg Q6H PRN PO moderate to severe pain Last administered on 11/24/16 12:04; Admin Dose 50 MG; Start 11/17/16 at 05:00 [facility] This patient lopez... PRN PRN XX WOUND CARE; Start 11/18/16 at 15:30 Polyethylene Glycol (Miralax) 17 gm DAILY PO Last administered on 11/25/16 08: 39; Admin Dose 17 GM; Start 11/22/16 at 16:00 Enoxaparin Sodium (Lovenox) 30 mg DAILY SC Last administered on 11/27/16 09:06 ; Admin Dose 30 MG; Start 11/23/16 at 09:00 Spironolactone (Aldactone) 25 mg DAILY PO Last administered on 11/27/16 09:06 ; Admin Dose 25 MG; Start 11/23/16 at 15:30 Potassium Chloride (Potassium Chloride Pwd/Soln) 40 meq DAILY GTB Last administered on 11/27/16 09:02; Admin Dose 40 MEQ; Start 11/25/16 at 09:30 Simethicone (Mylicon) 80 mg TID PRN GTB DISTENSION/GAS/BLOATING; Start at 17:30 Nystatin (Nystatin Susp) 5 ml QID PO Last administered on 11/27/16 09:06; Admin Dose 5 ML; Start 11/25/16 at 18:30 LOUISE SANTOS MD Nov 27, 2016 12:45
--- NOTE | 2016-11-27 15:30 | CONS ---
Date/Time of Note Date/Time of Note DATE: 11/27/16 TIME: 15:29 Assessment/Plan Assessment/Plan Chief Complaint/Hosp Course SUBJECTIVE: The patient is alert, looks comfortable. No fevers. PHYSICAL EXAMINATION: GENERAL: Chronically ill-appearing, fragile elderly woman who is in no distress. HEENT: Head atraumatic and normocephalic. Sclerae are anicteric. Buccal mucosa is dry. NECK: Supple. LUNGS: Chest rise is symmetrical. Breath sounds are diminished at the bases. HEART: S1, S2. ABDOMEN: Soft. Bowel sounds are present. EXTREMITIES: Without cyanosis. ASSESSMENT: 1. Status post sepsis on admission. 2. Metastatic melanoma. 3. Anemia. 4. Cachexia. 5. Coccygeal decubitus. PLAN: The patient remains stable. Off antibiotics. Continue present care as per primary team. Repeat cultures p.r.n. DW staff Problems: Consultation Date/Type/Reason Admit Date/Time Nov 17, 2016 at 05:17 Initial Consult Date 11/19/16 Type of Consultation: id Referring Provider: JEAN-PAUL DANGELO MD Exam/Review of Systems Vital Signs Vitals Vital Signs Date Time Temp Pulse Resp B/P Pulse Ox O2 Delivery O2 Flow Rate FiO2 11/27/16 12:04 116 11/27/16 11:11 97.2 18 111/83 100 11/27/16 08:30 Nasal Cannula 2.0 11/26/16 09:42 21 Intake and Output 11/26/16 11/26/16 11/27/16 15:00 23:00 07:00 Intake Total 600 ml 750 ml Output Total 300 ml Balance -300 ml 600 ml 750 ml Results Result Diagram: 11/27/16 0607 11/27/16 0607 Results 24 hrs Laboratory Tests Test 11/27/16 06:07 White Blood Count 9.6 Red Blood Count 4.27 Hemoglobin 11.6 L Hematocrit 36.6 L Mean Corpuscular Volume 85.7 Mean Corpuscular Hemoglobin 27.2 L Mean Corpuscular Hemoglobin Concent 31.7 L Red Cell Distribution Width Platelet Count 237 Mean Platelet Volume 10.4 Neutrophils % 84.7 H Lymphocytes % 7.2 L Monocytes % 7.3 Eosinophils % 0.1 Basophils % 0.1 Nucleated Red Blood Cells % 0.0 Neutrophils # 8.2 H Lymphocytes # 0.7 L Monocytes # 0.7 Eosinophils # 0.0 Basophils # 0.0 Nucleated Red Blood Cells # 0.0 Sodium Level 138 Potassium Level 3.5 Chloride Level 103 Carbon Dioxide Level 29 Anion Gap 10 # Blood Urea Nitrogen 19 Creatinine 0.85 Glucose Level 101 Calcium Level 8.5 Total Bilirubin 0.5 Direct Bilirubin 0.00 Indirect Bilirubin 0.5 Aspartate Amino Transf (AST/SGOT) 23 Alanine Aminotransferase (ALT/SGPT) 27 Alkaline Phosphatase 181 H Total Protein 5.6 L Albumin 2.4 L Globulin 3.20 Albumin/Globulin Ratio 0.75 Medications Medications Current Medications Ondansetron HCl (Zofran Inj) 4 mg Q6H PRN IV NAUSEA AND/OR VOMITING; Start 11/17 at 05:00 Acetaminophen (Tylenol Liquid) 650 mg Q6H PRN PO PAIN LEVEL 1-3 OR FEVER Last administered on 11/24/16 15:16; Admin Dose 650 MG; Start 11/17/16 at 05:00 Lorazepam (Ativan) 0.5 mg Q3H PRN IV ANXIETY; Start 11/17/16 at 05:00 Tramadol HCl (Ultram) 50 mg Q6H PRN PO moderate to severe pain Last administered on 11/24/16 12:04; Admin Dose 50 MG; Start 11/17/16 at 05:00 Miscellaneous Information (Pending [facility] Order For Wound Care) This patient lopez... PRN PRN XX WOUND CARE; Start 11/18/16 at 15:30 Polyethylene Glycol (Miralax) 17 gm DAILY PO Last administered on 11/25/16 08: 39; Admin Dose 17 GM; Start 11/22/16 at 16:00 Enoxaparin Sodium (Lovenox) 30 mg DAILY SC Last administered on 11/27/16 09:06 ; Admin Dose 30 MG; Start 11/23/16 at 09:00 Spironolactone (Aldactone) 25 mg DAILY PO Last administered on 11/27/16 09:06 ; Admin Dose 25 MG; Start 11/23/16 at 15:30 Potassium Chloride (Potassium Chloride Pwd/Soln) 40 meq DAILY GTB Last administered on 11/27/16 09:02; Admin Dose 40 MEQ; Start 11/25/16 at 09:30 Simethicone (Mylicon) 80 mg TID PRN GTB DISTENSION/GAS/BLOATING; Start at 17:30 Nystatin (Nystatin Susp) 5 ml QID PO Last administered on 11/27/16t 13:07; Admin Dose 5 ML; Start 11/25/16 at 18:30 CLARE MITTAL NP Nov 27, 2016 15:30
--- NOTE | 2016-11-27 16:11 | PN ---
Date/Time of Note Date/Time of Note DATE: 11/27/16 TIME: 16:07 Assessment/Plan VTE Prophylaxis VTE Prophylaxis Intervention: LMWH Lines/Catheters [facility] Saline Lock Urinary Cath still in place: No Assessment/Plan Chief Complaint/Hosp Course 86 yo female with hypertension with recently diagnosed metastatic melanoma admitted following a fall and concern for lumbar fracture. Now with acute decompensated diasotlic CHF exacerbation Acute diastolic CHF exacerbation: - Approaching euvolemic, can convert to PO diuretics in comings days - Continue ramírez for potassium sparing Pericardial effusion: - Suspect from malignancy. No signs of tamponade. Can repeat TTE Pleural effusions: - Likely from CHF as well, though perhaps malignant as well. Consider thora - Unlikely pneumonia, dc abx Metastatic melanoma: - Management per heme/onc - Has been offered pallaitive chemo but she has a very poor functional status. 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 Hypokalemia: - Induced by diuretics, replete as needed Hold home antihypertensives Protein calorie malnutrition Hypoalbuminemia Prophylaxis: Lovenox Full code for now - needs palliative care Problems: Subjective 24 Hr Interval Summary Musculoskeletal: back pain Exam/Review of Systems Vital Signs Vitals Vital Signs Date Time Temp Pulse Resp B/P Pulse Ox O2 Delivery O2 Flow Rate FiO2 11/27/16 15:35 98.2 117 20 104/68 98 11/27/16 08:30 Nasal Cannula 2.0 11/26/16 09:42 21 Intake and Output 11/26/16 11/26/16 11/27/16 15:00 23:00 07:00 Intake Total 600 ml 750 ml Output Total 300 ml Balance -300 ml 600 ml 750 ml Exam Constitutional: alert, oriented Respiratory: clear to auscultation Cardiovascular: regular rate and rhythm Gastrointestinal: soft, No distended Musculoskeletal: nl extremities to inspection Results Result Diagram: 11/27/16 0607 11/27/16 0607 Results 24 hrs Laboratory Tests Test 11/27/16 06:07 White Blood Count 9.6 Red Blood Count 4.27 Hemoglobin 11.6 L Hematocrit 36.6 L Mean Corpuscular Volume 85.7 Mean Corpuscular Hemoglobin 27.2 L Mean Corpuscular Hemoglobin Concent 31.7 L Red Cell Distribution Width Platelet Count 237 Mean Platelet Volume 10.4 Neutrophils % 84.7 H Lymphocytes % 7.2 L Monocytes % 7.3 Eosinophils % 0.1 Basophils % 0.1 Nucleated Red Blood Cells % 0.0 Neutrophils # 8.2 H Lymphocytes # 0.7 L Monocytes # 0.7 Eosinophils # 0.0 Basophils # 0.0 Nucleated Red Blood Cells # 0.0 Sodium Level 138 Potassium Level 3.5 Chloride Level 103 Carbon Dioxide Level 29 Anion Gap 10 # Blood Urea Nitrogen 19 Creatinine 0.85 Glucose Level 101 Calcium Level 8.5 Total Bilirubin 0.5 Direct Bilirubin 0.00 Indirect Bilirubin 0.5 Aspartate Amino Transf (AST/SGOT) 23 Alanine Aminotransferase (ALT/SGPT) 27 Alkaline Phosphatase 181 H Total Protein 5.6 L Albumin 2.4 L Globulin 3.20 Albumin/Globulin Ratio 0.75 Medications Medications Current Medications Ondansetron HCl (Zofran Inj) 4 mg Q6H PRN IV NAUSEA AND/OR VOMITING; Start 11/17 at 05:00 Acetaminophen (Tylenol Liquid) 650 mg Q6H PRN PO PAIN LEVEL 1-3 OR FEVER Last administered on 11/24/16 15:16; Admin Dose 650 MG; Start 11/17/16 at 05:00 Lorazepam (Ativan) 0.5 mg Q3H PRN IV ANXIETY; Start 11/17/16 at 05:00 Tramadol HCl (Ultram) 50 mg Q6H PRN PO moderate to severe pain Last administered on 11/24/16 12:04; Admin Dose 50 MG; Start 11/17/16 at 05:00 Miscellaneous Information (Pending [facility] Order For Wound Care) This patient loepz... PRN PRN XX WOUND CARE; Start 11/18/16 at 15:30 Polyethylene Glycol (Miralax) 17 gm DAILY PO Last administered on 11/25/16 08: 39; Admin Dose 17 GM; Start 11/22/16 at 16:00 Enoxaparin Sodium (Lovenox) 30 mg DAILY SC Last administered on 11/27/16 09:06 ; Admin Dose 30 MG; Start 11/23/16 at 09:00 Spironolactone (Aldactone) 25 mg DAILY PO Last administered on 11/27/16 09:06 ; Admin Dose 25 MG; Start 11/23/16 at 15:30 Potassium Chloride (Potassium Chloride Pwd/Soln) 40 meq DAILY GTB Last administered on 11/27/16 09:02; Admin Dose 40 MEQ; Start 11/25/16 at 09:30 Simethicone (Mylicon) 80 mg TID PRN GTB DISTENSION/GAS/BLOATING; Start at 17:30 Nystatin (Nystatin Susp) 5 ml QID PO Last administered on 11/27/16 13:07; Admin Dose 5 ML; Start 11/25/16 at 18:30 LISS LEDEZMA Nov 27, 2016 16:11
[2016-11-28] VITALS (10 sets, daily range): BP systolic 98–121; BP diastolic 59–84; PULSE 100–117; RESP 17–19
[2016-11-28] MEDS: FUROSEMIDE 40 MG INJ IV SCH ×2 (05:37→17:36)
[2016-11-28 07:34] LABS: ALBUMIN 2.3 g/dl (3.3-4.9); ALBUMIN/GLOBULIN RATIO 0.71; BILIRUBIN,INDIRECT 0.3 mg/dl (0-1.1); BILIRUBIN,TOTAL 0.3 mg/dl (0.2-1.3); CALCIUM 8.4 mg/dl (8.4-10.2); CREATININE 0.91 mg/dl (0.44-1.00); POTASSIUM 3.4 mmol/L (3.5-5.1); TOTAL PROTEIN 5.5 g/dl (6.1-8.1)
[2016-11-28] MEDS: POLYETHYLENE GLYCOL 17 GM PACKET PO SCH (09:00)
[2016-11-28] MEDS ORDERED: POTASSIUM CHLORIDE (SR) 20 MEQ TAB PO STA (09:23)
[2016-11-28] MEDS: SPIRONOLACTONE 25 MG TAB PO SCH (09:29)
[2016-11-28] MEDS: NYSTATIN SUSP 5 ML CUP PO SCH ×4 (09:29→20:50)
[2016-11-28] MEDS: POTASSIUM CHLORIDE 20 MEQ POWDER FOR ORAL SOLN GTB SCH (09:29)
[2016-11-28] MEDS: BALSAM PERU/CASTOR OIL 60 GM TUBE TOP SCH (09:39)
[2016-11-28] MEDS: ENOXAPARIN 30 MG/0.3 ML SYG SC SCH (09:52)
[2016-11-28] MEDS ORDERED: POTASSIUM CHLORIDE 20 MEQ POWDER FOR ORAL SOLN PO ONE (10:30)
--- NOTE | 2016-11-28 16:06 | PN ---
Date/Time of Note Date/Time of Note DATE: 11/28/16 TIME: 16:05 Assessment/Plan VTE Prophylaxis VTE Prophylaxis Intervention: LMWH Lines/Catheters IV Catheter Type (from [facility]): Saline Lock Urinary Cath still in place: No Assessment/Plan Chief Complaint/Hosp Course 86 yo female with hypertension with recently diagnosed metastatic melanoma admitted following a fall and concern for lumbar fracture. Now with acute decompensated diasotlic CHF exacerbation Acute diastolic CHF exacerbation: - Approaching euvolemic, can convert to PO diuretics in comings days - Continue ramírez for potassium sparing Pericardial effusion: - Suspect from malignancy. No signs of tamponade. Can repeat TTE Pleural effusions: - Likely from CHF as well, though perhaps malignant as well. Consider thora - Unlikely pneumonia, dc abx Metastatic melanoma: - Management per heme/onc - Has been offered pallaitive chemo but she has a very poor functional status. 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 Hypokalemia: - Induced by diuretics, replete as needed Hold home antihypertensives Protein calorie malnutrition Hypoalbuminemia Prophylaxis: Lovenox Discharge planning: Patient would like to go to a correction facility and family is looking for an appropriate facility Problems: Subjective 24 Hr Interval Summary Constitutional: no complaints Exam/Review of Systems Vital Signs Vitals Vital Signs Date Time Temp Pulse Resp B/P Pulse Ox O2 Delivery O2 Flow Rate FiO2 11/28/16 15:20 98.1 111 18 105/59 98 11/27/16 08:30 Nasal Cannula 2.0 11/26/16 09:42 21 Intake and Output 11/27/16 11/27/16 11/28/16 15:00 23:00 07:00 Intake Total 500 ml 400 ml Balance 500 ml 400 ml Exam Constitutional: alert Respiratory: clear to auscultation Cardiovascular: regular rate and rhythm Gastrointestinal: soft, No distended Musculoskeletal: nl extremities to inspection Results Result Diagram: 11/27/16 0607 11/28/16 0633 Results 24 hrs Laboratory Tests Test 11/28/16 06:33 Sodium Level 140 Potassium Level 3.4 L Chloride Level 99 Carbon Dioxide Level 31 Anion Gap 13 Blood Urea Nitrogen 21 H Creatinine 0.91 Glucose Level 119 Calcium Level 8.4 Total Bilirubin 0.3 Direct Bilirubin 0.00 Indirect Bilirubin 0.3 Aspartate Amino Transf (AST/SGOT) 24 Alanine Aminotransferase (ALT/SGPT) 22 Alkaline Phosphatase 173 H Total Protein 5.5 L Albumin 2.3 L Globulin 3.20 Albumin/Globulin Ratio 0.71 Medications Medications Current Medications Ondansetron HCl (Zofran Inj) 4 mg Q6H PRN IV NAUSEA AND/OR VOMITING; Start 11/17 at 05:00 Acetaminophen (Tylenol Liquid) 650 mg Q6H PRN PO PAIN LEVEL 1-3 OR FEVER Last administered on 11/24/16 15:16; Admin Dose 650 MG; Start 11/17/16 at 05:00 Lorazepam (Ativan) 0.5 mg Q3H PRN IV ANXIETY; Start 11/17/16 at 05:00 Tramadol HCl (Ultram) 50 mg Q6H PRN PO moderate to severe pain Last administered on 11/24/16 12:04; Admin Dose 50 MG; Start 11/17/16 at 05:00 Miscellaneous Information (Pending [facility] Order For Wound Care) This patient lopez... PRN PRN XX WOUND CARE; Start 11/18/16 at 15:30 Polyethylene Glycol (Miralax) 17 gm DAILY PO Last administered on 11/25/16 08: 39; Admin Dose 17 GM; Start 11/22/16 at 16:00 Enoxaparin Sodium (Lovenox) 30 mg DAILY SC Last administered on 11/28/16 09:52 ; Admin Dose 30 MG; Start 11/23/16 at 09:00 Spironolactone (Aldactone) 25 mg DAILY PO Last administered on 11/28/16 09:29 ; Admin Dose 25 MG; Start 11/23/16 at 15:30 Potassium Chloride (Potassium Chloride Pwd/Soln) 40 meq DAILY GTB Last administered on 11/28/16 09:29; Admin Dose 40 MEQ; Start 11/25/16 at 09:30 Simethicone (Mylicon) 80 mg TID PRN GTB DISTENSION/GAS/BLOATING; Start at 17:30 Nystatin (Nystatin Susp) 5 ml QID PO Last administered on 11/28/16 09:29; Admin Dose 5 ML; Start 11/25/16 at 18:30 LISS LEDEZMA Nov 28, 2016 16:06
[2016-11-29] VITALS (11 sets, daily range): BP systolic 103–125; BP diastolic 67–87; PULSE 101–110; RESP 17–20
[2016-11-29] MEDS: FUROSEMIDE 40 MG INJ IV SCH ×2 (06:11→17:13)
[2016-11-29] MEDS: SPIRONOLACTONE 25 MG TAB PO SCH (08:10)
[2016-11-29] MEDS: POTASSIUM CHLORIDE 20 MEQ POWDER FOR ORAL SOLN GTB SCH (08:10)
[2016-11-29] MEDS: ENOXAPARIN 30 MG/0.3 ML SYG SC SCH (08:16)
[2016-11-29] MEDS: traMADol 50 MG TAB PO PRN ×2 (08:17→17:12)
[2016-11-29 08:18] LABS: ALBUMIN 2.2 g/dl (3.3-4.9); ALBUMIN/GLOBULIN RATIO 0.73; BILIRUBIN,INDIRECT 0.3 mg/dl (0-1.1); BILIRUBIN,TOTAL 0.3 mg/dl (0.2-1.3); CALCIUM 8.1 mg/dl (8.4-10.2); CREATININE 0.88 mg/dl (0.44-1.00); POTASSIUM 3.3 mmol/L (3.5-5.1); TOTAL PROTEIN 5.2 g/dl (6.1-8.1)
[2016-11-29] MEDS: POLYETHYLENE GLYCOL 17 GM PACKET PO SCH (08:39)
[2016-11-29] MEDS: NYSTATIN SUSP 5 ML CUP PO SCH ×5 (08:40→20:34)
[2016-11-29] MEDS: BALSAM PERU/CASTOR OIL 60 GM TUBE TOP SCH (08:41)
[2016-11-29] MEDS ORDERED: POTASSIUM CHLORIDE 20 MEQ POWDER FOR ORAL SOLN PO ONE (09:30)
[2016-11-29] MEDS: ACETAMINOPHEN 650MG/20.3ML CUP PO PRN (12:27)
--- NOTE | 2016-11-29 13:50 | CONS ---
Date/Time of Note Date/Time of Note DATE: 11/28/16 TIME: 13:49 VK LE Assessment/Plan Assessment/Plan Chief Complaint/Hosp Course Metastatic melanoma, to lung, bones, liver, and lymph nodes PT IS NOT A CANDIDATE FOR IMMUNOTHERAPY CONSIDER CHEMO- IF PS PERMITS Anemia, likely secondary to chronic disease -Monitor H&H closely and transfuse as needed Acute L3 fracture with retropulsion into canal Shock: Likely septic, from UTI -Pressor support as needed -continue antibiotic and IV fluid -Blood culture, urine culture and a chest x-ray -will obtain a 2D echo. Will send additional troponin Hypokalemia: Replete Problems: Consultation Date/Type/Reason Admit Date/Time Nov 17, 2016 at 05:17 Initial Consult Date 11/17/16 Type of Consultation: [facility] Referring Provider: JEAN-PAUL DANGELO MD 24 HR Interval Summary Free Text/Dictation ALL NOTED Exam/Review of Systems Vital Signs Vitals Vital Signs Date Time Temp Pulse Resp B/P Pulse Ox O2 Delivery O2 Flow Rate FiO2 11/29/16 12:13 110 11/29/16 11:29 97.8 18 103/67 98 11/27/16 08:30 Nasal Cannula 2.0 11/26/16 09:42 21 Intake and Output 11/28/16 11/28/16 11/29/16 15:00 23:00 07:00 Intake Total 250 ml Balance 250 ml Exam VITAL SIGNS: per chart NECK: Supple. No JVD or lymphadenopathy. CARDIAC EXAM: Radial pulse RRR CHEST: Equal chest rise bilaterally without dyspnea on observation, no audible wheezing ABDOMEN: Soft, nontender. EXTREMITIES: No cyanosis, clubbing or edema. NEUROLOGIC: Generalized weakness. No focal deficits. Results Result Diagram: 11/27/16 0607 11/29/16 0651 Results 24 hrs Laboratory Tests Test 11/29/16 06:51 Sodium Level 139 Potassium Level 3.3 L Chloride Level 96 L Carbon Dioxide Level 33 H Anion Gap 13 Blood Urea Nitrogen 21 H Creatinine 0.88 Glucose Level 87 Calcium Level 8.1 L Total Bilirubin 0.3 Direct Bilirubin 0.00 Indirect Bilirubin 0.3 Aspartate Amino Transf (AST/SGOT) 22 Alanine Aminotransferase (ALT/SGPT) 27 Alkaline Phosphatase 156 H Total Protein 5.2 L Albumin 2.2 L Globulin 3.00 Albumin/Globulin Ratio 0.73 Medications Medications Current Medications Ondansetron HCl (Zofran Inj) 4 mg Q6H PRN IV NAUSEA AND/OR VOMITING; Start 11/17 at 05:00 Acetaminophen (Tylenol Liquid) 650 mg Q6H PRN PO PAIN LEVEL 1-3 OR FEVER Last administered on 11/29/16 12:27; Admin Dose 650 MG; Start 11/17/16 at 05:00 Lorazepam (Ativan) 0.5 mg Q3H PRN IV ANXIETY; Start 11/17/16 at 05:00 Tramadol HCl (Ultram) 50 mg Q6H PRN PO moderate to severe pain Last administered on 11/29/16 08:17; Admin Dose 50 MG; Start 11/17/16 at 05:00 Miscellaneous Information (Pending [facility] Order For Wound Care) This patient lopez... PRN PRN XX WOUND CARE; Start 11/18/16 at 15:30 Polyethylene Glycol (Miralax) 17 gm DAILY PO Last administered on 11/25/16 08: 39; Admin Dose 17 GM; Start 11/22/16 at 16:00 Enoxaparin Sodium (Lovenox) 30 mg DAILY SC Last administered on 11/29/16 08:16 ; Admin Dose 30 MG; Start 11/23/16 at 09:00 Spironolactone (Aldactone) 25 mg DAILY PO Last administered on 11/29/16 08:10 ; Admin Dose 25 MG; Start 11/23/16 at 15:30 Potassium Chloride (Potassium Chloride Pwd/Soln) 40 meq DAILY GTB Last administered on 11/29/16 08:10; Admin Dose 40 MEQ; Start 11/25/16 at 09:30 Simethicone (Mylicon) 80 mg TID PRN GTB DISTENSION/GAS/BLOATING; Start at 17:30 Nystatin (Nystatin Susp) 5 ml QID PO Last administered on 11/28/16 20:50; Admin Dose 5 ML; Start 11/25/16 at 18:30 LOUISE SANTOS MD Nov 29, 2016 13:50
--- NOTE | 2016-11-29 18:44 | PN ---
Date/Time of Note Date/Time of Note DATE: 11/29/16 TIME: 18:44 Assessment/Plan VTE Prophylaxis VTE Prophylaxis Intervention: LMWH Lines/Catheters IV C[facility]ter Type (from [facility]): Saline Lock Urinary Cath still in place: No Assessment/Plan Chief Complaint/Hosp Course 86 yo female with hypertension with recently diagnosed metastatic melanoma admitted following a fall and concern for lumbar fracture. Now with acute decompensated diasotlic CHF exacerbation Acute diastolic CHF exacerbation: - Approaching euvolemic, can convert to PO diuretics in comings days - Continue ramírez for potassium sparing Pericardial effusion: - Suspect from malignancy. No signs of tamponade. Can repeat TTE Pleural effusions: - Likely from CHF as well, though perhaps malignant as well. Consider thora - Unlikely pneumonia, dc abx Metastatic melanoma: - Management per heme/onc - Has been offered pallaitive chemo but she has a very poor functional status. 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 Hypokalemia: - Induced by diuretics, replete as needed Hold home antihypertensives Protein calorie malnutrition Hypoalbuminemia Prophylaxis: Lovenox Discharge planning: Patient would like to go to a half-way facility and family is looking for an appropriate facility Problems: Subjective 24 Hr Interval Summary Constitutional: no complaints Exam/Review of Systems Vital Signs Vitals Vital Signs Date Time Temp Pulse Resp B/P Pulse Ox O2 Delivery O2 Flow Rate FiO2 11/29/16 16:02 103 11/29/16 15:16 97.7 20 125/86 98 11/27/16 08:30 Nasal Cannula 2.0 11/26/16 09:42 21 Intake and Output 11/28/16 11/28/16 11/29/16 15:00 23:00 07:00 Intake Total 250 ml Balance 250 ml Exam Constitutional: alert Respiratory: clear to auscultation Cardiovascular: regular rate and rhythm Gastrointestinal: soft, No distended Musculoskeletal: nl extremities to inspection Results Result Diagram: 11/27/16 0607 11/29/16 0651 Results 24 hrs Laboratory Tests Test 11/29/16 06:51 Sodium Level 139 Potassium Level 3.3 L Chloride Level 96 L Carbon Dioxide Level 33 H Anion Gap 13 Blood Urea Nitrogen 21 H Creatinine 0.88 Glucose Level 87 Calcium Level 8.1 L Total Bilirubin 0.3 Direct Bilirubin 0.00 Indirect Bilirubin 0.3 Aspartate Amino Transf (AST/SGOT) 22 Alanine Aminotransferase (ALT/SGPT) 27 Alkaline Phosphatase 156 H Total Protein 5.2 L Albumin 2.2 L Globulin 3.00 Albumin/Globulin Ratio 0.73 Medications Medications Current Medications Ondansetron HCl (Zofran Inj) 4 mg Q6H PRN IV NAUSEA AND/OR VOMITING; Start 11/17 at 05:00 Acetaminophen (Tylenol Liquid) 650 mg Q6H PRN PO PAIN LEVEL 1-3 OR FEVER Last administered on 11/29/16 12:27; Admin Dose 650 MG; Start 11/17/16 at 05:00 Lorazepam (Ativan) 0.5 mg Q3H PRN IV ANXIETY; Start 11/17/16 at 05:00 Tramadol HCl (Ultram) 50 mg Q6H PRN PO moderate to severe pain Last administered on 11/29/16 17:12; Admin Dose 50 MG; Start 11/17/16 at 05:00 Miscellaneous Information (Pending [facility] Order For Wound Care) This patient lopez... PRN PRN XX WOUND CARE; Start 11/18/16 at 15:30 Polyethylene Glycol (Miralax) 17 gm DAILY PO Last administered on 11/25/16 08: 39; Admin Dose 17 GM; Start 11/22/16 at 16:00 Enoxaparin Sodium (Lovenox) 30 mg DAILY SC Last administered on 11/29/16 08:16 ; Admin Dose 30 MG; Start 11/23/16 at 09:00 Spironolactone (Aldactone) 25 mg DAILY PO Last administered on 11/29/16 08:10 ; Admin Dose 25 MG; Start 11/23/16 at 15:30 Potassium Chloride (Potassium Chloride Pwd/Soln) 40 meq DAILY GTB Last administered on 11/29/16 08:10; Admin Dose 40 MEQ; Start 11/25/16 at 09:30 Simethicone (Mylicon) 80 mg TID PRN GTB DISTENSION/GAS/BLOATING; Start at 17:30 Nystatin (Nystatin Susp) 5 ml QID PO Last administered on 11/28/16 20:50; Admin Dose 5 ML; Start 11/25/16 at 18:30 LISS LEDEZMA Nov 29, 2016 18:44
[2016-11-30] VITALS (13 sets, daily range): BP systolic 97–120; BP diastolic 73–94; PULSE 98–112; RESP 16–18
[2016-11-30] MEDS: FUROSEMIDE 40 MG INJ IV SCH ×2 (05:56→18:37)
[2016-11-30] MEDS: traMADol 50 MG TAB PO PRN (06:50)
[2016-11-30 07:55] LABS: CREATININE 0.82 mg/dl (0.44-1.00); POTASSIUM 4.1 mmol/L (3.5-5.1)
[2016-11-30] MEDS: POTASSIUM CHLORIDE 20 MEQ POWDER FOR ORAL SOLN GTB SCH (09:35)
[2016-11-30] MEDS: SPIRONOLACTONE 25 MG TAB PO SCH (09:35)
[2016-11-30] MEDS: POLYETHYLENE GLYCOL 17 GM PACKET PO SCH (09:35)
[2016-11-30] MEDS: NYSTATIN SUSP 5 ML CUP PO SCH ×4 (09:35→21:00)
[2016-11-30] MEDS: BALSAM PERU/CASTOR OIL 60 GM TUBE TOP SCH (09:36)
[2016-11-30] MEDS: ENOXAPARIN 30 MG/0.3 ML SYG SC SCH (09:39)
--- NOTE | 2016-11-30 14:02 | PN ---
Date/Time of Note Date/Time of Note DATE: 11/30/16 TIME: 14:01 Assessment/Plan VTE Prophylaxis VTE Prophylaxis Intervention: LMWH Lines/Catheters IV [facility] Type (from [facility]): Saline Lock Urinary Cath still in place: No Assessment/Plan Chief Complaint/Hosp Course 86 yo female with hypertension with recently diagnosed metastatic melanoma admitted following a fall and concern for lumbar fracture. Now with acute decompensated diasotlic CHF exacerbation Acute diastolic CHF exacerbation: - Approaching euvolemic, can convert to PO diuretics in comings days - Continue ramírez for potassium sparing Pericardial effusion: - Suspect from malignancy. No signs of tamponade. Can repeat TTE Pleural effusions: - Likely from CHF as well, though perhaps malignant as well. Consider thora - Unlikely pneumonia, dc abx Metastatic melanoma: - Management per heme/onc - Has been offered pallaitive chemo but she has a very poor functional status. 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 Hypokalemia: - Induced by diuretics, replete as needed Hold home antihypertensives Protein calorie malnutrition Hypoalbuminemia Prophylaxis: Lovenox Discharge planning: Patient would like to go to a prison facility and family is looking for an appropriate facility Problems: Subjective 24 Hr Interval Summary Constitutional: no complaints Exam/Review of Systems Vital Signs Vitals Vital Signs Date Time Temp Pulse Resp B/P Pulse Ox O2 Delivery O2 Flow Rate FiO2 11/30/16 12:54 102 11/30/16 11:31 97.6 16 97/94 98 11/27/16 08:30 Nasal Cannula 2.0 11/26/16 09:42 21 Intake and Output 11/29/16 11/29/16 11/30/16 15:00 23:00 07:00 Intake Total 1000 ml Balance 1000 ml Exam Constitutional: alert Respiratory: clear to auscultation Cardiovascular: regular rate and rhythm Gastrointestinal: soft, No distended Musculoskeletal: nl extremities to inspection Results Result Diagram: 11/27/16 0607 11/30/16 0627 Results 24 hrs Laboratory Tests Test 11/30/16 06:27 Sodium Level 135 Potassium Level 4.1 Chloride Level 100 Carbon Dioxide Level 28 Anion Gap 11 Blood Urea Nitrogen 22 H Creatinine 0.82 Glucose Level 73 Calcium Level 8.0 L Medications Medications Current Medications Ondansetron HCl (Zofran Inj) 4 mg Q6H PRN IV NAUSEA AND/OR VOMITING; Start 11/17 at 05:00 Acetaminophen (Tylenol Liquid) 650 mg Q6H PRN PO PAIN LEVEL 1-3 OR FEVER Last administered on 11/29/16 12:27; Admin Dose 650 MG; Start 11/17/16 at 05:00 Lorazepam (Ativan) 0.5 mg Q3H PRN IV ANXIETY; Start 11/17/16 at 05:00 Tramadol HCl (Ultram) 50 mg Q6H PRN PO moderate to severe pain Last administered on 11/30/16 06:50; Admin Dose 50 MG; Start 11/17/16 at 05:00 [facility] This patient lopez... PRN PRN XX WOUND CARE; Start 11/18/16 at 15:30 Polyethylene Glycol (Miralax) 17 gm DAILY PO Last administered on 11/30/16 09: 35; Admin Dose 17 GM; Start 11/22/16 at 16:00 Enoxaparin Sodium (Lovenox) 30 mg DAILY SC Last administered on 11/30/16 09:39 ; Admin Dose 30 MG; Start 11/23/16 at 09:00 Spironolactone (Aldactone) 25 mg DAILY PO Last administered on 11/30/16 09:35 ; Admin Dose 25 MG; Start 11/23/16 at 15:30 Potassium Chloride (Potassium Chloride Pwd/Soln) 40 meq DAILY GTB Last administered on 11/30/16 09:35; Admin Dose 40 MEQ; Start 11/25/16 at 09:30 Simethicone (Mylicon) 80 mg TID PRN GTB DISTENSION/GAS/BLOATING; Start at 17:30 Nystatin (Nystatin Susp) 5 ml QID PO Last administered on 11/30/16 09:35; Admin Dose 5 ML; Start 11/25/16 at 18:30 LISS LEDEZMA Nov 30, 2016 14:02
--- NOTE | 2016-11-30 14:34 | RADRPT ---
PROCEDURE: Video swallow examination of the esophagus CLINICAL INDICATION: aspiration TECHNIQUE: Real time video fluoroscopy of the lateral neck was performed. The patient was given b arium in multiple different consistencies by the speech pathologist. Fluoroscopy time: 4.3 minutes COMPARISON: None. FINDINGS: Increased residuals are noted. IMPRESSION: Increased residuals. Please refer to the speech pathology notes for more information and recommendations. RPTAT: KK Physician Lauryn Date Time Electronically viewed and signed by Isac Darby Physician on 11/30/2016 14:34 /
--- NOTE | 2016-11-30 22:02 | CONS ---
Date/Time of Note Date/Time of Note DATE: 11/30/16 TIME: 22:02 Assessment/Plan Assessment/Plan Chief Complaint/Hosp Course Metastatic melanoma, to lung, bones, liver, and lymph nodes PT IS NOT A CANDIDATE FOR IMMUNOTHERAPY CONSIDER CHEMO- IF PS PERMITS Anemia, likely secondary to chronic disease -Monitor H&H closely and transfuse as needed Acute L3 fracture with retropulsion into canal Shock: Likely septic, from UTI -Pressor support as needed -continue antibiotic and IV fluid -Blood culture, urine culture and a chest x-ray -will obtain a 2D echo. Will send additional troponin Hypokalemia: Replete Problems: Consultation Date/Type/Reason Admit Date/Time Nov 17, 2016 at 05:17 Initial Consult Date 11/17/16 Type of Consultation: [facility] Referring Provider: JEAN-PAUL DANGELO MD 24 HR Interval Summary Free Text/Dictation ALL NOTED Exam/Review of Systems Vital Signs Vitals Vital Signs Date Time Temp Pulse Resp B/P Pulse Ox O2 Delivery O2 Flow Rate FiO2 11/30/16 20:01 112 11/30/16 20:00 97.9 18 115/84 96 11/27/16 08:30 Nasal Cannula 2.0 11/26/16 09:42 21 Intake and Output 11/29/16 11/29/16 11/30/16 15:00 23:00 07:00 Intake Total 1000 ml Balance 1000 ml Exam VITAL SIGNS: per chart NECK: Supple. No JVD or lymphadenopathy. CARDIAC EXAM: Radial pulse RRR CHEST: Equal chest rise bilaterally without dyspnea on observation, no audible wheezing ABDOMEN: Soft, nontender. EXTREMITIES: No cyanosis, clubbing or edema. NEUROLOGIC: Generalized weakness. No focal deficits. Results Result Diagram: 11/27/16 0607 11/30/16 0627 Results 24 hrs Laboratory Tests Test 11/30/16 06:27 Sodium Level 135 Potassium Level 4.1 Chloride Level 100 Carbon Dioxide Level 28 Anion Gap 11 Blood Urea Nitrogen 22 H Creatinine 0.82 Glucose Level 73 Calcium Level 8.0 L Medications Medications Current Medications Ondansetron HCl (Zofran Inj) 4 mg Q6H PRN IV NAUSEA AND/OR VOMITING; Start 11/17 at 05:00 Acetaminophen (Tylenol Liquid) 650 mg Q6H PRN PO PAIN LEVEL 1-3 OR FEVER Last administered on 11/29/16t 12:27; Admin Dose 650 MG; Start 11/17/16 at 05:00 Lorazepam (Ativan) 0.5 mg Q3H PRN IV ANXIETY; Start 11/17/16 at 05:00 Tramadol HCl (Ultram) 50 mg Q6H PRN PO moderate to severe pain Last administered on 11/30/16 06:50; Admin Dose 50 MG; Start 11/17/16 at 05:00 Miscellaneous Information (Pending [facility] Order For Wound Care) This patient lopez... PRN PRN XX WOUND CARE; Start 11/18/16 at 15:30 Polyethylene Glycol (Miralax) 17 gm DAILY PO Last administered on 11/30/16 09: 35; Admin Dose 17 GM; Start 11/22/16 at 16:00 Enoxaparin Sodium (Lovenox) 30 mg DAILY SC Last administered on 11/30/16 09:39 ; Admin Dose 30 MG; Start 11/23/16 at 09:00 Spironolactone (Aldactone) 25 mg DAILY PO Last administered on 11/30/16 09:35 ; Admin Dose 25 MG; Start 11/23/16 at 15:30 Potassium Chloride (Potassium Chloride Pwd/Soln) 40 meq DAILY GTB Last administered on 11/30/16 09:35; Admin Dose 40 MEQ; Start 11/25/16 at 09:30 Simethicone (Mylicon) 80 mg TID PRN GTB DISTENSION/GAS/BLOATING; Start at 17:30 Nystatin (Nystatin Susp) 5 ml QID PO Last administered on 11/30/16 18:36; Admin Dose 5 ML; Start 11/25/16 at 18:30 LOUISE SANTOS MD Nov 30, 2016 22:02
[2016-12-01] VITALS (12 sets, daily range): BP systolic 107–135; BP diastolic 64–87; PULSE 83–111; RESP 15–18
[2016-12-01] MEDS: FUROSEMIDE 40 MG INJ IV SCH ×2 (06:23→18:00)
[2016-12-01] MEDS: traMADol 50 MG TAB PO PRN (08:53)
[2016-12-01] MEDS: NYSTATIN SUSP 5 ML CUP PO SCH ×4 (08:54→21:00)
[2016-12-01] MEDS: POTASSIUM CHLORIDE 20 MEQ POWDER FOR ORAL SOLN GTB SCH (08:54)
[2016-12-01] MEDS: SPIRONOLACTONE 25 MG TAB PO SCH (08:54)
[2016-12-01] MEDS: ENOXAPARIN 30 MG/0.3 ML SYG SC SCH (08:56)
[2016-12-01] MEDS: POLYETHYLENE GLYCOL 17 GM PACKET PO SCH (09:00)
[2016-12-01] MEDS: BALSAM PERU/CASTOR OIL 60 GM TUBE TOP SCH (09:00)
--- NOTE | 2016-12-01 16:07 | PN ---
Date/Time of Note Date/Time of Note DATE: 12/01/16 TIME: 16:07 Assessment/Plan VTE Prophylaxis VTE Prophylaxis Intervention: LMWH Lines/Catheters IV [facility] Type (from [facility] Saline Lock Urinary Cath still in place: No Assessment/Plan Chief Complaint/Hosp Course 86 yo female with hypertension with recently diagnosed metastatic melanoma admitted following a fall and concern for lumbar fracture. Now with acute decompensated diasotlic CHF exacerbation Acute diastolic CHF exacerbation: - Approaching euvolemic, can convert to PO diuretics in comings days - Continue ramírez for potassium sparing Pericardial effusion: - Suspect from malignancy. No signs of tamponade. Can repeat TTE Pleural effusions: - Likely from CHF as well, though perhaps malignant as well. Consider thora - Unlikely pneumonia, dc abx Metastatic melanoma: - Management per heme/onc - Has been offered pallaitive chemo but she has a very poor functional status. 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 Hypokalemia: - Induced by diuretics, replete as needed Hold home antihypertensives Protein calorie malnutrition Hypoalbuminemia Prophylaxis: Lovenox Discharge planning: Patient would like to go to a [facility] facility and family is looking for an appropriate facility Problems: Subjective 24 Hr Interval Summary Constitutional: no complaints Exam/Review of Systems Vital Signs Vitals Vital Signs Date Time Temp Pulse Resp B/P Pulse Ox O2 Delivery O2 Flow Rate FiO2 12/01/16 15:34 98.0 99 18 135/87 98 11/27/16 08:30 Nasal Cannula 2.0 Intake and Output 11/30/16 11/30/16 12/01/16 15:00 23:00 07:00 Intake Total 500 ml 300 ml Balance 500 ml 300 ml Exam Constitutional: alert Respiratory: clear to auscultation Cardiovascular: regular rate and rhythm Gastrointestinal: soft, No distended Musculoskeletal: nl extremities to inspection Results Result Diagram: 11/27/16 0607 11/30/16 0627 Medications Medications Current Medications Ondansetron HCl (Zofran Inj) 4 mg Q6H PRN IV NAUSEA AND/OR VOMITING; Start 11/17 at 05:00 Acetaminophen (Tylenol Liquid) 650 mg Q6H PRN PO PAIN LEVEL 1-3 OR FEVER Last administered on 11/29/16t 12:27; Admin Dose 650 MG; Start 11/17/16 at 05:00 Lorazepam (Ativan) 0.5 mg Q3H PRN IV ANXIETY; Start 11/17/16 at 05:00 Tramadol HCl (Ultram) 50 mg Q6H PRN PO moderate to severe pain Last administered on 12/01/16 08:53; Admin Dose 50 MG; Start 11/17/16 at 05:00 [facility] This patient lopez... PRN PRN XX WOUND CARE; Start 11/18/16 at 15:30 Polyethylene Glycol (Miralax) 17 gm DAILY PO Last administered on 11/30/16 09: 35; Admin Dose 17 GM; Start 11/22/16 at 16:00 Enoxaparin Sodium (Lovenox) 30 mg DAILY SC Last administered on 12/01/16 08:56 ; Admin Dose 30 MG; Start 11/23/16 at 09:00 Spironolactone (Aldactone) 25 mg DAILY PO Last administered on 12/01/16 08:54 ; Admin Dose 25 MG; Start 11/23/16 at 15:30 Potassium Chloride (Potassium Chloride Pwd/Soln) 40 meq DAILY GTB Last administered on 12/01/16 08:54; Admin Dose 40 MEQ; Start 11/25/16 at 09:30 Simethicone (Mylicon) 80 mg TID PRN GTB DISTENSION/GAS/BLOATING; Start at 17:30 Nystatin (Nystatin Susp) 5 ml QID PO Last administered on 12/01/16 08:54; Admin Dose 5 ML; Start 11/25/16 at 18:30 LISS LEDEZMA Dec 01, 2016 16:07
--- NOTE | 2016-12-01 22:57 | CONS ---
Date/Time of Note Date/Time of Note DATE: 12/01/16 TIME: 22:57 Assessment/Plan Assessment/Plan Chief Complaint/Hosp Course Metastatic melanoma, to lung, bones, liver, and lymph nodes PT IS NOT A CANDIDATE FOR IMMUNOTHERAPY CONSIDER CHEMO- IF PS PERMITS Anemia, likely secondary to chronic disease Monitor H&H closely and transfuse as needed Acute L3 fracture with retropulsion into canal Shock: Likely septic, from UTI -Pressor support as needed -continue antibiotic and IV fluid -Blood culture, urine culture and a chest x-ray -will obtain a 2D echo. Will send additional troponin Hypokalemia: Replete Problems: Consultation Date/Type/Reason Admit Date/Time Nov 17, 2016 at 05:17 Initial Consult Date 11/17/16 Type of Consultation: [facility] Referring Provider: JEAN-PAUL DANGELO MD 24 HR Interval Summary Free Text/Dictation ALL NOTED Exam/Review of Systems Vital Signs Vitals Vital Signs Date Time Temp Pulse Resp B/P Pulse Ox O2 Delivery O2 Flow Rate FiO2 12/01/16 20:01 104 15 119/82 94 12/01/16 15:34 98.0 11/27/16 08:30 Nasal Cannula 2.0 Intake and Output 11/30/16 11/30/16 12/01/16 15:00 23:00 07:00 Intake Total 500 ml 300 ml Balance 500 ml 300 ml Exam GENERAL: Thin appearing 86 yo M VITAL SIGNS: per chart NECK: Supple. No JVD or lymphadenopathy. CARDIAC EXAM: Radial pulse RRR CHEST: Equal chest rise bilaterally without dyspnea on observation, no audible wheezing ABDOMEN: Soft, nontender. EXTREMITIES: No cyanosis, clubbing or edema. NEUROLOGIC: Generalized weakness. No focal deficits. Results Result Diagram: 11/27/16 0607 11/30/1627 Medications Medications Current Medications Ondansetron HCl (Zofran Inj) 4 mg Q6H PRN IV NAUSEA AND/OR VOMITING; Start 11/17 at 05:00 Acetaminophen (Tylenol Liquid) 650 mg Q6H PRN PO PAIN LEVEL 1-3 OR FEVER Last administered on 11/29/16t 12:27; Admin Dose 650 MG; Start 11/17/16 at 05:00 Lorazepam (Ativan) 0.5 mg Q3H PRN IV ANXIETY; Start 11/17/16 at 05:00 Tramadol HCl (Ultram) 50 mg Q6H PRN PO moderate to severe pain Last administered on 12/01/16 08:53; Admin Dose 50 MG; Start 11/17/16 at 05:00 Miscellaneous Information (Pending [facility]yl Order For Wound Care) This patient lopez... PRN PRN XX WOUND CARE; Start 11/18/16 at 15:30 Polyethylene Glycol (Miralax) 17 gm DAILY PO Last administered on 11/30/16 09: 35; Admin Dose 17 GM; Start 11/22/16 at 16:00 Enoxaparin Sodium (Lovenox) 30 mg DAILY SC Last administered on 12/01/16 08:56 ; Admin Dose 30 MG; Start 11/23/16 at 09:00 Spironolactone (Aldactone) 25 mg DAILY PO Last administered on 12/01/16 08:54 ; Admin Dose 25 MG; Start 11/23/16 at 15:30 Potassium Chloride (Potassium Chloride Pwd/Soln) 40 meq DAILY GTB Last administered on 12/01/16 08:54; Admin Dose 40 MEQ; Start 11/25/16 at 09:30 Simethicone (Mylicon) 80 mg TID PRN GTB DISTENSION/GAS/BLOATING; Start at 17:30 Nystatin (Nystatin Susp) 5 ml QID PO Last administered on 12/01/16 08:54; Admin Dose 5 ML; Start 11/25/16 at 18:30 LOUISE SANTOS MD Dec 01, 2016 22:57
[2016-12-02 03:22] VITALS: BP 108/69; RESP 15
[2016-12-02] MEDS: FUROSEMIDE 40 MG INJ IV SCH ×2 (06:13→18:11)
[2016-12-02] MEDS: POTASSIUM CHLORIDE 20 MEQ POWDER FOR ORAL SOLN GTB SCH (09:22)
[2016-12-02] MEDS: POLYETHYLENE GLYCOL 17 GM PACKET PO SCH (09:22)
[2016-12-02] MEDS: NYSTATIN SUSP 5 ML CUP PO SCH ×4 (09:23→21:00)
[2016-12-02] MEDS: SPIRONOLACTONE 25 MG TAB PO SCH (09:23)
[2016-12-02] MEDS: traMADol 50 MG TAB PO PRN (09:28)
[2016-12-02] MEDS: ENOXAPARIN 30 MG/0.3 ML SYG SC SCH (09:35)
[2016-12-02] MEDS: BALSAM PERU/CASTOR OIL 60 GM TUBE TOP SCH (09:44)
--- NOTE | 2016-12-02 11:30 | PN ---
Date/Time of Note Date/Time of Note DATE: 12/02/16 TIME: 11:29 Assessment/Plan VTE Prophylaxis VTE Prophylaxis Intervention: LMWH Lines/Catheters IV Catheter Type (from Nrs): Saline Lock Urinary Cath still in place: No Assessment/Plan Chief Complaint/Hosp Course 86 yo female with hypertension with recently diagnosed metastatic melanoma admitted following a fall and concern for lumbar fracture. Now with acute decompensated diasotlic CHF exacerbation Acute diastolic CHF exacerbation: - Approaching euvolemic, can convert to PO diuretics in comings days - Continue ramírez for potassium sparing Pericardial effusion: - Suspect from malignancy. No signs of tamponade. Can repeat TTE Pleural effusions: - Likely from CHF as well, though perhaps malignant as well. Consider thora - Unlikely pneumonia, dc abx Metastatic melanoma: - Management per heme/onc - Has been offered pallaitive chemo but she has a very poor functional status. 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 Hypokalemia: - Induced by diuretics, replete as needed Hold home antihypertensives Protein calorie malnutrition Hypoalbuminemia Prophylaxis: Lovenox Discharge planning: Patient would like to go to a senior living facility and family is looking for an appropriate facility Problems: Subjective 24 Hr Interval Summary Constitutional: other (Feels cold) Exam/Review of Systems Vital Signs Vitals Vital Signs Date Time Temp Pulse Resp B/P Pulse Ox O2 Delivery O2 Flow Rate FiO2 12/02/16 03:22 97.7 65 15 108/69 97 Intake and Output 12/01/16 12/01/16 12/02/16 15:00 23:00 07:00 Intake Total 800 ml Balance 800 ml Exam Constitutional: alert, oriented Respiratory: clear to auscultation Cardiovascular: regular rate and rhythm Gastrointestinal: soft, No distended Musculoskeletal: nl extremities to inspection Results Result Diagram: 11/30/16 0627 Medications Medications Current Medications Ondansetron HCl (Zofran Inj) 4 mg Q6H PRN IV NAUSEA AND/OR VOMITING; Start 11/17 at 05:00 Acetaminophen (Tylenol Liquid) 650 mg Q6H PRN PO PAIN LEVEL 1-3 OR FEVER Last administered on 11/29/16t 12:27; Admin Dose 650 MG; Start 11/17/16 at 05:00 Lorazepam (Ativan) 0.5 mg Q3H PRN IV ANXIETY; Start 11/17/16 at 05:00 Tramadol HCl (Ultram) 50 mg Q6H PRN PO moderate to severe pain Last administered on 12/02/16 09:28; Admin Dose 50 MG; Start 11/17/16 at 05:00 Miscellaneous Information (Pending [facility] Order For Wound Care) This patient lopez... PRN PRN XX WOUND CARE; Start 11/18/16 at 15:30 Polyethylene Glycol (Miralax) 17 gm DAILY PO Last administered on 12/02/16 09: 22; Admin Dose 17 GM; Start 11/22/16 at 16:00 Enoxaparin Sodium (Lovenox) 30 mg DAILY SC Last administered on 12/02/16 09:35 ; Admin Dose 30 MG; Start 11/23/16 at 09:00 Spironolactone (Aldactone) 25 mg DAILY PO Last administered on 12/02/16 09:23 ; Admin Dose 25 MG; Start 11/23/16 at 15:30 Potassium Chloride (Potassium Chloride Pwd/Soln) 40 meq DAILY GTB Last administered on 12/02/16 09:22; Admin Dose 40 MEQ; Start 11/25/16 at 09:30 Simethicone (Mylicon) 80 mg TID PRN GTB DISTENSION/GAS/BLOATING; Start at 17:30 Nystatin (Nystatin Susp) 5 ml QID PO Last administered on 12/02/16 09:23; Admin Dose 5 ML; Start 11/25/16 at 18:30 LISS LEDEZMA Dec 02, 2016 11:30
[2016-12-02 15:25] VITALS: BP 119/72; RESP 20
[2016-12-02 19:38] VITALS: BP 122/83; RESP 18
--- NOTE | 2016-12-02 22:10 | CONS ---
Date/Time of Note Date/Time of Note DATE: 12/02/16 TIME: 22:10 Assessment/Plan Assessment/Plan Chief Complaint/Hosp Course Metastatic melanoma, to lung, bones, liver, and lymph nodes PT IS NOT A CANDIDATE FOR IMMUNOTHERAPY CONSIDER CHEMO- IF PS PERMITS Anemia, likely secondary to chronic disease -Monitor H&H closely and transfuse as needed Acute L3 fracture with retropulsion into canal Shock: Likely septic, from UTI -Pressor support as needed -continue antibiotic and IV fluid -Blood culture, urine culture and a chest x-ray -will obtain a 2D echo. Will send additional troponin Hypokalemia: Replete Problems: Consultation Date/Type/Reason Admit Date/Time Nov 17, 2016 at 05:17 Initial Consult Date 11/17/16 Type of Consultation: [facility] Referring Provider: JEAN-PAUL DANGELO MD 24 HR Interval Summary Free Text/Dictation ALL NOTED Exam/Review of Systems Vital Signs Vitals Vital Signs Date Time Temp Pulse Resp B/P Pulse Ox O2 Delivery O2 Flow Rate FiO2 12/02/16 19:38 97.9 104 18 122/83 98 Intake and Output 12/01/16 12/01/16 12/02/16 15:00 23:00 07:00 Intake Total 800 ml Balance 800 ml Exam GENERAL: Thin appearing 86 yo M VITAL SIGNS: per chart NECK: Supple. No JVD or lymphadenopathy. CARDIAC EXAM: Radial pulse RRR CHEST: Equal chest rise bilaterally without dyspnea on observation, no audible wheezing ABDOMEN: Soft, nontender. EXTREMITIES: No cyanosis, clubbing or edema. NEUROLOGIC: Generalized weakness. No focal deficits. Results Result Diagram: 11/30/16 0627 Medications Medications Current Medications Ondansetron HCl (Zofran Inj) 4 mg Q6H PRN IV NAUSEA AND/OR VOMITING; Start 11/17 at 05:00 Acetaminophen (Tylenol Liquid) 650 mg Q6H PRN PO PAIN LEVEL 1-3 OR FEVER Last administered on 11/29/16 12:27; Admin Dose 650 MG; Start 11/17/16 at 05:00 Lorazepam (Ativan) 0.5 mg Q3H PRN IV ANXIETY; Start 11/17/16 at 05:00 Tramadol HCl (Ultram) 50 mg Q6H PRN PO moderate to severe pain Last administered on 12/02/16 09:28; Admin Dose 50 MG; Start 11/17/16 at 05:00 Miscellaneous Information (Pending Santyl Order For Wound Care) This patient lopez... PRN PRN XX WOUND CARE; Start 11/18/16 at 15:30 Polyethylene Glycol (Miralax) 17 gm DAILY PO Last administered on 12/02/16 09: 22; Admin Dose 17 GM; Start 11/22/16 at 16:00 Enoxaparin Sodium (Lovenox) 30 mg DAILY SC Last administered on 12/02/16 09:35 ; Admin Dose 30 MG; Start 11/23/16 at 09:00 Spironolactone (Aldactone) 25 mg DAILY PO Last administered on 12/02/16 09:23 ; Admin Dose 25 MG; Start 11/23/16 at 15:30 Potassium Chloride (Potassium Chloride Pwd/Soln) 40 meq DAILY GTB Last administered on 12/02/16 09:22; Admin Dose 40 MEQ; Start 11/25/16 at 09:30 Simethicone (Mylicon) 80 mg TID PRN GTB DISTENSION/GAS/BLOATING; Start at 17:30 Nystatin (Nystatin Susp) 5 ml QID PO Last administered on 12/02/16 12:16; Admin Dose 5 ML; Start 11/25/16 at 18:30 LOUISE SANTOS MD Dec 02, 2016 22:10
[2016-12-03 01:42] VITALS: BP 109/68; RESP 18
[2016-12-03 05:38] VITALS: BP 111/70; PULSE 93
[2016-12-03] MEDS: FUROSEMIDE 40 MG INJ IV SCH ×2 (05:55→18:00)
[2016-12-03 08:18] VITALS: BP 115/77; RESP 19
[2016-12-03] MEDS: POLYETHYLENE GLYCOL 17 GM PACKET PO SCH (09:00)
[2016-12-03] MEDS: NYSTATIN SUSP 5 ML CUP PO SCH ×4 (09:04→21:00)
[2016-12-03] MEDS: POTASSIUM CHLORIDE 20 MEQ POWDER FOR ORAL SOLN GTB SCH (09:05)
[2016-12-03] MEDS: SPIRONOLACTONE 25 MG TAB PO SCH (09:06)
[2016-12-03] MEDS: ENOXAPARIN 30 MG/0.3 ML SYG SC SCH (09:10)
[2016-12-03] MEDS: BALSAM PERU/CASTOR OIL 60 GM TUBE TOP SCH (09:12)
[2016-12-03] MEDS: traMADol 50 MG TAB PO PRN ×3 (09:18→22:46)
[2016-12-03 14:17] VITALS: BP 126/81; RESP 18
[2016-12-03 17:49] LABS: ADD UMIC YES; UR ASCORBIC ACID NEGATIVE (NEGATIVE); UR BILIRUBIN (Dip) NEGATIVE (NEGATIVE); UR BLOOD (Dip) 1+ mg/dL (NEGATIVE); UR BUDDING YEAST FEW /HPF (NONE SEEN); UR CLARITY CLEAR (CLEAR); UR COLOR YELLOW (YELLOW); UR GLUCOSE (Dip) NEGATIVE (NEGATIVE); UR KETONES (Dip) NEGATIVE (NEGATIVE); UR LEUKOCYTE ESTERASE (Dip) 1+ Leu/ul (NEGATIVE); UR NITRITE (Dip) NEGATIVE (NEGATIVE); UR RBC 0 /HPF (0-5); UR SPECIFIC GRAVITY (Dip) 1.006 (1.003-1.030); UR TOTAL PROTEIN (Dip) NEGATIVE (NEGATIVE); UR UROBILINOGEN (Dip) NEGATIVE (NEGATIVE)
--- NOTE | 2016-12-03 18:39 | PN ---
Date/Time of Note Date/Time of Note DATE: 12/03/16 TIME: 18:38 Assessment/Plan VTE Prophylaxis VTE Prophylaxis Intervention: LMWH Lines/Catheters [facility] Saline Lock Assessment/Plan Chief Complaint/Hosp Course 86 yo female with hypertension with recently diagnosed metastatic melanoma admitted following a fall and concern for lumbar fracture. Now with acute decompensated diasotlic CHF exacerbation Acute diastolic CHF exacerbation: - Approaching euvolemic, can convert to PO diuretics in comings days - Continue ramírez for potassium sparing Pericardial effusion: - Suspect from malignancy. No signs of tamponade. Can repeat TTE Pleural effusions: - Likely from CHF as well, though perhaps malignant as well. Consider thora - Unlikely pneumonia, dc abx Metastatic melanoma: - Management per heme/onc - Has been offered pallaitive chemo but she has a very poor functional status. 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 Hypokalemia: - Induced by diuretics, replete as needed Hold home antihypertensives Protein calorie malnutrition Hypoalbuminemia Prophylaxis: Lovenox Discharge planning: Patient would like to go to a assisted facility and family is looking for an appropriate facility Problems: Subjective 24 Hr Interval Summary Constitutional: no complaints Exam/Review of Systems Vital Signs Vitals Vital Signs Date Time Temp Pulse Resp B/P Pulse Ox O2 Delivery O2 Flow Rate FiO2 12/03/16 14:17 97.7 96 18 126/81 96 12/03/16 05:38 Room Air Intake and Output 12/02/16 12/02/16 12/03/16 15:00 23:00 07:00 Intake Total 400 ml Balance 400 ml Exam Constitutional: alert Respiratory: clear to auscultation Cardiovascular: regular rate and rhythm Gastrointestinal: soft, No distended Musculoskeletal: nl extremities to inspection Results Result Diagram: 11/30/16 0627 Results 24 hrs Laboratory Tests Test 12/03/16 16:20 Urine Color YELLOW Urine Clarity CLEAR Urine pH 6.0 Urine Specific [place] 1.006 Urine Ketones NEGATIVE Urine Nitrite NEGATIVE Urine Bilirubin NEGATIVE Urine Urobilinogen NEGATIVE Urine Leukocyte Esterase 1+ H Urine Microscopic RBC 0 Urine Microscopic WBC 5 Urine Yeast (Budding) FEW A Urine Hemoglobin 1+ H Urine Glucose NEGATIVE Urine Total Protein NEGATIVE Medications Medications Current Medications Ondansetron HCl (Zofran Inj) 4 mg Q6H PRN IV NAUSEA AND/OR VOMITING; Start 11/17 at 05:00 Acetaminophen (Tylenol Liquid) 650 mg Q6H PRN PO PAIN LEVEL 1-3 OR FEVER Last administered on 11/29/16 12:27; Admin Dose 650 MG; Start 11/17/16 at 05:00 Lorazepam (Ativan) 0.5 mg Q3H PRN IV ANXIETY; Start 11/17/16 at 05:00 Tramadol HCl (Ultram) 50 mg Q6H PRN PO moderate to severe pain Last administered on 12/03/16 17:08; Admin Dose 50 MG; Start 11/17/16 at 05:00 Miscellaneous Information (Pending [facility] Order For Wound Care) This patient lopez... PRN PRN XX WOUND CARE; Start 11/18/16 at 15:30 Polyethylene Glycol (Miralax) 17 gm DAILY PO Last administered on 12/02/16 09: 22; Admin Dose 17 GM; Start 11/22/16 at 16:00 Enoxaparin Sodium (Lovenox) 30 mg DAILY SC Last administered on 12/03/16 09:10 ; Admin Dose 30 MG; Start 11/23/16 at 09:00 Spironolactone (Aldactone) 25 mg DAILY PO Last administered on 12/03/16 09:06 ; Admin Dose 25 MG; Start 11/23/16 at 15:30 Potassium Chloride (Potassium Chloride Pwd/Soln) 40 meq DAILY GTB Last administered on 12/03/16 09:05; Admin Dose 40 MEQ; Start 11/25/16 at 09:30 Simethicone (Mylicon) 80 mg TID PRN GTB DISTENSION/GAS/BLOATING; Start at 17:30 Nystatin (Nystatin Susp) 5 ml QID PO Last administered on 12/03/16 09:04; Admin Dose 5 ML; Start 11/25/16 at 18:30 LISS LEDEZMA Dec 03, 2016 18:39
[2016-12-03 20:24] VITALS: BP 103/72; RESP 18
--- NOTE | 2016-12-03 21:49 | CONS ---
Date/Time of Note Date/Time of Note DATE: 12/03/16 TIME: 21:48 Assessment/Plan Assessment/Plan Chief Complaint/Hosp Course Metastatic melanoma, to lung, bones, liver, and lymph nodes PT IS NOT A CANDIDATE FOR IMMUNOTHERAPY CONSIDER CHEMO- IF PS PERMITS Anemia, likely secondary to chronic disease -Monitor H&H closely and transfuse as needed Acute L3 fracture with retropulsion into canal Shock: Likely septic, from UTI -Pressor support as needed -continue antibiotic and IV fluid -Blood culture, urine culture and a chest x-ray -will obtain a 2D echo. Will send additional troponin Hypokalemia: Replete Problems: Consultation Date/Type/Reason Admit Date/Time Nov 17, 2016 at 05:17 Initial Consult Date 11/17/16 Type of Consultation: [facility] Referring Provider: JEAN-PAUL DANGELO MD 24 HR Interval Summary Free Text/Dictation ALL NOTED D/W NOHELIA Exam/Review of Systems Vital Signs Vitals Vital Signs Date Time Temp Pulse Resp B/P Pulse Ox O2 Delivery O2 Flow Rate FiO2 12/03/16 20:24 97.5 103 18 103/72 96 12/03/16 05:38 Room Air Intake and Output 12/02/16 12/02/16 12/03/16 15:00 23:00 07:00 Intake Total 400 ml Balance 400 ml Exam GENERAL: Thin appearing 86 yo M VITAL SIGNS: per chart NECK: Supple. No JVD or lymphadenopathy. CARDIAC EXAM: Radial pulse RRR CHEST: Equal chest rise bilaterally without dyspnea on observation, no audible wheezing ABDOMEN: Soft, nontender. EXTREMITIES: No cyanosis, clubbing or edema. NEUROLOGIC: Generalized weakness. No focal deficits. Results Result Diagram: 11/30/16 0627 Results 24 hrs Laboratory Tests Test 12/03/16 16:20 Urine Color YELLOW Urine Clarity CLEAR Urine pH 6.0 Urine Specific [place] 1.006 Urine Ketones NEGATIVE Urine Nitrite NEGATIVE Urine Bilirubin NEGATIVE Urine Urobilinogen NEGATIVE Urine Leukocyte Esterase 1+ H Urine Microscopic RBC 0 Urine Microscopic WBC 5 Urine Yeast (Budding) FEW A Urine Hemoglobin 1+ H Urine Glucose NEGATIVE Urine Total Protein NEGATIVE Medications Medications Current Medications Ondansetron HCl (Zofran Inj) 4 mg Q6H PRN IV NAUSEA AND/OR VOMITING; Start 11/17 at 05:00 Acetaminophen (Tylenol Liquid) 650 mg Q6H PRN PO PAIN LEVEL 1-3 OR FEVER Last administered on 11/29/16 12:27; Admin Dose 650 MG; Start 11/17/16 at 05:00 Lorazepam (Ativan) 0.5 mg Q3H PRN IV ANXIETY; Start 11/17/16 at 05:00 Tramadol HCl (Ultram) 50 mg Q6H PRN PO moderate to severe pain Last administered on 12/03/16 17:08; Admin Dose 50 MG; Start 11/17/16 at 05:00 Miscellaneous Information (Pending [facility]yl Order For Wound Care) This patient lopez... PRN PRN XX WOUND CARE; Start 11/18/16 at 15:30 Polyethylene Glycol (Miralax) 17 gm DAILY PO Last administered on 12/02/16 09: 22; Admin Dose 17 GM; Start 11/22/16 at 16:00 Enoxaparin Sodium (Lovenox) 30 mg DAILY SC Last administered on 12/03/16 09:10 ; Admin Dose 30 MG; Start 11/23/16 at 09:00 Spironolactone (Aldactone) 25 mg DAILY PO Last administered on 12/03/16 09:06 ; Admin Dose 25 MG; Start 11/23/16 at 15:30 Potassium Chloride (Potassium Chloride Pwd/Soln) 40 meq DAILY GTB Last administered on 12/03/16 09:05; Admin Dose 40 MEQ; Start 11/25/16 at 09:30 Simethicone (Mylicon) 80 mg TID PRN GTB DISTENSION/GAS/BLOATING; Start at 17:30 Nystatin (Nystatin Susp) 5 ml QID PO Last administered on 12/03/16 09:04; Admin Dose 5 ML; Start 11/25/16 at 18:30 LOUISE SANTOS MD Dec 03, 2016 21:49
[2016-12-03 22:48] VITALS: BP 111/74; PULSE 109
[2016-12-04 02:24] VITALS: BP 99/66; RESP 20
[2016-12-04 05:24] VITALS: BP 93/56; PULSE 99
[2016-12-04] MEDS: FUROSEMIDE 40 MG INJ IV SCH (05:25)
[2016-12-04 07:29] VITALS: BP 111/62; RESP 20
[2016-12-04] MEDS: NYSTATIN SUSP 5 ML CUP PO SCH ×2 (08:02→13:28)
[2016-12-04] MEDS: POLYETHYLENE GLYCOL 17 GM PACKET PO SCH (08:03)
[2016-12-04] MEDS: POTASSIUM CHLORIDE 20 MEQ POWDER FOR ORAL SOLN GTB SCH (08:03)
[2016-12-04] MEDS: SPIRONOLACTONE 25 MG TAB PO SCH (08:03)
[2016-12-04] MEDS: ENOXAPARIN 30 MG/0.3 ML SYG SC SCH (08:08)
[2016-12-04] MEDS: BALSAM PERU/CASTOR OIL 60 GM TUBE TOP SCH ×2 (08:12→22:49)
[2016-12-04 13:19] VITALS: BP 117/68; RESP 20
--- NOTE | 2016-12-04 14:19 | PN ---
Date/Time of Note Date/Time of Note DATE: 12/04/16 TIME: 14:16 Assessment/Plan VTE Prophylaxis VTE Prophylaxis Intervention: LMWH Lines/Catheters IV Catheter Type (from Nrs): Saline Lock Urinary Cath still in place: Yes Reason Cath still needed: skin wounds contaminated by urine Assessment/Plan Chief Complaint/Hosp Course 86 yo female with hypertension, HFpEF, osteoporosis, protein calorie malnutrition with recently diagnosed metastatic melanoma admitted following a fall and concern for lumbar fracture. Now with acute decompenstated diasotlic CHF exacerbation Acute diastolic CHF exacerbation: - Approaching euvolemic, convert to PO lasix 40 tomorrow - Continue ramírez for potassium sparing Metastatic melanoma: - Management per heme/onc - Has been offered pallaitive chemo but she has a very poor functional status. Hospice may be a better option Osteoporotic vertebral fracture: - Clear by neurosurgery Hypokalemia: - Induced by diuretics, replete as needed Hypertension: - Hold home antihypertensives Candidal thrush: - s/p nystatin swich and swallow Severe protein calorie malnutrition - 2/2 dysphagia, Encourage PO as able Hypoalbuminemia Full code for now - needs palliative care Problems: Subjective 24 Hr Interval Summary Free Text/Dictation Patient without change to symptoms Edema markedly improved, about to euvolemia Still wtih baseline dysphagia Exam/Review of Systems Vital Signs Vitals Vital Signs Date Time Temp Pulse Resp B/P Pulse Ox O2 Delivery O2 Flow Rate FiO2 12/04/16 13:19 97.7 102 20 117/68 97 12/03/16 22:48 Room Air Intake and Output 12/03/16 12/03/16 12/04/16 15:00 23:00 07:00 Intake Total 490 ml 340 ml Output Total 900 ml 1300 ml Balance -410 ml -960 ml Exam Elderly female resting comfortabyl Cachectic, frail apperance Temporal wasting JVP about normal Peripheral edema in legs resolved Abdomen soft nt nd Constitutional: alert, oriented Psych: no complaints Results Result Diagram: 11/30/16 0627 Results 24 hrs Laboratory Tests Test 12/03/16 16:20 Urine Color YELLOW Urine Clarity CLEAR Urine pH 6.0 Urine Specific [place] 1.006 Urine Ketones NEGATIVE Urine Nitrite NEGATIVE Urine Bilirubin NEGATIVE Urine Urobilinogen NEGATIVE Urine Leukocyte Esterase 1+ H Urine Microscopic RBC 0 Urine Microscopic WBC 5 Urine Yeast (Budding) FEW A Urine Hemoglobin 1+ H Urine Glucose NEGATIVE Urine Total Protein NEGATIVE Medications Medications Current Medications Ondansetron HCl (Zofran Inj) 4 mg Q6H PRN IV NAUSEA AND/OR VOMITING; Start 11/17 at 05:00 Acetaminophen (Tylenol Liquid) 650 mg Q6H PRN PO PAIN LEVEL 1-3 OR FEVER Last administered on 11/29/16 12:27; Admin Dose 650 MG; Start 11/17/16 at 05:00 Lorazepam (Ativan) 0.5 mg Q3H PRN IV ANXIETY; Start 11/17/16 at 05:00 Tramadol HCl (Ultram) 50 mg Q6H PRN PO moderate to severe pain Last administered on 12/03/16 22:46; Admin Dose 50 MG; Start 11/17/16 at 05:00 Miscellaneous Information (Pending [facility]yl Order For Wound Care) This patient lopez... PRN PRN XX WOUND CARE; Start 11/18/16 at 15:30 Polyethylene Glycol (Miralax) 17 gm DAILY PO Last administered on 12/02/16 09: 22; Admin Dose 17 GM; Start 11/22/16 at 16:00 Enoxaparin Sodium (Lovenox) 30 mg DAILY SC Last administered on 12/04/16 08:08 ; Admin Dose 30 MG; Start 11/23/16 at 09:00 Spironolactone (Aldactone) 25 mg DAILY PO Last administered on 12/04/16 08:03 ; Admin Dose 25 MG; Start 11/23/16 at 15:30 Potassium Chloride (Potassium Chloride Pwd/Soln) 40 meq DAILY GTB Last administered on 12/04/16 08:03; Admin Dose 40 MEQ; Start 11/25/16 at 09:30 Simethicone (Mylicon) 80 mg TID PRN GTB DISTENSION/GAS/BLOATING; Start at 17:30 Furosemide (Lasix) 40 mg DAILY PO ; Start 12/05/16 at 09:00 ARNAUD AGUILAR MD Dec 04, 2016 14:19
[2016-12-04 19:40] VITALS: BP 109/64; RESP 18
--- NOTE | 2016-12-04 23:29 | CONS ---
Date/Time of Note Date/Time of Note DATE: 12/04/16 TIME: 23:29 Assessment/Plan Assessment/Plan Chief Complaint/Hosp Course Metastatic melanoma, to lung, bones, liver, and lymph nodes PT IS NOT A CANDIDATE FOR IMMUNOTHERAPY CONSIDER CHEMO- IF PS PERMITS Anemia, likely secondary to chronic disease -Monitor H&H closely and transfuse as needed Acute L3 fracture with retropulsion into canal Shock: Likely septic, from UTI -Pressor support as needed -continue antibiotic and IV fluid -Blood culture, urine culture and a chest x-ray -will obtain a 2D echo. Will send additional troponin Hypokalemia: Replete Problems: Consultation Date/Type/Reason Admit Date/Time Nov 17, 2016 at 05:17 Initial Consult Date 11/17/16 [facility] Referring Provider: JEAN-PAUL DANGELO MD 24 HR Interval Summary Free Text/Dictation ALL NOTED WEAK Exam/Review of Systems Vital Signs Vitals Vital Signs Date Time Temp Pulse Resp B/P Pulse Ox O2 Delivery O2 Flow Rate FiO2 12/04/16 19:40 97.9 93 18 109/64 97 12/03/16 22:48 Room Air Intake and Output 12/03/16 12/03/16 12/04/16 15:00 23:00 07:00 Intake Total 490 ml 340 ml Output Total 900 ml 1300 ml Balance -410 ml -960 ml Exam GENERAL: Thin appearing 86 yo M VITAL SIGNS: per chart NECK: Supple. No JVD or lymphadenopathy. CARDIAC EXAM: Radial pulse RRR CHEST: Equal chest rise bilaterally without dyspnea on observation, no audible wheezing ABDOMEN: Soft, nontender. EXTREMITIES: No cyanosis, clubbing or edema. NEUROLOGIC: Generalized weakness. No focal deficits. Results Result Diagram: 11/30/16 0627 Medications Medications Current Medications Ondansetron HCl (Zofran Inj) 4 mg Q6H PRN IV NAUSEA AND/OR VOMITING; Start 11/17 at 05:00 Acetaminophen (Tylenol Liquid) 650 mg Q6H PRN PO PAIN LEVEL 1-3 OR FEVER Last administered on 11/29/16t 12:27; Admin Dose 650 MG; Start 11/17/16 at 05:00 Lorazepam (Ativan) 0.5 mg Q3H PRN IV ANXIETY; Start 11/17/16 at 05:00 Tramadol HCl (Ultram) 50 mg Q6H PRN PO moderate to severe pain Last administered on 12/03/16 22:46; Admin Dose 50 MG; Start 11/17/16 at 05:00 Miscellaneous Information (Pending [facility] Order For Wound Care) This patient lopez... PRN PRN XX WOUND CARE; Start 11/18/16 at 15:30 Polyethylene Glycol (Miralax) 17 gm DAILY PO Last administered on 12/02/16 09: 22; Admin Dose 17 GM; Start 11/22/16 at 16:00 Enoxaparin Sodium (Lovenox) 30 mg DAILY SC Last administered on 12/04/16 08:08 ; Admin Dose 30 MG; Start 11/23/16 at 09:00 Spironolactone (Aldactone) 25 mg DAILY PO Last administered on 12/04/16 08:03 ; Admin Dose 25 MG; Start 11/23/16 at 15:30 Potassium Chloride (Potassium Chloride Pwd/Soln) 40 meq DAILY GTB Last administered on 12/04/16 08:03; Admin Dose 40 MEQ; Start 11/25/16 at 09:30 Simethicone (Mylicon) 80 mg TID PRN GTB DISTENSION/GAS/BLOATING; Start at 17:30 Furosemide (Lasix) 40 mg DAILY PO ; Start 12/05/16 at 09:00 LOUISE SANTOS MD Dec 04, 2016 23:29
[2016-12-05 02:00] VITALS: BP 112/68; RESP 20
[2016-12-05 08:19] VITALS: BP 110/71; RESP 18
[2016-12-05] MEDS: BALSAM PERU/CASTOR OIL 60 GM TUBE TOP SCH (09:00)
[2016-12-05] MEDS: POLYETHYLENE GLYCOL 17 GM PACKET PO SCH (09:00)
[2016-12-05] MEDS: POTASSIUM CHLORIDE 20 MEQ POWDER FOR ORAL SOLN GTB SCH (09:47)
[2016-12-05] MEDS: SPIRONOLACTONE 25 MG TAB PO SCH (09:49)
[2016-12-05] MEDS: FUROSEMIDE 40 MG TAB PO SCH (09:49)
[2016-12-05] MEDS: ENOXAPARIN 30 MG/0.3 ML SYG SC SCH (09:50)
[2016-12-05 10:23] LABS: WHITE BLOOD COUNT 5.4 10^3/ul (4.8-10.8)
[2016-12-05 10:24] LABS: ABNORMAL IP MESSAGE 1; BASOPHILS % 0.4 % (0.0-2.0); EOSINOPHILS # 0.1 10^3/ul (0.0-0.5); EOSINOPHILS % 0.9 % (0.0-7.0); HEMATOCRIT 34.6 % (37.0-47.0); HEMOGLOBIN 11.6 g/dl (12.0-16.0); LYMPHOCYTES # 0.7 10^3/ul (0.8-2.9); LYMPHOCYTES % 12.5 % (15.0-51.0); MEAN CORPUSCULAR HEMOGLOBIN 29.7 pg (29.0-33.0); MEAN CORPUSCULAR HGB CONC 33.5 g/dl (32.0-37.0); MEAN CORPUSCULAR VOLUME 88.7 fl (82.0-101.0); MEAN PLATELET VOLUME 10.4 fl (7.4-10.4); MONOCYTE # 0.6 10^3/ul (0.3-0.9); MONOCYTES % 10.5 % (0.0-11.0); NEUTROPHILS % 75.1 % (39.0-77.0); PLATELET COUNT 251 10^3/UL (140-415)
[2016-12-05 10:25] LABS: POSITIVE DIFF @See below
[2016-12-05 10:47] LABS: ALBUMIN 2.2 g/dl (3.3-4.9); ALBUMIN/GLOBULIN RATIO 0.7; BILIRUBIN,INDIRECT 0.3 mg/dl (0-1.1); BILIRUBIN,TOTAL 0.3 mg/dl (0.2-1.3); CALCIUM 7.9 mg/dl (8.4-10.2); CREATININE 0.78 mg/dl (0.44-1.00); TOTAL PROTEIN 5.3 g/dl (6.1-8.1)
--- NOTE | 2016-12-05 13:38 | PN ---
Date/Time of Note Date/Time of Note DATE: 12/05/16 TIME: 13:36 Assessment/Plan VTE Prophylaxis VTE Prophylaxis Intervention: LMWH Lines/Catheters IV Catheter Type (from Nrsg): Saline Lock Urinary Cath still in place: Yes Reason Cath still needed: urinary retention, terminal illness/intractable pain Assessment/Plan Chief Complaint/Hosp Course 86 yo female with hypertension, HFpEF, osteoporosis, severe protein calorie malnutrition with recently diagnosed metastatic melanoma admitted following a fall and concern for lumbar fracture. Found with acute decompenstated diasotlic CHF exacerbation Acute diastolic CHF exacerbation: - Fairly euvolmic. Continue PO lasix 40 - Continue ramírez for potassium sparing Metastatic melanoma: - Management per heme/onc - Has been offered pallaitive chemo but she has a very poor functional status. Hospice may be a better option Osteoporotic vertebral fracture: - Clear by neurosurgery Dypshagia: Concern for cricopharyngeal bar Severe protein calorie malnutrition - 2/2 dysphagia, Encourage PO as able Hypoalbuminemia Full code for now - needs palliative care Problems: Subjective 24 Hr Interval Summary Free Text/Dictation No new complaints I have consulted ENT regarding [facility] findings Exam/Review of Systems Vital Signs Vitals Vital Signs Date Time Temp Pulse Resp B/P Pulse Ox O2 Delivery O2 Flow Rate FiO2 12/05/16 08:19 97.3 95 18 110/71 100 12/03/16 22:48 Room Air Intake and Output 12/04/16 12/04/16 12/05/16 15:00 23:00 07:00 Intake Total 1080 ml 280 ml Output Total 550 ml 400 ml Balance 530 ml -120 ml Exam Elderly, frail appearing No distress Comfortable Mild edema in legs, markedly improved Results Result Diagram: 12/05/1652 12/05/16 0952 Results 24 hrs Laboratory Tests Test 12/05/16 09:52 White Blood Count 5.4 # Red Blood Count 3.90 L Hemoglobin 11.6 L Hematocrit 34.6 L Mean Corpuscular Volume 88.7 Mean Corpuscular Hemoglobin 29.7 Mean Corpuscular Hemoglobin Concent 33.5 Red Cell Distribution Width Platelet Count 251 Mean Platelet Volume 10.4 Neutrophils % 75.1 Lymphocytes % 12.5 L Monocytes % 10.5 Eosinophils % 0.9 Basophils % 0.4 Nucleated Red Blood Cells % 0.0 Neutrophils # (Manual) 4 Lymphocytes # 0.7 L Monocytes # 0.6 Eosinophils # 0.1 Basophils # 0.0 Nucleated Red Blood Cells # 0.0 Sodium Level 132 L Potassium Level 4.0 Chloride Level 89 L Carbon Dioxide Level 33 H Anion Gap 14 Blood Urea Nitrogen 22 H Creatinine 0.78 Glucose Level 96 Calcium Level 7.9 L Total Bilirubin 0.3 Direct Bilirubin 0.00 Indirect Bilirubin 0.3 Aspartate Amino Transf (AST/SGOT) 26 Alanine Aminotransferase (ALT/SGPT) 28 Alkaline Phosphatase 165 H Total Protein 5.3 L Albumin 2.2 L Globulin 3.10 Albumin/Globulin Ratio 0.70 Medications Medications Current Medications Ondansetron HCl (Zofran Inj) 4 mg Q6H PRN IV NAUSEA AND/OR VOMITING; Start 11/17 at 05:00 Acetaminophen (Tylenol Liquid) 650 mg Q6H PRN PO PAIN LEVEL 1-3 OR FEVER Last administered on 11/29/16 12:27; Admin Dose 650 MG; Start 11/17/16 at 05:00 Lorazepam (Ativan) 0.5 mg Q3H PRN IV ANXIETY; Start 11/17/16 at 05:00 Tramadol HCl (Ultram) 50 mg Q6H PRN PO moderate to severe pain Last administered on 12/03/16 22:46; Admin Dose 50 MG; Start 11/17/16 at 05:00 Miscellaneous Information (Pending [facility] Order For Wound Care) This patient lopez... PRN PRN XX WOUND CARE; Start 11/18/16 at 15:30 Polyethylene Glycol (Miralax) 17 gm DAILY PO Last administered on 12/02/16 09: 22; Admin Dose 17 GM; Start 11/22/16 at 16:00 Enoxaparin Sodium (Lovenox) 30 mg DAILY SC Last administered on 12/05/16 09:50 ; Admin Dose 30 MG; Start 11/23/16 at 09:00 Spironolactone (Aldactone) 25 mg DAILY PO Last administered on 12/05/16 09:49 ; Admin Dose 25 MG; Start 11/23/16 at 15:30 Potassium Chloride (Potassium Chloride Pwd/Soln) 40 meq DAILY GTB Last administered on 12/05/16 09:47; Admin Dose 40 MEQ; Start 11/25/16 at 09:30 Simethicone (Mylicon) 80 mg TID PRN GTB DISTENSION/GAS/BLOATING; Start at 17:30 Furosemide (Lasix) 40 mg DAILY PO Last administered on 12/05/16t 09:49; Admin Dose 40 MG; Start 12/05/16 at 09:00 ARNAUD AGUILAR MD Dec 05, 2016 13:38
[2016-12-05 14:00] VITALS: BP 105/69; RESP 16
--- NOTE | 2016-12-05 20:16 | CONS ---
Date/Time of Note Date/Time of Note DATE: 12/05/16 TIME: 20:08 Consultation Date/Type/Reason Admit Date/Time Nov 17, 2016 at 05:17 Date of Consultation: Dec 05, 2016 Type of Consultation: GI Reason for Consultation Dysphagia Hx of Present Illness Assessment: * Dysphagia/cricopharyngeal spasm-bar * Malnutrition, multifactorial * Metastatic melanoma * Diastolic CHF Plan: * EGD tomorrow. Patient informed risks, benefits and alternatives. Agreeable to proceed CHIEF COMPLAINT (H&P) OR REASON FOR CONSULTATION (CONS): Dysphagia HISTORY OF PRESENT ILLNESS 86-year-old female hospitalized with decompensated CHF now improved. The patient has metastatic melanoma and is been judged to be very poor candidate for chemotherapy. Patient also has significant malnutrition and reports increasing problems with dysphagia. Evaluation including video esophagram suggest the possibility of cricopharyngeal bar or cricopharyngeal spasm. The patient reports her difficulty swallowing is mostly with solids and has resulted in significant weight loss. REVIEW OF SYSTEMS: [] GASTROINTESTINAL AND LIVER: Positive for dysphagia. Negative for: Anorexia, pyrosis, regurgitation, nausea, vomiting, early satiety, bloating, abdominal pain, food intolerance, diarrhea, constipation, change in Bowel Habits, laxative use, hematemesis, melena, hematochezia, anorectal symptoms, incontinence, jaundice. GENERAL AND CONSTITUTIONAL: Positive for weight loss. Negative for: Weakness, tiredness, fever, chills, weight gain, skin lesions. New mass, adenopathy. HEENT: Negative for: Headaches, vision changes, icterus, hearing loss, dizziness , vertigo, earache, sore throat. CARDIOVASCULAR: Positive for shortness of breath. Negative for: Chest pain, VO , orthopnea, palpitations, lightheadedness, edemas, claudication. RESPIRATORY: Negative for: SOB, cough, sputum production, hemoptysis, pleuritic chest pain, wheezing. GENITOURINARY: Negative for: Dysuria, hematuria, flank pain, urgency, nocturia, polyuria. MUSCULO-SKELETAL: Negative for: Bone pain, arthralgias, deformity, myalgias. HEMATOLOGIC-LYMPHATIC: Negative for: Echymosis, petechia, excessive bleeding, adenopathy, new mass. NEURO-PSYCHIATRIC: Negative for: Syncope, seizures, focal weakness, numbness, depression, anxiety, insomnia, hallucinations, delusions. GYNECOLOGICAL: Negative for: Menorrhagia, irregular menses, dysmenorrheal, dyspareunia PAST MEDICAL HISTORY: Metastatic melanoma Congestive heart failure Malnutrition SURGICAL: Melanoma resection TRANSFUSIONS: None TATOOS: None HABITS: [] SMOKING: Negative ALCOHOL: Negative DRUGS: Negative MEDICATION HISTORY: ALLERGIES: No known allergies CURRENT MEDICATIONS: As noted in the chart FAMILY HISTORY: Negative for gastrointestinal neoplasm, non contributory PHYSICAL EXAMINATION: GENERAL: Well developed, under nourished, alert & oriented x 3, in no acute distress SKIN: No lesions, no stigmata chronic liver disease, no evidence of bleeding diathesis LYMPHATIC: No palpable lymphadenopathy. HEAD: Normocephalic, atraumatic, no tenderness. EYES: Pupils equal reactive to light and accommodation, full extraocular movements, sclera clear, non-icteric, no discharge. EARS/NOSE AND THROAT: Ears normal, nose normal, oropharynx normal, oral membranes well hydrated without lesions. NECK: Supple, no masses, thyroid normal, JVP within normal limits, carotids normal without bruits. CHEST: Inspection within normal limits, breasts grossly normal. CARDIOVASCULAR: Heart: Regular rate and rhythm, soft systolic murmurs, gallops or rubs. Peripheral pulses present within normal limits, no cyanosis, clubbing or edemas. No pulsatile abdominal mass RESPIRATORY: Lungs clear to auscultation and percussion, no wheezing, no rubs GASTROINTESTINAL AND LIVER: Abdomen: Soft, non tender, non-distended, no hernias , no masses, no organomegaly, no ascites, no guarding, no rebound tenderness, normoactive bowel sounds. Rectal: Deferred TANNA Briceño's office Fax copy to Attn Medical Records Musculoskeletal: back pain Exam/Review of Systems Vital Signs Vitals Vital Signs Date Time Temp Pulse Resp B/P Pulse Ox O2 Delivery O2 Flow Rate FiO2 12/05/16 14:00 97.6 54 16 105/69 100 12/03/16 22:48 Room Air Intake and Output 12/04/16 12/04/16 12/05/16 15:00 23:00 07:00 Intake Total 1080 ml 280 ml Output Total 550 ml 400 ml Balance 530 ml -120 ml Results Result Diagram: 12/05/16 0952 12/05/16 0952 Results 24 hrs Laboratory Tests Test 12/05/16 09:52 White Blood Count 5.4 # Red Blood Count 3.90 L Hemoglobin 11.6 L Hematocrit 34.6 L Mean Corpuscular Volume 88.7 Mean Corpuscular Hemoglobin 29.7 Mean Corpuscular Hemoglobin Concent 33.5 Red Cell Distribution Width Platelet Count 251 Mean Platelet Volume 10.4 Neutrophils % 75.1 Lymphocytes % 12.5 L Monocytes % 10.5 Eosinophils % 0.9 Basophils % 0.4 Nucleated Red Blood Cells % 0.0 Neutrophils # (Manual) 4 Lymphocytes # 0.7 L Monocytes # 0.6 Eosinophils # 0.1 Basophils # 0.0 Nucleated Red Blood Cells # 0.0 Sodium Level 132 L Potassium Level 4.0 Chloride Level 89 L Carbon Dioxide Level 33 H Anion Gap 14 Blood Urea Nitrogen 22 H Creatinine 0.78 Glucose Level 96 Calcium Level 7.9 L Total Bilirubin 0.3 Direct Bilirubin 0.00 Indirect Bilirubin 0.3 Aspartate Amino Transf (AST/SGOT) 26 Alanine Aminotransferase (ALT/SGPT) 28 Alkaline Phosphatase 165 H Total Protein 5.3 L Albumin 2.2 L Globulin 3.10 Albumin/Globulin Ratio 0.70 Medications Medications Current Medications Ondansetron HCl (Zofran Inj) 4 mg Q6H PRN IV NAUSEA AND/OR VOMITING; Start 11/17 at 05:00 Acetaminophen (Tylenol Liquid) 650 mg Q6H PRN PO PAIN LEVEL 1-3 OR FEVER Last administered on 11/29/16 12:27; Admin Dose 650 MG; Start 11/17/16 at 05:00 Lorazepam (Ativan) 0.5 mg Q3H PRN IV ANXIETY; Start 11/17/16 at 05:00 Tramadol HCl (Ultram) 50 mg Q6H PRN PO moderate to severe pain Last administered on 12/03/16 22:46; Admin Dose 50 MG; Start 11/17/16 at 05:00 Miscellaneous Information (Pending [facility] Order For Wound Care) This patient lopez... PRN PRN XX WOUND CARE; Start 11/18/16 at 15:30 Polyethylene Glycol (Miralax) 17 gm DAILY PO Last administered on 12/02/16 09: 22; Admin Dose 17 GM; Start 11/22/16 at 16:00 Enoxaparin Sodium (Lovenox) 30 mg DAILY SC Last administered on 12/05/16 09:50 ; Admin Dose 30 MG; Start 11/23/16 at 09:00 Spironolactone (Aldactone) 25 mg DAILY PO Last administered on 12/05/16 09:49 ; Admin Dose 25 MG; Start 11/23/16 at 15:30 Potassium Chloride (Potassium Chloride Pwd/Soln) 40 meq DAILY GTB Last administered on 12/05/16 09:47; Admin Dose 40 MEQ; Start 11/25/16 at 09:30 Simethicone (Mylicon) 80 mg TID PRN GTB DISTENSION/GAS/BLOATING; Start at 17:30 Furosemide (Lasix) 40 mg DAILY PO Last administered on 12/05/16 09:49; Admin Dose 40 MG; Start 12/05/16 at 09:00 TANNA BRICEÑO MD Dec 05, 2016 20:16
--- NOTE | 2016-12-05 20:28 | CONS ---
Date/Time of Note Date/Time of Note DATE: 12/05/16 TIME: 20:26 Assessment/Plan Assessment/Plan Chief Complaint/Hosp Course Metastatic melanoma, to lung, bones, liver, and lymph nodes PT IS NOT A CANDIDATE FOR IMMUNOTHERAPY CONSIDER CHEMO- IF PS PERMITS Anemia, likely secondary to chronic disease Monitor H&H closely and transfuse as needed DYSPHAGIA EGD- TOMORROW Acute L3 fracture with retropulsion into canal POST Shock: Likely septic, from UTI -will obtain a 2D echo. Will send additional troponin Hypokalemia: Replete Problems: Consultation Date/Type/Reason Admit Date/Time Nov 17, 2016 at 05:17 Initial Consult Date 11/17/16 Type of Consultation: HEMEON Referring Provider: JEAN-PAUL DANGELO MD 24 HR Interval Summary Free Text/Dictation ALL NOTED SEEN BY GI D/W DAUGHTER Exam/Review of Systems Vital Signs Vitals Vital Signs Date Time Temp Pulse Resp B/P Pulse Ox O2 Delivery O2 Flow Rate FiO2 12/05/16 14:00 97.6 54 16 105/69 100 12/03/16 22:48 Room Air Intake and Output 12/04/16 12/04/16 12/05/16 15:00 23:00 07:00 Intake Total 1080 ml 280 ml Output Total 550 ml 400 ml Balance 530 ml -120 ml Exam GENERAL: Thin appearing 86 yo M VITAL SIGNS: per chart NECK: Supple. No JVD or lymphadenopathy. CARDIAC EXAM: Radial pulse RRR CHEST: Equal chest rise bilaterally without dyspnea on observation, no audible wheezing ABDOMEN: Soft, nontender. EXTREMITIES: No cyanosis, clubbing or edema. NEUROLOGIC: Generalized weakness. No focal deficits. Results Result Diagram: 12/05/16 0952 12/05/16 0952 Results 24 hrs Laboratory Tests Test 12/05/16 09:52 White Blood Count 5.4 # Red Blood Count 3.90 L Hemoglobin 11.6 L Hematocrit 34.6 L Mean Corpuscular Volume 88.7 Mean Corpuscular Hemoglobin 29.7 Mean Corpuscular Hemoglobin Concent 33.5 Red Cell Distribution Width Platelet Count 251 Mean Platelet Volume 10.4 Neutrophils % 75.1 Lymphocytes % 12.5 L Monocytes % 10.5 Eosinophils % 0.9 Basophils % 0.4 Nucleated Red Blood Cells % 0.0 Neutrophils # (Manual) 4 Lymphocytes # 0.7 L Monocytes # 0.6 Eosinophils # 0.1 Basophils # 0.0 Nucleated Red Blood Cells # 0.0 Sodium Level 132 L Potassium Level 4.0 Chloride Level 89 L Carbon Dioxide Level 33 H Anion Gap 14 Blood Urea Nitrogen 22 H Creatinine 0.78 Glucose Level 96 Calcium Level 7.9 L Total Bilirubin 0.3 Direct Bilirubin 0.00 Indirect Bilirubin 0.3 Aspartate Amino Transf (AST/SGOT) 26 Alanine Aminotransferase (ALT/SGPT) 28 Alkaline Phosphatase 165 H Total Protein 5.3 L Albumin 2.2 L Globulin 3.10 Albumin/Globulin Ratio 0.70 Medications Medications Current Medications Ondansetron HCl (Zofran Inj) 4 mg Q6H PRN IV NAUSEA AND/OR VOMITING; Start 11/17 at 05:00 Acetaminophen (Tylenol Liquid) 650 mg Q6H PRN PO PAIN LEVEL 1-3 OR FEVER Last administered on 11/29/16 12:27; Admin Dose 650 MG; Start 11/17/16 at 05:00 Lorazepam (Ativan) 0.5 mg Q3H PRN IV ANXIETY; Start 11/17/16 at 05:00 Tramadol HCl (Ultram) 50 mg Q6H PRN PO moderate to severe pain Last administered on 12/03/16 22:46; Admin Dose 50 MG; Start 11/17/16 at 05:00 Miscellaneous Information (Pending [facility] Order For Wound Care) This patient lopez... PRN PRN XX WOUND CARE; Start 11/18/16 at 15:30 Polyethylene Glycol (Miralax) 17 gm DAILY PO Last administered on 12/02/16 09: 22; Admin Dose 17 GM; Start 11/22/16 at 16:00 Enoxaparin Sodium (Lovenox) 30 mg DAILY SC Last administered on 12/05/16 09:50 ; Admin Dose 30 MG; Start 11/23/16 at 09:00 Spironolactone (Aldactone) 25 mg DAILY PO Last administered on 12/05/16 09:49 ; Admin Dose 25 MG; Start 11/23/16 at 15:30 Potassium Chloride (Potassium Chloride Pwd/Soln) 40 meq DAILY GTB Last administered on 12/05/16 09:47; Admin Dose 40 MEQ; Start 11/25/16 at 09:30 Simethicone (Mylicon) 80 mg TID PRN GTB DISTENSION/GAS/BLOATING; Start at 17:30 Furosemide (Lasix) 40 mg DAILY PO Last administered on 12/05/16t 09:49; Admin Dose 40 MG; Start 12/05/16 at 09:00 LOUISE SANTOS MD Dec 05, 2016 20:28
[2016-12-05 20:59] VITALS: BP 112/79; RESP 20
[2016-12-06] VITALS (15 sets, daily range): BP systolic 100–135; BP diastolic 61–89; PULSE 98–113; RESP 16–25
[2016-12-06] MEDS: SPIRONOLACTONE 25 MG TAB PO SCH (08:44)
[2016-12-06] MEDS: FUROSEMIDE 40 MG TAB PO SCH (08:44)
[2016-12-06] MEDS: ENOXAPARIN 30 MG/0.3 ML SYG SC SCH ×2 (08:45→18:00)
[2016-12-06] MEDS: POTASSIUM CHLORIDE 20 MEQ POWDER FOR ORAL SOLN GTB SCH (08:45)
[2016-12-06] MEDS: POLYETHYLENE GLYCOL 17 GM PACKET PO SCH (08:45)
[2016-12-06] MEDS: BALSAM PERU/CASTOR OIL 60 GM TUBE TOP SCH (08:45)
--- NOTE | 2016-12-06 13:08 | CONS ---
Date/Time of Note Date/Time of Note DATE: 12/06/16 TIME: 13:08 Assessment/Plan Assessment/Plan Chief Complaint/Hosp Course Metastatic melanoma, to lung, bones, liver, and lymph nodes PT IS NOT A CANDIDATE FOR IMMUNOTHERAPY CONSIDER CHEMO- IF PS PERMITS Anemia, likely secondary to chronic disease Monitor H&H closely and transfuse as needed DYSPHAGIA EGD- TOMORROW Acute L3 fracture with retropulsion into canal POST Shock: Likely septic, from UTI -will obtain a 2D echo. Will send additional troponin Hypokalemia: Replete Problems: Consultation Date/Type/Reason Admit Date/Time Nov 17, 2016 at 05:17 Initial Consult Date 11/17/16 Type of Consultation: [facility] [place] Referring Provider: JEAN-PAUL DANGELO MD Exam/Review of Systems Vital Signs Vitals Vital Signs Date Time Temp Pulse Resp B/P Pulse Ox O2 Delivery O2 Flow Rate FiO2 12/06/16 08:14 97.4 107 16 118/89 96 12/03/16 22:48 Room Air Intake and Output 12/05/16 12/05/16 12/06/16 15:00 23:00 07:00 Intake Total 720 ml 400 ml Output Total 1350 ml Balance 720 ml -950 ml Results Result Diagram: 12/05/1652 12/05/1652 Medications Medications Current Medications Ondansetron HCl (Zofran Inj) 4 mg Q6H PRN IV NAUSEA AND/OR VOMITING; Start 11/17 at 05:00 Acetaminophen (Tylenol Liquid) 650 mg Q6H PRN PO PAIN LEVEL 1-3 OR FEVER Last administered on 11/29/16 12:27; Admin Dose 650 MG; Start 11/17/16 at 05:00 Lorazepam (Ativan) 0.5 mg Q3H PRN IV ANXIETY; Start 11/17/16 at 05:00 Tramadol HCl (Ultram) 50 mg Q6H PRN PO moderate to severe pain Last administered on 12/03/16 22:46; Admin Dose 50 MG; Start 11/17/16 at 05:00 Miscellaneous Information (Pending [facility] Order For Wound Care) This patient lopez... PRN PRN XX WOUND CARE; Start 11/18/16 at 15:30 Polyethylene Glycol (Miralax) 17 gm DAILY PO Last administered on 12/02/16 09: 22; Admin Dose 17 GM; Start 11/22/16 at 16:00 Enoxaparin Sodium (Lovenox) 30 mg DAILY SC Last administered on 12/05/16 09:50 ; Admin Dose 30 MG; Start 11/23/16 at 09:00 Spironolactone (Aldactone) 25 mg DAILY PO Last administered on 12/06/16 08:44 ; Admin Dose 25 MG; Start 11/23/16 at 15:30 Potassium Chloride (Potassium Chloride Pwd/Soln) 40 meq DAILY GTB Last administered on 12/05/16 09:47; Admin Dose 40 MEQ; Start 11/25/16 at 09:30 Simethicone (Mylicon) 80 mg TID PRN GTB DISTENSION/GAS/BLOATING; Start at 17:30 Furosemide (Lasix) 40 mg DAILY PO Last administered on 12/06/16 08:44; Admin Dose 40 MG; Start 12/05/16 at 09:00 LOUISE SANTOS MD Dec 06, 2016 13:08
[2016-12-06] MEDS ORDERED: LIDOCAINE 2% (SDV) 5 ML INJ ONE (15:38)
[2016-12-06] MEDS ORDERED: PROPOFOL 20 ML ONE (15:38)
--- NOTE | 2016-12-06 15:58 | PN ---
Date/Time of Note Date/Time of Note DATE: 12/06/16 TIME: 15:57 Assessment/Plan VTE Prophylaxis VTE Prophylaxis Intervention: LMWH Lines/Catheters IV Catheter Type (from Nrsg): Saline Lock Urinary Cath still in place: Yes Reason Cath still needed: urinary retention Assessment/Plan Chief Complaint/Hosp Course 86 yo female with hypertension, HFpEF, osteoporosis, severe protein calorie malnutrition with recently diagnosed metastatic melanoma admitted following a fall and concern for lumbar fracture. Found with acute decompenstated diasotlic CHF exacerbation Acute diastolic CHF exacerbation: - Fairly euvolemic. Continue PO lasix 40 - Continue ramírez 25 for potassium sparing Metastatic melanoma: - Management per heme/onc - Has been offered pallaitive chemo but she has a very poor functional status. Hospice may be a better option Osteoporotic vertebral fracture: - Clear by neurosurgery Dypshagia: - Concern for cricopharyngeal bar - EGD today Severe protein calorie malnutrition - 2/2 dysphagia, Encourage PO as able Hypoalbuminemia Full code for now - needs palliative care Problems: Subjective 24 Hr Interval Summary Free Text/Dictation Patient left floor for EGD today by Dr Briceño Per report, doing well Exam/Review of Systems Vital Signs Vitals Vital Signs Date Time Temp Pulse Resp B/P Pulse Ox O2 Delivery O2 Flow Rate FiO2 12/06/16 13:15 98.3 104 16 115/68 97 12/03/16 22:48 Room Air Intake and Output 12/05/16 12/05/16 12/06/16 15:00 23:00 07:00 Intake Total 720 ml 400 ml Output Total 1350 ml Balance 720 ml -950 ml Results Result Diagram: 12/05/16 0952 12/05/16 0952 Medications Medications Current Medications Ondansetron HCl (Zofran Inj) 4 mg Q6H PRN IV NAUSEA AND/OR VOMITING; Start 11/17 at 05:00 Acetaminophen (Tylenol Liquid) 650 mg Q6H PRN PO PAIN LEVEL 1-3 OR FEVER Last administered on 11/29/16 12:27; Admin Dose 650 MG; Start 11/17/16 at 05:00 Lorazepam (Ativan) 0.5 mg Q3H PRN IV ANXIETY; Start 11/17/16 at 05:00 Tramadol HCl (Ultram) 50 mg Q6H PRN PO moderate to severe pain Last administered on 12/03/16 22:46; Admin Dose 50 MG; Start 11/17/16 at 05:00 Miscellaneous Information (Pending [facility] Order For Wound Care) This patient lopez... PRN PRN XX WOUND CARE; Start 11/18/16 at 15:30 Polyethylene Glycol (Miralax) 17 gm DAILY PO Last administered on 12/02/16 09: 22; Admin Dose 17 GM; Start 11/22/16 at 16:00 Enoxaparin Sodium (Lovenox) 30 mg DAILY SC Last administered on 12/05/16 09:50 ; Admin Dose 30 MG; Start 11/23/16 at 09:00 Spironolactone (Aldactone) 25 mg DAILY PO Last administered on 12/06/16 08:44 ; Admin Dose 25 MG; Start 11/23/16 at 15:30 Potassium Chloride (Potassium Chloride Pwd/Soln) 40 meq DAILY GTB Last administered on 12/05/16 09:47; Admin Dose 40 MEQ; Start 11/25/16 at 09:30 Simethicone (Mylicon) 80 mg TID PRN GTB DISTENSION/GAS/BLOATING; Start at 17:30 Furosemide (Lasix) 40 mg DAILY PO Last administered on 12/06/16 08:44; Admin Dose 40 MG; Start 12/05/16 at 09:00 ARNAUD AGUILAR MD Dec 06, 2016 15:58
[2016-12-06] MEDS ORDERED: PANTOPRAZOLE 40 MG INJ IV ONE (16:30)
--- NOTE | 2016-12-06 16:36 | OPPN ---
Date/Time of Note Date/Time of Note DATE: 12/06/16 TIME: 16:30 Proc Note GI Free Text/Dictation Preoperative Diagnosis: Dysphagia Postoperative Diagnosis: * Prominent cricopharyngeal sphincter * Distal esophageal stricture. Estimated lumen 9 mm * Post balloon dilatation to 10, 11 and 12 mm * Medium size hiatal hernia * Erosive gastritis. Rule out H. pylori infection. Biopsies obtained Plan: * Protonix 40 mg daily * Trial of Reglan 5 mg 3 times daily * Review pathology * Advance diet as tolerated Procedure Performed: * EGD plus balloon dilatation * EGD plus biopsies Surgeon: Tanna Briceño MD Director Patient: None Second Bat Boy/Girl: None Anesthesia/Sedation: MAC per anesthesiologist Tourniquet Time: NA Estimated Blood Loss: 10 cc Transfusion Required: No Specimens: Gastric body and antrum Grafts/Implants: None Tubes/Drains: NA Complications: None Pt. Condition Post Procedure: Stable Disposition: PACU After informed consent, with the patient/relatives understanding the procedure, its indications, potential risks and complications, including but not limited to : allergic reaction, bleeding, perforation or infection, and after all pertinent questions were answered to the patients satisfaction, the patient/ relatives signed witnessed informed consent. Following this, premedication was administered slowly IV push under careful cardiovascular and respiratory monitoring with pulse oximetry, automatic blood pressure, and bus driver/monitor. Once the sedative effect was achieved the patient was place in the left lateral decubitus, the panendoscope was introduced and advanced under visual control. Careful examination of the upper gastrointestinal tract, both on insertion as well as withdrawal of the instrument disclosing the following findings: Esophagus: the mucosa of the entire esophagus was carefully examined and showed the following findings: There appears to be a prominent cricopharyngeal sphincter. There is a significant stricture at 35 cm estimated lumen is 9 mm. Balloon dilatation to 10, 11 and 12 mm was performed without evidence of complication. Following this we were able to advance instrument through the area of narrowing. Otherwise the mucosa appears within normal limits. There is no evidence of esophagitis, varices, neoplasm.. Moderate-sized hiatal Hernia identified.] Stomach: Upon entrance to the stomach air was insufflated, the gastric hammer distended normally. The mucosa of the fundus, body and antrum of the stomach was carefully examined both head-on and on retroflexion, and showed the following findings: There is significant erythema and edema of the mucosa of the body and antrum of the stomach. Biopsies were obtained to rule out H. pylori infection. Otherwise the mucosa appears within normal limits with no abnormalities. There is no evidence of ulcers or neoplasm.] Pylorus: The pylorus was carefully examined and showed the following findings: [ the pylorus appears patent and within normal limits, with no evidence of gastric outlet obstruction.] Duodenum: The duodenal mucosa was carefully examined in the duodenal bulb as well as the second portion of the duodenum and showed the following findings: [ the mucosa appears unremarkable with no evidence of duodenitis, ulcer or neoplasm.] Procedure date: Dec 06, 2016 TANNA BRICEÑO MD Dec 06, 2016 16:36
[2016-12-06] MEDS: METOCLOPRAMIDE 5 MG TAB PO SCH (20:13)
--- NOTE | 2016-12-06 20:14 | CONS ---
DATE OF ADMISSION: 11/17/2016 DATE OF CONSULTATION: 12/06/2016 HISTORY OF PRESENT ILLNESS: Norma Gallego is an 78-year-old female, admitted after an acute L3 fracture on 11/17/2016. She has been having progressively worsening dysphagia and barium swallow was consistent with cricopharyngeal bar and ENT was consulted to evaluate. However, she is scheduled to get an endoscopy this afternoon according to the patient. PAST MEDICAL HISTORY: Spinal stenosis, CHF, and metastatic melanoma. PAST SURGICAL HISTORY: Cholecystectomy. DRUG ALLERGIES: None. MEDICATION: Reviewed. SOCIAL HISTORY: Negative for tobacco, alcohol, or drug abuse. FAMILY HISTORY: Negative for any heart, lung, kidney, thyroid, or liver disease. REVIEW OF SYSTEMS: A 12 point review of systems is otherwise noncontributory. PHYSICAL EXAMINATION: HEENT: Nose shows a midline septum mucosa without erythema, edema. Oral cavity and oropharynx showed tongue and floor of mouth are normal. Oropharynx is without lesion. NECK: Reveals no lymphadenopathy or thyromegaly. Trachea is midline. Tonsils normal size without lesion. IMPRESSION: 1. Dysphagia. 2. Cricopharyngeal hypertrophy. PLAN: At this point, she is getting an endoscopy hopefully that area can be ballooned because from the ENT standpoint I do not think the patient is a good surgical candidate for cricopharyngeal myotomy. If there are any questions or concerns please feel free to re-consult at any time. Dictated By: Andres Cardenas MD /joe/everton /Document#: [id number]
[2016-12-07 02:00] VITALS: BP 121/73; RESP 18
[2016-12-07] MEDS: PANTOPRAZOLE (EC) 40 MG TAB PO SCH (05:37)
[2016-12-07 06:08] LABS: ABNORMAL IP MESSAGE 1; BASOPHILS % 0.3 % (0.0-2.0); EOSINOPHILS # 0.1 10^3/ul (0.0-0.5); EOSINOPHILS % 1.3 % (0.0-7.0); HEMATOCRIT 35.2 % (37.0-47.0); HEMOGLOBIN 11.8 g/dl (12.0-16.0); LYMPHOCYTES # 0.9 10^3/ul (0.8-2.9); LYMPHOCYTES % 14.2 % (15.0-51.0); MEAN CORPUSCULAR HEMOGLOBIN 29.3 pg (29.0-33.0); MEAN CORPUSCULAR HGB CONC 33.5 g/dl (32.0-37.0); MEAN CORPUSCULAR VOLUME 87.3 fl (82.0-101.0); MEAN PLATELET VOLUME 10.1 fl (7.4-10.4); MONOCYTE # 0.6 10^3/ul (0.3-0.9); MONOCYTES % 9.8 % (0.0-11.0); NEUTROPHILS % 74.1 % (39.0-77.0); PLATELET COUNT 264 10^3/UL (140-415); RED BLOOD COUNT 4.03 10^6/ul (4.20-5.40)
[2016-12-07 06:20] LABS: POSITIVE DIFF @See below
[2016-12-07 06:31] LABS: ALBUMIN 2.2 g/dl (3.3-4.9); ALBUMIN/GLOBULIN RATIO 0.68; BILIRUBIN,INDIRECT 0.3 mg/dl (0-1.1); BILIRUBIN,TOTAL 0.3 mg/dl (0.2-1.3); CALCIUM 7.8 mg/dl (8.4-10.2); CREATININE 0.79 mg/dl (0.44-1.00); POTASSIUM 3.5 mmol/L (3.5-5.1); TOTAL PROTEIN 5.4 g/dl (6.1-8.1)
[2016-12-07 07:35] VITALS: BP 123/73; RESP 18
[2016-12-07] MEDS: POLYETHYLENE GLYCOL 17 GM PACKET PO SCH (09:17)
[2016-12-07] MEDS: BALSAM PERU/CASTOR OIL 60 GM TUBE TOP SCH (09:17)
[2016-12-07] MEDS: METOCLOPRAMIDE 5 MG TAB PO SCH ×4 (09:18→21:00)
[2016-12-07] MEDS: POTASSIUM CHLORIDE 20 MEQ POWDER FOR ORAL SOLN GTB SCH (09:18)
[2016-12-07] MEDS: SPIRONOLACTONE 25 MG TAB PO SCH (09:18)
[2016-12-07] MEDS: FUROSEMIDE 40 MG TAB PO SCH (09:18)
[2016-12-07] MEDS: ENOXAPARIN 30 MG/0.3 ML SYG SC SCH (09:27)
[2016-12-07 14:00] VITALS: BP 122/76; PULSE 101; RESP 18
--- NOTE | 2016-12-07 16:55 | PN ---
Date/Time of Note Date/Time of Note DATE: 12/07/16 TIME: 16:53 Assessment/Plan VTE Prophylaxis VTE Prophylaxis Intervention: LMWH Lines/Catheters IV Catheter Type (from Nrs): Saline Lock Urinary Cath still in place: Yes Reason Cath still needed: urinary retention Assessment/Plan Chief Complaint/Hosp Course 86 yo female with hypertension, HFpEF, osteoporosis, severe protein calorie malnutrition with recently diagnosed metastatic melanoma admitted following a fall and concern for lumbar fracture. Found with acute decompenstated diasotlic CHF exacerbation Acute diastolic CHF exacerbation: - Fairly euvolemic. Continue PO lasix 40 Cricopharyngeal bar s/p dilation Metastatic melanoma: - Management per heme/onc - Has been offered pallaitive chemo but she has a very poor functional status. Hospice may be a better option Osteoporotic vertebral fracture: - Clear by neurosurgery Severe protein calorie malnutrition - 2/2 dysphagia, Encourage PO as able Hypoalbuminemia Full code for now - needs palliative care Problems: Subjective 24 Hr Interval Summary Free Text/Dictation EGD yesterday with dilation - today seems to be swallowing more easily. Able to eat a hard boiled egg Otherwise stable, no complaints Ready for transfer to SNF Exam/Review of Systems Vital Signs Vitals Vital Signs Date Time Temp Pulse Resp B/P Pulse Ox O2 Delivery O2 Flow Rate FiO2 12/07/16 14:00 98.1 101 18 122/76 Room Air 12/07/16 07:35 98 12/06/16 16:40 6.0 Intake and Output 12/06/16 12/06/16 12/07/16 15:00 23:00 07:00 Intake Total 240 ml 360 ml Output Total 900 ml 1000 ml Balance -660 ml -640 ml Exam Cachectic Frail Comfortable appearing Edema much improved Results Result Diagram: 12/07/16 0528 12/07/16 0528 Results 24 hrs Laboratory Tests Test 12/07/16 05:28 White Blood Count 6.0 Red Blood Count 4.03 L Hemoglobin 11.8 L Hematocrit 35.2 L Mean Corpuscular Volume 87.3 Mean Corpuscular Hemoglobin 29.3 Mean Corpuscular Hemoglobin Concent 33.5 Red Cell Distribution Width Platelet Count 264 Mean Platelet Volume 10.1 Neutrophils % 74.1 Lymphocytes % 14.2 L Monocytes % 9.8 Eosinophils % 1.3 Basophils % 0.3 Nucleated Red Blood Cells % 0.0 Neutrophils # (Manual) 4 Lymphocytes # 0.9 Monocytes # 0.6 Eosinophils # 0.1 Basophils # 0.0 Nucleated Red Blood Cells # 0.0 Sodium Level 132 L Potassium Level 3.5 Chloride Level 92 L Carbon Dioxide Level 32 H Anion Gap 12 Blood Urea Nitrogen 19 Creatinine 0.79 Glucose Level 99 Calcium Level 7.8 L Total Bilirubin 0.3 Direct Bilirubin 0.00 Indirect Bilirubin 0.3 Aspartate Amino Transf (AST/SGOT) 28 Alanine Aminotransferase (ALT/SGPT) 30 Alkaline Phosphatase 170 H Total Protein 5.4 L Albumin 2.2 L Globulin 3.20 Albumin/Globulin Ratio 0.68 Medications Medications Current Medications Ondansetron HCl (Zofran Inj) 4 mg Q6H PRN IV NAUSEA AND/OR VOMITING Last administered on 12/06/16 17:10; Admin Dose 4 MG; Start 11/17/16 at 05:00 Acetaminophen (Tylenol Liquid) 650 mg Q6H PRN PO PAIN LEVEL 1-3 OR FEVER Last administered on 11/29/16 12:27; Admin Dose 650 MG; Start 11/17/16 at 05:00 Lorazepam (Ativan) 0.5 mg Q3H PRN IV ANXIETY; Start 11/17/16 at 05:00 Tramadol HCl (Ultram) 50 mg Q6H PRN PO moderate to severe pain Last administered on 12/03/16 22:46; Admin Dose 50 MG; Start 11/17/16 at 05:00 Miscellaneous Information [facility] This patient lopez... PRN PRN XX WOUND CARE; Start 11/18/16 at 15:30 Polyethylene Glycol (Miralax) 17 gm DAILY PO Last administered on 12/07/16 09: 17; Admin Dose 17 GM; Start 11/22/16 at 16:00 Enoxaparin Sodium (Lovenox) 30 mg DAILY SC Last administered on 12/07/16 09:27 ; Admin Dose 30 MG; Start 11/23/16 at 09:00 Potassium Chloride (Potassium Chloride Pwd/Soln) 40 meq DAILY GTB Last administered on 12/07/16 09:18; Admin Dose 40 MEQ; Start 11/25/16 at 09:30 Simethicone (Mylicon) 80 mg TID PRN GTB DISTENSION/GAS/BLOATING; Start at 17:30 Metoclopramide HCl (Reglan) 5 mg TID PO Last administered on 12/07/16 12:42; Admin Dose 5 MG; Start 12/06/16 at 21:00 Pantoprazole (Protonix Tab) 40 mg DAILY@06 PO Last administered on 12/07/16 05 :37; Admin Dose 40 MG; Start 12/07/16 at 06:00 ARNAUD AGUILAR MD Dec 07, 2016 16:54
--- NOTE | 2016-12-07 20:14 | PN ---
Date/Time of Note Date/Time of Note DATE: 12/07/16 TIME: 20:08 Assessment/Plan VTE Prophylaxis VTE Prophylaxis Intervention: SCD's Lines/Catheters [facility] Saline Lock Urinary Cath still in place: Yes Reason Cath still needed: other (indicate) (Monitor output) Assessment/Plan Assessment/Plan Summary of Assessment and Plan Assessment: Assessment: * Dysphagia/cricopharyngeal spasm-bar * EGD 12/06/2016 * Prominent cricopharyngeal sphincter * Distal esophageal stricture. Estimated lumen 9 mm * Post balloon dilatation to 10, 11 and 12 mm * Medium size hiatal hernia * Erosive gastritis. Rule out H. pylori infection. Biopsies obtained * Malnutrition, multifactorial * Metastatic melanoma * Diastolic CHF Plan: * Continue present regimen * May need to consider gastrostomy tube for supplemental nutrition patient not receptive at this point * Subjective: Course reviewed with nursing staff Patient interviewed and examined All labs, imaging and other results reviewed The patient reports swallowing a bit better today Was able to eat boiled eggs and some other solids however it appears that her intake remains on will likely remain suboptimal I offered EGD plus PEG site consideration, she is not receptive at this point Exam: General: well developed, severely malnourished, alert and oriented x3 , in no acute distress Skin: No lesions, no stigmata chronic liver disease, no evidence of bleeding diathesis Lymphatic: No palpable lymphadenopathy HEENT: No lesions Cardiovascular: Heart: Regular rate and rhythm, no murmurs, gallops or rubs. Peripheral pulses present within normal limits, no cyanosis, clubbing or edemas. No pulsatile abdominal mass Respiratory: Lungs clear to auscultation and percussion, no wheezing, no rubs Gastrointestinal and Liver: Abdomen: Soft, non tender, non-distended, no hernias , no masses, no organomegaly, no ascites, no guarding, no rebound tenderness, normoactive bowel sounds. Extremities: No cyanosis, clubbing, or edema. Diagnostic Studies: Available data and images were reviewed personally. See reports. Significant results and findings are addressed here or in the assessment and plan. Exam/Review of Systems Vital Signs Vitals Vital Signs Date Time Temp Pulse Resp B/P Pulse Ox O2 Delivery O2 Flow Rate FiO2 12/07/16 14:00 98.1 101 18 122/76 Room Air 12/07/16 07:35 98 12/06/16 16:40 6.0 Intake and Output 12/06/16 12/06/16 12/07/16 15:00 23:00 07:00 Intake Total 240 ml 360 ml Output Total 900 ml 1000 ml Balance -660 ml -640 ml Results Result Diagram: 12/07/16 0528 12/07/1628 Results 24 hrs Laboratory Tests Test 12/07/16 05:28 White Blood Count 6.0 Red Blood Count 4.03 L Hemoglobin 11.8 L Hematocrit 35.2 L Mean Corpuscular Volume 87.3 Mean Corpuscular Hemoglobin 29.3 Mean Corpuscular Hemoglobin Concent 33.5 Red Cell Distribution Width Platelet Count 264 Mean Platelet Volume 10.1 Neutrophils % 74.1 Lymphocytes % 14.2 L Monocytes % 9.8 Eosinophils % 1.3 Basophils % 0.3 Nucleated Red Blood Cells % 0.0 Neutrophils # (Manual) 4 Lymphocytes # 0.9 Monocytes # 0.6 Eosinophils # 0.1 Basophils # 0.0 Nucleated Red Blood Cells # 0.0 Sodium Level 132 L Potassium Level 3.5 Chloride Level 92 L Carbon Dioxide Level 32 H Anion Gap 12 Blood Urea Nitrogen 19 Creatinine 0.79 Glucose Level 99 Calcium Level 7.8 L Total Bilirubin 0.3 Direct Bilirubin 0.00 Indirect Bilirubin 0.3 Aspartate Amino Transf (AST/SGOT) 28 Alanine Aminotransferase (ALT/SGPT) 30 Alkaline Phosphatase 170 H Total Protein 5.4 L Albumin 2.2 L Globulin 3.20 Albumin/Globulin Ratio 0.68 Medications Medications Current Medications Ondansetron HCl (Zofran Inj) 4 mg Q6H PRN IV NAUSEA AND/OR VOMITING Last administered on 12/06/16 17:10; Admin Dose 4 MG; Start 11/17/16 at 05:00 Acetaminophen (Tylenol Liquid) 650 mg Q6H PRN PO PAIN LEVEL 1-3 OR FEVER Last administered on 11/29/16 12:27; Admin Dose 650 MG; Start 11/17/16 at 05:00 Lorazepam (Ativan) 0.5 mg Q3H PRN IV ANXIETY; Start 11/17/16 at 05:00 Tramadol HCl (Ultram) 50 mg Q6H PRN PO moderate to severe pain Last administered on 12/03/16 22:46; Admin Dose 50 MG; Start 11/17/16 at 05:00 Miscellaneous Information (Pending Santyl Order For Wound Care) This patient lopez... PRN PRN XX WOUND CARE; Start 11/18/16 at 15:30 Polyethylene Glycol (Miralax) 17 gm DAILY PO Last administered on 12/07/16 09: 17; Admin Dose 17 GM; Start 11/22/16 at 16:00 Enoxaparin Sodium (Lovenox) 30 mg DAILY SC Last administered on 12/07/16 09:27 ; Admin Dose 30 MG; Start 11/23/16 at 09:00 Potassium Chloride (Potassium Chloride Pwd/Soln) 40 meq DAILY GTB Last administered on 12/07/16 09:18; Admin Dose 40 MEQ; Start 11/25/16 at 09:30 Simethicone (Mylicon) 80 mg TID PRN GTB DISTENSION/GAS/BLOATING; Start at 17:30 Metoclopramide HCl (Reglan) 5 mg TID PO Last administered on 12/07/16 12:42; Admin Dose 5 MG; Start 12/06/16 at 21:00 Pantoprazole (Protonix Tab) 40 mg DAILY@06 PO Last administered on 12/07/16 05 :37; Admin Dose 40 MG; Start 12/07/16 at 06:00 Collagenase (Santyl) 1 applic DAILY TOP ; Start 12/08/16 at 09:00 TANNA BURK MD Dec 07, 2016 20:14
[2016-12-07 20:45] VITALS: BP 106/73; RESP 18
--- NOTE | 2016-12-07 23:25 | CONS ---
Date/Time of Note Date/Time of Note DATE: 12/07/16 TIME: 23:25 Assessment/Plan Assessment/Plan Chief Complaint/Hosp Course Metastatic melanoma, to lung, bones, liver, and lymph nodes PT IS NOT A CANDIDATE FOR IMMUNOTHERAPY CONSIDER CHEMO- IF PS PERMITS Anemia, likely secondary to chronic disease Monitor H&H closely and transfuse as needed DYSPHAGIA EGD- TOMORROW Acute L3 fracture with retropulsion into canal POST Shock: Likely septic, from UTI -will obtain a 2D echo. Will send additional troponin Hypokalemia: Replete Problems: Consultation Date/Type/Reason Admit Date/Time Nov 17, 2016 at 05:17 Initial Consult Date 11/17/16 Type of Consultation: [facility] Referring Provider: JEAN-PAUL DANGELO MD Exam/Review of Systems Vital Signs Vitals Vital Signs Date Time Temp Pulse Resp B/P Pulse Ox O2 Delivery O2 Flow Rate FiO2 12/07/16 20:45 97.9 102 18 106/73 96 12/07/16 14:00 Room Air 12/06/16 16:40 6.0 Intake and Output 12/06/16 12/06/16 12/07/16 15:00 23:00 07:00 Intake Total 240 ml 360 ml Output Total 900 ml 1000 ml Balance -660 ml -640 ml Results Result Diagram: 12/07/16 0528 12/07/16 0528 Results 24 hrs Laboratory Tests Test 12/07/16 05:28 White Blood Count 6.0 Red Blood Count 4.03 L Hemoglobin 11.8 L Hematocrit 35.2 L Mean Corpuscular Volume 87.3 Mean Corpuscular Hemoglobin 29.3 Mean Corpuscular Hemoglobin Concent 33.5 Red Cell Distribution Width Platelet Count 264 Mean Platelet Volume 10.1 Neutrophils % 74.1 Lymphocytes % 14.2 L Monocytes % 9.8 Eosinophils % 1.3 Basophils % 0.3 Nucleated Red Blood Cells % 0.0 Neutrophils # (Manual) 4 Lymphocytes # 0.9 Monocytes # 0.6 Eosinophils # 0.1 Basophils # 0.0 Nucleated Red Blood Cells # 0.0 Sodium Level 132 L Potassium Level 3.5 Chloride Level 92 L Carbon Dioxide Level 32 H Anion Gap 12 Blood Urea Nitrogen 19 Creatinine 0.79 Glucose Level 99 Calcium Level 7.8 L Total Bilirubin 0.3 Direct Bilirubin 0.00 Indirect Bilirubin 0.3 Aspartate Amino Transf (AST/SGOT) 28 Alanine Aminotransferase (ALT/SGPT) 30 Alkaline Phosphatase 170 H Total Protein 5.4 L Albumin 2.2 L Globulin 3.20 Albumin/Globulin Ratio 0.68 Medications Medications Current Medications Ondansetron HCl (Zofran Inj) 4 mg Q6H PRN IV NAUSEA AND/OR VOMITING Last administered on 12/06/16 17:10; Admin Dose 4 MG; Start 11/17/16 at 05:00 Acetaminophen (Tylenol Liquid) 650 mg Q6H PRN PO PAIN LEVEL 1-3 OR FEVER Last administered on 11/29/16 12:27; Admin Dose 650 MG; Start 11/17/16 at 05:00 Lorazepam (Ativan) 0.5 mg Q3H PRN IV ANXIETY; Start 11/17/16 at 05:00 Tramadol HCl (Ultram) 50 mg Q6H PRN PO moderate to severe pain Last administered on 12/03/16 22:46; Admin Dose 50 MG; Start 11/17/16 at 05:00 Miscellaneous Information (Pending Santyl Order For Wound Care) This patient lopez... PRN PRN XX WOUND CARE; Start 11/18/16 at 15:30 Polyethylene Glycol (Miralax) 17 gm DAILY PO Last administered on 12/07/16 09: 17; Admin Dose 17 GM; Start 11/22/16 at 16:00 Enoxaparin Sodium (Lovenox) 30 mg DAILY SC Last administered on 12/07/16 09:27 ; Admin Dose 30 MG; Start 11/23/16 at 09:00 Potassium Chloride (Potassium Chloride Pwd/Soln) 40 meq DAILY GTB Last administered on 12/07/16 09:18; Admin Dose 40 MEQ; Start 11/25/16 at 09:30 Simethicone (Mylicon) 80 mg TID PRN GTB DISTENSION/GAS/BLOATING; Start at 17:30 Metoclopramide HCl (Reglan) 5 mg TID PO Last administered on 12/07/16 12:42; Admin Dose 5 MG; Start 12/06/16 at 21:00 Pantoprazole (Protonix Tab) 40 mg DAILY@06 PO Last administered on 12/07/16 05 :37; Admin Dose 40 MG; Start 12/07/16 at 06:00 Collagenase (Santyl) 1 applic DAILY TOP ; Start 12/08/16 at 09:00 LOUISE SANTOS MD Dec 07, 2016 23:25
[2016-12-08 02:08] VITALS: BP 105/67; RESP 18
[2016-12-08] MEDS: PANTOPRAZOLE (EC) 40 MG TAB PO SCH (05:26)
[2016-12-08 07:20] VITALS: BP 117/61; RESP 20
[2016-12-08] MEDS: METOCLOPRAMIDE 5 MG TAB PO SCH ×2 (09:00→12:35)
[2016-12-08] MEDS: POLYETHYLENE GLYCOL 17 GM PACKET PO SCH (09:00)
[2016-12-08] MEDS ORDERED: COLLAGENASE 30 GM TUBE TOP SCH (09:00)
[2016-12-08] MEDS: POTASSIUM CHLORIDE 20 MEQ POWDER FOR ORAL SOLN GTB SCH (09:05)
[2016-12-08] MEDS: ENOXAPARIN 30 MG/0.3 ML SYG SC SCH (09:34)
[2016-12-08] MEDS: traMADol 50 MG TAB PO PRN (10:35)
[2016-12-08] MEDS ORDERED: FURO20TA3 PO ×2 (11:14→11:26)
--- NOTE | 2016-12-08 11:20 | PDOCDIS ---
Discharge Instructions CONDITION Patient Condition: Stable HOME CARE INSTRUCTIONS: Diet Instructions: RegularSpecial Diet: Mech.soft FOLLOW UP/APPOINTMENTS Follow-up Plan Eat as much as you are able to ensure you maintain nutrition Follow up with Dr Pritchard for further care of melanoma Watch out for the swelling in your legs and arms. You have been prescribed lasix which is a diuretic to manage your swelling. It is important to have your blood work checked in the next week or two as this may affect your electorlytes ARNAUD AGUILAR MD Dec 08, 2016 11:20
[2016-12-08] MEDS: ACETAMINOPHEN 650MG/20.3ML CUP PO PRN (13:00)
--- NOTE | 2016-12-08 17:08 | DS ---
Date/Time of Note Date/Time of Note DATE: 12/08/16 TIME: 17:03 Discharge Summary Admission/Discharge Info Admit Date/Time Nov 17, 2016 at 05:17 Discharge Date/Time Dec 08, 2016 at 13:45 Discharge Diagnosis Metasatic melanoma Severe protein calorie malnutrition Dysphagia Patient Condition: Stable Hx of Present Illness This is an 86-year-old female with a history of metastatic melanoma, to lung, bones, liver, and lymph nodes, hypertension, anemia and peripheral edema who presented to the ER complaining of back pain and abdominal pain. Patient was attempting to use the bedside commode when she missed and fell to the floor. She denied head injury or loss of consciousness. When she presented to the ER, her initial blood pressure was 99/67. She was then noted to be progressively more hypotensive and has been started on Levophed. Lab shows a WBC of 12.8, potassium 2.6, hemoglobin 11.3, lactic acid 2.8, magnesium 1.6. CT abdomen/pelvis shows the followin. Interval development of moderate pericardial effusion. 2. Partially visualized right hilar mass as well as extensive right epicardial lymphadenopathy as previously visualized. 3. Moderate right and mild left pleural effusions with associated lower lobe compressive atelectasis. 4. Large air-filled hiatal hernia. 5. Hepatic metastases not well delineated on this noncontrast examination. 6. Persistent portal venous gas. 7. Status post cholecystectomy. 8. No evidence for gross bowel obstruction. 9. Progressive superior T12 presumably pathologic compression fracture (30%) without retropulsion. 10. Acute L3 compression fracture (30%) with retropulsion of 6 mm into the canal resulting in spinal stenosis. 11. 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 12. Diffuse anasarca. . Hospital Course Patient was found to be anasarcic. She underwent a couple weeks of diuresis and this improved markedly. She had a major complaint of dysphagia essentially leading to malnutrition. She was seen by SURGE[facility] ASSIST[facility] and had video swallow study notable for a cricopharyngeal bar. Underwent EGD and dilation. Seemed to improve her symptoms somewhat. She was followed by her oncologist who offered palliative chemo as an outpatient if the patient regained her functional status. She was discharged to subacute rehab facility for further care. Home Meds Active Scripts Furosemide* (Furosemide*) 20 Mg Tablet, 20 MG PO DAILY for 60 Days, #60 TAB Prov:ARNAUD AGUILAR MD 12/08/16 Tramadol HCl (Tramadol HCl) 50 Mg Tablet, 50 MG PO Q6H Y for moderate to severe pain for 30 Days, TAB Prov:LEVY VERGARA MD 10/25/16 Reported Medications Biotin (BIOTIN) 1 Mg Capsule, 1 MG PO, CAP 10/15/16 Discontinued Reported Medications Aspirin* (Aspirin* EC) 81 Mg Tablet.dr, 81 MG PO DAILY, TAB 10/15/16 Losartan-Hydrochlorothiazide (Losartan-HCTZ) 100-25 Mg Tab, 1 TAB PO DAILY, TAB 10/15/16 Atenolol* (Atenolol*) 50 Mg Tablet, 50 MG PO BID, #60 TAB 10/15/16 Primary Care Provider Mike Landry MD Time spent on discharge: > 30 minutes ARNAUD AGUILAR MD Dec 08, 2016 17:08
== END 2016-12-08 13:45 | DRG 871 ==
LOC: E/R 00:19 → TEL 05:17 → MS2 12-02 06:55
PROVIDERS: ADMIT Internal Medicine; ATTEND Internal Medicine
PROC: 06HM33Z Insertion of Infusion Device into Right Femoral Vein, Percutaneous Approach (ICD-10-PCS; principal; 2016-11-17)
PROC: B54BZZA Ultrasonography of Right Lower Extremity Veins, Guidance (ICD-10-PCS; 2016-11-17)
PROC: 0DB68ZX Excision of Stomach, Via Natural or Artificial Opening Endoscopic, Diagnostic (ICD-10-PCS; 2016-12-06)
DX: A41.9 Sepsis, unspecified organism (principal); R65.21 Severe sepsis with septic shock; E43 Unspecified severe protein-calorie malnutrition; I50.33 Acute on chronic diastolic (congestive) heart failure; R64 Cachexia; J90 Pleural effusion, not elsewhere classified; I95.9 Hypotension, unspecified; J18.9 Pneumonia, unspecified organism; C77.8 Secondary and unspecified malignant neoplasm of lymph nodes of multiple regions; S32.039A Unspecified fracture of third lumbar vertebra, initial encounter for closed fracture; L89.153 Pressure ulcer of sacral region, stage 3; I31.3 Pericardial effusion (noninflammatory); C78.00 Secondary malignant neoplasm of unspecified lung; C78.7 Secondary malignant neoplasm of liver and intrahepatic bile duct; C79.51 Secondary malignant neoplasm of bone; C77.9 Secondary and unspecified malignant neoplasm of lymph node, unspecified; M80.08XA Age-related osteoporosis with current pathological fracture, vertebra(e), initial encounter for fracture; Z68.1 Body mass index [BMI] 19.9 or less, adult; J39.2 Other diseases of pharynx; I10 Essential (primary) hypertension; E83.42 Hypomagnesemia; D63.8 Anemia in other chronic diseases classified elsewhere; B37.9 Candidiasis, unspecified; N30.90 Cystitis, unspecified without hematuria; K44.9 Diaphragmatic hernia without obstruction or gangrene; E86.0 Dehydration; E87.6 Hypokalemia; E83.39 Other disorders of phosphorus metabolism; W19.XXXA Unspecified fall, initial encounter; R13.10 Dysphagia, unspecified; Z85.820 Personal history of malignant melanoma of skin
CPT/HCPCS: 36415; 71010; 72146; 72148; 74176; 74230; 80048; 80053; 81001; 81003; 82728; 82962; 83605; 83690; 83735; 84100; 85025; 87040; 87086; 88305; 88312; 92526; 92610; 92611; 94640; 94664; 96361; 96365; 96366; 96367; 96368; 96375; 96376; 97110; 97162; 97166; 97530; J1940; C9113; J0692; J1650; J1956; J2270; J2405; J2543; J3370; J3475; J3480; J7030; J7040; J7050; J7060

== ENCOUNTER 2017-02-09 09:17 | Inpatient (IN) | payer MEDICARE, BC ==
[2017-02-09] VITALS (27 sets, daily range): BP systolic 67–100; BP diastolic 39–73; PULSE 88–110; RESP 16–34; TEMP 96.3; Ht 152.4 cm; Wt 51.1 kg
[~2017-02-09] VITALS: Ht 152.4 cm; Wt 51.1 kg
[~2017-02-09 09:17] MED LIST changes: -ASPI-664 PO; -ATEN50TA PO; +FURO20TA3 PO; -LOSA1TAB20 PO
[2017-02-09] MEDS ORDERED: CEFEPIME 2GM/50 ML (PMX) 50 ML IVPB STA (09:32)
[2017-02-09] MEDS ORDERED: SODIUM CHLORIDE 0.9% 1L BAG IV* STA (09:32)
[2017-02-09] MEDS ORDERED: ONDANSETRON 4 MG INJ IV STA (09:32)
[2017-02-09] MEDS ORDERED: HYDROmorphONE 1 MG/ML SYG IV STA (09:32)
[2017-02-09] MEDS ORDERED: VANCOMYCIN 1 GM (PMX) 250 ML IVPB ONE (10:00)
[2017-02-09] MEDS ORDERED: LIDOCAINE 1% (MPF) 5 ML VIAL SC ONE (10:00)
--- NOTE | 2017-02-09 10:18 | RADRPT ---
PROCEDURE: Chest x-ray CLINICAL INDICATION: Shortness of breath TECHNIQUE: Chest single view COMPARISON: 11/25/2016 FINDINGS: There is stable severe cardiomegaly. The pulmonary vessels are normal in caliber. There are persiste nt large bilateral pleural effusions which have increased from the prior examination. Extensive asso ciated lower lobe compressive atelectasis and volume loss is seen. IMPRESSION: 1. Stable massive cardiomegaly. A component of pericardial effusion is not excluded 2. Large bilateral pleural effusions which have increased from the prior examination. There is asso ciated lower lobe compressive atelectasis and volume loss. 3. Large hiatal hernia RPTAT: HH .Naif Jasmine MD, MD Date Time Electronically viewed and signed by .Naif Jasmine MD, on 02/09/2017 10:17 .W/
[2017-02-09 10:40] LABS: ALBUMIN 2.7 g/dl (3.3-4.9); ALBUMIN/GLOBULIN RATIO 1.03; BILIRUBIN,DIRECT 0.2 mg/dl (0.00-0.20); BILIRUBIN,INDIRECT 0.4 mg/dl (0-1.1); BILIRUBIN,TOTAL 0.6 mg/dl (0.2-1.3); CALCIUM 7.5 mg/dl (8.4-10.2); CREATININE 0.99 mg/dl (0.44-1.00); POTASSIUM 4.8 mmol/L (3.5-5.1); TOTAL PROTEIN 5.3 g/dl (6.1-8.1)
[2017-02-09 10:54] LABS: TROPONIN-I 0.172 ng/ml (0.00-0.12)
[2017-02-09] MEDS ORDERED: ASPIRIN 81 MG TAB PO ONE (11:00)
[2017-02-09] MEDS ORDERED: ACETAMINOPHEN 325 MG TAB PO PRN (12:00)
[2017-02-09] MEDS ORDERED: ONDANSETRON 4 MG INJ IV PRN (12:00)
[2017-02-09] MEDS ORDERED: SOD CHLORIDE 0.9% 100 ML ONE ×2 (12:33→18:03)
[2017-02-09] MEDS ORDERED: IODIXANOL LOCM 100 ML BTL ONE (12:33)
[2017-02-09] MEDS ORDERED: ATEN50TA PO (12:35)
[2017-02-09] MEDS ORDERED: LOSA1TAB20 PO (12:35)
--- NOTE | 2017-02-09 12:57 | RADRPT ---
PROCEDURE: US guidance for PICC line CLINICAL INDICATION: PICC line placement TECHNIQUE: Multiple real-time images were acquired of the patient's arm utilizing a high resolutio n transducer. This was performed by the PICC line nurse for venous access. COMPARISON: None FINDINGS: Ultrasound guidance for PICC line placement. IMPRESSION: Ultrasound guidance for PICC line placement. RPTAT: AA .Sesar Rudolph MD, MD Date Time Electronically viewed and signed by .Sesar Rudolph MD, on 02/09/2017 12:57 .S/
--- NOTE | 2017-02-09 12:58 | HP ---
Date/Time of Note Date/Time of Note DATE: 02/09/17 TIME: 12:57 Assessment/Plan VTE Prophylaxis VTE Prophylaxis Intervention: contraindicated Lines/Catheters IV Catheter Type (from Nrs): PICC Line Central line still needed: Yes Assessment/Plan Chief Complaint/Hosp Course SOB. AMS Pulmonary embolism in the left upper lobe. Large right greater than left pleural effusions. Interval increase in size of a several small pulmonary lesions seen previously Multiple hepatic lesions, likely metastasis, are again noted which appear to have increased in size consistent with progression of disease. Septic shock. Underlying source is possibly pulmonic, urinary. Continue current medical management. Continue IV fluids, broad spectrum antibiotics. Continue pressor support. We will place an ID consult for evaluation and monitor closely. Nonoliguric acute kidney injury with unknown baseline creatinine. Etiology secondary to septic acute kidney injury, ischemic hypoperfusion and acute tubular necrosis. Plan at this point is to check UA with microanalysis. Check urine electrolytes. We will check a renal ultrasound. Otherwise, continue current treatment plan, supportive care, renally dose meds, avoid nephrotoxins. Metastatic melanoma. The patient has extremely poor prognosis. Will continue to monitor. Follow up with oncology. Anemia. Monitor H and H levels. Acute hypoxemic respiratory failure secondary to pulmonary embolism. Continue current medical management. Continue Lovenox. Follow up with pulmonary. Mineral bone disorder. Monitor calcium and phosphorus levels. Pancytopenia. Continue to monitor. Lactic acidosis secondary to septic shock. Continue to monitor serial lactic acid levels. Elevated troponin, possible non-ST elevation myocardial infarction type 1 versus type 2. Continue to monitor. Will follow up with cardiology. Acute encephalopathy. Etiology is possibly metabolic. Continue to monitor. Gastrointestinal and deep venous thrombosis prophylaxis. PT LOOKS TERMINAL LONG DISCUSSION WITH FAMILY RE CODE STATUS THEY WANT FULL CODE FOR NOW PT IS GOING TO ICU PLAN PER ORDERS Problems: HPI/ROS Admit Date/Time Admit Date/Time 02/09/17 Hx of Present Illness Patient is an 86-year-old female with melanoma and hypertension who presents with shortness of breath. Please note the history and physical exam is limited secondary to the patient's mental status at this time. The patient was brought in by ambulance. The patient is short of breath and has a history of melanoma which appears to be end-stage. She came from a SNF. ROS All systems reviewed and are negative except as per history of present illness. Medications Home Meds Active Scripts Furosemide* (Furosemide*) 20 Mg Tablet, 20 MG PO DAILY for 60 Days, #60 TAB Prov:ARNAUD AGUILAR MD 12/08/16 Reported Medications Losartan-Hydrochlorothiazide (Losartan-HCTZ) 100-25 Mg Tab, 1 TAB PO DAILY, TAB 02/09/17 Atenolol* (Atenolol*) 50 Mg Tablet, 50 MG PO DAILY, #30 TAB 02/09/17 Biotin (BIOTIN) 1 Mg Capsule, 1 MG PO, CAP 10/15/16 Discontinued Scripts Tramadol HCl (Tramadol HCl) 50 Mg Tablet, 50 MG PO Q6H Y for moderate to severe pain for 30 Days, TAB Prov:LEVY VERGARA MD 10/25/16 Allergies Allergies: Coded Allergies: hydrocodone (Unverified Allergy, Unknown, delirium, "I see things that aren't there", 11/17/16) meclizine (Unverified Allergy, Unknown, 11/17/16) meperidine (Unverified Allergy, Unknown, 11/17/16) propoxyphene (Unverified Allergy, Unknown, 11/17/16) PMhx/Soc Anesthesia Reaction: No Hx Neurological Disorder: No (L3 FX ) Hx Respiratory Disorders: No Hx Cardiac Disorders: Yes (HTN ) Hx Psychiatric Problems: No Hx Miscellaneous Medical Probl: Yes (mets to lung, liver, bones, s/p L2-3 compression fx, [place], HTN, fall, ulcers) Hx Alcohol Use: No Hx Substance Use: No Hx Tobacco Use: No Smoking Status: Unknown if ever smoked PMH/Family/Social Social History Smoking Status: Unknown if ever smoked Exam/Review of Systems Vital Signs Vitals Vital Signs Date Time Temp Pulse Resp B/P Pulse Ox O2 Delivery O2 Flow Rate FiO2 02/09/17 09:35 Nasal Cannula 02/09/17 09:25 97.1 89 18 110/82 100 Exam Exam GENERAL: The patient is frail, weak, cachectic. HEENT: Head is normocephalic. NECK: Supple. HEART: Regular rate. LUNGS: Show diminished breath sounds at base. ABDOMEN: Soft, nontender to palpation. No rebound or guarding. EXTREMITIES: Negative for clubbing or cyanosis. Trace edema. DERMATOLOGIC: No rashes. MUSCULOSKELETAL: No joint effusions. NEUROLOGIC: Limited exam as patient is obtunded. Labs Result Diagram: 02/09/17 0959 Medications Medications Current Medications IV Flush (NS 10 ml) 10 ml PRN PRN IV IV PROTOCOL; Start 02/09/17 at 12:30 Procedures Procedures [place] [id number] Radiology Main Line: [phone] DIAGNOSTIC IMAGING REPORT Patient: JORDEN FRANCIS : 1930 Age: 86 Sex: F [id number] DOS: 02/09/17 0933 Ordering MD: VIRY HEAD MD Location: E/R Room/Bed: PROCEDURE: CTA Chest with contrast and with 3-D reconstructions CLINICAL INDICATION: Shortness of breath, pulmonary embolism TECHNIQUE: The study was performed utilizing multidetector CT scanner. Direct spiral axial sections were obtained from the thoracic inlet to the upper abdomen with the use of intravenous contrast material (90 cc of Visipaque 320). Sagittal, coronal and 3-D reformations were obtained. The images were reviewed on a PACS workstation. DLP 382.66 mGycm CTDIvol 19.72, 10.19 mGy One or more of the following dose reduction techniques were used: - Automated exposure control. - Adjustment of the mA and/or kV according to patient size. - Use of iterative reconstruction technique. COMPARISON: CT abdomen/pelvis from 11/17/2016 FINDINGS: There is a filling defect in a segmental branch of the pulmonary artery to the left upper lobe on series 3, image 84 consistent with a pulmonary embolism. There are large right greater than left pleural effusions with prominent bilateral compressive atelectasis. There is a 3 mm right lung nodule on series 4 , image 39. There is a 5 mm left lung nodule on image 43 which previously measured up to 3 mm. There is an 11 mm subpleural right lung nodule on series 4 , image 45 which previously measured up to 8 mm.. There is no pneumothorax. A right-sided PICC line is noted with its tip at the superior cavoatrial junction. Heart size is within normal limits. There is no pericardial fluid. The aorta is within normal limits. There are no enlarged axillary or mediastinal lymph nodes. There are surgical clips in the gallbladder fossa consistent with cholecystectomy. There are numerous hypodensities throughout the liver measuring up to 3.5 cm in the right lobe on series 3, image 194. There are age - indeterminate compression fractures in T12 and L2 which may be a pathologic. Deformity of the right 12th rib is noted on series 3, image 180 which is nonspecific and may be related to remote fracture although an underlying lytic lesion is not excluded. IMPRESSION: Pulmonary embolism in the left upper lobe. Large right greater than left pleural effusions. Interval increase in size of a several small pulmonary lesions seen previously, as above. Multiple hepatic lesions, likely metastasis, are again noted which appear to have increased in size consistent with progression of disease. Possible pathologic compression fractures in T12 and L2 with a possible lytic lesion noted in the right 12th rib. Status post cholecystectomy. Right-sided PICC line with its tip at the superior cavoatrial junction. These findings were discussed with Viry Trevizo over the phone on 2016 at 1:32 PM . RPTAT: EE Physician Lauryn Date Time Electronically viewed and signed by Isac Darby Physician on 02/09/2017 13:32 RA/ CC: VIRY HEAD MD, VERA M MD Feb 09, 2017 12:58
[2017-02-09] MEDS ORDERED: DEXTROSE 50% 50 ML SYRINGE IV STA (13:02)
[2017-02-09] MEDS ORDERED: NORepinephrine 8MG/250 ML (PMX 250 ML IV STA (13:14)
--- NOTE | 2017-02-09 13:25 | RADRPT ---
PROCEDURE: XR Chest. CLINICAL INDICATION: Check line placement TECHNIQUE: Single portable view of the chest was obtained COMPARISON: February 09, 2017 FINDINGS: The trachea is midline. The cardiac silhouette and pulmonary vascularity are enlarged. There are claudia ateral perihilar lower lobe infiltrates and pleural effusions, left greater right. There is a right- sided PICC line with distal tip in the proximal SVC. IMPRESSION: 1. Unchanged marked cardiomegaly and pulmonary congestion. Cannot exclude underlying mass or pericar dial effusion. 2. Bilateral pleural effusions and lower lobe consolidation; pneumonia versus atelectasis 3. Status post placement of right-sided PICC line within the proximal SVC. RPTAT: AAPP Physician Jimbo Date Time Electronically viewed and signed by Physician Jimbo on 02/09/2017 13:25 JL/
--- NOTE | 2017-02-09 13:27 | RADRPT ---
PROCEDURE: XR Chest. CLINICAL INDICATION: PICC line placement TECHNIQUE: Single portable view of the chest was obtained COMPARISON: February 09, 2017 FINDINGS: The trachea is midline. The cardiac silhouette is enlarged and there is prominence of the pulmonary which. There are large bilateral pleural effusions and bilateral lower lobe consolidation. There is readjustment of recently placed right-sided PICC line, with distal tip within the SVC. IMPRESSION: 1. Cardiomegaly and pulmonary vascular congestion with bilateral lower lobe consolidation; pneumonia versus atelectasis and large pleural effusions. 2. Readjustment of PICC line, in satisfactory position. RPTAT: AAPP Physician Jimbo Date Time Electronically viewed and signed by Physician Jimbo on 02/09/2017 13:27 JENIFER/
--- NOTE | 2017-02-09 13:28 | RADRPT ---
PROCEDURE: XR Chest. CLINICAL INDICATION: PICC line placement TECHNIQUE: Single portable view of the chest was obtained COMPARISON: February 09, 2017 FINDINGS: The trachea is midline. The cardiac silhouette is enlarged and there is prominence of the pulmonary which. There are large bilateral pleural effusions and bilateral lower lobe consolidation. There is again readjustment of recently placed right-sided PICC line, with distal tip within the proximal SVC . IMPRESSION: 1. Cardiomegaly and pulmonary vascular congestion with bilateral lower lobe consolidation; pneumonia versus atelectasis and large pleural effusions. 2. Readjustment of PICC line, in satisfactory position. RPTAT: AAPP Physician Jimbo Date Time Electronically viewed and signed by Physician Jimbo on 02/09/2017 13:28 JENIFER/
--- NOTE | 2017-02-09 13:32 | RADRPT ---
PROCEDURE: CTA Chest with contrast and with 3-D reconstructions CLINICAL INDICATION: Shortness of breath, pulmonary embolism TECHNIQUE: The study was performed utilizing multidetector CT scanner. Direct spiral axial section s were obtained from the thoracic inlet to the upper abdomen with the use of intravenous contrast ma terial (90 cc of Visipaque 320). Sagittal, coronal and 3-D reformations were obtained. The images we re reviewed on a PACS workstation. DLP 382.66 mGycm CTDIvol 19.72, 10.19 mGy One or more of the following dose reduction techniques were used: - Automated exposure control. - Adjustment of the mA and/or kV according to patient size. - Use of iterative reconstruction technique. COMPARISON: CT abdomen/pelvis from 11/17/2016 FINDINGS: There is a filling defect in a segmental branch of the pulmonary artery to the left upper lobe on se jesus 3, image 84 consistent with a pulmonary embolism. There are large right greater than left pleural effusions with prominent bilateral compressive atele ctasis. There is a 3 mm right lung nodule on series 4, image 39. There is a 5 mm left lung nodule on image 43 which previously measured up to 3 mm. There is an 11 mm subpleural right lung nodule on se jesus 4, image 45 which previously measured up to 8 mm.. There is no pneumothorax. A right-sided PICC line is noted with its tip at the superior cavoatrial junction. Heart size is wit hin normal limits. There is no pericardial fluid. The aorta is within normal limits. There are no enlarged axillary or mediastinal lymph nodes. There are surgical clips in the gallbladder fossa consistent with cholecystectomy. There are numerou s hypodensities throughout the liver measuring up to 3.5 cm in the right lobe on series 3, image 194 . There are age - indeterminate compression fractures in T12 and L2 which may be a pathologic. Deformi ty of the right 12th rib is noted on series 3, image 180 which is nonspecific and may be related to remote fracture although an underlying lytic lesion is not excluded. IMPRESSION: Pulmonary embolism in the left upper lobe. Large right greater than left pleural effusions. Interval increase in size of a several small pulmonary lesions seen previously, as above. Multiple hepatic lesions, likely metastasis, are again noted which appear to have increased in size consistent with progression of disease. Possible pathologic compression fractures in T12 and L2 with a possible lytic lesion noted in the ri ght 12th rib. Status post cholecystectomy. Right-sided PICC line with its tip at the superior cavoatrial junction. These findings were discussed with Henry Trevizo over the phone on 02/09/2017 at 1:32 PM . RPTAT: EE Isac Darby Physician Date Time Electronically viewed and signed by Isac Darby Physician on 02/09/2017 13:32 RA/
[2017-02-09 13:49] LABS: INR 1.76; PROTIME 20.7 Sec (12.2-14.2); PT RATIO 1.6
--- NOTE | 2017-02-09 13:59 | ERD ---
ER Documentation Chief Complaint Chief Complaint SHORTNESS OF BREATH PER SNF WITH GENERALIZED PAIN HPI Patient is an 86-year-old female with melanoma and hypertension who presents with shortness of breath. Please note the history and physical exam is limited secondary to the patient's mental status at this time. The patient was brought in by ambulance. The patient is short of breath and has a history of melanoma which appears to be end-stage. She came from a SNF. ROS All systems reviewed and are negative except as per history of present illness. Medications Home Meds Active Scripts Furosemide* (Furosemide*) 20 Mg Tablet, 20 MG PO DAILY for 60 Days, #60 TAB Prov:ARNAUD AGUILAR MD 12/08/16 Reported Medications Losartan-Hydrochlorothiazide (Losartan-HCTZ) 100-25 Mg Tab, 1 TAB PO DAILY, TAB 02/09/17 Atenolol* (Atenolol*) 50 Mg Tablet, 50 MG PO DAILY, #30 TAB 02/09/17 Biotin (BIOTIN) 1 Mg Capsule, 1 MG PO, CAP 10/15/16 Discontinued Scripts Tramadol HCl (Tramadol HCl) 50 Mg Tablet, 50 MG PO Q6H Y for moderate to severe pain for 30 Days, TAB Prov:LEVY VERGARA MD 10/25/16 Allergies Allergies: Coded Allergies: hydrocodone (Unverified Allergy, Unknown, delirium, "I see things that aren't there", 11/17/16) meclizine (Unverified Allergy, Unknown, 11/17/16) meperidine (Unverified Allergy, Unknown, 11/17/16) propoxyphene (Unverified Allergy, Unknown, 11/17/16) PMhx/Soc Anesthesia Reaction: No Hx Neurological Disorder: No (L3 FX ) Hx Respiratory Disorders: No Hx Cardiac Disorders: Yes (HTN ) Hx Psychiatric Problems: No Hx Miscellaneous Medical Probl: Yes (mets to lung, liver, bones, s/p L2-3 compression fx, [employer], HTN, fall, ulcers) Hx Alcohol Use: No Hx Substance Use: No Hx Tobacco Use: No Smoking Status: Unknown if ever smoked FmHx Family History: diabetes Physical Exam Vitals Vital Signs Date Time Temp Pulse Resp B/P Pulse Ox O2 Delivery O2 Flow Rate FiO2 02/09/17 09:35 Nasal Cannula 02/09/17 09:25 97.1 89 18 110/82 100 Physical Exam Const: Chronically and critically ill appearing female with severe cachexia Head: Atraumatic Eyes: Normal Conjunctiva ENT: Normal External Ears, Nose and Mouth. Neck: Full range of motion..~ No meningismus. Resp: Clear to auscultation bilaterally Cardio: Regular rate and rhythm, no murmurs Abd: Diffuse abdominal pain Skin: Pale skin Back: No midline or flank tenderness Ext: Diffuse edema to the upper and lower extremities Neur: Awake confused Result Diagram: 02/09/17958 Results 24 hrs Laboratory Tests Test 02/09/17 09:59 02/09/17 13:10 White Blood Count Pending Red Blood Count Pending Hemoglobin Pending Hematocrit Pending Mean Corpuscular Volume Pending Mean Corpuscular Hemoglobin Pending Mean Corpuscular Hemoglobin Concent Pending Red Cell Distribution Width Pending Platelet Count Pending Mean Platelet Volume Pending Sodium Level 135mmol/L Potassium Level 4.8mmol/L Chloride Level 99mmol/L Carbon Dioxide Level 26mmol/L Anion Gap 15 Blood Urea Nitrogen 75mg/dl Creatinine 0.99mg/dl Glucose Level 50mg/dl Lactic Acid Level 3.2mmol/L Calcium Level 7.5mg/dl Total Bilirubin 0.6mg/dl Direct Bilirubin 0.20mg/dl Indirect Bilirubin 0.4mg/dl Aspartate Amino Transf (AST/SGOT) 46IU/L Alanine Aminotransferase (ALT/SGPT) 31IU/L Alkaline Phosphatase 205IU/L Troponin I 0.172ng/ml Total Protein 5.3g/dl Albumin 2.7g/dl Globulin 2.60g/dl Albumin/Globulin Ratio 1.03 Prothrombin Time Pending Prothrombin Time Ratio 1.6 INR International Normalized Ratio 1.76 Activated Partial Thromboplast Time Pending Current Medications Medications (Trade) Dose Ordered Sig/Rogelio Route PRN Reason Start Time Stop Time Status Last Admin Dose Admin Sodium Chloride 1240 ml 1,240 ml BOLUS OVER 2 HOURS STAT IV* 02/09/17 09:32 02/09/17 09:33 DC 02/09/17 09:32 Cefepime HCl 50 ml @ 100 mls/hr ONCE STAT IVPB 02/09/17 09:32 02/09/17 10:01 DC 02/09/17 09:32 Vancomycin HCl (Vancocin) 250 ml @ 125 mls/hr ONCE ONCE IVPB 02/09/17 10:00 02/09/17 11:59 DC 02/09/17 13:40 Hydromorphone HCl (Dilaudid) 1 mg ONCE STAT IV 02/09/17 09:32 02/09/17 09:33 DC 02/09/17 09:32 Ondansetron HCl (Zofran Inj) 4 mg ONCE STAT IV 02/09/17 09:32 02/09/17 09:33 DC 02/09/17 09:32 Lidocaine (Xylocaine 1% (Mpf)) 5 ml ONCE ONCE SC 02/09/17 10:00 02/09/17 10:01 DC Aspirin (Aspirin) 162 mg ONCE ONCE PO 02/09/17 11:00 02/09/17 11:01 DC Ondansetron HCl (Zofran Inj) 4 mg ER BRIDGE PRN IV NAUSEA AND/OR VOMITING 02/09/17 12:00 02/10/17 11:59 Acetaminophen (Tylenol Tab) 650 mg ER BRIDGE PRN PO MILD PAIN/FEVER 02/09/17 12:00 02/10/17 11:59 IV Flush (NS 10 ml) 10 ml PRN PRN IV IV PROTOCOL 02/09/17 12:30 IV Flush 10 ml 10 ml STK-MED ONCE .ROUTE 02/09/17 12:33 02/09/17 12:34 DC Sodium Chloride (NS) 100 ml @ ud STK-MED ONCE .ROUTE 02/09/17 12:33 02/09/17 12:34 DC Iodixanol (Visipaque Locm) 100 ml STK-MED ONCE .ROUTE 02/09/17 12:33 02/09/17 12:34 DC Dextrose 50 ml 50 ml ONCE STAT IV 02/09/17 13:02 02/09/17 13:03 DC 02/09/17 13:32 Norepinephrine (Levophed) 250 ml @ 7.5 mls/hr ONCE STAT IV 02/09/17 13:14 02/10/17 22:33 02/09/17 13:38 Enoxaparin Sodium (Lovenox) 40 mg ONCE ONCE SC 02/09/17 14:00 02/09/17 14:01 Procedures/MDM EKG read by me: Rate/Rhythm: Regular rate and rhythm at a normal rate Intervals: Normal Impression: No evidence of ischemia or arrhythmia CT chest shows pulmonary embolism and large pleural effusion per radiology. She is an 86-year-old female who presents with end-stage melanoma. She was found to have a pulmonary embolism and large pleural effusion. She has a positive troponin likely from pulmonary embolism showing an NSTEMI. I doubt STEMI. The patient was given 30 mL/kg fluid bolus and broad-spectrum antibiotics but at this time there is no obvious sign of infection to suggest sepsis. The patient will be admitted to Dr. Pritchard who is her primary doctor. She will be admitted to the ICU. I do long discussion with multiple family members regarding goals of care and her CODE STATUS. Initially she was full code but family decided on DNR/DNI during the ER stay. The patient would benefit from hospice which Dr. Pritchard will arrange. She is critically ill and will likely shortly. Critical Care: Time: 35 minutes excluding all billable procedures. Treatments/Evaluations: Close monitoring and treatment of unstable vital signs, cardiorespiratory, and neurologic status, while maintaining tight balance of fluid, respiratory, and cardiac interventions. Departure Diagnosis: Primary Impression: Pulmonary embolism Pulmonary embolism type: other Chronicity: acute Acute cor pulmonale presence: without acute cor pulmonale Qualified Code: I26.99 - Other acute pulmonary embolism without acute cor pulmonale Additional Impressions: Shortness of breath NSTEMI (non-ST elevated myocardial infarction) Condition: Critical VIRY HEAD MD Feb 09, 2017 13:59
[2017-02-09] MEDS ORDERED: ENOXAPARIN 40 MG/0.4 ML SYG SC ONE (14:00)
[2017-02-09 14:09] LABS: ABNORMAL IP MESSAGE 1; HEMATOCRIT 27.8 % (37.0-47.0); MEAN CORPUSCULAR HGB CONC 32.4 g/dl (32.0-37.0); MEAN CORPUSCULAR VOLUME 92.7 fl (82.0-101.0); MEAN PLATELET VOLUME 11.8 fl (7.4-10.4); NUCLEATED RED BLOOD CELLS% 1.5 /100WBC (0.0-0.0); RED CELL DISTRIBUTION WIDTH 17.8 % (11.5-14.5)
[2017-02-09 14:15] LABS: POSITIVE DIFF @See below
[2017-02-09 14:27] LABS: PARTIAL THROMBOPLASTIN TIME 80.9 Sec (25.0-35.0)
[2017-02-09 15:53] LABS: BURR CELLS 2+; LYMPHOCYTES # 0.2 10^3/ul (0.8-2.9); MONOCYTE # 0.1 10^3/ul (0.3-0.9); MONOCYTES % (M) 7 % (0-11)
[2017-02-09 15:54] LABS: PLATELET COUNT 66 10^3/UL (140-415)
[2017-02-09] MEDS ORDERED: NORepinephrine 8MG/250 ML (PMX 250 ML IV PRN (17:00)
[2017-02-09] MEDS ORDERED: SOD CHLORIDE 0.9% 1,000 ML IV SCH (18:30)
[2017-02-09] MEDS ORDERED: VANCOMYCIN IV PER PHARMACY XX SCH (18:30)
[2017-02-09] MEDS ORDERED: PENDING SANTYL ORDER FOR WOUND CARE XX PRN (20:30)
[2017-02-09] MEDS ORDERED: VASOPRESSIN 60 UNIT in DEXTROSE 5% 57 ML IV SCH (22:30)
[2017-02-10] VITALS (9 sets, daily range): BP systolic 52; BP diastolic 44; PULSE 0–98; RESP 12–22
[2017-02-10] MEDS ORDERED: PHENYLephrine 20MG IN 250 ML 250 ML ONE (00:16)
--- NOTE | 2017-02-10 04:07 | CONS ---
DATE OF ADMISSION: 02/09/2017 DATE OF CONSULTATION: 02/09/2017 TYPE OF CONSULTATION: Nephrology. REASON FOR CONSULTATION: Fluid management. PHYSICIAN REQUESTING CONSULTATION: Dr. Pritchard. HISTORY OF PRESENT ILLNESS: This is an 86-year-old female with a past medical history of melanoma, metastatic to the bones, liver, history of hypertension, history of cachexia, who [facility] due to altered mental status. The patient upon arrival to the emergency room was noted to be increasingly tachypneic. The patient had a CT angio which showed evidence of pulmonary embolism of the right lobe, a large right greater than left ____ effusion and multiple hepatic lesions and compression fracture of T12 and L2. In the emergency room , the patient was also noted to be hypotensive and in septic shock. She was given IV fluids, IV ant ibiotics and started on pressor support. The patient has been confused and obtunded during her hosp ital course. Upon my evaluation of the patient at this time, she is currently obtunded, unable to give any histor y. There has been no reports of any hemoptysis, hematemesis or hematochezia. PAST MEDICAL HISTORY: As stated above, history of metastatic melanoma, history of hypertension, his tory of compression fracture, history of cachexia, history of encephalopathy. PAST SURGICAL HISTORY: Unknown. ALLERGIES: MULTIPLE DRUG ALLERGIES. PLEASE SEE LIST. MEDICATIONS: The patient's medications have been reviewed. FAMILY HISTORY: Noncontributory. REVIEW OF SYSTEMS: Unable to do adequate review of systems as patient is obtunded. Pertinent posit emmanuel in HPI, otherwise negative. PHYSICAL EXAMINATION: VITAL SIGNS: Blood pressure is 99/77, respirations 19, pulse 89, temperature 96.3. GENERAL: The patient is frail, weak, cachectic. HEENT: Head is normocephalic. NECK: Supple. HEART: Regular rate. LUNGS: Show diminished breath sounds at base. ABDOMEN: Soft, nontender to palpation. No rebound or guarding. EXTREMITIES: Negative for clubbing or cyanosis. Trace edema. DERMATOLOGIC: No rashes. MUSCULOSKELETAL: No joint effusions. NEUROLOGIC: Limited exam as patient is obtunded. LABORATORY DATA: Shows a white count 2.0, hemoglobin 9.0, hematocrit 27.8, platelet count 66. Sodi um 135, potassium 4.8, BUN 75, creatinine 0.99, glucose 55. Lactic acid 3.2. IMAGING STUDIES: As stated in HPI. ASSESSMENT AND PLAN: This is an 86-year-old female who presents with: 1. Nonoliguric acute kidney injury with unknown baseline creatinine. Etiology secondary to septic acute kidney injury, ischemic hypoperfusion and acute tubular necrosis. Plan at this point is to ch nicole UA with microanalysis. Check urine electrolytes. We will check a renal ultrasound. Otherwise, continue current treatment plan, supportive care, renally dose meds, avoid nephrotoxins. 2. Anemia. Monitor H and H levels. 3. Acute hypoxemic respiratory failure secondary to pulmonary embolism. Continue current medical m anagement. Continue Lovenox. Follow up with pulmonary. 4. Mineral bone disorder. Monitor calcium and phosphorus levels. 5. Pancytopenia. Continue to monitor. Follow up with oncology. 6. Lactic acidosis secondary to septic shock. Continue to monitor serial lactic acid levels. 7. Septic shock. Underlying source is possibly pulmonic, urinary. Continue current medical manage ment. Continue IV fluids, broad spectrum antibiotics. Continue pressor support. We will place an ID consult for evaluation and monitor closely. 8. Elevated troponin, possible non-ST elevation myocardial infarction type 1 versus type 2. Contin ue to monitor. Will follow up with cardiology. 9. Metastatic melanoma. The patient has extremely poor prognosis. Will continue to monitor. Foll ow up with oncology. 10. Acute encephalopathy. Etiology is possibly metabolic. Continue to monitor. 11. Gastrointestinal and deep venous thrombosis prophylaxis. Thank you, Dr. Pritchard, for this interesting consultation. Dictated By: HANNAH ACOSTA/ROSA Conf#: [id number] DID#: [id number]
--- NOTE | 2017-02-10 04:26 | CONS ---
DATE OF ADMISSION: 02/09/2017 DATE OF CONSULTATION: 02/09/2017 TYPE OF CONSULTATION: Infectious Disease. REASON FOR CONSULTATION: Antibiotic management. HISTORY OF PRESENT ILLNESS: Norma Gallego is an unfortunate 86-year-old female with a history of m elanoma and hypertension who presents with shortness of breath. Her past problems include hypertens ion in addition to the aforementioned problems. ALLERGIES: SHE IS ALLERGIC TO: 1. HYDROCODONE. 2. MECLIZINE. 3. MEPERIDINE. 4. ____. 5. DARVON. She has a history of an L3 fracture and also as noted has hypertension. 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 On admission, her glucose was 50, her white count was 2.0, H and H 9 and 27.8, platelet count of 66,000 with 63% polys and 21% bands indicative of an infection. She has a PICC line that was inserted. She has cardiomegaly, pulmonary vascular congestion, bilateral lower lobe consolidation, pneumonia versus atelectasis. Large pleural effusio n. She has a PICC line inserted as noted. Her chest thoracic CTA shows pulmonary emboli, large rig ht greater than left pleural effusion, interval increase in size of several small pulmonary lesions. Multiple hepatic lesions, likely metastases, are again noted. Possible pathological fracture at T 12 and L2, status post cholecystectomy, right-sided PICC line. PHYSICAL EXAMINATION: GENERAL: The patient is an elderly female who is awake, responsive, in no acute distress. VITAL SIGNS: Stable. She is chronically ill and cachectic. SKIN: Without generalized rash. HEENT: Within normal limits. NECK: Supple. LYMPH NODES: None palpable. CHEST: Decreased breath sounds at the bases. HEART: Without murmur or gallop. ABDOMEN: Soft, nontender. She has diffuse abdominal pain. No rebound tenderness. EXTREMITIES: Without cyanosis, clubbing, or edema. She has diffuse edema of the upper and lower ex tremities. RECTAL AND GENITAL: Deferred. NEUROLOGIC: The patient is confused. IMPRESSION AND PLAN: The patient is septic, probable pneumonitis. She is on vancomycin and cefepim e. Cultures have been obtained. We will continue her on current therapy. I will dictate my findin gs to Dr. Pritchard. Dictated By: CONTRERAS STEVENS MD, JD/ROSA Conf#: [id number] DID#: [id number]
--- NOTE | 2017-02-10 08:21 | RADRPT ---
PROCEDURE: Ultrasound Retroperitoneum. CLINICAL INDICATION: Renal insufficiency. TECHNIQUE: Manley scale and color flow sonographic images of the kidneys and retroperitoneum were ob tained. The images were reviewed on a PACS workstation. COMPARISON: No prior studies are available for comparison. FINDINGS: The right kidney measures 6.0 cm. The left kidney measures 6.5 cm. Increased cortical echogenicity i s identified in both kidneys. No masses, stones or hydronephrosis are identified. The bladder contains a Kaur catheter and is collapsed. IMPRESSION: Small, echogenic kidneys compatible with medical renal disease. RPTAT: AA .Wili Moctezuma MD, MD Date Time Electronically viewed and signed by .Wili Moctezuma MD, on 02/10/2017 08:20 .P/
[2017-02-10] MEDS ORDERED: VANCOMYCIN 500MG/NS (PMX) 100 ML IVPB SCH (14:00)
--- NOTE | 2017-02-12 22:15 | DS ---
Date/Time of Note Date/Time of Note DATE: 02/12/17 TIME: 22:07 Discharge Summary Admission/Discharge Info Admit Date/Time Feb 09, 2017 at 11:56 Discharge Date/Time Feb 10, 2017 at 00:52 Discharge Diagnosis END-STAGE MELANOMA SOB. AMS Pulmonary embolism in the left upper lobe. Large right greater than left pleural effusions. Interval increase in size of a several small pulmonary lesions seen previously Multiple hepatic lesions, likely metastasis, are again noted which appear to have increased in size consistent with progression of disease. Septic shock. Nonoliguric acute kidney injury with unknown baseline creatinine. Anemia. Acute hypoxemic respiratory failure secondary to pulmonary embolism. Mineral bone disorder. Pancytopenia. Lactic acidosis secondary to septic shock. Elevated troponin, possible non-ST elevation myocardial infarction type 1 versus type 2. Acute encephalopathy. Gastrointestinal and deep venous thrombosis prophylaxis. Hx of Present Illness Patient is an 86-year-old female with melanoma and hypertension who presents with shortness of breath. Please note the history and physical exam is limited secondary to the patient's mental status at this time. The patient was brought in by ambulance. The patient is short of breath and has a history of melanoma which appears to be end-stage. She came from a SNF. ROS All systems reviewed and are negative except as per history of present illness. Medications Home Meds Active Scripts Furosemide* (Furosemide*) 20 Mg Tablet, 20 MG PO DAILY for 60 Days, #60 TAB Prov:ARNAUD AGUILAR MD 12/08/16 Reported Medications Losartan-Hydrochlorothiazide (Losartan-HCTZ) 100-25 Mg Tab, 1 TAB PO DAILY, TAB 02/09/17 Atenolol* (Atenolol*) 50 Mg Tablet, 50 MG PO DAILY, #30 TAB 02/09/17 Biotin (BIOTIN) 1 Mg Capsule, 1 MG PO, CAP 10/15/16 Discontinued Scripts Tramadol HCl (Tramadol HCl) 50 Mg Tablet, 50 MG PO Q6H Y for moderate to severe pain for 30 Days, TAB Prov:LEVY VERGARA MD 10/25/16 Allergies Allergies: Coded Allergies: hydrocodone (Unverified Allergy, Unknown, delirium, "I see things that aren't there", 11/17/16) meclizine (Unverified Allergy, Unknown, 11/17/16) meperidine (Unverified Allergy, Unknown, 11/17/16) propoxyphene (Unverified Allergy, Unknown, 11/17/16) PMhx/Soc Anesthesia Reaction: No Hx Neurological Disorder: No (L3 FX ) Hx Respiratory Disorders: No Hx Cardiac Disorders: Yes (HTN ) Hx Psychiatric Problems: No Hx Miscellaneous Medical Probl: Yes (mets to lung, liver, bones, s/p L2-3 compression fx, RAMPART, HTN, fall, ulcers) Hx Alcohol Use: No Hx Substance Use: No Hx Tobacco Use: No Smoking Status: Unknown if ever smoked Hospital Course PT WAS ADMITTED WITH SOB, AMS AND HYPOTENSION SHE WAS DX WITH PE , POS SEPSIS PT WAS ADMITTED TO ICU SHE WAS STARTED ON PRESSORS, AND IVF HER CONDITION DETERIORATED AND SHE SHE WITH FAMILY PRESENT AT [facility] Med Active Scripts Furosemide* (Furosemide*) 20 Mg Tablet, 20 MG PO DAILY for 60 Days, #60 TAB Prov:ARNAUD AGUILAR MD 12/08/16 Reported Medications Losartan-Hydrochlorothiazide (Losartan-HCTZ) 100-25 Mg Tab, 1 TAB PO DAILY, TAB 02/09/17 Atenolol* (Atenolol*) 50 Mg Tablet, 50 MG PO DAILY, #30 TAB 02/09/17 Biotin (BIOTIN) 1 Mg Capsule, 1 MG PO, CAP 10/15/16 Discontinued Scripts Tramadol HCl (Tramadol HCl) 50 Mg Tablet, 50 MG PO Q6H Y for moderate to severe pain for 30 Days, TAB Prov:LEVY VERGARA MD 10/25/16 Primary Care Provider MD TOM Cook VERA M MD Feb 12, 2017 22:15
== END 2017-02-10 00:52 | disposition expired | DRG 871 ==
LOC: E/R 09:17 → ICU 11:56
PROVIDERS: ADMIT Internal Medicine Hematology & Oncology; ATTEND Internal Medicine
PROC: 02HV33Z Insertion of Infusion Device into Superior Vena Cava, Percutaneous Approach (ICD-10-PCS; principal; 2017-02-09)
PROC: B548ZZA Ultrasonography of Superior Vena Cava, Guidance (ICD-10-PCS; 2017-02-09)
DX: A41.9 Sepsis, unspecified organism (principal); J96.01 Acute respiratory failure with hypoxia; N17.0 Acute kidney failure with tubular necrosis; I26.99 Other pulmonary embolism without acute cor pulmonale; I21.4 Non-ST elevation (NSTEMI) myocardial infarction; G93.40 Encephalopathy, unspecified; J90 Pleural effusion, not elsewhere classified; R65.21 Severe sepsis with septic shock; C78.00 Secondary malignant neoplasm of unspecified lung; D61.818 Other pancytopenia; C78.7 Secondary malignant neoplasm of liver and intrahepatic bile duct; C79.51 Secondary malignant neoplasm of bone; E87.2 Acidosis; C43.9 Malignant melanoma of skin, unspecified; D64.9 Anemia, unspecified; I10 Essential (primary) hypertension; Z66 Do not resuscitate
CPT/HCPCS: 36569; 71010; 71275; 76775; 76937; 80053; 82962; 83605; 84484; 85025; 85610; 85730; 87040; 87081; 93005; 96361; 96365; 96375; J0692; J1170; J2370; J2405; J3370; J7030; J7060; Q9967